=== PATIENT | female | born 1945 | race Caucasian/White ===

== ENCOUNTER 2018-01-18 15:43 | Inpatient (IN) | payer MEDICARE ==
[2018-01-18] MEDS ORDERED: NS 0.9% 1000 ML*IV.FLUID IV ONE (16:14)
[2018-01-18 16:33] LABS: Urine Color Red; Urine Specific Gravity 1.024 (1.010-1.030)
[2018-01-18 16:38] LABS: Urine Appearance Cloudy
[2018-01-18 16:54] LABS: ABS Basophils 0 10^3/ul (0-0.2); ABS Eosinophils 0 10^3/ul (0-0.6); ABS Lymphocytes 0.5 10^3/ul (1.0-4.8); ABS Monocytes 0.3 10^3/ul (0-0.8); ABS Neutrophils 1.7 10^3/ul (1.5-7.7); ABS Nucleated RBC 0 10^3/ul; Eosinophil % 0.6 % (0-6); Hematocrit 42 % (35-47); Hemoglobin 13.8 g/dl (12.0-16.0); Lymphocyte % 20.7 % (25-47); Mean Corpuscular HGB Conc 33 g/dl (31-36); Mean Corpuscular Hemoglobin 26 pg (27-31); Mean Corpuscular Volume 78 fL (80-97); Nucleated Red Blood Cells % 0.2; Platelet Count 203 10^3/ul (150-450); Red Cell Distribution Width 16 % (10.5-15); White Blood Count 2.5 10^3/ul (3.5-10.8)
[2018-01-18 16:56] LABS: INR 0.93 (0.77-1.02)
[2018-01-18 17:36] LABS: EGFR Non-African American 66.6 (>60)
[2018-01-18] MEDS ORDERED: cefTRIAXone(*) 1 GM in NS 0.9% 50 ML* 50 ML IVPB ONE (17:36)
--- NOTE | 2018-01-18 17:42 | RAD ---
INDICATION: Cough and weakness COMPARISON: None. TECHNIQUE: Single AP portable view of the chest was obtained. FINDINGS: Image quality is compromised due to the relative inferiority of a portable chest x-ray. The heart and mediastinum exhibit normal size and contour. The lungs are grossly clear. There is no evidence of a large pleural effusion. Visualized bones are normal for the patient's age. IMPRESSION: No radiographic evidence for acute cardiopulmonary abnormality on this portable chest x-ray.
[2018-01-18] MEDS ORDERED: Oseltamivir CAP* 75 MG CAP PO ONE (17:43)
[2018-01-18] MEDS ORDERED: NS 0.9% 50 ML* 50 ML ONE (17:58)
[2018-01-18] MEDS ORDERED: cefTRIAXone 1000 MG SYRINGE IVPB ONCE (in NaCl) IVPB ONE ×2 (18:30)
[2018-01-18] MEDS ORDERED: Potassium Chlor TAB* 20 MEQ TAB.ER PO ONE (18:32)
[2018-01-18] MEDS ORDERED: Ondansetron INJ* 2 MG/ML VIAL IV PRN (18:32)
--- NOTE | 2018-01-18 18:42 | ED ---
Kristi Michaud Rebecca, scribed for Antony Catherine MD on 01/18/18 at 1612 . Complex/Multi-Sys Presentation - HPI Summary HPI Summary: Pt is a 72 y/o F BIBA who presents to ED c/o acute on chronic weakness. Pt reports that she had been trying to transfer from her wheelchair to a chair when she fell at 1500 due to feeling weak. Feels as though she has been becoming gradually weaker over time. Additionally c/o nonproductive cough, subjective fever and notes that her urine has been dark for about 2 months. States that she feels dehydrated. Denies abd pain. PMHx MS with chronic weakness for which she sees Dr. Steen. Lives alone and typically uses a wheelchair. - History Of Current Complaint Chief Complaint: EDWeakness Time Seen by Provider: 01/18/18 16:00 Hx Obtained From: Patient Onset/Duration: Still Present Severity Currently: None Location: Negative Associated Signs And Symptoms: Positive: Weakness - Allergies/Home Medications Allergies/Adverse Reactions: Allergies Allergy/AdvReac Type Severity Reaction Status Date / Time ibuprofen Allergy Mild GI Upset Verified 01/18/18 16:06 Home Medications: Home Medications Alendronate (NF) [Fosamax (NF)] 70 mg PO WEEKLY 01/18/18 [History Confirmed ] Baclofen TAB* [Lioresal TAB*] 20 mg PO BID 01/18/18 [History Confirmed 01/18/18] Fluconazole [Fluconazole 200 mg tab] 200 mg PO DAILY 01/18/18 [History Confirmed 01/18/18] Gabapentin CAP(*) [Neurontin 300 CAP(*)] 300 mg PO DAILY 01/18/18 [History Confirmed 01/18/18] Hydrochlorothiazide TAB* [Hydrodiuril TAB*] 25 mg PO DAILY 01/18/18 [History Confirmed 01/18/18] Levothyroxine TAB* [Synthroid TAB*] 137 mcg PO DAILY 01/18/18 [History Confirmed 01/18/18] Metoprolol Succinate XL TAB* [Toprol XL TAB*] 25 mg PO DAILY 01/18/18 [History Confirmed 01/18/18] Oxybutynin XL TAB* [Ditropan XL TAB*] 10 mg PO DAILY 01/18/18 [History Confirmed 01/18/18] Rivaroxaban TAB(*) [Xarelto 10 mg (*)] 10 mg PO DAILY 01/18/18 [History Confirmed 01/18/18] PMH/Surg Hx/FS Hx/Imm Hx Cardiovascular History: Reports: Hx Atrial Fibrillation, Hx Hypertension Neurological History: Reports: Other Neuro Impairments/Disorders - Hx MS Infectious Disease History: No Infectious Disease History: Denies: Traveled Outside the [place] in Last 30 Days - Family History Known Family History: Negative: Hypertension, Diabetes - Social History Lives: Alone Alcohol Use: Occasionally Substance Use Type: Reports: None Smoking Status (MU): Former Smoker Review of Systems Positive: Fever, Other - Fall earlier today Positive: Cough Negative: Abdominal Pain Positive: other - Dark urine Positive: Weakness All Other Systems Reviewed And Are Negative: Yes Physical Exam - Summary Physical Exam Summary: General: well-appearing, no pain distress Skin: warm, color reflects adequate perfusion, dry Head: normal Eyes: EOMI, RU ENT: oral mucosa dry Neck: supple, nontender Respiratory: CTA, breath sounds present Cardiovascular: Tachycardic Abdomen: soft, nontender Bowel: present Musculoskeletal: does not move her right leg, which she reports is chronic, otherwise normal strength/ROM Neurological: normal, sensory/motor intact, A&O x3 Psychological: affect/mood appropriate Triage Information Reviewed: Yes Vital Signs On Initial Exam: Initial Vitals Temp Pulse Resp BP Pulse Ox 99.9 F 97 24 104/66 94 01/18/18 16:01 01/18/18 16:01 01/18/18 16:01 01/18/18 16:01 01/18/18 16:01 Vital Signs Reviewed: Yes Diagnostics - Vital Signs Vital Signs Temp Pulse Resp BP Pulse Ox 01/18/18 16:01 99.9 F 97 24 104/66 94 - Laboratory Lab Results: Lab Results 01/18/18 01/18/18 01/18/18 Range/Units 16:15 16:22 16:32 WBC (3.5-10.8) 10^3/ul RBC (4.0-5.4) 10^6/ul Hgb (12.0-16.0) g/dl Hct (35-47) % MCV (80-97) fL MCH (27-31) pg MCHC (31-36) g/dl RDW (10.5-15) % Plt Count (150-450) 10^3/ul MPV (7.4-10.4) um3 Neut % (Auto) (38-83) % Lymph % (Auto) (25-47) % [place] % (Auto) (0-7) % Eos % (Auto) (0-6) % Baso % (Auto) (0-2) % Absolute Neuts (auto) (1.5-7.7) 10^3/ul Absolute Lymphs (auto) (1.0-4.8) 10^3/ul Absolute Monos (auto) (0-0.8) 10^3/ul Absolute Eos (auto) (0-0.6) 10^3/ul Absolute Basos (auto) (0-0.2) 10^3/ul Absolute Nucleated RBC 10^3/ul Nucleated RBC % INR (Anticoag Therapy) 0.93 (0.77-1.02) APTT 33.1 (26.0-36.3) seconds Sodium (139-145) mmol/L Potassium (3.5-5.0) mmol/L Chloride (101-111) mmol/L Carbon Dioxide (22-32) mmol/L Anion Gap (2-11) mmol/L BUN (6-24) mg/dL Creatinine (0.51-0.95) mg/dL Est GFR ( Amer) (>60) Est GFR (Non-Af Amer) (>60) BUN/Creatinine Ratio (8-20) Glucose (70-100) mg/dL Lactic Acid (0.5-2.0) mmol/L Calcium (8.6-10.3) mg/dL Total Bilirubin (0.2-1.0) mg/dL AST (13-39) U/L ALT (7-52) U/L Alkaline Phosphatase (34-104) U/L Total Creatine Kinase (10-223) U/L Troponin I (<0.04) ng/mL C-Reactive Protein (< 5.00) mg/L B-Natriuretic Peptide ( - 100) pg/mL Total Protein (6.4-8.9) g/dL Albumin (3.2-5.2) g/dL Globulin (2-4) g/dL Albumin/Globulin Ratio (1-3) Lipase (11.0-82.0) U/L Urine Color Red A Urine Appearance Cloudy Urine pH (5-9) Ur Specific [place] 1.024 (1.010-1.030) Urine Protein (Negative) Urine Ketones (Negative) Urine Blood (Negative) Urine Nitrate (Negative) Urine Bilirubin (Negative) Urine Urobilinogen (Negative) Ur Leukocyte Esterase (Negative) Urine WBC (Auto) 1+(6-10/hpf) A (Absent) Urine RBC (Auto) 3+(>10/hpf) A (Absent) Uric Acid Crystals Present A (Absent) Urine Bacteria 1+ A (Absent) Urine Glucose (Negative) Urine Ascorbic Acid (Negative) Influenza A (Rapid) Positive A (Negative) Influenza B (Rapid) Negative (Negative) 01/18/18 01/18/18 01/18/18 Range/Units 16:32 16:32 16:32 WBC 2.5 L (3.5-10.8) 10^3/ul RBC 5.40 (4.0-5.4) 10^6/ul Hgb 13.8 (12.0-16.0) g/dl Hct 42 (35-47) % MCV 78 L (80-97) fL MCH 26 L (27-31) pg MCHC 33 (31-36) g/dl RDW 16 H (10.5-15) % Plt Count 203 (150-450) 10^3/ul MPV 8.0 (7.4-10.4) um3 Neut % (Auto) 66.2 (38-83) % Lymph % (Auto) 20.7 L (25-47) % [place] % (Auto) 11.7 H (0-7) % Eos % (Auto) 0.6 (0-6) % Baso % (Auto) 0.8 (0-2) % Absolute Neuts (auto) 1.7 (1.5-7.7) 10^3/ul Absolute Lymphs (auto) 0.5 L (1.0-4.8) 10^3/ul Absolute Monos (auto) 0.3 (0-0.8) 10^3/ul Absolute Eos (auto) 0 (0-0.6) 10^3/ul Absolute Basos (auto) 0 (0-0.2) 10^3/ul Absolute Nucleated RBC 0 10^3/ul Nucleated RBC % 0.2 INR (Anticoag Therapy) (0.77-1.02) APTT (26.0-36.3) seconds Sodium 133 L (139-145) mmol/L Potassium 3.4 L (3.5-5.0) mmol/L Chloride 93 L (101-111) mmol/L Carbon Dioxide 23 (22-32) mmol/L Anion Gap 17 H (2-11) mmol/L BUN 24 (6-24) mg/dL Creatinine 0.84 (0.51-0.95) mg/dL Est GFR ( Amer) 85.7 (>60) Est GFR (Non-Af Amer) 66.6 (>60) BUN/Creatinine Ratio 28.6 H (8-20) Glucose 99 (70-100) mg/dL Lactic Acid 1.2 (0.5-2.0) mmol/L Calcium 9.9 (8.6-10.3) mg/dL Total Bilirubin 0.30 (0.2-1.0) mg/dL AST 95 H (13-39) U/L ALT 59 H (7-52) U/L Alkaline Phosphatase 110 H (34-104) U/L Total Creatine Kinase 58 (10-223) U/L Troponin I 0.02 (<0.04) ng/mL C-Reactive Protein 9.34 H (< 5.00) mg/L B-Natriuretic Peptide ( - 100) pg/mL Total Protein 8.0 (6.4-8.9) g/dL Albumin 4.4 (3.2-5.2) g/dL Globulin 3.6 (2-4) g/dL Albumin/Globulin Ratio 1.2 (1-3) Lipase 12 (11.0-82.0) U/L Urine Color Urine Appearance Urine pH (5-9) Ur Specific [place] (1.010-1.030) Urine Protein (Negative) Urine Ketones (Negative) Urine Blood (Negative) Urine Nitrate (Negative) Urine Bilirubin (Negative) Urine Urobilinogen (Negative) Ur Leukocyte Esterase (Negative) Urine WBC (Auto) (Absent) Urine RBC (Auto) (Absent) Uric Acid Crystals (Absent) Urine Bacteria (Absent) Urine Glucose (Negative) Urine Ascorbic Acid (Negative) Influenza A (Rapid) (Negative) Influenza B (Rapid) (Negative) 01/18/18 Range/Units 16:32 WBC (3.5-10.8) 10^3/ul RBC (4.0-5.4) 10^6/ul Hgb (12.0-16.0) g/dl Hct (35-47) % MCV (80-97) fL MCH (27-31) pg MCHC (31-36) g/dl RDW (10.5-15) % Plt Count (150-450) 10^3/ul MPV (7.4-10.4) um3 Neut % (Auto) (38-83) % Lymph % (Auto) (25-47) % [place] % (Auto) (0-7) % Eos % (Auto) (0-6) % Baso % (Auto) (0-2) % Absolute Neuts (auto) (1.5-7.7) 10^3/ul Absolute Lymphs (auto) (1.0-4.8) 10^3/ul Absolute Monos (auto) (0-0.8) 10^3/ul Absolute Eos (auto) (0-0.6) 10^3/ul Absolute Basos (auto) (0-0.2) 10^3/ul Absolute Nucleated RBC 10^3/ul Nucleated RBC % INR (Anticoag Therapy) (0.77-1.02) APTT (26.0-36.3) seconds Sodium (139-145) mmol/L Potassium (3.5-5.0) mmol/L Chloride (101-111) mmol/L Carbon Dioxide (22-32) mmol/L Anion Gap (2-11) mmol/L BUN (6-24) mg/dL Creatinine (0.51-0.95) mg/dL Est GFR ( Amer) (>60) Est GFR (Non-Af Amer) (>60) BUN/Creatinine Ratio (8-20) Glucose (70-100) mg/dL Lactic Acid (0.5-2.0) mmol/L Calcium (8.6-10.3) mg/dL Total Bilirubin (0.2-1.0) mg/dL AST (13-39) U/L ALT (7-52) U/L Alkaline Phosphatase (34-104) U/L Total Creatine Kinase (10-223) U/L Troponin I (<0.04) ng/mL C-Reactive Protein (< 5.00) mg/L B-Natriuretic Peptide 167 H ( - 100) pg/mL Total Protein (6.4-8.9) g/dL Albumin (3.2-5.2) g/dL Globulin (2-4) g/dL Albumin/Globulin Ratio (1-3) Lipase (11.0-82.0) U/L Urine Color Urine Appearance Urine pH (5-9) Ur Specific [place] (1.010-1.030) Urine Protein (Negative) Urine Ketones (Negative) Urine Blood (Negative) Urine Nitrate (Negative) Urine Bilirubin (Negative) Urine Urobilinogen (Negative) Ur Leukocyte Esterase (Negative) Urine WBC (Auto) (Absent) Urine RBC (Auto) (Absent) Uric Acid Crystals (Absent) Urine Bacteria (Absent) Urine Glucose (Negative) Urine Ascorbic Acid (Negative) Influenza A (Rapid) (Negative) Influenza B (Rapid) (Negative) Result Diagrams: 01/18/18 16:32 01/18/18 16:32 Lab Statement: Any lab studies that have been ordered have been reviewed, and results considered in the medical decision making process. - Radiology CXR Xray Interpretation: No Acute Changes - No radiographic evidence for acute cardiopulmonary abnormality on this portable chest x-ray. ED physician reviewed this radiology report. Radiology Interpretation Completed By: Radiologist - EKG 1622 Cardiac Rate: NL - 75 bpm EKG Rhythm: Atrial Fibrillation EKG Interpretation: Low voltage in extremity leads Complex Multi-Symp Course/Dx Course Of Treatment: ADMIT HOSPITALIST Assessment/Plan: Medications reviewed. Allergies noted. - Diagnoses Provider Diagnoses: Influenza, Weakness, Dehydration, UTI (urinary tract infection) - Physician Notifications Discussed Care Of Patient With: Lorraine Monte Time Discussed With Above Provider: 17:47 Instructed by Provider To: Other - Accepts pt for admission. Discharge - Sign-Out/Discharge Documenting (check all that apply): Discharge - Discharge Plan Condition: Fair Disposition: ADMITTED TO [facility] Referrals: Juliana Reeves MD [Primary Care Provider] - - Billing Disposition and Condition Condition: FAIR Disposition: [facility] [place] The documentation as recorded by the Kristi gaston Rebecca accurately reflects the service I personally performed and the decisions made by , Antony Catherine MD.
[2018-01-18] MEDS ORDERED: cefTRIAXone(*) 1 GM in NS 0.9% 50 ML* 50 ML IVPB SCH (19:00)
--- NOTE | 2018-01-18 19:14 | RAD ---
HISTORY: Elevated LFTs COMPARISONS: None TECHNIQUE: Multiple transverse and longitudinal ultrasound images were obtained of the right upper quadrant. FINDINGS: The examination is limited by the patient coughing and limitations in positioning. LIVER: The liver is normal in dimensions and echogenicity. Normal hepatic and portal venous blood flow is duplicated with color flow imaging. There is no gross intrahepatic biliary duct dilatation. GALLBLADDER AND EXTRAHEPATIC BILIARY DUCT: There are mobile shadowing echogenic stones in the gallbladder lumen.. There is no pericholecystic fluid or gallbladder wall thickening. The common bile duct measures a maximum diameter of 3 mm. PANCREAS: Overlying bowel gas prevents meaningful evaluation of the pancreas. RIGHT KIDNEY: The right kidney is normal in size, morphology and echogenicity aside from a 1 cm mid-level renal cyst. IMPRESSION: CHOLELITHIASIS WITHOUT SONOGRAPHIC SIGNS OF ACUTE INFLAMMATORY CHANGE OR BILIARY OBSTRUCTION.
[2018-01-18] MEDS: NS 0.9% 1000 ML* 1,000 ML IV SCH (21:21)
[2018-01-18] MEDS: Oseltamivir CAP* 75 MG CAP PO SCH (22:55)
[2018-01-18] MEDS: Baclofen TAB* 10 MG PO SCH (22:56)
[2018-01-18] MEDS: PTO:Dimethyl Fumarate(NF) 240 MG CAP PO SCH (23:01)
--- NOTE | 2018-01-18 23:07 | HP ---
CC: Juliana Reeves MD; Dr. Finley * HISTORY AND PHYSICAL: DATE OF ADMISSION: 01/18/18 PRIMARY CARE PROVIDER: Dr. Reeves. ATTENDING PHYSICIAN WHILE IN THE HOSPITAL: Charles Bermudez MD * (report dictated by Andres Pino NP) CHIEF COMPLAINT: Weakness. HISTORY OF PRESENT ILLNESS: Mrs. Ayala is a 72-year-old female patient. She has a history of MS, AFib, hypothyroidism, and neurogenic bladder with a chronic Chaudhari. She comes in to our ER today. She says that she was recently over at [facility] actually over 3 months ago and then went to rehab for 3 months over at [place]. I am going to try to get those records because she does not know the details of why. She states that she went there just for weakness. She says that she was just discharged about 6 days ago. She says for the initial couple days, she was doing well, but then she says over the last 4 days, she has had progressive cough, shortness of breath, fevers, chills , worsening weakness, just not really feeling well. She just was feeling tired. She also notes that she has been having hematuria as well, which she states she has been following with Dr. Finley. She saw him recently for this. The patient says that she just is not feeling well. She came in to the ED today. She was evaluated. She was found to have influenza and what appeared to be a UTI. The patient denies having any chest pain. She does state that she is not feeling short of breath. She says that she is not having any nausea, vomiting, or diarrhea; but because of the fact of the MS, worsening weakness, the flu, the hematuria now, the UTI, we were asked to evaluate for admission. PAST MEDICAL HISTORY: Significant for: 1. MS. 2. AFib. 3. Hypothyroidism. 4. Neurogenic bladder. PAST SURGICAL HISTORY: 1. She has had a thyroidectomy. 2. 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 3. She has had ORIF of bilateral lower ankles. HOME MEDICATIONS: Include: 1. Neurontin 300 mg p.o. daily. 2. Oxybutynin 10 mg p.o. daily. 3. Fosamax 70 mg weekly. 4. Fluconazole 200 mg p.o. daily. 5. Toprol 25 mg daily. 6. Synthroid 137 mcg daily. 7. Hydrochlorothiazide 25 mg daily. 8. Baclofen 20 mg p.o. b.i.d. 9. Xarelto 10 mg p.o. daily. ALLERGIES TO MEDICATIONS: Include IBUPROFEN. FAMILY HISTORY: Mother has a history of CVA. Father's history is reviewed and noncontributory. She said he when he was young in a car accident. SOCIAL HISTORY: She does not smoke. She does not drink. She lives alone. Surrogate decision maker is her sister. REVIEW OF SYSTEMS: There is no documented fever her. She does subjectively admit to having a fever at home. She denies having any significant weight change. No double vision. No ear discharge. She denies having any rhinorrhea. No sore throat. No thyroid enlargement. She denies having any chest pain. She did admit to having a cough. She does admit to having shortness of breath. She denies having any abdominal pain. There has been no nausea, no vomiting, no dysuria, no frequency. She denied having any seizure. No loss of consciousness. No pruritus and no skin ulcerations. Review of 14 systems completed, all others negative. PHYSICAL EXAMINATION GENERAL: At this time, Mrs. Ayala is a 72-year-old female patient. She is sitting in the ED stretcher. She does not appear to be in any acute distress. VITAL SIGNS: Blood pressure 104/66, pulse 97, respirations 20, O2 sat 94%, temperature 99.9. HEENT: Head: Atraumatic, normocephalic. Eyes: EOMs intact. Sclerae anicteric, not pale. Throat: Oral mucosa appears to be dry. No oropharyngeal erythema. NECK: Supple. LUNGS: No wheezes or rales heard. She had rhonchi in the upper lobes. No crackles. HEART: Sounds S1, S2. Regular rate and rhythm. No murmurs, rubs, or gallops. ABDOMEN: Soft. It was flat, nontender. No CVA tenderness. EXTREMITIES: Pulses were 2+ throughout. She has weakness to the lower extremities. She had 5/5 strength in the upper extremities. NEUROLOGIC: The patient is awake. She is alert. She is oriented x3. Again, weakness to bilateral lower extremities. She had no gross focal neuro deficits. SKIN: Intact. LABORATORY DATA/DIAGNOSTIC STUDIES: WBC of 2.5, RBC of 5.40, hemoglobin of 13.8, hematocrit of 42, platelet count of 203. The INR was 0.93. PTT of 33.1. Sodium 133, potassium of 3.4, chloride of 93, bicarb of 23, BUN of 24, creatinine of 0.84, glucose of 99. Lactate 1.2. Calcium 9.9. Total bili 0.3, AST 95, ALT 59, alk phos 110. Troponin 0.02. CRP of 9. BNP of 167. Lipase was 12. Urine showed 1+ wbc, 3+ rbc's, 1+ bacteria. Serology positive for flu. The patient did have a chest x-ray obtained today, which revealed no radiographic evidence for acute cardiopulmonary abnormality on this portable x- ray. She did have an EKG obtained today. I do not have a previous for comparison, but it does show atrial fibrillation with LVH, no ST elevations or T wave inversions were noted. Old medical records were reviewed. ASSESSMENT AND PLAN: Mrs. Ayala is a 72-year-old female patient coming in to the ED today with complaints of cough, weakness, chills and overall not feeling well. On evaluation, found to have influenza and urinary tract infection. She will be admitted under inpatient status for: 1. Sepsis secondary to influenza. She was leukopenic when she came in. She was also slightly tachypneic. She did get 2 L of fluid. She was tachycardic when she came in as well. She got 2 L of fluid. Blood cultures were sent. Urine culture was sent. The plan will be to go ahead and treat the urinary tract infection, change out her catheter. I am going to go ahead and put her on Rocephin. Await culture and we will also place her on Tamiflu and I will order p.r.n. albuterol should she need anything for shortness of breath, though she has not been having any issues down here. 2. Hematuria. This is probably secondary to urinary tract infection. I did touch base with Urology. The plan will be to go ahead and treat the urinary tract infection. If it does not clear, we will certainly get more official consult. I am continuing her Xarelto for the time being. Her H and H is stable. She states she has been having the hematuria for several days now. So , at this point, we will just continue to monitor her H and H, continue the Xarelto and again treat the urinary tract infection. 3. Multiple sclerosis. Continue supportive care. I have ordered PT. She may need rehab. Continue with baclofen. 4. Atrial fibrillation. Continue Xarelto, metoprolol. 5. Hypothyroidism. Continue Synthroid. 6. Neurogenic bladder. Again, she does have an underlying UTI. I will place her on the Rocephin. I will also replace her catheter and we will get fresh cultures from this. Also continue her Ditropan. 7. Osteoporosis. Follow up with primary. 8. Hyponatremia. It is mild and is probably secondary to hydrochlorothiazide. We will hold this, hydrate her and follow. 9. Hypokalemia. I am replacing this. 10. Elevated LFTs. Probably secondary to the fluconazole. It is unclear why she has been on this and why she has been taking it daily. I am going to try to get records from [place]. She may have had a yeast infection. No complaints currently of this, but we are going to hold it because of the LFTs being up, get an ultrasound. Continue to follow. 11. DVT prophylaxis. She is on Xarelto. 12. Code status. Full code. 13. Fluids, electrolytes, and nutrition. She can have a regular diet. TIME SPENT: Time spent on the admission 60 minutes, greater than half the time was spent [id number] with the patient obtaining my history and physical, other half the time was spent going over the plan of care with the patient and implementing plan of care. I did discuss the plan of care with my attending, Dr. Bermudez; he is in agreement. ANDRES PINO, ANURADHA [id number]/MELECIO #: [id number] SHERRIE
[2018-01-19] MEDS: Levothyroxine TAB* 137 MCG TAB PO SCH (05:41)
[2018-01-19 06:59] LABS: INR 0.97 (0.77-1.02)
[2018-01-19 07:02] LABS: Hematocrit 36 % (35-47); Mean Corpuscular HGB Conc 33 g/dl (31-36); Mean Corpuscular Hemoglobin 26 pg (27-31); Mean Corpuscular Volume 78 fL (80-97); Platelet Count 158 10^3/ul (150-450); Red Blood Count 4.61 10^6/ul (4.0-5.4); Red Cell Distribution Width 17 % (10.5-15); White Blood Count 1.7 10^3/ul (3.5-10.8)
[2018-01-19 07:17] LABS: ABS Neutrophils 0.6 10^3/ul (1.5-7.7)
[2018-01-19 07:20] LABS: EGFR Non-African American 113.4 (>60)
[2018-01-19 07:39] LABS: ABS Basophils 0 10^3/ul (0-0.2); ABS Eosinophils 0.1 10^3/ul (0-0.6); ABS Lymphocytes 0.7 10^3/ul (1.0-4.8); ABS Monocytes 0.2 10^3/ul (0-0.8); ABS Nucleated RBC 0 10^3/ul; Lymphocyte % 43.4 % (25-47); Nucleated Red Blood Cells % 0.5
[2018-01-19] MEDS: PTO:Dimethyl Fumarate(NF) 240 MG CAP PO SCH ×2 (08:11→21:47)
[2018-01-19] MEDS: Baclofen TAB* 10 MG PO SCH ×2 (08:11→21:47)
[2018-01-19] MEDS: Gabapentin CAP(*) 300 MG PO SCH (08:12)
[2018-01-19] MEDS: Oseltamivir CAP* 75 MG CAP PO SCH ×2 (08:13→21:47)
[2018-01-19] MEDS: Metoprolol Succinate XL TAB* 25 MG PO SCH (08:13)
[2018-01-19] MEDS: NS 0.9% 1000 ML* 1,000 ML IV SCH (08:16)
[2018-01-19] MEDS: Rivaroxaban TAB(*) 10 MG PO SCH (08:25)
[2018-01-19] MEDS: Oxybutynin XL TAB* 5 MG PO SCH (08:25)
[2018-01-19] MEDS ORDERED: Potassium Chlor TAB* 20 MEQ TAB.ER PO ONE (14:40)
--- NOTE | 2018-01-19 16:31 | PN ---
Subjective Date of Service: 01/19/18 Interval History: Pt with some light headedness this AM. PSDA in urine. Initial name was incorrect. She was actually from [facility] to [facility], not from [facility] ANC dropped to 600. Placed on neutropenic precautions. nonproductive cough since tuesday. Objective Active Medications: Acetaminophen (Tylenol Tab*) 650 mg PO Q4H PRN PRN Reason: FEVER/PAIN Albuterol (Ventolin 2.5 Mg/3 Ml Neb.Natacha*) 2.5 mg INH Q2H PRN PRN Reason: SOB/WHEEZING Baclofen (Lioresal Tab*) 20 mg PO BID [facility] Last Admin: 01/19/18 08:11 Dose: 20 mg Dimethyl Fumarate (Tecfidera(Nf)) 240 mg PO BID [facility] Last Admin: 01/19/18 08:11 Dose: 240 mg Gabapentin (Neurontin Cap(*)) 300 mg PO DAILY [facility] Last Admin: 01/19/18 08:12 Dose: 300 mg Sodium Chloride (Ns 0.9% 1000 Ml*) 1,000 mls @ 100 mls/hr IV PER RATE [facility] Stop: 01/20/18 04:44 Last Admin: 01/19/18 08:16 Dose: 100 mls/hr Ceftriaxone Sodium 1,000 mg/ (Sodium Chloride) 10 mls @ 40 mls/hr IVPB Q24H [facility] Levothyroxine Sodium (Synthroid Tab*) 137 mcg PO DAILY@0600 [facility] Last Admin: 01/19/18 05:41 Dose: 137 mcg Metoprolol Succinate (Toprol Xl Tab*) 25 mg PO DAILY [facility] Last Admin: 01/19/18 08:13 Dose: 25 mg Ondansetron HCl (Zofran Inj*) 4 mg IV Q6H PRN PRN Reason: NAUSEA Oseltamivir Phosphate (Tamiflu Cap*) 75 mg PO BID [facility] Stop: 01/23/18 09:01 Last Admin: 01/19/18 08:13 Dose: 75 mg Oxybutynin Chloride (Ditropan Xl Tab*) 10 mg PO DAILY [facility] Last Admin: 01/19/18 08:25 Dose: 10 mg Rivaroxaban (Xarelto(*)) 10 mg PO DAILY [facility] Last Admin: 01/19/18 08:25 Dose: 10 mg Vital Signs - 8 hr 03/01/19/18 01/19/18 08:37 09:28 11:11 Temperature 98.1 F Pulse Rate 65 Respiratory 14 16 16 Rate Blood Pressure 87/65 (mmHg) O2 Sat by Pulse 94 Oximetry 01/19/18 01/19/18 11:15 15:12 Temperature 97.8 F Pulse Rate 78 Respiratory 17 Rate Blood Pressure 110/72 115/74 (mmHg) O2 Sat by Pulse 97 95 Oximetry Oxygen Devices in Use Now: None Appearance: NAD, sitting up in hospital bed. Eyes: No Scleral Icterus, PERRLA Ears/Nose/Mouth/Throat: NL Teeth, Lips, Gums, Mucous Membranes Moist Respiratory: Symmetrical Chest Expansion and Respiratory Effort, Clear to Auscultation Cardiovascular: NL Sounds; No Murmurs; No JVD, RRR, No Edema Abdominal: NL Sounds; No Tenderness; No Distention, No Hepatosplenomegaly Extremities: No Edema, - - right knee with effusion, bandage laterally. no erythema or warmth. Skin: No Rash or Ulcers Neurological: Alert and Oriented x 3 Nutrition: Taking PO's Result Diagrams: 01/19/18 06:41 01/19/18 06:41 Additional Lab and Data: Laboratory Results - last 24 hr 01/18/18 01/18/18 01/19/18 16:22 21:47 06:40 WBC RBC Hgb Hct MCV MCH MCHC RDW Plt Count MPV Neut % (Auto) Lymph % (Auto) Rhea % (Auto) Eos % (Auto) Baso % (Auto) Absolute Neuts (auto) Absolute Lymphs (auto) Absolute Monos (auto) Absolute Eos (auto) Absolute Basos (auto) Absolute Nucleated RBC Nucleated RBC % INR (Anticoag Therapy) 0.97 Sodium Potassium Chloride Carbon Dioxide Anion Gap BUN Creatinine Est GFR ( Amer) Est GFR (Non-Af Amer) BUN/Creatinine Ratio Glucose Lactic Acid 2.0 Calcium Influenza A (Rapid) Positive A Influenza B (Rapid) Negative 01/19/18 01/19/18 06:41 06:41 WBC 1.7 L RBC 4.61 Hgb 12.0 Hct 36 MCV 78 L MCH 26 L MCHC 33 RDW 17 H Plt Count 158 MPV 8.0 Neut % (Auto) 35.9 L Lymph % (Auto) 43.4 Rhea % (Auto) 15.3 H Eos % (Auto) 4.0 Baso % (Auto) 1.4 Absolute Neuts (auto) 0.6 L* Absolute Lymphs (auto) 0.7 L Absolute Monos (auto) 0.2 Absolute Eos (auto) 0.1 Absolute Basos (auto) 0 Absolute Nucleated RBC 0 Nucleated RBC % 0.5 INR (Anticoag Therapy) Sodium 136 L Potassium 3.4 L Chloride 102 Carbon Dioxide 22 Anion Gap 12 H BUN 14 Creatinine 0.53 Est GFR ( Amer) 145.8 Est GFR (Non-Af Amer) 113.4 BUN/Creatinine Ratio 26.4 H Glucose 95 Lactic Acid Calcium 8.6 Influenza A (Rapid) Influenza B (Rapid) Microbiology and Other Data: Microbiology 01/18/18 17:00 Blood Venous Aerobic Blood Culture - Preliminary No Growth Day 1 01/18/18 17:00 Blood Venous Anaerobic Blood Culture - Preliminary No Growth Day 1 01/18/18 16:32 Blood Venous Aerobic Blood Culture - Preliminary No Growth Day 1 01/18/18 16:32 Blood Venous Anaerobic Blood Culture - Preliminary No Growth Day 1 01/18/18 16:15 Urine Urine Culture - Preliminary Pseudomonas Aeruginosa 01/18/18 16:15 Nasal Influenza Types A,B Antigen (CLAUDIA) - Final Specimen received for Influenza A/B Molecular testing Assess/Plan/Problems-Billing Assessment: 72 yo female PMH severe MS, Afib, right knee hardware subluxation and yeast infection, neurogenic bladder w/ chronic pal p/w nonproductive cough, sepsis, Influenza A and psuedomonas in UCx. moderate neutropenia. #Sepsis w/ tachypnea, Neutropenia - tamiflu - UCx with psuedomonas. Changed cftx to zosyn - recent ESBL UTI s/p 7 days cipro - s/p IVF - f/u with Dr. Raman as outpatient. - neutropenic precautions #MS - clarify if still on tecfidera (dimethyl fumerate) #Afib - continue xarelto. looks like was started for dvt ppx dosing in setting of knee surgery. - CHADSVASC2 (gender, age, ?htn) plan to increase from 10mg daily to 15mg daily after discussing with her #right knee infection with yeast - continue fluconazole (week 3.5 of 6) diet: unrestricted CODE: FULL PT/OT: ordered. not clear safe for home. dispo: medicine inpatient
[2018-01-19] MEDS ORDERED: Piperacillin/Tazobac ADVAN(*) 3.375 GM in NS 0.9% 50 ML* 50 ML IVPB ONE (18:00)
[2018-01-19] MEDS ORDERED: Zosyn per Pharmacy* NOTE FOLLOW UP SCH (18:00)
[2018-01-19] MEDS ORDERED: cefTRIAXone 1000 MG SYRINGE IVPB Q24H (in NaCl) IVPB SCH ×2 (22:00)
[2018-01-19] MEDS: Piperacillin/Tazobactam 13.5 GM IV 24 hour continuous infusion IVPB SCH ×2 (22:20)
[2018-01-20] MEDS: Albuterol 2.5 MG/3 ML NEB.SOL* (0.083%) INH PRN ×3 (01:33→23:09)
[2018-01-20] MEDS ORDERED: Benzonatate CAP* 100 MG ONE (01:45)
[2018-01-20] MEDS: Benzonatate CAP* 100 MG PO PRN ×2 (01:46→22:52)
[2018-01-20] MEDS: Levothyroxine TAB* 137 MCG TAB PO SCH (06:15)
[2018-01-20 06:36] LABS: Hematocrit 36 % (35-47); Hemoglobin 12.1 g/dl (12.0-16.0); Mean Corpuscular HGB Conc 34 g/dl (31-36); Mean Corpuscular Hemoglobin 26 pg (27-31); Mean Corpuscular Volume 77 fL (80-97); Mean Platelet Volume 8.1 um3 (7.4-10.4); Platelet Count 163 10^3/ul (150-450); Red Blood Count 4.69 10^6/ul (4.0-5.4); Red Cell Distribution Width 16 % (10.5-15); White Blood Count 2.4 10^3/ul (3.5-10.8)
[2018-01-20 06:47] LABS: ABS Basophils 0 10^3/ul (0-0.2); ABS Eosinophils 0.1 10^3/ul (0-0.6); ABS Monocytes 0.3 10^3/ul (0-0.8); ABS Neutrophils 0.9 10^3/ul (1.5-7.7); ABS Nucleated RBC 0 10^3/ul; Eosinophil % 3.2 % (0-6); Lymphocyte % 44.1 % (25-47); Nucleated Red Blood Cells % 0.3
[2018-01-20] MEDS: Baclofen TAB* 10 MG PO SCH ×2 (08:50→20:57)
[2018-01-20] MEDS: PTO:Dimethyl Fumarate(NF) 240 MG CAP PO SCH ×2 (08:50→20:56)
[2018-01-20] MEDS: Gabapentin CAP(*) 300 MG PO SCH (08:51)
[2018-01-20] MEDS: Metoprolol Succinate XL TAB* 25 MG PO SCH (08:52)
[2018-01-20] MEDS: Oxybutynin XL TAB* 5 MG PO SCH (08:52)
[2018-01-20] MEDS: Oseltamivir CAP* 75 MG CAP PO SCH ×2 (08:52→20:56)
[2018-01-20] MEDS: Rivaroxaban TAB(*) 10 MG PO SCH (08:53)
--- NOTE | 2018-01-20 18:55 | PN ---
Subjective Date of Service: 01/20/18 Interval History: Tmax 100.1 slept poorly due to some breathing discomfort, felt better after a nebulizer treatment ANC improved to 900. able to walk with rolling walker with PT. Objective Active Medications: Acetaminophen (Tylenol Tab*) 650 mg PO Q4H PRN PRN Reason: FEVER/PAIN Albuterol (Ventolin 2.5 Mg/3 Ml Neb.Natacha*) 2.5 mg INH Q2H PRN PRN Reason: SOB/WHEEZING Last Admin: 01/20/18 08:00 Dose: 2.5 mg Baclofen (Lioresal Tab*) 20 mg PO BID [facility] Last Admin: 01/20/18 08:50 Dose: 20 mg Benzonatate (Tessalon Cap*) 100 mg PO BID PRN PRN Reason: COUGH Last Admin: 01/20/18 01:46 Dose: 100 mg Dimethyl Fumarate (Tecfidera(Nf)) 240 mg PO BID [facility] Last Admin: 01/20/18 08:50 Dose: 240 mg Gabapentin (Neurontin Cap(*)) 300 mg PO DAILY [facility] Last Admin: 01/20/18 08:51 Dose: 300 mg Piperacillin Sod/Tazobactam (Sod 13.5 gm/ Sodium Chloride) 500 mls @ 20.833 mls /hr IVPB Q24H [facility] Last Admin: 01/19/18 22:20 Dose: 20.833 mls/hr Levothyroxine Sodium (Synthroid Tab*) 137 mcg PO DAILY@0600 [facility] Last Admin: 01/20/18 06:15 Dose: 137 mcg Metoprolol Succinate (Toprol Xl Tab*) 25 mg PO DAILY [facility] Last Admin: 01/20/18 08:52 Dose: 25 mg Ondansetron HCl (Zofran Inj*) 4 mg IV Q6H PRN PRN Reason: NAUSEA Oseltamivir Phosphate (Tamiflu Cap*) 75 mg PO BID [facility] Stop: 01/23/18 09:01 Last Admin: 01/20/18 08:52 Dose: 75 mg Oxybutynin Chloride (Ditropan Xl Tab*) 10 mg PO DAILY [facility] Last Admin: 01/20/18 08:52 Dose: 10 mg Pharmacy Consult (Zosyn Per Pharmacy*) 1 note FOLLOW UP .ZOSYN PER PHARMACY [facility] Rivaroxaban (Xarelto(*)) 10 mg PO DAILY [facility] Last Admin: 01/20/18 08:53 Dose: 10 mg Vital Signs - 8 hr 01/20/18 01/20/18 01/20/18 11:37 11:50 15:31 Temperature 97.8 F 98.0 F Pulse Rate 64 74 Respiratory 16 16 Rate Blood Pressure 96/60 106/68 107/65 (mmHg) O2 Sat by Pulse 98 97 Oximetry Oxygen Devices in Use Now: None Appearance: NAD Eyes: No Scleral Icterus, PERRLA Ears/Nose/Mouth/Throat: NL Teeth, Lips, Gums, Mucous Membranes Moist Neck: NL Appearance and Movements; NL JVP, Trachea Midline Respiratory: Symmetrical Chest Expansion and Respiratory Effort, Clear to Auscultation Cardiovascular: NL Sounds; No Murmurs; No JVD, RRR Abdominal: NL Sounds; No Tenderness; No Distention, No Hepatosplenomegaly Extremities: No Edema, - - lateral right knee with bandage. Skin: No Rash or Ulcers Neurological: Alert and Oriented x 3, NL Sensation Nutrition: Taking PO's Result Diagrams: 01/20/18 06:05 01/19/18 06:41 Additional Lab and Data: Laboratory Results - last 24 hr 01/19/18 01/20/18 06:41 06:05 WBC 2.4 L RBC 4.69 Hgb 12.1 Hct 36 MCV 77 L MCH 26 L MCHC 34 RDW 16 H Plt Count 163 MPV 8.1 Neut % (Auto) 37.3 L Lymph % (Auto) 44.1 Josephine % (Auto) 14.6 H Eos % (Auto) 3.2 Baso % (Auto) 0.8 Absolute Neuts (auto) 0.9 L* Absolute Lymphs (auto) 1.0 Absolute Monos (auto) 0.3 Absolute Eos (auto) 0.1 Absolute Basos (auto) 0 Absolute Nucleated RBC 0 Nucleated RBC % 0.3 Hem Pathologist Commnt Microbiology and Other Data: Microbiology 01/18/18 17:00 Blood Venous Aerobic Blood Culture - Preliminary No Growth Day 2 01/18/18 17:00 Blood Venous Anaerobic Blood Culture - Preliminary No Growth Day 2 01/18/18 16:32 Blood Venous Aerobic Blood Culture - Preliminary No Growth Day 2 01/18/18 16:32 Blood Venous Anaerobic Blood Culture - Preliminary No Growth Day 2 01/18/18 16:15 Urine Urine Culture - Final Pseudomonas Aeruginosa 01/18/18 16:15 Nasal Influenza Types A,B Antigen (CLAUDIA) - Final Specimen received for Influenza A/B Molecular testing Assess/Plan/Problems-Billing Assessment: 72 yo female PMH severe multiple sclerosis, Afib, right knee hardware subluxation repair c/b celestine yeast infection, neurogenic bladder w/ chronic pal p/w nonproductive cough, sepsis, Influenza A and psuedomonas in UCx. moderate neutropenia. #resolving Sepsis w/ tachypnea, tachycardia, Neutropenia - continue tamiflu - UCx with psuedomonas. continue zosyn. plan cipro on d/c - recent ESBL UTI s/p 7 days cipro - s/p IVF - f/u with Dr. Raman as outpatient. - neutropenic precautions #MS - pt is still on tecfidera (dimethyl fumerate) and brought from home. #Afib - continue xarelto. looks like was started for dvt ppx dosing in setting of knee surgery. - CHADSVASC2 (gender, age, ?htn) consider increase from 10mg daily to 15mg daily after discussing with her #right knee infection with yeast - continue fluconazole (week 3.5 of 6) diet: unrestricted CODE: FULL PT/OT: likely will need TATUM dispo: medicine inpatient
[2018-01-20] MEDS: Acetaminophen TAB* 325 MG PO PRN (21:00)
[2018-01-20] MEDS: Piperacillin/Tazobactam 13.5 GM IV 24 hour continuous infusion IVPB SCH ×2 (22:44)
[2018-01-21] MEDS: Levothyroxine TAB* 137 MCG TAB PO SCH (06:26)
[2018-01-21 06:43] LABS: Hematocrit 37 % (35-47); Hemoglobin 12.2 g/dl (12.0-16.0); Mean Corpuscular HGB Conc 33 g/dl (31-36); Mean Corpuscular Hemoglobin 26 pg (27-31); Mean Corpuscular Volume 77 fL (80-97); Mean Platelet Volume 8.1 um3 (7.4-10.4); Platelet Count 150 10^3/ul (150-450); Red Blood Count 4.76 10^6/ul (4.0-5.4); Red Cell Distribution Width 16 % (10.5-15); White Blood Count 2.2 10^3/ul (3.5-10.8)
[2018-01-21 07:01] LABS: ABS Basophils 0 10^3/ul (0-0.2); ABS Eosinophils 0.1 10^3/ul (0-0.6); ABS Monocytes 0.3 10^3/ul (0-0.8); ABS Neutrophils 0.6 10^3/ul (1.5-7.7); ABS Nucleated RBC 0 10^3/ul; Eosinophil % 6.1 % (0-6); Lymphocyte % 48.5 % (25-47); Nucleated Red Blood Cells % 0.2
[2018-01-21 07:40] LABS: EGFR Non-African American 80.9 (>60)
[2018-01-21] MEDS: Gabapentin CAP(*) 300 MG PO SCH (08:59)
[2018-01-21] MEDS: Oxybutynin XL TAB* 5 MG PO SCH (08:59)
[2018-01-21] MEDS: PTO:Dimethyl Fumarate(NF) 240 MG CAP PO SCH ×2 (08:59→21:10)
[2018-01-21] MEDS: Rivaroxaban TAB(*) 10 MG PO SCH (08:59)
[2018-01-21] MEDS: Metoprolol Succinate XL TAB* 25 MG PO SCH (08:59)
[2018-01-21] MEDS: Baclofen TAB* 10 MG PO SCH ×2 (09:00→21:09)
[2018-01-21] MEDS: Oseltamivir CAP* 75 MG CAP PO SCH ×2 (09:00→21:09)
[2018-01-21] MEDS ORDERED: Magnesium Sulfate IV* 3 GM in NS 0.9% 100 ML* 100 ML IVPB ONE (09:49)
[2018-01-21] MEDS ORDERED: Magnesium Sulfate 2 GM IV IVPB ONE (10:00)
[2018-01-21] MEDS ORDERED: Magnesium Sulfate 1 GM IV* 1 GM/100 ML BAG IV ONE (11:00)
--- NOTE | 2018-01-21 14:06 | PN ---
Subjective Date of Service: 01/21/18 Interval History: Pt slept better, cough reduced. ANC fell to 600 from 900. Afebrile. Able to take few steps with walker with PT yesterday. Pt wanting to go home instead of any SNF. right knee pain 5/10 well controlled with tylenol Objective Active Medications: Acetaminophen (Tylenol Tab*) 650 mg PO Q4H PRN PRN Reason: FEVER/PAIN Last Admin: 01/20/18 21:00 Dose: 650 mg Albuterol (Ventolin 2.5 Mg/3 Ml Neb.Natacha*) 2.5 mg INH Q2H PRN PRN Reason: SOB/WHEEZING Last Admin: 01/20/18 23:09 Dose: 2.5 mg Baclofen (Lioresal Tab*) 20 mg PO BID [facility] Last Admin: 01/21/18 09:00 Dose: 20 mg Benzonatate (Tessalon Cap*) 100 mg PO BID PRN PRN Reason: COUGH Last Admin: 01/20/18 22:52 Dose: 100 mg Dimethyl Fumarate (Tecfidera(Nf)) 240 mg PO BID [facility] Last Admin: 01/21/18 08:59 Dose: 240 mg Gabapentin (Neurontin Cap(*)) 300 mg PO DAILY [facility] Last Admin: 01/21/18 08:59 Dose: 300 mg Piperacillin Sod/Tazobactam (Sod 13.5 gm/ Sodium Chloride) 500 mls @ 20.833 mls /hr IVPB Q24H [facility] Last Admin: 01/20/18 22:44 Dose: 20.833 mls/hr Levothyroxine Sodium (Synthroid Tab*) 137 mcg PO DAILY@0600 [facility] Last Admin: 01/21/18 06:26 Dose: 137 mcg Metoprolol Succinate (Toprol Xl Tab*) 25 mg PO DAILY [facility] Last Admin: 01/21/18 08:59 Dose: 25 mg Ondansetron HCl (Zofran Inj*) 4 mg IV Q6H PRN PRN Reason: NAUSEA Oseltamivir Phosphate (Tamiflu Cap*) 75 mg PO BID [facility] Stop: 01/23/18 09:01 Last Admin: 01/21/18 09:00 Dose: 75 mg Oxybutynin Chloride (Ditropan Xl Tab*) 10 mg PO DAILY [facility] Last Admin: 01/21/18 08:59 Dose: 10 mg Pharmacy Consult (Zosyn Per Pharmacy*) 1 note FOLLOW UP .ZOSYN PER PHARMACY [facility] Rivaroxaban (Xarelto(*)) 10 mg PO DAILY [facility] Last Admin: 01/21/18 08:59 Dose: 10 mg Vital Signs - 8 hr 01/21/18 01/21/18 01/21/18 07:36 07:48 08:59 Temperature 98.3 F Pulse Rate 92 Respiratory 16 16 16 Rate Blood Pressure 146/89 (mmHg) O2 Sat by Pulse 96 Oximetry 01/21/18 11:12 Temperature Pulse Rate Respiratory 16 Rate Blood Pressure (mmHg) O2 Sat by Pulse Oximetry Oxygen Devices in Use Now: None Appearance: NAD Eyes: No Scleral Icterus, PERRLA Ears/Nose/Mouth/Throat: NL Teeth, Lips, Gums, Mucous Membranes Moist Neck: NL Appearance and Movements; NL JVP, Trachea Midline Respiratory: Symmetrical Chest Expansion and Respiratory Effort, Clear to Auscultation Cardiovascular: NL Sounds; No Murmurs; No JVD, RRR Abdominal: NL Sounds; No Tenderness; No Distention, No Hepatosplenomegaly Extremities: No Edema, - - right knee with effusion and lateral bandage with serosanguinous strike through Skin: No Rash or Ulcers Neurological: Alert and Oriented x 3, NL Sensation Nutrition: Taking PO's Result Diagrams: 01/21/18 06:17 01/21/18 06:17 Additional Lab and Data: Laboratory Results - last 24 hr 01/21/18 01/21/18 06:17 06:17 WBC 2.2 L RBC 4.76 Hgb 12.2 Hct 37 MCV 77 L MCH 26 L MCHC 33 RDW 16 H Plt Count 150 MPV 8.1 Neut % (Auto) 28.9 L Lymph % (Auto) 48.5 H [place] % (Auto) 15.5 H Eos % (Auto) 6.1 H Baso % (Auto) 1.0 Absolute Neuts (auto) 0.6 L* Absolute Lymphs (auto) 1.0 Absolute Monos (auto) 0.3 Absolute Eos (auto) 0.1 Absolute Basos (auto) 0 Absolute Nucleated RBC 0 Nucleated RBC % 0.2 Sodium 142 Potassium 4.3 Chloride 106 Carbon Dioxide 30 Anion Gap 6 BUN 11 Creatinine 0.71 Est GFR ( Amer) 104.1 Est GFR (Non-Af Amer) 80.9 BUN/Creatinine Ratio 15.5 Glucose 98 Calcium 8.8 Magnesium 1.5 L Microbiology and Other Data: Microbiology 01/18/18 17:00 Blood Venous Aerobic Blood Culture - Preliminary No Growth Day 2 01/18/18 17:00 Blood Venous Anaerobic Blood Culture - Preliminary No Growth Day 2 01/18/18 16:32 Blood Venous Aerobic Blood Culture - Preliminary No Growth Day 2 01/18/18 16:32 Blood Venous Anaerobic Blood Culture - Preliminary No Growth Day 2 01/18/18 16:15 Urine Urine Culture - Final Pseudomonas Aeruginosa 01/18/18 16:15 Nasal Influenza Types A,B Antigen (CLAUDIA) - Final Specimen received for Influenza A/B Molecular testing Assess/Plan/Problems-Billing Assessment: 72 yo female PMH severe multiple sclerosis, Afib, right knee hardware subluxation repair c/b celestine yeast infection, neurogenic bladder w/ chronic pal p/w nonproductive cough, sepsis, Influenza A and psuedomonas in UCx. moderate neutropenia. diet: unrestricted CODE: FULL PT/OT: likely will need TATUM dispo: medicine inpatient - Patient Problems (1) Sepsis Current Visit: Yes Status: Acute Comment: #resolving Sepsis w/ tachypnea, tachycardia, Neutropenia - continue tamiflu, 4 more doses. - UCx with psuedomonas. Pt has chronic indwelling pal changed monthly(changed here HD#2). Continue zosyn. consider cipro on d/c as it is sensitive. - recent ESBL UTI s/p 7 days cipro - s/p IVF - f/u with Dr. Raman as outpatient. - neutropenic precautions (2) Neutropenic fever Current Visit: Yes Status: Acute Code(s): D70.9 - NEUTROPENIA, UNSPECIFIED; R50.81 - FEVER PRESENTING WITH CONDITIONS CLASSIFIED ELSEWHERE SNOMED Code(s) : 818856920 Comment: on zosyn ANC 600 cbc daily etiology infection vs fluconazole side effect? consider tx change if continues. (3) Atrial fibrillation Current Visit: No Status: Acute Code(s): I48.91 - UNSPECIFIED ATRIAL FIBRILLATION SNOMED Code(s): 96219486 Comment: metoprolol succinate 25 mg po daily. was started on xarelto 10mg daily for DVT ppx dosing by ortho. Discuss increasing for cva ppx. (4) Infection of right knee Current Visit: No Status: Acute Code(s): M00.9 - PYOGENIC ARTHRITIS, UNSPECIFIED SNOMED Code(s): 660273922 Comment: #right knee infection with celestine parapsilosis - continue fluconazole (week 3.5 of 6) (5) UTI (urinary tract infection) due to urinary indwelling Pal catheter Current Visit: No Status: Acute Code(s): T83.511A - I/I REACT D/T INDWELLING URETHRAL CATHETER, INIT; N39.0 - URINARY TRACT INFECTION, SITE NOT SPECIFIED SNOMED Code(s): 228094200 Comment: Pal was exchanged at admission Urine cx from admission grew pseudomonas continue zosyn, plan on cipro on d.c (6) Hypothyroid Current Visit: No Status: Chronic Code(s): E03.9 - HYPOTHYROIDISM, UNSPECIFIED SNOMED Code(s): 30920744 Comment: Continue 137mcg synthroid. (7) Multiple sclerosis Current Visit: No Status: Chronic Code(s): G35 - MULTIPLE SCLEROSIS SNOMED Code(s): 43268476 Comment: Continue Tecfidera and baclofen. (8) Neurogenic bladder Current Visit: No Status: Chronic Code(s): N31.9 - NEUROMUSCULAR DYSFUNCTION OF BLADDER, UNSPECIFIED SNOMED Code(s): 181847995 Comment: Pt has chronic pal. Pal exchanged earlier this hospitalization. Status and Disposition: medicine inpatient, continued for moderate neutropenia.
[2018-01-21] MEDS: Piperacillin/Tazobactam 13.5 GM IV 24 hour continuous infusion IVPB SCH ×2 (21:10)
[2018-01-22] MEDS: Albuterol 2.5 MG/3 ML NEB.SOL* (0.083%) INH PRN ×2 (00:01→23:34)
[2018-01-22] MEDS: Levothyroxine TAB* 137 MCG TAB PO SCH (05:55)
[2018-01-22 06:40] LABS: Hematocrit 37 % (35-47); Hemoglobin 12.3 g/dl (12.0-16.0); Mean Corpuscular HGB Conc 34 g/dl (31-36); Mean Corpuscular Hemoglobin 26 pg (27-31); Mean Corpuscular Volume 78 fL (80-97); Mean Platelet Volume 8.1 um3 (7.4-10.4); Platelet Count 149 10^3/ul (150-450); Red Blood Count 4.73 10^6/ul (4.0-5.4); Red Cell Distribution Width 16 % (10.5-15); White Blood Count 2.5 10^3/ul (3.5-10.8)
[2018-01-22 06:45] LABS: ABS Basophils 0 10^3/ul (0-0.2); ABS Eosinophils 0.2 10^3/ul (0-0.6); ABS Lymphocytes 1.1 10^3/ul (1.0-4.8); ABS Monocytes 0.4 10^3/ul (0-0.8); ABS Neutrophils 0.8 10^3/ul (1.5-7.7); ABS Nucleated RBC 0 10^3/ul; Eosinophil % 7.3 % (0-6); Lymphocyte % 43.9 % (25-47); Nucleated Red Blood Cells % 0.2
[2018-01-22] MEDS: Oseltamivir CAP* 75 MG CAP PO SCH ×2 (08:41→22:06)
[2018-01-22] MEDS: Metoprolol Succinate XL TAB* 25 MG PO SCH (08:41)
[2018-01-22] MEDS: Gabapentin CAP(*) 300 MG PO SCH (08:41)
[2018-01-22] MEDS: Rivaroxaban TAB(*) 10 MG PO SCH (08:41)
[2018-01-22] MEDS: PTO:Dimethyl Fumarate(NF) 240 MG CAP PO SCH ×2 (08:41→22:05)
[2018-01-22] MEDS: Oxybutynin XL TAB* 5 MG PO SCH (08:41)
[2018-01-22] MEDS: Baclofen TAB* 10 MG PO SCH ×2 (08:42→22:05)
--- NOTE | 2018-01-22 16:48 | PN ---
Subjective Date of Service: 01/22/18 Interval History: HOSPITALIST PROGRESS NOTE Patient seen and examined at bedside. Case reviewed and d/w her nurse Deanne Bravo. She feels well today. Denies chest pain or dyspnea, still has some cough. Feels close to her baseline and wants to go home and not return to rehab. Family History: Unchanged from Admission Social History: Unchanged from Admission Past Medical History: Unchanged from Admission Objective Active Medications: Acetaminophen (Tylenol Tab*) 650 mg PO Q4H PRN PRN Reason: FEVER/PAIN Last Admin: 01/20/18 21:00 Dose: 650 mg Albuterol (Ventolin 2.5 Mg/3 Ml Neb.Natacha*) 2.5 mg INH Q2H PRN PRN Reason: SOB/WHEEZING Last Admin: 01/22/18 00:01 Dose: 2.5 mg Baclofen (Lioresal Tab*) 20 mg PO BID [facility] Last Admin: 01/22/18 08:42 Dose: 20 mg Benzonatate (Tessalon Cap*) 100 mg PO BID PRN PRN Reason: COUGH Last Admin: 01/20/18 22:52 Dose: 100 mg Dimethyl Fumarate (Tecfidera(Nf)) 240 mg PO BID [facility] Last Admin: 01/22/18 08:41 Dose: 240 mg Gabapentin (Neurontin Cap(*)) 300 mg PO DAILY [facility] Last Admin: 01/22/18 08:41 Dose: 300 mg Piperacillin Sod/Tazobactam (Sod 13.5 gm/ Sodium Chloride) 500 mls @ 20.833 mls /hr IVPB Q24H [facility] Last Admin: 01/21/18 21:10 Dose: 20.833 mls/hr Levothyroxine Sodium (Synthroid Tab*) 137 mcg PO DAILY@0600 [facility] Last Admin: 01/22/18 05:55 Dose: 137 mcg Metoprolol Succinate (Toprol Xl Tab*) 25 mg PO DAILY [facility] Last Admin: 01/22/18 08:41 Dose: 25 mg Ondansetron HCl (Zofran Inj*) 4 mg IV Q6H PRN PRN Reason: NAUSEA Oseltamivir Phosphate (Tamiflu Cap*) 75 mg PO BID [facility] Stop: 01/23/18 09:01 Last Admin: 01/22/18 08:41 Dose: 75 mg Oxybutynin Chloride (Ditropan Xl Tab*) 10 mg PO DAILY [facility] Last Admin: 01/22/18 08:41 Dose: 10 mg Pharmacy Consult (Zosyn Per Pharmacy*) 1 note FOLLOW UP .ZOSYN PER PHARMACY [facility] Rivaroxaban (Xarelto(*)) 10 mg PO DAILY [facility] Last Admin: 01/22/18 08:41 Dose: 10 mg Vital Signs - 8 hr 01/22/18 01/22/18 10:17 11:32 Temperature 97.5 F Pulse Rate 63 Respiratory 14 16 Rate Blood Pressure 98/56 (mmHg) O2 Sat by Pulse 96 Oximetry Oxygen Devices in Use Now: None Appearance: Pleasant elderly lady sitting up in a chair in NAD. Eyes: No Scleral Icterus Ears/Nose/Mouth/Throat: Mucous Membranes Moist Neck: Trachea Midline Respiratory: Symmetrical Chest Expansion and Respiratory Effort, Clear to Auscultation Cardiovascular: RRR - Normal S1 and S2 Abdominal: NL Sounds; No Tenderness; No Distention Extremities: No Edema Neurological: Alert and Oriented x 3 Result Diagrams: 01/22/18 06:17 01/21/18 06:17 Assess/Plan/Problems-Billing Assessment: Ms. Scott is a 72 yo F with PMH of severe multiple sclerosis, Afib, right knee hardware subluxation repair complicated by celestine infection, neurogenic bladder w/ chronic pal who presented with cough, found to have sepsis secondary to Influenza A and Pseudomonas in UCx. - Patient Problems (1) Sepsis Comment: - Presentation compatible with sepsis on admission with tachypnea, tachycardia, neutropenia. - Source is Influenza A. - Sepsis is now resolved. (2) Influenza A Comment: - Continue Tamiflu #4/5. - Symptoms continue to improve. (3) Pseudomonas aeruginosa infection Comment: - Patient has a chronic Pal due to neurogenic bladder associated with MS. Unclear if Pseudomonas played a role on her sepsis presentation or if just a colonizer. - Recently treated with Cipro for ESBL E. coli. - Continue Zosyn. - Will request ID input. (4) Neutropenia Comment: - Probably secondary to Influenza, but Zosyn may be playing a role too. Will await ID input before changing antibiotics. (5) Atrial fibrillation Comment: - Continue Metoprolol. - [id number] is 2. - As per Dr Arcos's note, patient was started on Xarelto 10mg for DVT prophylaxis after knee surgery. Would benefit of higher dose for her Afib, but would be at higher risk of bleeding. Will continue to d/w patient. (6) Infection of right knee Comment: - Recent right knee infection with celestine parapsilosis. - Continue fluconazole (week 3/6) (7) Hypothyroid Comment: - Check TSH and continue Levothyroxine 137mcg. (8) Multiple sclerosis Comment: - Continue Tecfidera and Baclofen. (9) Neurogenic bladder Comment: - Secondary to MS. - Patient has chronic pal. Pal exchanged 01/19/18. (10) DVT prophylaxis Comment: - Rivaroxaban. (11) Full code status Status and Disposition: Inpatient for management of Influenza.
[2018-01-22] MEDS: Piperacillin/Tazobactam 13.5 GM IV 24 hour continuous infusion IVPB SCH ×2 (22:00)
[2018-01-23] MEDS: Levothyroxine TAB* 137 MCG TAB PO SCH (05:32)
[2018-01-23] MEDS: Metoprolol Succinate XL TAB* 25 MG PO SCH (09:39)
[2018-01-23] MEDS: Oxybutynin XL TAB* 5 MG PO SCH (09:39)
[2018-01-23] MEDS: Gabapentin CAP(*) 300 MG PO SCH (09:40)
[2018-01-23] MEDS: Oseltamivir CAP* 75 MG CAP PO SCH (09:40)
[2018-01-23] MEDS: Baclofen TAB* 10 MG PO SCH ×2 (09:41→20:14)
[2018-01-23] MEDS: Rivaroxaban TAB(*) 10 MG PO SCH (09:41)
[2018-01-23] MEDS: PTO:Dimethyl Fumarate(NF) 240 MG CAP PO SCH ×2 (09:41→20:14)
--- NOTE | 2018-01-23 13:07 | CONS ---
CONSULTATION REPORT: DATE OF CONSULT: 01/23/18 REQUESTING PHYSICIAN: Dr. Whaley. CONSULTING SERVICE: Infectious Disease. REASON FOR CONSULT: Pseudomonas bacteriuria. IMPRESSION: 1. Recent hematuria with chronic Chaudhari catheter in the setting of multiple sclerosis and neurogenic bladder. Urine culture here greater than 100,000 colonies of pseudomonas. The urinalysis showed white cells, red cells, for some reason, the lab was unable to perform any of the other parameters of the urinalysis due to an interfering color. Her hematuria is resolved since being on Zosyn, so in this case, I think she did have a catheter infection. 2. History of right knee replacement, complicated by dislocation and then hinge arthroplasty, complicated by a fluid collection that grew Norma parapsilosis and had been on fluconazole for the last 3 weeks and has right knee pain with weightbearing, diffuse edema, and warmth. 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 3. Influenza A. 4. Multiple sclerosis. RECOMMENDATIONS: 1. She completed a course of Tamiflu. She has had 5 days of Zosyn, so I will stop that after this dose. 2. Aspiration of the right knee for cell counts and cultures and to reevaluate for prosthetic knee infection. She completed her Tamiflu. HISTORY OF PRESENT ILLNESS: This is a 72-year-old woman with multiple sclerosis , chronic Chaudhari catheter, admitted with fatigue and malaise from rehab in [place]. She had apparently been at [facility] recently, had an ESBL executive producer promos in the urine, for which she was treated. She had been followed as an outpatient for hematuria. She cannot provide the details as to how long that has been going on. She does note that since she has been here on antibiotics, the hematuria has resolved. She has no flank pain or suprapubic tenderness. I met her early in December when she was admitted for debridement of soft tissue collection that as an outpatient was aspirated and grew Norma parapsilosis. At the time I met her, I started her on fluconazole. The fluid aspirated from the debridement early in December also grew Norma parapsilosis in 3 cultures. She had been on fluconazole and tolerated it well; however, she has had recent development of more right knee pain worse with weightbearing and increasing swelling in the knee. She has declined to follow up in my office since that visit. PAST MEDICAL HISTORY: 1. Multiple sclerosis with neurogenic bladder. 2. Atrial fibrillation. 3. Hypothyroidism. 4. Chronic Chaudhari catheter. 5. Status post thyroidectomy. 6. Right knee arthroplasty x2 and then revision with hinge arthroplasty. 7. Status post open reduction and internal fixation, bilateral ankles. MEDICATIONS: 1. Tylenol. 2. Albuterol. 3. Baclofen. 4. Benzonatate. 5. Dimethyl fumarate. 6. Gabapentin. 7. Levothyroxine. 8. Metoprolol. 9. Zosyn by continuous infusion. 10. Rivaroxaban. ALLERGIES: IBUPROFEN. FAMILY HISTORY: Mother had a stroke. Father at a young age from a motor vehicle accident. SOCIAL HISTORY: She has been in a rehab in [place]. Nonsmoker. She lives in [place]. REVIEW OF SYSTEMS: A 14-point review of systems is negative except as noted above. PHYSICAL EXAM: Vital Signs: Temperature 37, heart rate 60, respiratory rate 18 , blood pressure 130/80, oxygen saturation 95% on room air. In general, she is awake, not in distress. Neurologic: She is oriented x3. Follows commands. HEENT: There is no conjunctival hemorrhage. Oropharynx without lesions. Neck is supple without mass. Lymph Nodes: There is no inguinal, axillary, or epitrochlear lymphadenopathy. Heart: Regular rate and rhythm without murmurs, rubs, or gallops. Lungs: Clear to auscultation bilaterally. Abdomen: Soft, nontender, and nondistended without hepatosplenomegaly. Skin: There is no rash or splinter hemorrhages. Musculoskeletal: No spine tenderness to palpation. The right knee has diffuse edema. The incision is intact. There is warmth. There is right lateral wound dressing with serous drainage. There is tenderness diffusely about the knee joint. LABORATORY DATA: White blood cell count 2, hemoglobin 12, platelets 149. Creatinine is 0.7. CRP 9. Please see impressions and recommendations as outlined above. Thanks for asking me to see Ms. Scott in consultation. [id number]/[facility] #: [id number] SHERRIE
--- NOTE | 2018-01-23 14:31 | PN ---
Subjective Date of Service: 01/23/18 Interval History: HOSPITALIST PROGRESS NOTE Patient seen and examined at bedside. She offers no new complaints today. Doesn't think her knee is any different. Family History: Unchanged from Admission Social History: Unchanged from Admission Past Medical History: Unchanged from Admission Objective Active Medications: Acetaminophen (Tylenol Tab*) 650 mg PO Q4H PRN PRN Reason: FEVER/PAIN Last Admin: 01/20/18 21:00 Dose: 650 mg Albuterol (Ventolin 2.5 Mg/3 Ml Neb.Natacha*) 2.5 mg INH Q2H PRN PRN Reason: SOB/WHEEZING Last Admin: 01/22/18 23:34 Dose: 2.5 mg Baclofen (Lioresal Tab*) 20 mg PO BID [facility] Last Admin: 01/23/18 09:41 Dose: 20 mg Benzonatate (Tessalon Cap*) 100 mg PO BID PRN PRN Reason: COUGH Last Admin: 01/20/18 22:52 Dose: 100 mg Dimethyl Fumarate (Tecfidera(Nf)) 240 mg PO BID [facility] Last Admin: 01/23/18 09:41 Dose: 240 mg Gabapentin (Neurontin Cap(*)) 300 mg PO DAILY [facility] Last Admin: 01/23/18 09:40 Dose: 300 mg Levothyroxine Sodium (Synthroid Tab*) 137 mcg PO DAILY@0600 [facility] Last Admin: 01/23/18 05:32 Dose: 137 mcg Metoprolol Succinate (Toprol Xl Tab*) 25 mg PO DAILY [facility] Last Admin: 01/23/18 09:39 Dose: 25 mg Ondansetron HCl (Zofran Inj*) 4 mg IV Q6H PRN PRN Reason: NAUSEA Oxybutynin Chloride (Ditropan Xl Tab*) 10 mg PO DAILY [facility] Last Admin: 01/23/18 09:39 Dose: 10 mg Pharmacy Consult (Zosyn Per Pharmacy*) 1 note FOLLOW UP .ZOSYN PER PHARMACY [facility] Rivaroxaban (Xarelto(*)) 10 mg PO DAILY [facility] Last Admin: 01/23/18 09:41 Dose: 10 mg Vital Signs - 8 hr 01/23/18 01/23/18 01/23/18 07:49 09:05 09:24 Temperature 97.9 F Pulse Rate 56 68 Respiratory 16 Rate Blood Pressure 133/80 (mmHg) O2 Sat by Pulse 95 Oximetry 04/02/18 04/02/18 04/02/18 09:40 11:53 12:03 Temperature 97.4 F Pulse Rate 71 Respiratory 16 12 18 Rate Blood Pressure 122/79 (mmHg) O2 Sat by Pulse 96 Oximetry Oxygen Devices in Use Now: None Appearance: Elderly lady sitting up in a chair in NAD. Eyes: No Scleral Icterus Ears/Nose/Mouth/Throat: Mucous Membranes Moist Neck: Trachea Midline Respiratory: Symmetrical Chest Expansion and Respiratory Effort, Clear to Auscultation Cardiovascular: RRR - Normal S1 and S2 Extremities: - - Right knee edema and warmth Neurological: Alert and Oriented x 3 Result Diagrams: 01/22/18 06:17 01/21/18 06:17 Assess/Plan/Problems-Billing Assessment: Ms. Scott is a 72 yo F with PMH of severe multiple sclerosis, Afib, right knee hardware subluxation repair complicated by celestine infection, neurogenic bladder w/ chronic pal who presented with cough, found to have sepsis secondary to Influenza A and Pseudomonas in UCx. - Patient Problems (1) Sepsis Comment: - Presentation compatible with sepsis on admission with tachypnea, tachycardia, neutropenia. - Source is Influenza A. - Sepsis is now resolved. (2) Influenza A Comment: - Continue Tamiflu #5/5. - Symptoms continue to improve. (3) Pseudomonas aeruginosa infection Comment: - Patient has a chronic Pal due to neurogenic bladder associated with MS. Unclear if Pseudomonas played a role on her sepsis presentation or if just a colonizer. - Recently treated with Cipro for ESBL E. coli. - ID input appreciated - completed 5 days of Zosyn. (4) Neutropenia Comment: - Probably secondary to Influenza, but Zosyn or Fluconazole may be playing a role too. (5) Atrial fibrillation Comment: - Continue Metoprolol. - [id number] is 2. - As per Dr Arcos's note, patient was started on Xarelto 10mg for DVT prophylaxis after knee surgery. Would benefit of higher dose for her Afib, but would be at higher risk of bleeding. Will continue to d/w patient. (6) Infection of right knee Comment: - Recent right knee infection with celestine parapsilosis - ID input appreciated - Dr. Garza thinks her infection is worse and recommends Ortho eval for knee aspiration. - Fluconazole was discontinued and plan for possible Anidulafungin if infection confirmed. (7) Hypothyroid Comment: - Check TSH and continue Levothyroxine 137mcg. (8) Multiple sclerosis Comment: - Continue Tecfidera and Baclofen. (9) Neurogenic bladder Comment: - Secondary to MS. - Patient has chronic pal (exchanged 01/19/18). (10) DVT prophylaxis Comment: - Rivaroxaban. (11) Full code status Status and Disposition: Inpatient for management of Influenza.
--- NOTE | 2018-01-23 16:27 | RAD ---
INDICATION: Right knee pain COMPARISON: November 16, 2017 TECHNIQUE: Standing weightbearing AP, lateral, tunnel, and sunrise views were obtained. FINDINGS: There is right knee arthroplasty. There is no evidence of hardware failure although the entire femoral stem is not included in the [id number] and if there is concern additional imaging may be required. There is a large joint effusion which may be slightly smaller. There is a presumed old quadriceps tendon tear. There is a valgus deformity. IMPRESSION: LIMITED EXAMINATION. NO ACUTE FINDINGS ARE APPRECIATED. LARGE JOINT EFFUSION
--- NOTE | 2018-01-23 21:38 | CONS ---
CONSULTATION REPORT: DATE OF CONSULT: ATTENDING PROVIDER: Roosevelt Boyce MD PRIMARY CARE PROVIDER: Dr. Reeves. CHIEF COMPLAINT: DICTATION ENDS ABRUPTLY. TEN PERLA, KAYLA [id number]/[facility] #: [id number] MTDD
--- NOTE | 2018-01-23 21:46 | PN ---
PROGRESS NOTE: DATE OF SERVICE: 01/23/18 HISTORY: Elayne is a 72-year-old woman who has had a right total knee revision with a hinge several months ago. She was seen by me a year ago for an ankle fracture and we fixed those satisfactorily. At this point, she has had a chronic sinus drainage from the right knee and pain with any range of motion. She is currently admitted 4 days ago for failure to thrive with weakness, chills , shortness of breath, fatigue. She has had a urinary tract infection and recent flu, but during this admission as well, she has been noted to have drainage from the right total knee incision and redness and swelling. Elayne has some pancytopenia with a low white count and a low hematocrit. Her examination shows her to be comfortable in bed, nonseptic appearing. She does have pain in the right knee though and some generalized swelling and erythema. There is a small sinus drainage laterally, mostly scant bloody fluid. She really holds her knee fixed at about 10 degrees of flexion. She is resistant to holding it straight for a straight leg raise and then flexing any. With her verbal consent and under sterile condition, I placed an 18-gauge needle in the lateral knee area and drained 30 cc of bloody appearing fluid. This was not gross pus. We will go ahead and send this for C and S and cell count and then treat her accordingly. [id number]/[facility] #: [id number] [facility]
--- NOTE | 2018-01-23 22:54 | CONS ---
CONTINUATION ADDENDUM INCLUDED ON THIS REPORT CONSULTATION REPORT: DATE OF CONSULT: 01/23/18 ATTENDING PROVIDER: Roosevelt Boyce MD PRIMARY CARE PROVIDER: Dr. Reeves. HISTORY OF PRESENT ILLNESS: Ms. Scott is a 72-year-old female patient who is well known to our practice due to continued difficulty with her right knee which started in 2008 when she had a total knee replacement by Dr. Dubois. It thereafter became infected and she had a revision in [place] at this hospital by Dr. Ac. She has had a poly exchange as well as a revision to her hinged knee and then on 12/26/17, her right knee was washed out due to infection. On this occasion, the patient states that her right knee has been draining from the site of previous sinus tract ever since her surgery. It has never stopped. It is not purulent drainage, but more of a bloody discharge. Her knee is not painful. It has not changed much in appearance. She reports that last week she did fall due to feeling very weak with the subsequent diagnosis of influenza which she is now being treated for in the hospital. Since her discharge from [facility] roughly 1 month ago, the patient has been at [facility] and she was discharged last week. It was within days of her discharge that she became very weak and fatigued at home and she fell. She states that she did not have any sudden onset of pain in any area when she fell. At this time, the patient denies any chest pain, shortness of breath, difficulty breathing, pain in her knee, numbness of her right lower extremity. She does state that while she was at [place], she has not been working to rehab her knee. Very significantly, she has not been participating with physical therapy to regain range of motion. The patient's medical problems include atrial fibrillation, hypothyroidism, multiple sclerosis, hypertension, hyperlipidemia, neurogenic bladder, history of DVT. The patient was seen today by Dr. Akin Allan, Infectious Disease, who recommends aspiration of the right knee for cell counts and cultures to reevaluate for his prosthetic knee infection. Of note, the patient's knee culture grew Norma parapsilosis, for which she has been on fluconazole for 3 weeks. PAST MEDICAL HISTORY: Multiple sclerosis, atrial fibrillation, hypothyroidism, neurogenic bladder. PAST SURGICAL HISTORY: Thyroidectomy, right knee replacement, right knee revision, infection of right knee, ORIF bilateral ankles. HOME MEDICATIONS: As in chart. ALLERGIES: IBUPROFEN. FAMILY HISTORY: Mother with a history of CVA. SOCIAL HISTORY: Nonsmoker, nondrinker. The patient lives alone. She was not having home health care when she was home for the 6 days, but did have care arranged for the future. REVIEW OF SYSTEMS: General: The patient has felt feverish and she has had chills, though does not feel so today. Head: No headache. No change in vision. No change in hearing. Cardio: No chest pain. No irregular beats. Respiratory: No shortness of breath. GI: No nausea or vomiting. : Has indwelling Chaudhari, but she denies any urinary symptoms at this time. Musculoskeletal: Chronic difficulty with right knee including revisions and infection. Hematology: History of DVT. Skin: The patient has had a draining region of the lateral right knee since washout roughly 1 month ago. PHYSICAL EXAM: Vital Signs: Temperature 97.4, pulse 71, respiratory rate 12, oxygen saturation 96%, blood pressure 122/79. General: The patient is sitting in a chair. She is well appearing. She is in no acute distress. HEENT: Head : Atraumatic, normocephalic. Eyes: Extraocular movements intact. Lungs: Clear to auscultation bilaterally. Heart: S1, S2. No murmur. Abdomen: Soft , nontender. Extremities: Right knee with mild effusion. Some anterior erythema, but is not hot to touch. The patient has very little active range of motion from about 0 to 20 degrees. She is able to flex to 90 degrees without pain passively. Neurologic: Sensation is intact distally throughout bilateral lower extremities. Skin is intact aside from nonhealing sinus tract of the superior lateral right knee. This is currently draining bloody discharge, but no purulence. Vascular: Dorsalis pedis pulse 2+ bilaterally. DIAGNOSTIC STUDIES/LAB DATA: Hemoglobin 12.3, hematocrit 37, white blood cell count 2.5 with absolute neutrophils of 0.8. ASSESSMENT: A 72-year-old female with multiple medical comorbidities, status post right knee replacement with revision as well as history of infection with concern for current infection. PLAN: The patient will undergo an aspiration of the right knee by Dr. Dewey today with fluid culture for aerobic, anaerobic and fungal cultures, Gram stain, cell count, protein, and glucose. TEN PERLA, KAYLA [id number]/[facility] #: [id number]/[facility] #: [id number] [facility]ITAL[facility]ami[facility]
[2018-01-23] MEDS: Albuterol 2.5 MG/3 ML NEB.SOL* (0.083%) INH PRN (23:54)
[2018-01-24] MEDS: Levothyroxine TAB* 137 MCG TAB PO SCH (04:47)
[2018-01-24 06:34] LABS: ABS Basophils 0 10^3/ul (0-0.2); ABS Eosinophils 0.2 10^3/ul (0-0.6); ABS Lymphocytes 0.9 10^3/ul (1.0-4.8); ABS Monocytes 0.3 10^3/ul (0-0.8); ABS Neutrophils 1.4 10^3/ul (1.5-7.7); ABS Nucleated RBC 0 10^3/ul; Eosinophil % 5.4 % (0-6); Hematocrit 37 % (35-47); Hemoglobin 12.2 g/dl (12.0-16.0); Lymphocyte % 30.9 % (25-47); Mean Corpuscular HGB Conc 33 g/dl (31-36); Mean Corpuscular Hemoglobin 25 pg (27-31); Mean Corpuscular Volume 77 fL (80-97); Mean Platelet Volume 8.3 um3 (7.4-10.4); Nucleated Red Blood Cells % 0.2; Platelet Count 168 10^3/ul (150-450); Red Blood Count 4.81 10^6/ul (4.0-5.4); Red Cell Distribution Width 16 % (10.5-15); White Blood Count 2.8 10^3/ul (3.5-10.8)
[2018-01-24] MEDS: Rivaroxaban TAB(*) 10 MG PO SCH (08:40)
[2018-01-24] MEDS: Gabapentin CAP(*) 300 MG PO SCH (08:40)
[2018-01-24] MEDS: PTO:Dimethyl Fumarate(NF) 240 MG CAP PO SCH ×2 (08:40→20:19)
[2018-01-24] MEDS: Oxybutynin XL TAB* 5 MG PO SCH (08:41)
[2018-01-24] MEDS: Metoprolol Succinate XL TAB* 25 MG PO SCH (08:41)
[2018-01-24] MEDS: Baclofen TAB* 10 MG PO SCH ×2 (08:41→20:20)
--- NOTE | 2018-01-24 15:07 | PN ---
Progress Note - Progress Note Date of Service: 01/24/18 SOAP: Subjective: CC: knee pain HPI: 72 year old woman with MS and revision of a right knee arthroplasty, recent Norma parapsilosis abscess in the soft tissues of the knee. Has been on fluconazole for 3 weeks and has ongoing knee pain and swelling. No fever, rash, or diarrhea. Objective: Vital Signs Temp 36.8 C 01/24/18 12:08 Pulse 59 01/24/18 12:08 Resp 16 01/24/18 12:08 BP 110/70 01/24/18 12:08 Pulse Ox 96 01/24/18 12:08 Intake & Output 01/23/18 01/24/18 01/24/18 18:59 06:59 18:59 Intake Total 892 960 860 Output Total 275 450 Balance 617 510 860 Intake: IV Fluids 252 ABX - PIPERACILLIN 252 Oral 640 960 860 Output: Pal 200 450 Liquid Stool 75 Gen:awake, no distress HEENT:no thrush Heart:RRR no murmur Abd:+BS NTND soft Skin: no rash MSK: R knee diffuse edema and tenderness with warmth Xray right knee: effusion Laboratory Results - last 24 hr 01/23/18 01/24/18 01/24/18 15:50 06:09 06:09 WBC 2.8 L RBC 4.81 Hgb 12.2 Hct 37 MCV 77 L MCH 25 L MCHC 33 RDW 16 H Plt Count 168 MPV 8.3 Neut % (Auto) 51.0 Lymph % (Auto) 30.9 [place] % (Auto) 11.8 H Eos % (Auto) 5.4 Baso % (Auto) 0.9 Absolute Neuts (auto) 1.4 L Absolute Lymphs (auto) 0.9 L Absolute Monos (auto) 0.3 Absolute Eos (auto) 0.2 Absolute Basos (auto) 0 Absolute Nucleated RBC 0 Nucleated RBC % 0.2 Total Bilirubin 0.30 Direct Bilirubin 0.10 Indirect Bilirubin 0.2 L AST 38 ALT 39 Alkaline Phosphatase 92 Total Protein 6.2 L Albumin 3.5 Globulin 2.7 Albumin/Globulin Ratio 1.3 TSH 15.98 H Fluid Source Synovial fluid Fluid Volume 15 Fluid Color [place] Fluid Appearance Cloudy Fluid WBC 307 Fluid RBC 44190 Fluid Tot Cell Count 100 Fluid Neutrophils 88 Fluid Lymphocytes 4 Fluid Monocytes 8 Fluid Cell Count Rvw By Assessment: 1. right knee pain with effusion, recent adjacent Norma infection, I am concerned that she has an infection of the prosthesis with a so far indolent organism 2. MS with neurogenic bladder and chronic pal catheter 3. leukopenia and transaminitis, improving, due to fluconazole Plan: 1. orthopedics consult for I&D which I think combined with IV echinocandin therapy is her best chance for cure. Discussed with Dr Whaley
--- NOTE | 2018-01-24 17:50 | PN ---
Subjective Date of Service: 01/24/18 Interval History: HOSPITALIST PROGRESS NOTE Patient seen and examined at bedside. She offers no new complaints today. Family History: Unchanged from Admission Social History: Unchanged from Admission Past Medical History: Unchanged from Admission Objective Active Medications: Acetaminophen (Tylenol Tab*) 650 mg PO Q4H PRN PRN Reason: FEVER/PAIN Last Admin: 01/20/18 21:00 Dose: 650 mg Albuterol (Ventolin 2.5 Mg/3 Ml Neb.Natacha*) 2.5 mg INH Q2H PRN PRN Reason: SOB/WHEEZING Last Admin: 01/23/18 23:54 Dose: 2.5 mg Baclofen (Lioresal Tab*) 20 mg PO BID [facility] Last Admin: 01/24/18 08:41 Dose: 20 mg Benzonatate (Tessalon Cap*) 100 mg PO BID PRN PRN Reason: COUGH Last Admin: 01/20/18 22:52 Dose: 100 mg Dimethyl Fumarate (Tecfidera(Nf)) 240 mg PO BID [facility] Last Admin: 01/24/18 08:40 Dose: 240 mg Gabapentin (Neurontin Cap(*)) 300 mg PO DAILY [facility] Last Admin: 01/24/18 08:40 Dose: 300 mg Levothyroxine Sodium (Synthroid Tab*) 137 mcg PO DAILY@0600 [facility] Last Admin: 01/24/18 04:47 Dose: 137 mcg Metoprolol Succinate (Toprol Xl Tab*) 25 mg PO DAILY [facility] Last Admin: 01/24/18 08:41 Dose: 25 mg Ondansetron HCl (Zofran Inj*) 4 mg IV Q6H PRN PRN Reason: NAUSEA Oxybutynin Chloride (Ditropan Xl Tab*) 10 mg PO DAILY [facility] Last Admin: 01/24/18 08:41 Dose: 10 mg Rivaroxaban (Xarelto(*)) 10 mg PO DAILY [facility] Last Admin: 01/24/18 08:40 Dose: 10 mg Vital Signs - 8 hr 01/24/18 01/24/18 01/24/18 11:15 12:08 16:00 Temperature 98.3 F 98.1 F Pulse Rate 59 29 Respiratory 18 16 16 Rate Blood Pressure 110/70 115/61 (mmHg) O2 Sat by Pulse 96 95 Oximetry Oxygen Devices in Use Now: None Appearance: Pleasant lady sitting up in a chair in NAD. Eyes: No Scleral Icterus Ears/Nose/Mouth/Throat: Mucous Membranes Moist Neck: Trachea Midline Respiratory: Symmetrical Chest Expansion and Respiratory Effort, Clear to Auscultation Neurological: Alert and Oriented x 3 Result Diagrams: 01/24/18 06:09 01/21/18 06:17 Assess/Plan/Problems-Billing Assessment: Ms. Scott is a 72 yo F with PMH of severe multiple sclerosis, Afib, right knee hardware subluxation repair complicated by celestine infection, neurogenic bladder w/ chronic pal who presented with cough, found to have sepsis secondary to Influenza A and Pseudomonas in UCx. - Patient Problems (1) Sepsis Comment: - Presentation compatible with sepsis on admission with tachypnea, tachycardia, neutropenia. - Source is Influenza A. - Sepsis is now resolved. (2) Influenza A Comment: - Completed Tamiflu. - Symptoms continue to improve. (3) Pseudomonas aeruginosa infection Comment: - Patient has a chronic Pal due to neurogenic bladder associated with MS. Unclear if Pseudomonas played a role on her sepsis presentation or if just a colonizer. - Recently treated with Cipro for ESBL E. coli. - ID input appreciated - completed 5 days of Zosyn. (4) Neutropenia Comment: - Probably secondary to Influenza, andd/or Fluconazole - trending up. (5) Atrial fibrillation Comment: - Continue Metoprolol. - [id number] is 2. - As per Dr Arcos's note, patient was started on Xarelto 10mg for DVT prophylaxis after knee surgery. Would benefit of higher dose for her Afib, but would be at higher risk of bleeding. Will wait until further orthopedic plans are made, as we may have to discontinue anticoagulation for possible surgery. (6) Infection of right knee Comment: - Recent right knee infection with celestine parapsilosis. - Synovial fluid with 300 WBC, awaiting culture. - Awaiting ID/Ortho decision regarding management. (7) Hypothyroid Comment: - TSH is elevated. - Increase Levothyroxine to 150 mcg and repeat TFTs in 4 weeks. (8) Multiple sclerosis Comment: - Continue Tecfidera and Baclofen. (9) Neurogenic bladder Comment: - Secondary to MS. - Patient has chronic pal (exchanged 01/19/18). (10) DVT prophylaxis Comment: - Rivaroxaban. (11) Full code status Status and Disposition: Inpatient for management of Influenza.
--- NOTE | 2018-01-24 19:10 | PN ---
Progress Note - Progress Note Date of Service: 01/24/18 SOAP: Subjective: 72 yo female I met at the end of last year with a dislocated TKA. Previously had a TKA done by Dr. Dubois which became infected and she continued to have troubles with it. Underwent a poly exchange at the end of last year which did not give her stability and then underwent a revision to a hinged knee. Has worked well, as the knee is now stable and she has walked more than she had in a year. Unfortunately she then developed swelling and an aspiration grew [place]. She did under go a washout and was started on diflucan. She presented to the hospital with the flu and sepsis, and there was concern with knee swelling. Underwent an aspiration which had a WBC count of 300 which was great, but a low glucose which is concerning for an infection. She report no knee pain. Has not been able to walk, but she relates that to her MS. Objective: Her knee does look better than it did at her last admission and in the office. Only a small effusion, non tender to palpation. The open area she developed from the [place] [facility] is still open with a little bit of weeping when dressing was changed. No erythemia around the skin defect. Assessment: H/O infection right knee, possible indolent infection Plan: I discussed with her a repeat wash out, similar to her last admission. She states she would be OK with that, but does hot want a larger open surgery. She is on xarelto, so will hold that and should be able to go to the OR afternoon.
[2018-01-24] MEDS: Acetaminophen TAB* 325 MG PO PRN (20:23)
[2018-01-24] MEDS: Albuterol 2.5 MG/3 ML NEB.SOL* (0.083%) INH PRN (23:02)
[2018-01-25] MEDS: Acetaminophen TAB* 325 MG PO PRN (04:06)
[2018-01-25] MEDS: Levothyroxine TAB* 137 MCG TAB PO SCH (04:07)
--- NOTE | 2018-01-25 10:12 | PN ---
Progress Note - Progress Note Date of Service: 01/25/18 SOAP: Subjective: CC: knee pain HPI: 72 year old woman with MS and revision of a right knee arthroplasty, recent Norma parapsilosis abscess in the soft tissues of the knee. Was on fluconazole for 3 weeks and has ongoing knee pain and swelling. Admitted with influenza, completed tamiflu. No fever, rash, or diarrhea. Objective: Vital Signs Temp 36.7 C 01/25/18 07:51 Pulse 73 01/25/18 09:33 Resp 14 01/25/18 09:33 BP 139/84 01/25/18 07:51 Pulse Ox 98 01/25/18 09:33 Intake & Output 01/24/18 01/25/18 01/25/18 18:59 06:59 18:59 Intake Total 1420 440 500 Output Total 225 725 Balance 1195 -285 500 Intake: Oral 1420 440 500 Output: Urine 225 Pal 725 Other: # Bowel Movements 0 Gen:awake, no distress HEENT:no thrush Heart:RRR no murmur Abd:+BS NTND soft Skin: no rash MSK: R knee diffuse edema and tenderness with warmth Laboratory Results - last 24 hr 01/23/18 01/23/18 01/23/18 15:50 15:50 15:50 Fluid Source synovial knee r synovial knee r Fluid Cell Count Rvw By Fluid Glucose 32 Fluid Total Protein 4.0 Microbiology 01/23/18 15:50 Gram Stain - Final Joint Fluid(Synovial) - Knee Right Body Fluid Culture - Preliminary No Growth Day 1 Skin and Soft Tissue MRSA/MSSA (PCR - Final Mrsa Negative S.aureus Negative Assessment: 1. right knee pain with effusion, recent adjacent Norma parapsiolosis infection, with prosthesis infection 2. MS with neurogenic bladder and chronic pal catheter 3. leukopenia and transaminitis, improving, due to fluconazole Plan: 1. 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
[2018-01-25] MEDS: Gabapentin CAP(*) 300 MG PO SCH (10:33)
[2018-01-25] MEDS: Metoprolol Succinate XL TAB* 25 MG PO SCH (10:33)
[2018-01-25] MEDS: Baclofen TAB* 10 MG PO SCH ×2 (10:34→20:08)
[2018-01-25] MEDS: Oxybutynin XL TAB* 5 MG PO SCH (10:34)
[2018-01-25] MEDS: PTO:Dimethyl Fumarate(NF) 240 MG CAP PO SCH ×2 (10:35→20:08)
--- NOTE | 2018-01-25 15:17 | PN ---
Subjective Date of Service: 01/25/18 Interval History: HOSPITALIST PROGRESS NOTE Patient seen and examined at bedside. She offers no complaints at this time. Did not sleep well last night, anxious about surgery. Family History: Unchanged from Admission Social History: Unchanged from Admission Past Medical History: Unchanged from Admission Objective Active Medications: Acetaminophen (Tylenol Tab*) 650 mg PO Q4H PRN PRN Reason: FEVER/PAIN Last Admin: 01/25/18 04:06 Dose: 650 mg Albuterol (Ventolin 2.5 Mg/3 Ml Neb.Natacha*) 2.5 mg INH Q2H PRN PRN Reason: SOB/WHEEZING Last Admin: 01/24/18 23:02 Dose: 2.5 mg Baclofen (Lioresal Tab*) 20 mg PO BID [facility] Last Admin: 01/25/18 10:34 Dose: 20 mg Benzonatate (Tessalon Cap*) 100 mg PO BID PRN PRN Reason: COUGH Last Admin: 01/20/18 22:52 Dose: 100 mg Dimethyl Fumarate (Tecfidera(Nf)) 240 mg PO BID [facility] Last Admin: 01/25/18 10:35 Dose: Not Given Gabapentin (Neurontin Cap(*)) 300 mg PO DAILY [facility] Last Admin: 01/25/18 10:33 Dose: 300 mg Levothyroxine Sodium (Synthroid Tab*) 150 mcg PO DAILY@0600 [facility] Metoprolol Succinate (Toprol Xl Tab*) 25 mg PO DAILY [facility] Last Admin: 01/25/18 10:33 Dose: 25 mg Ondansetron HCl (Zofran Inj*) 4 mg IV Q6H PRN PRN Reason: NAUSEA Oxybutynin Chloride (Ditropan Xl Tab*) 10 mg PO DAILY [facility] Last Admin: 01/25/18 10:34 Dose: 10 mg Vital Signs - 8 hr 01/25/18 01/25/18 01/25/18 07:51 09:33 10:19 Temperature 98.0 F Pulse Rate 83 73 Respiratory 18 14 18 Rate Blood Pressure 139/84 (mmHg) O2 Sat by Pulse 98 98 Oximetry Oxygen Devices in Use Now: None Appearance: Pleasant elderly lady lying in bed in NAD. Eyes: No Scleral Icterus Ears/Nose/Mouth/Throat: Mucous Membranes Moist Neck: Trachea Midline Respiratory: Symmetrical Chest Expansion and Respiratory Effort, Clear to Auscultation Cardiovascular: RRR - Normal S1 and S2 Extremities: - - Right edema and warmth Neurological: Alert and Oriented x 3 Result Diagrams: 01/24/18 06:09 01/21/18 06:17 Assess/Plan/Problems-Billing Assessment: Ms. Scott is a 72 yo F with PMH of severe multiple sclerosis, Afib, right knee hardware subluxation repair complicated by celestine infection, neurogenic bladder w/ chronic pal who presented with cough, found to have sepsis secondary to Influenza A and Pseudomonas in UCx. - Patient Problems (1) Sepsis Comment: - Presentation compatible with sepsis on admission with tachypnea, tachycardia, neutropenia. - Source is Influenza A. - Sepsis is now resolved. (2) Influenza A Comment: - Completed Tamiflu. (3) Pseudomonas aeruginosa infection Comment: - Patient has a chronic Pal due to neurogenic bladder associated with MS. Unclear if Pseudomonas played a role on her sepsis presentation or if just a colonizer. - Recently treated with Cipro for ESBL E. coli. - ID input appreciated - completed 5 days of Zosyn. (4) Neutropenia Comment: - Probably secondary to Influenza, and/or Fluconazole - trending up. (5) Atrial fibrillation Comment: - Continue Metoprolol. - [id number] is 2. - As per Dr Arcos's note, patient was started on Xarelto 10mg for DVT prophylaxis after knee surgery. Would benefit of higher dose for her Afib, but would be at higher risk of bleeding. - Xarelto on hold now for surgery. (6) Infection of right knee Comment: - Recent right knee infection with celestine parapsilosis. - Synovial fluid with 300 WBC, awaiting culture. - Ortho input appreciated - plan for knee wash out 01/26/18. - D/w ID - tentative plan for Anidulafungin IV for 8 weeks after surgery. - EKG shows rate controlled Afib, she has no c/o CP or dyspnea. RCRI is 0 predicting a 0.5% risk of cardiac complications. Patient is optimized for proposed procedure. Last Xarelto dose 01/24 8:40AM. (7) Hypothyroid Comment: - TSH is elevated. - Levothyroxine increased to 150 mcg and repeat TFTs in 4 weeks. (8) Multiple sclerosis Comment: - Continue Tecfidera and Baclofen. (9) Neurogenic bladder Comment: - Secondary to MS. - Patient has chronic pal (exchanged 01/19/18). (10) DVT prophylaxis Comment: - Rivaroxaban on hold for surgery. - SCDs. (11) Full code status Status and Disposition: Inpatient for management of right knee fungal infection.
[2018-01-26] MEDS: Levothyroxine TAB* 150 MCG TAB PO SCH (04:49)
[2018-01-26 06:54] LABS: ABS Basophils 0 10^3/ul (0-0.2); ABS Eosinophils 0.1 10^3/ul (0-0.6); ABS Monocytes 0.5 10^3/ul (0-0.8); ABS Neutrophils 2.6 10^3/ul (1.5-7.7); ABS Nucleated RBC 0 10^3/ul; Eosinophil % 2.9 % (0-6); Hematocrit 40 % (35-47); Mean Corpuscular HGB Conc 33 g/dl (31-36); Mean Corpuscular Hemoglobin 26 pg (27-31); Mean Corpuscular Volume 78 fL (80-97); Mean Platelet Volume 8.4 um3 (7.4-10.4); Nucleated Red Blood Cells % 0; Platelet Count 191 10^3/ul (150-450); Red Blood Count 5.09 10^6/ul (4.0-5.4); Red Cell Distribution Width 16 % (10.5-15); White Blood Count 4.2 10^3/ul (3.5-10.8)
[2018-01-26 07:12] LABS: EGFR Non-African American 98.3 (>60)
[2018-01-26] MEDS ORDERED: NS 0.9% 1000 ML* 1,000 ML IV SCH (07:45)
[2018-01-26] MEDS: Oxybutynin XL TAB* 5 MG PO SCH (08:58)
[2018-01-26] MEDS: Baclofen TAB* 10 MG PO SCH ×2 (08:59→21:56)
[2018-01-26] MEDS: Gabapentin CAP(*) 300 MG PO SCH (08:59)
[2018-01-26] MEDS: Metoprolol Succinate XL TAB* 25 MG PO SCH (08:59)
[2018-01-26] MEDS: PTO:Dimethyl Fumarate(NF) 240 MG CAP PO SCH (09:20)
[2018-01-26] MEDS: LORazepam TAB(*) 0.5 MG PO PRN (09:42)
[2018-01-26] MEDS ORDERED: EPINEPHRINE 1 MG/ML 1 ML VIAL ONE (11:46)
[2018-01-26] MEDS ORDERED: Bupivacaine 0.25% SDV* 30 ML ONE (11:47)
[2018-01-26] MEDS ORDERED: Lidocaine 1% INJ* 10 MG/ML 30 ML SDV ONE (11:47)
[2018-01-26] MEDS ORDERED: Lidocaine 1% MPF wEPI 200,000* 30 ML SDV ONE (12:03)
[2018-01-26] MEDS ORDERED: fentaNYL* 50 MCG/ML 2 ML VIAL (100 MCG VIAL) ONE (13:06)
[2018-01-26] MEDS ORDERED: ceFAZolin 1 GM in Dextrose (*) 2 GM/100 ML BAG IVPB ONE (13:11)
[2018-01-26] MEDS ORDERED: Propofol* 10 MG/ML 20 ML BTL IV PUSH ONE (13:24)
[2018-01-26] MEDS ORDERED: Lidocaine 2% PF * 5 ML VIAL ONE (13:24)
[2018-01-26] MEDS ORDERED: EPHEDrine (Pressors)* 50 MG/ML VIAL ONE (13:36)
[2018-01-26] MEDS ORDERED: oxyCODONE/Acetamin 5/325 MG* TAB PO PRN ×3 (13:40→15:37)
[2018-01-26] MEDS ORDERED: Naloxone* 0.4 MG/ML 1 ML VIAL IV PRN (13:40)
[2018-01-26] MEDS ORDERED: fentaNYL* 50 MCG/ML 2 ML VIAL (100 MCG VIAL) IV PRN (13:40)
--- NOTE | 2018-01-26 14:45 | PN ---
Subjective Date of Service: 01/26/18 Interval History: HOSPITALIST PROGRESS NOTE Anxious for surgical procedure later today. No other new complaints. Family History: Unchanged from Admission Social History: Unchanged from Admission Past Medical History: Unchanged from Admission Objective Active Medications: Acetaminophen (Tylenol Tab*) 650 mg PO Q4H PRN PRN Reason: FEVER/PAIN Last Admin: 01/25/18 04:06 Dose: 650 mg Albuterol (Ventolin 2.5 Mg/3 Ml Neb.Natacha*) 2.5 mg INH Q2H PRN PRN Reason: SOB/WHEEZING Last Admin: 01/24/18 23:02 Dose: 2.5 mg Baclofen (Lioresal Tab*) 20 mg PO BID [facility] Last Admin: 01/26/18 08:59 Dose: 20 mg Benzonatate (Tessalon Cap*) 100 mg PO BID PRN PRN Reason: COUGH Last Admin: 01/20/18 22:52 Dose: 100 mg Dimethyl Fumarate (Tecfidera(Nf)) 240 mg PO BID [facility] Last Admin: 01/26/18 09:20 Dose: Not Given Fentanyl Citrate (Fentanyl*) 50 mcg IV Q5M PRN PRN Reason: PAIN - MODERATE Stop: 01/26/18 18:00 Gabapentin (Neurontin Cap(*)) 300 mg PO DAILY [facility] Last Admin: 01/26/18 08:59 Dose: 300 mg Sodium Chloride (Ns 0.9% 1000 Ml*) 1,000 mls @ 100 mls/hr IV .per rate [facility] Last Admin: 01/26/18 08:59 Dose: 100 mls/hr Levothyroxine Sodium (Synthroid Tab*) 150 mcg PO DAILY@0600 [facility] Last Admin: 01/26/18 04:49 Dose: 150 mcg Lorazepam (Ativan Tab(*)) 0.5 mg PO Q6H PRN PRN Reason: ANXIETY Last Admin: 01/26/18 09:42 Dose: 0.5 mg Metoprolol Succinate (Toprol Xl Tab*) 25 mg PO DAILY [facility] Last Admin: 01/26/18 08:59 Dose: 25 mg Naloxone HCl (Narcan*) 0.08 mg IV Q2M PRN PRN Reason: severe induced resp depression Stop: 01/27/18 13:39 Ondansetron HCl (Zofran Inj*) 4 mg IV Q6H PRN PRN Reason: NAUSEA Oxybutynin Chloride (Ditropan Xl Tab*) 10 mg PO DAILY [facility] Last Admin: 01/26/18 08:58 Dose: 10 mg Oxycodone/Acetaminophen (Percocet 5/325 Tab*) 1 tab PO ONCE PRN PRN Reason: PAIN - MODERATE Stop: 01/26/18 18:00 Vital Signs - 8 hr 01/26/18 01/26/18 01/26/18 09:42 11:29 14:10 Temperature 98.2 F Pulse Rate 110 Respiratory 20 20 20 Rate Blood Pressure 119/83 (mmHg) O2 Sat by Pulse 95 Oximetry 01/26/18 01/26/18 01/26/18 14:15 14:20 14:25 Temperature Pulse Rate 100 106 108 Respiratory 14 14 14 Rate Blood Pressure 122/91 122/96 136/86 (mmHg) O2 Sat by Pulse 95 97 100 Oximetry Oxygen Devices in Use Now: Nasal Cannula - 1.5 liter Appearance: Elderly lady sitting up in bed in NAD. Neck: Trachea Midline Respiratory: Symmetrical Chest Expansion and Respiratory Effort, Clear to Auscultation Cardiovascular: RRR - Normal S1 and S2 Extremities: - - right knee with mild welling and warmth Neurological: Alert and Oriented x 3 Result Diagrams: 01/26/18 06:19 01/26/18 06:19 Assess/Plan/Problems-Billing Assessment: Ms. Scott is a 72 yo F with PMH of severe multiple sclerosis, Afib, right knee hardware subluxation repair complicated by celestine infection, neurogenic bladder w/ chronic pal who presented with cough, found to have sepsis secondary to Influenza A and Pseudomonas in UCx. - Patient Problems (1) Infection of right knee Comment: - Recent right knee joint infection with celestine parapsilosis. - Synovial fluid with 300 WBC, fluid culture growing yeast. - Ortho input appreciated - plan for knee wash out 01/26/18. - D/w ID - tentative plan for Anidulafungin IV for 8 weeks after surgery. - EKG shows rate controlled Afib, she has no c/o CP or dyspnea. RCRI is 0 predicting a 0.5% risk of cardiac complications. Patient is optimized for proposed procedure. Last Xarelto dose 01/24 8:40AM. (2) Sepsis Comment: - Presentation compatible with sepsis on admission with tachypnea, tachycardia, neutropenia. - Source is Influenza A. - Sepsis is now resolved. (3) Influenza A Comment: - Completed Tamiflu. (4) Pseudomonas aeruginosa infection Comment: - Patient has a chronic Pal due to neurogenic bladder associated with MS. Unclear if Pseudomonas played a role on her sepsis presentation or if just a colonizer. - Recently treated with Cipro for ESBL E. coli. - ID input appreciated - completed 5 days of Zosyn. (5) Neutropenia Comment: - Probably secondary to Influenza, and/or Fluconazole - resolved. (6) Atrial fibrillation Comment: - Continue Metoprolol. - [id number] is 2. - As per Dr Arcos's note, patient was started on Xarelto 10mg for DVT prophylaxis after knee surgery. Would benefit of higher dose for her Afib, but would be at higher risk of bleeding. - Xarelto on hold now for surgery. (7) Hypothyroid Comment: - TSH is elevated. - Levothyroxine increased to 150 mcg and repeat TFTs in 4 weeks. (8) Multiple sclerosis Comment: - Continue Tecfidera and Baclofen. (9) Neurogenic bladder Comment: - Secondary to MS. - Patient has chronic pal (exchanged 01/19/18). (10) DVT prophylaxis Comment: - Rivaroxaban on hold for surgery. - SCDs. (11) Full code status Status and Disposition: Inpatient for management of right knee fungal infection.
[2018-01-26] MEDS ORDERED: Anidulafungin* 200 MG in NS 0.9% 250 ML* 200 ML IVPB ONE (16:30)
[2018-01-26] MEDS: ceFAZolin 1 GM in Dextrose (*) 1 GM/50 ML BAG IVPB SCH (21:54)
[2018-01-27] MEDS: LORazepam TAB(*) 0.5 MG PO PRN (00:13)
[2018-01-27] MEDS: PTO:Dimethyl Fumarate(NF) 240 MG CAP PO SCH ×3 (00:55→21:01)
--- NOTE | 2018-01-27 03:46 | OP ---
DATE OF OPERATION: 01/26/18 - ROOM #340 DATE OF : 45 SURGEON: Robert Ac MD ANESTHESIA: General. PRE-OP DIAGNOSIS: Yeast infection, right knee. POST-OP DIAGNOSIS: Yeast infection, right knee. OPERATIVE PROCEDURE: 1. Right knee arthroscopy. 2. Synovial biopsy. 3. Washout. ESTIMATED BLOOD LOSS: Negligible. COMPLICATIONS: None. SUMMARY: Ms. Scott is a 72-year-old female who had originally undergone a right total knee arthroplasty with Dr. Dubois years ago. This had become infected and she eventually underwent a revision in [place], which did not work well for her. She had been admitted for other reasons back in September and I was consulted and she was found to have a dislocated right total knee. She initially underwent a polyethylene exchange, which I thought had just spun out, but eventually she underwent revision to a hinged knee, which had given her good stability. While in rehab, she developed pain and swelling about the knee and an aspirate had shown a yeast-like organism. She was transferred back to [facility] and underwent a washout and was started on Diflucan. Since then, the knee has been less swollen and has not been painful the way it was before. She has been unable to walk, but she reports this is because of her MS. She was discharged from the [facility], but still was not in good shape as she then presented shortly to the hospital here in sepsis and with influenza. She was admitted by the hospitalist service and while the knee was less swollen than it previously was, there was still some swelling and Orthopedics was consulted this past Tuesday. Repeat aspirate came back with a white blood cell count of 300, but it had a low glucose with a high protein. Therefore, there was still evidence of an indolent infection. Dr. Allan had been consulted and had recommended started with a different antifungal and antibiotic. There was also consideration for a repeat washout and I discussed this with Ms. Scott. Her Xarelto was stopped and she was added on to the OR schedule for today. I discussed with her that repeat washout would hopefully work well and I would use some Betadine in the saline for this washout to try and get into all the nooks and crannies and hopefully be able to really get ahead of the infection. She has had several revisions to the knee already and is not interested in having hardware removed or a larger open procedure. DESCRIPTION OF PROCEDURE: The patient was brought to the OR and an LMA was placed. Right knee was prepped and then draped. Portal sites were preinjected using 0.25% Marcaine with 1% lidocaine with epinephrine. Using her old scar, lateral portal was made first. Blunt trocar at the sheath was easily introduced into the knee and when the trocar was withdrawn, fluid was caught into the sample cup and sent for culture and Gram stain. Scope was introduced into the trocar and knee was allowed to insufflate. Pulling back, knee appeared to be in relatively good condition. Medial portal was made and shaver was introduced. Shaver was run a little bit to clean up a little of the blood, which was in the knee and then a biter was used to bite into the synovium along 3 sides and then a grasper was used to grasp that last piece of synovium such that a synovial biopsy could also be sent. Two 3 L bags of saline were then washed through the knee and I worked this through the gutters under the rotating polyethylene as well as up and into the pouch. Second 2 L bags had 30 cc of Betadine added to each and this was then run with the knee. A picture was taken where there was a thin film on the metal prosthesis, but with the Betadine solution, this almost instantly vanished and there was no more collection. Continuing with the shaver, synovium was gently brushed throughout the gutters, pouch, and again under the platform. Once 12 L have been run through the knee, all instrumentation was removed and the portal sites were closed using a 3-0 Prolene combined with a 4-0 nylon. Where she had damage from an old aspiration done at [place], I had used a pair of retention stitches as there was no fluid which came out from that area and particular attention was paid when the Betadine solution was run through the knee. This way, tension was taken off of those tissues and hopefully allow that to heal. Sterile dressing was applied and the knee had been injected with an additional 20 cc of mixed local. The patient then had the LMA removed in the OR and was stable on transfer to the recovery room. [id number]/CPS #: [id number] SHERRIE
[2018-01-27 05:39] LABS: Hematocrit 38 % (35-47); Hemoglobin 12.7 g/dl (12.0-16.0); Mean Corpuscular HGB Conc 33 g/dl (31-36); Mean Corpuscular Hemoglobin 26 pg (27-31); Mean Corpuscular Volume 78 fL (80-97); Mean Platelet Volume 8.2 um3 (7.4-10.4); Platelet Count 195 10^3/ul (150-450); Red Blood Count 4.93 10^6/ul (4.0-5.4); Red Cell Distribution Width 16 % (10.5-15); White Blood Count 5.5 10^3/ul (3.5-10.8)
[2018-01-27 05:55] LABS: EGFR Non-African American 96.4 (>60)
[2018-01-27] MEDS: Levothyroxine TAB* 150 MCG TAB PO SCH (06:07)
[2018-01-27] MEDS: ceFAZolin 1 GM in Dextrose (*) 1 GM/50 ML BAG IVPB SCH ×2 (06:08→14:14)
[2018-01-27] MEDS: Gabapentin CAP(*) 300 MG PO SCH (09:48)
[2018-01-27] MEDS: Metoprolol Succinate XL TAB* 25 MG PO SCH (09:48)
[2018-01-27] MEDS: Baclofen TAB* 10 MG PO SCH ×2 (09:48→21:00)
[2018-01-27] MEDS: Oxybutynin XL TAB* 5 MG PO SCH (09:49)
--- NOTE | 2018-01-27 10:52 | PN ---
Progress Note - Progress Note Date of Service: 01/27/18 SOAP: Subjective: 72 y/o female s/p R knee revision 10/26/17 with norma infection s/p washout [address] Ac. Patient feeling well, no questions, reports no pain. VSS, afebrile overnight. Objective: General- Well appearing, NAD, AO, resting in bed comfortably. MSK- RLE- + DF/PF, PT 21+, negative homans sign, dressing intact, no drainage, odor noted. SITLT Vital Signs Temp 97.5 F 01/27/18 07:32 Pulse 87 01/27/18 07:32 Resp 16 01/27/18 09:48 BP 147/86 01/27/18 07:32 Pulse Ox 95 01/27/18 07:32 Intake & Output 01/26/18 01/27/18 01/27/18 18:59 06:59 18:59 Intake Total 5892 846 1516 Output Total 750 2375 Balance 1054 -1575 1150 Weight 77.247 kg Intake: IV Fluids 689 LR 600 NS 50ML, Cefazolin 2G 50 anidulafungin 39 IVPB 50 ABX - CEFAZOLIN 50 Oral 1864 885 8402 Output: Chaudhari 750 2375 Assessment: Stable 72 y/o female s/p R knee revision 10/26/17 with norma infection s/p washout 01/26/[address] Ac. Plan: - DVT prophylaxis- Xarelto - Continue PT/ OT - order written. - Follow up with Dr. Ham within 10-14 days - H&H - stable, WBC improved. - post-op IV ABX - Running. patient with Eraxis- discussed with Kayla--> Will require long course. - Cultures- 01/26 pending, 01/23- Norma Para. - D/C to SNF/ rehab Acetaminophen (Tylenol Tab*) 650 mg PO Q4H PRN PRN Reason: FEVER/PAIN Last Admin: 01/25/18 04:06 Dose: 650 mg Albuterol (Ventolin 2.5 Mg/3 Ml Neb.Natacha*) 2.5 mg INH Q2H PRN PRN Reason: SOB/WHEEZING Last Admin: 01/24/18 23:02 Dose: 2.5 mg Baclofen (Lioresal Tab*) 20 mg PO BID [facility] Last Admin: 01/27/18 09:48 Dose: 20 mg Benzonatate (Tessalon Cap*) 100 mg PO BID PRN PRN Reason: COUGH Last Admin: 01/20/18 22:52 Dose: 100 mg Dimethyl Fumarate (Tecfidera(Nf)) 240 mg PO BID [facility] Last Admin: 01/27/18 09:49 Dose: Not Given Gabapentin (Neurontin Cap(*)) 300 mg PO DAILY [facility] Last Admin: 01/27/18 09:48 Dose: 300 mg Cefazolin Sodium/Dextrose (Kefzol 1 Gm In Dextrose Duplex (*)) 1 gm in 50 mls @ 200 mls/hr IVPB Q8H [facility] Stop: 01/27/18 14:14 Last Admin: 01/27/18 06:08 Dose: 200 mls/hr Anidulafungin 100 mg/ Sodium (Chloride) 130 mls @ 65 mls/hr IVPB Q24H [facility] Levothyroxine Sodium (Synthroid Tab*) 150 mcg PO DAILY@0600 [facility] Last Admin: 01/27/18 06:07 Dose: 150 mcg Lorazepam (Ativan Tab(*)) 0.5 mg PO Q6H PRN PRN Reason: ANXIETY Last Admin: 01/27/18 00:13 Dose: 0.5 mg Metoprolol Succinate (Toprol Xl Tab*) 25 mg PO DAILY [facility] Last Admin: 01/27/18 09:48 Dose: 25 mg Naloxone HCl (Narcan*) 0.08 mg IV Q2M PRN PRN Reason: severe induced resp depression Stop: 01/27/18 13:39 Ondansetron HCl (Zofran Inj*) 4 mg IV Q6H PRN PRN Reason: NAUSEA Oxybutynin Chloride (Ditropan Xl Tab*) 10 mg PO DAILY [facility] Last Admin: 01/27/18 09:49 Dose: 10 mg Oxycodone/Acetaminophen (Percocet 5/325 Tab*) 1 tab PO Q2H PRN PRN Reason: PAIN - MILD TO MODERATE Oxycodone/Acetaminophen (Percocet 5/325 Tab*) 2 tab PO Q4H PRN PRN Reason: PAIN - MODERATE TO SEVERE Rivaroxaban (Xarelto(*)) 10 mg PO DAILY@1700 [facility]
[2018-01-27] MEDS ORDERED: PTO:Dimethyl Fumarate(NF) 240 MG CAP PO ONE (13:00)
[2018-01-27] MEDS ORDERED: LORazepam TAB(*) 0.5 MG PO PRN (13:45)
--- NOTE | 2018-01-27 13:50 | PN ---
Subjective Date of Service: 01/27/18 Interval History: HOSPITALIST PROGRESS NOTE Patient seen and examined at bedside. Care reviewed and d/w with her RN Alessandra Gonzalez. Ms. Scott offers no new complaints today, pain is controlled, did not sleep well last night despite medications. More withdrawn today, closing eyes during our conversation, not really paying attention to what I was explaining. Family History: Unchanged from Admission Social History: Unchanged from Admission Past Medical History: Unchanged from Admission Objective Active Medications: Acetaminophen (Tylenol Tab*) 650 mg PO Q4H PRN PRN Reason: FEVER/PAIN Last Admin: 01/25/18 04:06 Dose: 650 mg Albuterol (Ventolin 2.5 Mg/3 Ml Neb.Natacha*) 2.5 mg INH Q2H PRN PRN Reason: SOB/WHEEZING Last Admin: 01/24/18 23:02 Dose: 2.5 mg Baclofen (Lioresal Tab*) 20 mg PO BID [facility] Last Admin: 01/27/18 09:48 Dose: 20 mg Benzonatate (Tessalon Cap*) 100 mg PO BID PRN PRN Reason: COUGH Last Admin: 01/20/18 22:52 Dose: 100 mg Dimethyl Fumarate (Tecfidera(Nf)) 240 mg PO BID [facility] Last Admin: 01/27/18 09:49 Dose: Not Given Gabapentin (Neurontin Cap(*)) 300 mg PO DAILY [facility] Last Admin: 01/27/18 09:48 Dose: 300 mg Cefazolin Sodium/Dextrose (Kefzol 1 Gm In Dextrose Duplex (*)) 1 gm in 50 mls @ 200 mls/hr IVPB Q8H [facility] Stop: 01/27/18 14:14 Last Admin: 01/27/18 06:08 Dose: 200 mls/hr Anidulafungin 100 mg/ Sodium (Chloride) 130 mls @ 65 mls/hr IVPB Q24H [facility] Levothyroxine Sodium (Synthroid Tab*) 150 mcg PO DAILY@0600 [facility] Last Admin: 01/27/18 06:07 Dose: 150 mcg Lorazepam (Ativan Tab(*)) 0.5 mg PO Q6H PRN PRN Reason: ANXIETY Last Admin: 01/27/18 00:13 Dose: 0.5 mg Metoprolol Succinate (Toprol Xl Tab*) 25 mg PO DAILY [facility] Last Admin: 01/27/18 09:48 Dose: 25 mg Ondansetron HCl (Zofran Inj*) 4 mg IV Q6H PRN PRN Reason: NAUSEA Oxybutynin Chloride (Ditropan Xl Tab*) 10 mg PO DAILY [facility] Last Admin: 01/27/18 09:49 Dose: 10 mg Oxycodone/Acetaminophen (Percocet 5/325 Tab*) 1 tab PO Q2H PRN PRN Reason: PAIN - MILD TO MODERATE Oxycodone/Acetaminophen (Percocet 5/325 Tab*) 2 tab PO Q4H PRN PRN Reason: PAIN - MODERATE TO SEVERE Rivaroxaban (Xarelto(*)) 10 mg PO DAILY@1700 [facility] Vital Signs - 8 hr 01/27/18 01/27/18 01/27/18 07:32 08:00 09:48 Temperature 97.5 F Pulse Rate 87 Respiratory 20 16 16 Rate Blood Pressure 147/86 (mmHg) O2 Sat by Pulse 95 Oximetry 01/27/18 01/27/18 11:23 12:25 Temperature 97.6 F Pulse Rate 48 Respiratory 16 16 Rate Blood Pressure 129/66 (mmHg) O2 Sat by Pulse 95 Oximetry Oxygen Devices in Use Now: None Appearance: Elderly lady lying in bed in [facility]. Eyes: No Scleral Icterus Ears/Nose/Mouth/Throat: Mucous Membranes Moist Neck: Trachea Midline Respiratory: Symmetrical Chest Expansion and Respiratory Effort, Clear to Auscultation Cardiovascular: NL Sounds; No Murmurs; No JVD, RRR Extremities: - - CDI to right knee Neurological: Alert and Oriented x 3 Result Diagrams: 01/27/18 05:12 01/27/18 05:12 Assess/Plan/Problems-Billing Assessment: Ms. Scott is a 72 yo F with PMH of severe multiple sclerosis, Afib, right knee hardware subluxation repair complicated by celestine infection, neurogenic bladder w/ chronic chaudhari who presented with cough, found to have sepsis secondary to Influenza A and Pseudomonas in UCx. - Patient Problems (1) Infection of right knee Comment: - Recent right knee joint infection with celestine parapsilosis. - Synovial fluid with 300 WBC, fluid culture growing C. parapsilosis. - S/p knee wash out 01/26/18. - D/w ID - tentative plan for Anidulafungin IV for 8 weeks after surgery. (2) Sepsis Comment: - Presentation compatible with sepsis on admission with tachypnea, tachycardia, neutropenia. - Source is Influenza A. - Sepsis is now resolved. (3) Influenza A Comment: - Completed Tamiflu. (4) Pseudomonas aeruginosa infection Comment: - Patient has a chronic Chaudhari due to neurogenic bladder associated with MS. Unclear if Pseudomonas played a role on her sepsis presentation or if just a colonizer. - Recently treated with Cipro for ESBL E. coli. - ID input appreciated - completed 5 days of Zosyn. (5) Neutropenia Comment: - Probably secondary to Influenza, and/or Fluconazole - resolved. (6) Atrial fibrillation Comment: - Continue Metoprolol. - [id number] is 2. - Ortho resumed Xarelto 10mg. - Will try to talk about higher dose Xarelto for Afib when patient is more open to conversation. (7) Hypothyroid Comment: - TSH is elevated. - Levothyroxine increased to 150 mcg and repeat TFTs in 4 weeks. (8) Multiple sclerosis Comment: - Continue Tecfidera and Baclofen. (9) Neurogenic bladder Comment: - Secondary to MS. - Patient has chronic chaudhari (exchanged 01/19/18). (10) DVT prophylaxis Comment: - Rivaroxaban on hold for surgery. - SCDs. (11) Full code status Status and Disposition: Inpatient for management of right knee fungal infection.
--- NOTE | 2018-01-27 14:51 | PN ---
Progress Note - Progress Note Date of Service: 01/27/18 SOAP: Subjective: CC: knee pain HPI: 72 year old woman with MS and revision of a right knee arthroplasty, recent Norma parapsilosis abscess in the soft tissues of the knee. Was on fluconazole for 3 weeks and has ongoing knee pain and swelling. Admitted with influenza, completed tamiflu. Knee aspirated , then had washout. No fever,rash , or cough. Objective: Vital Signs Temp 36.4 C 01/27/18 11:23 Pulse 48 01/27/18 11:23 Resp 16 01/27/18 12:25 BP 129/66 01/27/18 11:23 Pulse Ox 95 01/27/18 11:23 Intake & Output 01/26/18 01/27/18 01/27/18 18:59 06:59 18:59 Intake Total 2237 932 5490 Output Total 750 2375 700 Balance 1054 -1575 960 Weight 170 lb 4.8 oz Intake: IV Fluids 689 LR 600 NS 50ML, Cefazolin 2G 50 anidulafungin 39 IVPB 50 ABX - CEFAZOLIN 50 Oral 7297 380 0846 Output: Pal 750 2375 700 Other: # Bowel Movements 0 Gen:awake, no distress HEENT:no thrush Heart:RRR no murmur Abd:+BS NTND soft Skin: no rash MSK: R knee diffuse edema and tenderness with warmth Assessment: 1. right prosthetic knee Norma parapsilosis infection 2. MS with neurogenic bladder and chronic pal catheter Plan: 1. anidulufungin day . I asked micro to send isolate for susceptibility testing
[2018-01-27] MEDS ORDERED: Rivaroxaban TAB(*) 10 MG PO SCH (17:00)
[2018-01-27] MEDS: Anidulafungin* 100 MG in NS 0.9% 100 ML* 100 ML IVPB SCH (17:49)
[2018-01-27] MEDS ORDERED: Temazepam CAP* 15 MG PO SCH (21:00)
[2018-01-27] MEDS: Benzonatate CAP* 100 MG PO PRN (21:08)
[2018-01-27] MEDS: Albuterol 2.5 MG/3 ML NEB.SOL* (0.083%) INH PRN (23:36)
[2018-01-28] MEDS: Albuterol 2.5 MG/3 ML NEB.SOL* (0.083%) INH PRN (06:11)
[2018-01-28] MEDS: Levothyroxine TAB* 150 MCG TAB PO SCH (06:19)
[2018-01-28] MEDS: Benzonatate CAP* 100 MG PO PRN (07:29)
[2018-01-28] MEDS ORDERED: LORazepam TAB(*) 0.5 MG PO PRN (08:39)
[2018-01-28] MEDS: Gabapentin CAP(*) 300 MG PO SCH (09:07)
[2018-01-28] MEDS: Oxybutynin XL TAB* 5 MG PO SCH (09:08)
[2018-01-28] MEDS: PTO:Dimethyl Fumarate(NF) 240 MG CAP PO SCH ×2 (09:08→21:31)
[2018-01-28] MEDS: Metoprolol Succinate XL TAB* 25 MG PO SCH (09:08)
[2018-01-28] MEDS: Baclofen TAB* 10 MG PO SCH ×2 (09:08→21:32)
--- NOTE | 2018-01-28 09:33 | PN ---
Progress Note - Progress Note Date of Service: 01/28/18 SOAP: Subjective: POD #2 Right knee I&D. Pt c/o some pain but tolerable. Objective: Vitals: Temp Pulse Resp BP Pulse Ox 97.1 F 56 16 140/97 98 01/28/18 07:25 01/28/18 07:26 01/28/18 09:07 01/28/18 07:25 01/28/18 07:25 Gen: Alert, oriented to self and place, not oriented to time. NAD at rest LLE: Dressing C/D/I, calf soft and NT. +f/e at ankle and MTPs, N/V intact Assessment: POD #2 Right knee I&D Plan: Antifungals per ID Dispo per medicine Cont PT/OT
--- NOTE | 2018-01-28 13:21 | PN ---
Subjective Date of Service: 01/28/18 Interval History: HOSPITALIST PROGRESS NOTE Patient seen and examined at bedside. Care reviewed and d/w her RN Alessandra Gonzalez. Last night events noted - had dyspnea, cough, rapid Afib HR 120s. Also noted to be confused. She denies complaints at this time. Remembers being short of breath last night, but states "it's better". Family History: Unchanged from Admission Social History: Unchanged from Admission Past Medical History: Unchanged from Admission Objective Active Medications: Acetaminophen (Tylenol Tab*) 650 mg PO Q4H PRN PRN Reason: FEVER/PAIN Last Admin: 01/25/18 04:06 Dose: 650 mg Albuterol (Ventolin 2.5 Mg/3 Ml Neb.Natacha*) 2.5 mg INH Q2H PRN PRN Reason: SOB/WHEEZING Last Admin: 01/28/18 06:11 Dose: 2.5 mg Baclofen (Lioresal Tab*) 20 mg PO BID [facility] Last Admin: 01/28/18 09:08 Dose: 20 mg Benzonatate (Tessalon Cap*) 100 mg PO BID PRN PRN Reason: COUGH Last Admin: 01/28/18 07:29 Dose: 100 mg Dimethyl Fumarate (Tecfidera(Nf)) 240 mg PO BID [facility] Last Admin: 01/28/18 09:08 Dose: 240 mg Gabapentin (Neurontin Cap(*)) 300 mg PO DAILY [facility] Last Admin: 01/28/18 09:07 Dose: 300 mg Anidulafungin 100 mg/ Sodium (Chloride) 130 mls @ 65 mls/hr IVPB Q24H [facility] Last Admin: 01/27/18 17:49 Dose: 65 mls/hr Levothyroxine Sodium (Synthroid Tab*) 150 mcg PO DAILY@0600 [facility] Last Admin: 01/28/18 06:19 Dose: 150 mcg Lorazepam (Ativan Tab(*)) 0.5 mg PO Q6H PRN PRN Reason: ANXIETY Metoprolol Succinate (Toprol Xl Tab*) 25 mg PO DAILY [facility] Last Admin: 01/28/18 09:08 Dose: 25 mg Ondansetron HCl (Zofran Inj*) 4 mg IV Q6H PRN PRN Reason: NAUSEA Oxybutynin Chloride (Ditropan Xl Tab*) 10 mg PO DAILY [facility] Last Admin: 01/28/18 09:08 Dose: 10 mg Oxycodone/Acetaminophen (Percocet 5/325 Tab*) 1 tab PO Q2H PRN PRN Reason: PAIN - MILD TO MODERATE Oxycodone/Acetaminophen (Percocet 5/325 Tab*) 2 tab PO Q4H PRN PRN Reason: PAIN - MODERATE TO SEVERE Rivaroxaban (Xarelto(*)) 20 mg PO DAILY@1700 [facility] Vital Signs - 8 hr 01/28/18 01/28/18 01/28/18 07:25 07:26 07:35 Temperature 97.1 F Pulse Rate 34 56 Respiratory 20 16 Rate Blood Pressure 140/97 (mmHg) O2 Sat by Pulse 98 Oximetry 01/28/18 09:07 Temperature Pulse Rate Respiratory 16 Rate Blood Pressure (mmHg) O2 Sat by Pulse Oximetry Oxygen Devices in Use Now: Nasal Cannula - 2 liters Appearance: Elderly lady sitting up in bed in [facility]. Eyes: No Scleral Icterus Ears/Nose/Mouth/Throat: Mucous Membranes Moist Neck: Trachea Midline Respiratory: Symmetrical Chest Expansion and Respiratory Effort, - - BS+ bilaterally with scattered rhonchi. Cardiovascular: - - Normal S1 and S2, irregularly irregular Abdominal: NL Sounds; No Tenderness; No Distention Extremities: - - CDI to right knee Neurological: - - AAOx2 (self and place) Result Diagrams: 01/27/18 05:12 01/27/18 05:12 Assess/Plan/Problems-Billing Assessment: Ms. Scott is a 72 yo F with PMH of severe multiple sclerosis, Afib, right knee hardware subluxation repair complicated by celestine infection, neurogenic bladder w/ chronic chaudhari who presented with cough, found to have sepsis secondary to Influenza A and Pseudomonas in UCx. - Patient Problems (1) Dyspnea Comment: - Respiratory status had improved and is now worsening again - possible post Influenza pneumonia. - Check CxR. - Start Vanco and Cefepime empirically. (2) Delirium Comment: - Multifactorial in the setting of infection and post-anesthesia. - Continue supportive care. (3) Decubitus ulcer, unstageable Comment: - Patient has a small open area on his sacrum where she had a decubitus in the past. - Frequent turn and position. (4) Atrial fibrillation Comment: - In rapid Afib last night, but rate is controlled now. - Continue Metoprolol and monitor on Telemetry. - [id number] is 2. - We had d/w risks and benefits of anticoagulation before, but as she was going to have Surgery, I did not increase her dose of Xarelto. As her procedure was already done, will increase dose to 20mg. 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 - Synovial fluid with 300 WBC, fluid culture growing C. parapsilosis. - S/p knee wash out 01/26/18. - Continue Anidulafungin IV #. (6) Sepsis Comment: - Presentation compatible with sepsis on admission with tachypnea, tachycardia, neutropenia. - Source was Influenza A. (7) Influenza A Comment: - Completed Tamiflu. (8) Pseudomonas aeruginosa infection Comment: - Patient has a chronic Chaudhari due to neurogenic bladder associated with MS. UTI is Chaudhari catheter related, present on admission. - Recently treated with Cipro for ESBL E. coli. - ID input appreciated - completed 5 days of Zosyn. (9) Neutropenia Comment: - Probably secondary to Influenza, and/or Fluconazole - resolved. (10) Hypothyroid Comment: - TSH is elevated. - Levothyroxine increased to 150 mcg and repeat TFTs in 4 weeks. (11) Multiple sclerosis Comment: - Continue Tecfidera and Baclofen. (12) Neurogenic bladder Comment: - Secondary to MS. - Patient has chronic chaudhari (exchanged 01/19/18). (13) DVT prophylaxis Comment: - Rivaroxaban. (14) Full code status Status and Disposition: Inpatient for management of right knee fungal infection.
[2018-01-28] MEDS ORDERED: Vancomycin per Pharmacy* NOTE FOLLOW UP PRN (13:57)
[2018-01-28 14:10] LABS: Hematocrit 39 % (35-47); Hemoglobin 12.8 g/dl (12.0-16.0); Mean Corpuscular HGB Conc 33 g/dl (31-36); Mean Corpuscular Hemoglobin 26 pg (27-31); Mean Corpuscular Volume 78 fL (80-97); Platelet Count 232 10^3/ul (150-450); Red Cell Distribution Width 16 % (10.5-15); White Blood Count 6.3 10^3/ul (3.5-10.8)
--- NOTE | 2018-01-28 14:22 | RAD ---
INDICATION: Dyspnea and cough. COMPARISON: Comparison is made with a prior chest x-ray study from January 18, 2018. TECHNIQUE: A portable view of the chest was obtained. FINDINGS: The heart appears mildly prominent and unchanged from the prior study. The lungs are underinflated and clear. No pleural effusion is seen. IMPRESSION: NO EVIDENCE FOR ACUTE DISEASE.
[2018-01-28 14:26] LABS: EGFR Non-African American 78.4 (>60)
[2018-01-28] MEDS ORDERED: Vancomycin(*) 1,000 MG in NS 0.9% 250 ML* 250 ML IVPB ONE (14:30)
[2018-01-28 14:38] LABS: ABS Basophils 0.1 10^3/ul (0-0.2); ABS Eosinophils 0.1 10^3/ul (0-0.6); ABS Lymphocytes 1.1 10^3/ul (1.0-4.8); ABS Monocytes 0.6 10^3/ul (0-0.8); ABS Neutrophils 4.4 10^3/ul (1.5-7.7)
[2018-01-28] MEDS: Cefepime(*) 1 GM in NS 0.9% 50 ML* 50 ML IVPB SCH (14:47)
[2018-01-28 14:51] LABS: Monocytes % 6 % (0-7)
[2018-01-28] MEDS: Rivaroxaban TAB(*) 20 MG TAB PO SCH (17:09)
[2018-01-28] MEDS: Anidulafungin* 100 MG in NS 0.9% 100 ML* 100 ML IVPB SCH (17:33)
[2018-01-28] MEDS: Vancomycin(*) 750 MG in NS 0.9% 250 ML* 250 ML IVPB SCH (21:47)
[2018-01-29] MEDS: Benzonatate CAP* 100 MG PO PRN (01:40)
[2018-01-29] MEDS: Cefepime(*) 1 GM in NS 0.9% 50 ML* 50 ML IVPB SCH ×2 (01:45→13:10)
[2018-01-29 05:54] LABS: Hematocrit 36 % (35-47); Hemoglobin 12.3 g/dl (12.0-16.0); Mean Corpuscular HGB Conc 34 g/dl (31-36); Mean Corpuscular Hemoglobin 26 pg (27-31); Mean Corpuscular Volume 77 fL (80-97); Mean Platelet Volume 7.9 um3 (7.4-10.4); Platelet Count 230 10^3/ul (150-450); Red Blood Count 4.73 10^6/ul (4.0-5.4); Red Cell Distribution Width 16 % (10.5-15); White Blood Count 5.5 10^3/ul (3.5-10.8)
[2018-01-29] MEDS: Levothyroxine TAB* 150 MCG TAB PO SCH (06:01)
[2018-01-29 06:02] LABS: ABS Basophils 0 10^3/ul (0-0.2); ABS Eosinophils 0.1 10^3/ul (0-0.6); ABS Lymphocytes 1.1 10^3/ul (1.0-4.8); ABS Monocytes 0.6 10^3/ul (0-0.8); ABS Neutrophils 3.7 10^3/ul (1.5-7.7); ABS Nucleated RBC 0 10^3/ul; Eosinophil % 2.1 % (0-6); Lymphocyte % 19.6 % (25-47); Nucleated Red Blood Cells % 0.3
[2018-01-29] MEDS: Vancomycin(*) 750 MG in NS 0.9% 250 ML* 250 ML IVPB SCH ×2 (06:02→13:51)
[2018-01-29 06:14] LABS: EGFR Non-African American 124.1 (>60)
[2018-01-29] MEDS: Gabapentin CAP(*) 300 MG PO SCH (08:08)
[2018-01-29] MEDS: Oxybutynin XL TAB* 5 MG PO SCH (08:08)
[2018-01-29] MEDS: Baclofen TAB* 10 MG PO SCH ×2 (08:08→21:41)
[2018-01-29] MEDS: PTO:Dimethyl Fumarate(NF) 240 MG CAP PO SCH (08:08)
[2018-01-29] MEDS: Metoprolol Succinate XL TAB* 25 MG PO SCH (08:08)
--- NOTE | 2018-01-29 08:17 | PN ---
Progress Note - Progress Note Date of Service: 01/29/18 SOAP: Subjective: POD #3 Right knee I&D, doing ok. Pt remains confused, states that she is "not feeling well" but can not elaborate. Denies CP or recent SOB. Objective: Vitals: Temp Pulse Resp BP Pulse Ox 98.6 F 113 18 148/92 95 // 07:23 /06/10 07:23 01/29/18 08:08 01/29/18 07:23 01/29/18 07:25 Gen: A&Ox2, confused to time RLE: Incisions C/D/I. No erythema, no drainage. Minimal swelling to knee. +f/e at ankle and MTPs. N/V intact Assessment: POD #3 Right knee I&D Plan: New dressing applied today Cont PT/OT Abx/antifungals per ID Dispo per medicine Ortho to continue following
[2018-01-29] MEDS: Metoprolol Tartrate IV* 1 MG/ML 5 ML VIAL IV PRN ×2 (09:13→19:26)
--- NOTE | 2018-01-29 10:44 | PN ---
Subjective Date of Service: 01/29/18 Interval History: Afib RVR to 140s this AM. Got 5IV metoprolol, improved to 80s. SBP preserved. Afebrile. not oriented to year or situation. CTH ordered. Afebrile. Family History: Unchanged from Admission Social History: Unchanged from Admission Past Medical History: Unchanged from Admission Objective Active Medications: Acetaminophen (Tylenol Tab*) 650 mg PO Q4H PRN PRN Reason: FEVER/PAIN Last Admin: 01/25/18 04:06 Dose: 650 mg Albuterol (Ventolin 2.5 Mg/3 Ml Neb.Natacha*) 2.5 mg INH Q2H PRN PRN Reason: SOB/WHEEZING Last Admin: 01/28/18 06:11 Dose: 2.5 mg Baclofen (Lioresal Tab*) 20 mg PO BID [facility] Last Admin: 01/29/18 08:08 Dose: 20 mg Benzonatate (Tessalon Cap*) 100 mg PO BID PRN PRN Reason: COUGH Last Admin: 01/29/18 01:40 Dose: 100 mg Dimethyl Fumarate (Tecfidera(Nf)) 240 mg PO BID [facility] Last Admin: 01/29/18 08:08 Dose: 240 mg Gabapentin (Neurontin Cap(*)) 300 mg PO DAILY [facility] Last Admin: 01/29/18 08:08 Dose: 300 mg Anidulafungin 100 mg/ Sodium (Chloride) 130 mls @ 65 mls/hr IVPB Q24H [facility] Last Admin: 01/28/18 17:33 Dose: 65 mls/hr Cefepime HCl 1 gm/ Sodium (Chloride) 50 mls @ 100 mls/hr IVPB Q12H [facility] Last Admin: 01/29/18 01:45 Dose: 100 mls/hr Vancomycin HCl 750 mg/ Sodium (Chloride) 250 mls @ 166.667 mls/hr IVPB Q8H [facility] Last Admin: 01/29/18 06:02 Dose: 166.667 mls/hr Levothyroxine Sodium (Synthroid Tab*) 150 mcg PO DAILY@0600 [facility] Last Admin: 01/29/18 06:01 Dose: 150 mcg Lorazepam (Ativan Tab(*)) 0.5 mg PO Q6H PRN PRN Reason: ANXIETY Last Admin: 01/29/18 04:15 Dose: 0.5 mg Metoprolol Succinate (Toprol Xl Tab*) 25 mg PO DAILY [facility] Last Admin: 01/29/18 08:08 Dose: 25 mg Metoprolol Tartrate (Lopressor Iv*) 5 mg IV Q2H PRN PRN Reason: TACHYCARDIA Last Admin: 01/29/18 09:13 Dose: 5 mg Ondansetron HCl (Zofran Inj*) 4 mg IV Q6H PRN PRN Reason: NAUSEA Oxybutynin Chloride (Ditropan Xl Tab*) 10 mg PO DAILY [facility] Last Admin: 01/29/18 08:08 Dose: 10 mg Oxycodone/Acetaminophen (Percocet 5/325 Tab*) 1 tab PO Q2H PRN PRN Reason: PAIN - MILD TO MODERATE Last Admin: 01/28/18 14:52 Dose: 1 tab Oxycodone/Acetaminophen (Percocet 5/325 Tab*) 2 tab PO Q4H PRN PRN Reason: PAIN - MODERATE TO SEVERE Pharmacy Consult (Vancomycin Per Pharmacy*) 1 note FOLLOW UP . PRN PRN Reason: PER PROTOCOL Pharmacy Profile Note (Vancomycin Trough Check) 1 note FOLLOW UP 0530 ONE Stop: 01/30/18 05:31 Rivaroxaban (Xarelto(*)) 20 mg PO DAILY@1700 [facility] Last Admin: 01/28/18 17:09 Dose: 20 mg Vital Signs - 8 hr 01/29/18 01/29/18 01/29/18 03:17 04:15 04:31 Temperature 97.5 F Pulse Rate 102 Respiratory 14 16 Rate Blood Pressure 140/85 (mmHg) O2 Sat by Pulse 97 97 Oximetry 01/29/18 01/29/18 01/29/18 07:03 07:10 07:23 Temperature 98.6 F Pulse Rate 113 Respiratory 16 16 16 Rate Blood Pressure 148/92 (mmHg) O2 Sat by Pulse Oximetry 01/29/18 01/29/18 07:25 08:08 Temperature Pulse Rate Respiratory 18 Rate Blood Pressure (mmHg) O2 Sat by Pulse 95 Oximetry Oxygen Devices in Use Now: None Appearance: NAD. Eyes: No Scleral Icterus, PERRLA Ears/Nose/Mouth/Throat: NL Teeth, Lips, Gums, Mucous Membranes Moist Neck: NL Appearance and Movements; NL JVP Respiratory: Symmetrical Chest Expansion and Respiratory Effort, Clear to Auscultation Cardiovascular: NL Sounds; No Murmurs; No JVD, RRR Extremities: No Edema, No Clubbing, Cyanosis, - - right knee in HERBERT wrap Skin: No Rash or Ulcers, No Nodules or Sclerosis Neurological: - - Talking much more slowly. Not oriented to place or situation or year. strength intact though pain limited on RLE. Nutrition: Taking PO's Result Diagrams: 01/29/18 05:35 01/29/18 05:35 Additional Lab and Data: Laboratory Results - last 24 hr 01/29/18 01/29/18 05:35 05:35 WBC 5.5 RBC 4.73 Hgb 12.3 Hct 36 MCV 77 L MCH 26 L MCHC 34 RDW 16 H Plt Count 230 MPV 7.9 Neut % (Auto) 66.7 Lymph % (Auto) 19.6 L [place] % (Auto) 10.9 H Eos % (Auto) 2.1 Baso % (Auto) 0.7 Absolute Neuts (auto) 3.7 Absolute Lymphs (auto) 1.1 Absolute Monos (auto) 0.6 Absolute Eos (auto) 0.1 Absolute Basos (auto) 0 Absolute Nucleated RBC 0 Nucleated RBC % 0.3 Sodium 139 Potassium 3.5 Chloride 105 Carbon Dioxide 23 Anion Gap 11 BUN 10 Creatinine 0.49 L Est GFR ( Amer) 159.7 Est GFR (Non-Af Amer) 124.1 BUN/Creatinine Ratio 20.4 H Glucose 108 H Calcium 9.3 Microbiology and Other Data: Microbiology 01/29/18 12:30 Nasal Nasal Screen MRSA (PCR)(CLAUDIA) - Final Mrsa Not Detected 01/26/18 13:37 Tissue Wound Gram Stain - Final 01/26/18 13:37 Tissue Tissue Culture - Preliminary No Growth Day 3 01/26/18 13:37 Knee Right Gram Stain - Final 01/26/18 13:37 Knee Right Wound Culture - Preliminary No Growth Day 3 01/26/18 13:37 Body Fluid Anaerobic Culture - Preliminary No Growth Day 3 01/23/18 15:50 Joint Fluid(Synovial) - Knee Right Gram Stain - Final 01/23/18 15:50 Joint Fluid(Synovial) - Knee Right Body Fluid Culture - Final Celestine Parapsilosis 01/23/18 15:50 Joint Fluid(Synovial) - Knee Right Skin and Soft Tissue MRSA/ MSSA (PCR - Final Mrsa Negative S.aureus Negative 01/18/18 17:00 Blood Venous Aerobic Blood Culture - Final No Growth Day 5 01/18/18 17:00 Blood Venous Anaerobic Blood Culture - Final No Growth Day 5 01/18/18 16:32 Blood Venous Aerobic Blood Culture - Final No Growth Day 5 01/18/18 16:32 Blood Venous Anaerobic Blood Culture - Final No Growth Day 5 01/18/18 16:15 Urine Urine Culture - Final Pseudomonas Aeruginosa 01/18/18 16:15 Nasal Influenza Types A,B Antigen (CLAUDIA) - Final Specimen received for Influenza A/B Molecular testing Assess/Plan/Problems-Billing Assessment: 72 yo F with PMH of severe multiple sclerosis, Afib, right knee hardware subluxation repair complicated by celestine parapsilosis infection (still present , 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 - Patient Problems (1) Sepsis Current Visit: Yes Status: Acute Comment: - Presentation compatible with sepsis on admission with tachypnea, tachycardia, neutropenia. - Source was Influenza A. (2) Atrial fibrillation Current Visit: No Status: Acute Code(s): I48.91 - UNSPECIFIED ATRIAL FIBRILLATION SNOMED Code(s): 44511927 Comment: metoprolol succinate 25 mg po daily. was started on xarelto 10mg daily for DVT ppx dosing by ortho. Discuss increasing for cva ppx. (3) Infection of right knee Current Visit: Yes Status: Acute Code(s): M00.9 - PYOGENIC ARTHRITIS, UNSPECIFIED SNOMED Code(s): 402454629 Comment: - Recent right knee joint infection with celestine parapsilosis, still with growth despite 4 weeks fluconazole, present on admission. - Synovial fluid with 300 WBC, fluid culture growing C. parapsilosis. - S/p knee wash out 01/26/18. - Continue Anidulafungin IV #/. - stopping dimethyl fumerate given infections. (4) Hypothyroid Current Visit: Yes Status: Chronic Code(s): E03.9 - HYPOTHYROIDISM, UNSPECIFIED SNOMED Code(s): 36764780 Comment: - TSH is elevated to 16 - Levothyroxine now 150 mcg (from 137)and repeat TFTs in 4 weeks. (5) Multiple sclerosis Current Visit: Yes Status: Chronic Code(s): G35 - MULTIPLE SCLEROSIS SNOMED Code(s): 34309708 Comment: - stop Tecfidera given infections. Daughter reports she had been off of it for 6 years until last September. 60% infection side effect risk - continue Baclofen. (6) Neurogenic bladder Current Visit: Yes Status: Chronic Code(s): N31.9 - NEUROMUSCULAR DYSFUNCTION OF BLADDER, UNSPECIFIED SNOMED Code(s): 813381576 Comment: - Secondary to MS. - Patient has chronic pal (exchanged 01/19/18). (7) Atrial fibrillation Current Visit: Yes Status: Acute Code(s): I48.91 - UNSPECIFIED ATRIAL FIBRILLATION SNOMED Code(s): 08611242 Comment: - pAfib , but rate is controlled now. - Continue Metoprolol and monitor on Telemetry. - [id number] is 2. - continue xarelto 20mg. (8) DVT prophylaxis Current Visit: Yes Status: Acute Code(s): RZP1787 - SNOMED Code(s): 427593921 Comment: - Rivaroxaban. (9) Decubitus ulcer of sacral region, stage 1 Current Visit: Yes Status: Acute Code(s): L89.151 - PRESSURE ULCER OF SACRAL REGION, STAGE 1 SNOMED Code(s): 477962158 (10) Decubitus ulcer, unstageable Current Visit: Yes Status: Acute Code(s): L89.95 - PRESSURE ULCER OF UNSPECIFIED SITE, UNSTAGEABLE SNOMED Code(s): 675346251 Comment: - Patient has a small open area on his sacrum where she had a decubitus in the past. - Frequent turn and position. (11) Delirium Current Visit: Yes Status: Acute Code(s): R41.0 - DISORIENTATION, UNSPECIFIED SNOMED Code(s): 9522804 Comment: - Multifactorial in the setting of infection and post-anesthesia. - Continue supportive care. - CTH no acute process. (12) Dyspnea Current Visit: Yes Status: Acute Code(s): R06.00 - DYSPNEA, UNSPECIFIED SNOMED Code(s): 510386522 Comment: - there had been concern for post Influenza pneumonia. - CxR w/o e/o infiltrate. - MRSA nares checked and negative stop Vancomycin today. - consider stop Cefepime tomorrow. (13) Full code status Current Visit: Yes Status: Acute Code(s): Z78.9 - OTHER SPECIFIED HEALTH STATUS SNOMED Code(s): 818787800 (14) Influenza A Current Visit: Yes Status: Acute Code(s): J10.1 - FLU DUE TO OTH IDENT INFLUENZA VIRUS W OTH RESP MANIFEST SNOMED Code(s): 064417544 Comment: - Completed Tamiflu. Status and Disposition: Inpatient for management of right knee fungal infection.
--- NOTE | 2018-01-29 12:40 | RAD ---
INDICATION: Right knee pain with a history of joint prosthesis. COMPARISON: Most recent knee radiograph is dated October 26, 2017 TECHNIQUE: 4 view radiograph of the right knee. FINDINGS: Again seen is an anatomically aligned knee prosthesis consistent with fusion. Depicted best on the lateral view images there are air-fluid levels within the suprapatellar joint space. There is induration and thickening of the overlying subcutaneous tissues. IMPRESSION: There are air-fluid levels in the suprapatellar joint space. This can be seen in the setting of gas-forming microorganisms or due to recent intervention.
--- NOTE | 2018-01-29 14:16 | RAD ---
INDICATION: Altered mental status COMPARISON: CT of the brain February 26, 2016 TECHNIQUE: Contiguous axial sections of the brain were obtained from the skull base to the vertex without contrast. FINDINGS: The ventricles, cisterns and sulci are within normal limits. The gutierrez-white matter differentiation is adequately maintained and there is no sulcal effacement. No significant focal abnormality or mass effect is present. There is no evidence for intracranial hemorrhage. No significant focal osseous abnormality is present. Incidental note is made of hyperostosis frontalis interna similar in appearance to the prior CT the brain. The visualized portion of the paranasal sinuses appear clear. The mastoid air cells are well aerated bilaterally. IMPRESSION: Normal CT of the brain.
[2018-01-29] MEDS: Rivaroxaban TAB(*) 20 MG TAB PO SCH (16:49)
[2018-01-29] MEDS: Anidulafungin* 100 MG in NS 0.9% 100 ML* 100 ML IVPB SCH (16:50)
[2018-01-29] MEDS ORDERED: Potassium Chloride LIQUID* 20 MEQ PACKET PO ONE (19:32)
[2018-01-30] MEDS: Cefepime(*) 1 GM in NS 0.9% 50 ML* 50 ML IVPB SCH ×2 (02:16→13:47)
[2018-01-30] MEDS: Benzonatate CAP* 100 MG PO PRN ×2 (02:22→20:34)
[2018-01-30] MEDS ORDERED: Vancomycin Trough Check NOTE FOLLOW UP ONE (05:30)
[2018-01-30] MEDS: Levothyroxine TAB* 150 MCG TAB PO SCH (06:04)
[2018-01-30 06:10] LABS: EGFR Non-African American 124.1 (>60)
[2018-01-30 06:36] LABS: Vancomycin Trough 9.7 mcg/mL
[2018-01-30] MEDS ORDERED: Magnesium Sulfate 2 GM IV* 2 GM/50 ML BAG IVPB ONE (08:32)
--- NOTE | 2018-01-30 09:02 | PN ---
Progress Note - Progress Note Date of Service: 01/30/18 SOAP: Subjective: 72 y/o female with infl A, L knee effusion w + celestine, s/p washout 4/[address] Ac. afebrile, vss patietn confused, brain CT done over weekend, negative. Objective: general Well appearing, NAD AO resting in bed comfortably MSK- R LE- rom 3-110 with pain at endpoints, PT 2+, neg homans b/l, sitlt, no drainage, redness, erythema, sutures intact, re-dressed. Vital Signs Temp 97.7 F 01/30/18 10:39 Pulse 69 01/30/18 10:39 Resp 16 01/30/18 13:04 BP 141/82 01/30/18 10:39 Pulse Ox 97 01/30/18 10:39 Intake & Output 01/29/18 01/30/18 01/30/18 18:59 06:59 18:59 Intake Total 480 0 210.1 Output Total 625 750 Balance -145 -750 210.1 Weight 77.746 kg Intake: IV Fluids 70.1 NS (0.9%) 70.1 IVPB 50 Magnesium Sulfate 50 Oral 480 0 90 Output: Chaudhari 625 750 Other: # Bowel Movements 0 1 Estimated Stool Amount Large Assessment: POD#5 L knee washout for celestine infection Influenza A Recent dyspnea Plan: - ANtifungal meds continued long term care pharmacist per ID - CEfepeime, vanco added empirically for dsypnea - Continue to monitor, suture removal ~ 2 weeks post-op Acetaminophen (Tylenol Tab*) 650 mg PO Q4H PRN PRN Reason: FEVER/PAIN Last Admin: 01/25/18 04:06 Dose: 650 mg Albuterol (Ventolin 2.5 Mg/3 Ml Neb.Natacha*) 2.5 mg INH Q2H PRN PRN Reason: SOB/WHEEZING Last Admin: 01/28/18 06:11 Dose: 2.5 mg Baclofen (Lioresal Tab*) 20 mg PO BID ARJUN Last Admin: 01/30/18 09:33 Dose: 20 mg Benzonatate (Tessalon Cap*) 100 mg PO BID PRN PRN Reason: COUGH Last Admin: 01/30/18 02:22 Dose: 100 mg Gabapentin (Neurontin Cap(*)) 300 mg PO DAILY ARJUN Last Admin: 01/30/18 09:33 Dose: 300 mg Anidulafungin 100 mg/ Sodium (Chloride) 130 mls @ 65 mls/hr IVPB Q24H [facility] Last Admin: 01/29/18 16:50 Dose: 65 mls/hr Cefepime HCl 1 gm/ Sodium (Chloride) 50 mls @ 100 mls/hr IVPB Q12H [facility] Last Admin: 01/30/18 13:47 Dose: 100 mls/hr Levothyroxine Sodium (Synthroid Tab*) 150 mcg PO DAILY@0600 [facility] Last Admin: 01/30/18 06:04 Dose: 150 mcg Lorazepam (Ativan Tab(*)) 0.5 mg PO Q6H PRN PRN Reason: ANXIETY Last Admin: 01/29/18 04:15 Dose: 0.5 mg Metoprolol Succinate (Toprol Xl Tab*) 25 mg PO DAILY [facility] Last Admin: 01/30/18 09:33 Dose: 25 mg Metoprolol Tartrate (Lopressor Iv*) 5 mg IV Q2H PRN PRN Reason: TACHYCARDIA Last Admin: 01/30/18 11:00 Dose: 5 mg Ondansetron HCl (Zofran Inj*) 4 mg IV Q6H PRN PRN Reason: NAUSEA Oxybutynin Chloride (Ditropan Xl Tab*) 10 mg PO DAILY [facility] Last Admin: 01/30/18 10:52 Dose: 10 mg Oxycodone/Acetaminophen (Percocet 5/325 Tab*) 1 tab PO Q2H PRN PRN Reason: PAIN - MILD TO MODERATE Last Admin: 01/28/18 14:52 Dose: 1 tab Oxycodone/Acetaminophen (Percocet 5/325 Tab*) 2 tab PO Q4H PRN PRN Reason: PAIN - MODERATE TO SEVERE Rivaroxaban (Xarelto(*)) 20 mg PO DAILY@1700 [facility] Last Admin: 01/29/18 16:49 Dose: 20 mg
[2018-01-30] MEDS: Baclofen TAB* 10 MG PO SCH ×2 (09:33→20:33)
[2018-01-30] MEDS: Gabapentin CAP(*) 300 MG PO SCH (09:33)
[2018-01-30] MEDS: Metoprolol Succinate XL TAB* 25 MG PO SCH (09:33)
[2018-01-30] MEDS: Oxybutynin XL TAB* 5 MG PO SCH (10:52)
[2018-01-30] MEDS: Metoprolol Tartrate IV* 1 MG/ML 5 ML VIAL IV PRN (11:00)
[2018-01-30] MEDS: Rivaroxaban TAB(*) 20 MG TAB PO SCH (16:11)
[2018-01-30] MEDS: Anidulafungin* 100 MG in NS 0.9% 100 ML* 100 ML IVPB SCH (16:11)
--- NOTE | 2018-01-30 19:42 | PN ---
Subjective Date of Service: 01/30/18 Interval History: still very confused. intermittent Afib RVR which required transfer from [facility] to [address] [place] [address]. has safety monitor as has been trying to get out of bed. lytes repleted. afebrile. Family History: Unchanged from Admission Social History: Unchanged from Admission Past Medical History: Unchanged from Admission Objective Active Medications: Acetaminophen (Tylenol Tab*) 650 mg PO Q4H PRN PRN Reason: FEVER/PAIN Last Admin: 01/25/18 04:06 Dose: 650 mg Albuterol (Ventolin 2.5 Mg/3 Ml Neb.Natacha*) 2.5 mg INH Q2H PRN PRN Reason: SOB/WHEEZING Last Admin: 01/28/18 06:11 Dose: 2.5 mg Baclofen (Lioresal Tab*) 20 mg PO BID [facility] Last Admin: 01/30/18 09:33 Dose: 20 mg Benzonatate (Tessalon Cap*) 100 mg PO BID PRN PRN Reason: COUGH Last Admin: 01/30/18 02:22 Dose: 100 mg Gabapentin (Neurontin Cap(*)) 300 mg PO DAILY [facility] Last Admin: 01/30/18 09:33 Dose: 300 mg Anidulafungin 100 mg/ Sodium (Chloride) 130 mls @ 65 mls/hr IVPB Q24H [facility] Last Admin: 01/30/18 16:11 Dose: 65 mls/hr Levothyroxine Sodium (Synthroid Tab*) 150 mcg PO DAILY@0600 [facility] Last Admin: 01/30/18 06:04 Dose: 150 mcg Lorazepam (Ativan Tab(*)) 0.5 mg PO Q6H PRN PRN Reason: ANXIETY Last Admin: 01/29/18 04:15 Dose: 0.5 mg Metoprolol Succinate (Toprol Xl Tab*) 25 mg PO DAILY [facility] Last Admin: 01/30/18 09:33 Dose: 25 mg Metoprolol Tartrate (Lopressor Iv*) 5 mg IV Q2H PRN PRN Reason: TACHYCARDIA Last Admin: 01/30/18 11:00 Dose: 5 mg Ondansetron HCl (Zofran Inj*) 4 mg IV Q6H PRN PRN Reason: NAUSEA Oxybutynin Chloride (Ditropan Xl Tab*) 10 mg PO DAILY [facility] Last Admin: 01/30/18 10:52 Dose: 10 mg Oxycodone/Acetaminophen (Percocet 5/325 Tab*) 1 tab PO Q2H PRN PRN Reason: PAIN - MILD TO MODERATE Last Admin: 01/28/18 14:52 Dose: 1 tab Oxycodone/Acetaminophen (Percocet 5/325 Tab*) 2 tab PO Q4H PRN PRN Reason: PAIN - MODERATE TO SEVERE Rivaroxaban (Xarelto(*)) 20 mg PO DAILY@1700 [facility] Last Admin: 01/30/18 16:11 Dose: 20 mg Vital Signs - 8 hr 01/30/18 01/30/18 13:04 15:12 Temperature 97.3 F Pulse Rate 85 Respiratory 16 20 Rate Blood Pressure 121/66 (mmHg) O2 Sat by Pulse 94 Oximetry Oxygen Devices in Use Now: None Appearance: NAD. Eyes: No Scleral Icterus, PERRLA Ears/Nose/Mouth/Throat: NL Teeth, Lips, Gums Neck: NL Appearance and Movements; NL JVP Respiratory: Symmetrical Chest Expansion and Respiratory Effort, Clear to Auscultation Cardiovascular: - - irregularly irregular, no m/r/g Abdominal: NL Sounds; No Tenderness; No Distention, No Hepatosplenomegaly Extremities: No Edema Skin: No Rash or Ulcers Neurological: - - oriented to name and "[place]". but not hospital or situation. lieutenant ballistics intact. right LE limited by knee. some word finding difficulty or delayed processing. Nutrition: Taking PO's Result Diagrams: 01/29/18 05:35 01/30/18 05:40 Additional Lab and Data: Laboratory Results - last 24 hr 01/28/18 01/30/18 14:02 05:40 Hem Pathologist Commnt Sodium 139 Potassium 3.7 Chloride 108 Carbon Dioxide 23 Anion Gap 8 BUN 11 Creatinine 0.49 L Est GFR ( Amer) 159.7 Est GFR (Non-Af Amer) 124.1 BUN/Creatinine Ratio 22.4 H Glucose 101 H Calcium 9.1 Magnesium 1.8 L Vancomycin Trough 9.7 Microbiology and Other Data: Microbiology 01/23/18 15:50 Misc Source (See Comment) - Knee Right Fungal Culture - Preliminary Celestine Parapsilosis 01/26/18 13:37 Tissue Wound Gram Stain - Final 01/26/18 13:37 Tissue Tissue Culture - Final No Growth Day 4 01/26/18 13:37 Knee Right Gram Stain - Final 01/26/18 13:37 Knee Right Wound Culture - Final No Growth Day 4 01/26/18 13:37 Body Fluid Anaerobic Culture - Final No Growth Day 4 01/29/18 12:30 Nasal Nasal Screen MRSA (PCR)(CLAUDIA) - Final Mrsa Not Detected 01/23/18 15:50 Joint Fluid(Synovial) - Knee Right Gram Stain - Final 01/23/18 15:50 Joint Fluid(Synovial) - Knee Right Body Fluid Culture - Final Celestine Parapsilosis 01/23/18 15:50 Joint Fluid(Synovial) - Knee Right Skin and Soft Tissue MRSA/ MSSA (PCR - Final Mrsa Negative S.aureus Negative 01/18/18 17:00 Blood Venous Aerobic Blood Culture - Final No Growth Day 5 01/18/18 17:00 Blood Venous Anaerobic Blood Culture - Final No Growth Day 5 01/18/18 16:32 Blood Venous Aerobic Blood Culture - Final No Growth Day 5 01/18/18 16:32 Blood Venous Anaerobic Blood Culture - Final No Growth Day 5 01/18/18 16:15 Urine Urine Culture - Final Pseudomonas Aeruginosa 01/18/18 16:15 Nasal Influenza Types A,B Antigen (CLAUDIA) - Final Specimen received for Influenza A/B Molecular testing Assess/Plan/Problems-Billing Assessment: 72 yo F with PMH of severe multiple sclerosis(4 months ago restarted dimethyl fumarate), Afib, right knee hardware subluxation repair complicated by celestine parapsilosis infection (still present, 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 Course complicated by AMS. - Patient Problems (1) Delirium Current Visit: Yes Status: Acute Code(s): R41.0 - DISORIENTATION, UNSPECIFIED SNOMED Code(s): 3641990 Comment: - Multifactorial in the setting of infection vs medication side effect - Continue supportive care. - CTH no acute process. - Will proceed with MRI Brain noncontrast to rule out CVA given delays in processing and occasional nonsensical responses. ?neglect. (2) Sepsis Current Visit: Yes Status: Acute Comment: - Presentation compatible with sepsis on admission with tachypnea, tachycardia, neutropenia. - Source was Influenza A. (3) Atrial fibrillation Current Visit: No Status: Acute Code(s): I48.91 - UNSPECIFIED ATRIAL FIBRILLATION SNOMED Code(s): 84370438 Comment: metoprolol succinate 25 mg po daily. on xarelto 20mg daily (4) Infection of right knee Current Visit: Yes Status: Acute Code(s): M00.9 - PYOGENIC ARTHRITIS, UNSPECIFIED SNOMED Code(s): 129190832 Comment: - Recent right knee joint infection with celestine parapsilosis, still with growth despite 4 weeks fluconazole, present on admission. - Synovial fluid with 300 WBC, fluid culture growing C. parapsilosis. - S/p knee wash out 01/26/18. - Continue Anidulafungin IV #. ? causing confusion? - stopping dimethyl fumerate given infections. (5) Hypothyroid Current Visit: Yes Status: Chronic Code(s): E03.9 - HYPOTHYROIDISM, UNSPECIFIED SNOMED Code(s): 60692373 Comment: - TSH is elevated to 16 - Levothyroxine now 150 mcg (from 137)and repeat TFTs in 4 weeks. (6) Multiple sclerosis Current Visit: Yes Status: Chronic Code(s): G35 - MULTIPLE SCLEROSIS SNOMED Code(s): 34292678 Comment: - stop Tecfidera given infections. Daughter reports she had been off of it for 6 years until last September. 60% infection side effect risk - continue Baclofen. (7) Neurogenic bladder Current Visit: Yes Status: Chronic Code(s): N31.9 - NEUROMUSCULAR DYSFUNCTION OF BLADDER, UNSPECIFIED SNOMED Code(s): 053678690 Comment: - Secondary to MS. - Patient has chronic pal (exchanged 01/19/18). (8) Atrial fibrillation Current Visit: Yes Status: Acute Code(s): I48.91 - UNSPECIFIED ATRIAL FIBRILLATION SNOMED Code(s): 51025197 Comment: - pAfib , but rate is controlled now. - Continue Metoprolol and monitor on Telemetry. - [id number] is 2. - continue xarelto 20mg. (9) DVT prophylaxis Current Visit: Yes Status: Acute Code(s): IBS6987 - SNOMED Code(s): 152507047 Comment: - Rivaroxaban. (10) Decubitus ulcer of sacral region, stage 1 Current Visit: Yes Status: Acute Code(s): L89.151 - PRESSURE ULCER OF SACRAL REGION, STAGE 1 SNOMED Code(s): 175514403 (11) Decubitus ulcer, unstageable Current Visit: Yes Status: Acute Code(s): L89.95 - PRESSURE ULCER OF UNSPECIFIED SITE, UNSTAGEABLE SNOMED Code(s): 943430222 Comment: - Patient has a small open area on his sacrum where she had a decubitus in the past. - Frequent turn and position. (12) Dyspnea Current Visit: Yes Status: Acute Code(s): R06.00 - DYSPNEA, UNSPECIFIED SNOMED Code(s): 035318376 Comment: - there had been concern for post Influenza pneumonia. - CxR w/o e/o infiltrate. - MRSA nares checked and negative stop Vancomycin today. -stopped Cefepime today (13) Full code status Current Visit: Yes Status: Acute Code(s): Z78.9 - OTHER SPECIFIED HEALTH STATUS SNOMED Code(s): 633314832 (14) Influenza A Current Visit: Yes Status: Acute Code(s): J10.1 - FLU DUE TO OTH IDENT INFLUENZA VIRUS W OTH RESP MANIFEST SNOMED Code(s): 027930594 Comment: - Completed Tamiflu. Status and Disposition: Inpatient for management of right knee fungal infection.
[2018-01-30] MEDS: Acetaminophen TAB* 325 MG PO PRN (20:34)
[2018-01-31] MEDS: Levothyroxine TAB* 150 MCG TAB PO SCH (06:12)
[2018-01-31] MEDS ORDERED: Magnesium Sulfate 1 GM IV* 1 GM/100 ML BAG IV ONE (08:00)
[2018-01-31] MEDS: Baclofen TAB* 10 MG PO SCH ×2 (08:49→21:17)
[2018-01-31] MEDS: Gabapentin CAP(*) 300 MG PO SCH (08:49)
[2018-01-31] MEDS: Metoprolol Succinate XL TAB* 25 MG PO SCH (08:50)
[2018-01-31] MEDS: Oxybutynin XL TAB* 5 MG PO SCH (08:50)
--- NOTE | 2018-01-31 10:55 | PN ---
Progress Note - Progress Note Date of Service: 01/31/18 SOAP: Subjective: patient OOB in chair without complaints of knee pain; confused Objective: Vital Signs Temp Pulse Resp BP Pulse Ox 98.6 F 86 17 141/77 95 01/31/18 08:47 01/31/18 08:47 01/31/18 08:49 01/31/18 08:47 01/31/18 08:47 Laboratory Last Values WBC 5.5 10^3/ul (3.5-10.8) 01/29/18 05:35 RBC 4.73 10^6/ul (4.0-5.4) 01/29/18 05:35 Hgb 12.3 g/dl (12.0-16.0) 01/29/18 05:35 Hct 36 % (35-47) 01/29/18 05:35 MCV 77 fL (80-97) L 01/29/18 05:35 MCH 26 pg (27-31) L 01/29/18 05:35 MCHC 34 g/dl (31-36) 01/29/18 05:35 RDW 16 % (10.5-15) H 01/29/18 05:35 Plt Count 230 10^3/ul (150-450) 01/29/18 05:35 MPV 7.9 um3 (7.4-10.4) 01/29/18 05:35 Neut % (Auto) 66.7 % (38-83) 01/29/18 05:35 Lymph % (Auto) 19.6 % (25-47) L 01/29/18 05:35 [place] % (Auto) 10.9 % (0-7) H 01/29/18 05:35 Eos % (Auto) 2.1 % (0-6) 01/29/18 05:35 Baso % (Auto) 0.7 % (0-2) 01/29/18 05:35 Absolute Neuts (auto) 3.7 10^3/ul (1.5-7.7) 01/29/18 05:35 Absolute Lymphs (auto) 1.1 10^3/ul (1.0-4.8) 01/29/18 05:35 Absolute Monos (auto) 0.6 10^3/ul (0-0.8) 01/29/18 05:35 Absolute Eos (auto) 0.1 10^3/ul (0-0.6) 01/29/18 05:35 Absolute Basos (auto) 0 10^3/ul (0-0.2) 01/29/18 05:35 Absolute Nucleated RBC 0 10^3/ul 01/29/18 05:35 Neutrophils % 74 % (38-83) 01/28/18 14:02 Lymphocytes % 5 % (25-47) L 01/28/18 14:02 Reactive Lymphs % 11 % (0-6) H 01/28/18 14:02 Monocytes % 6 % (0-7) 01/28/18 14:02 Eosinophils % 4 % (0-6) 01/28/18 14:02 Basophils % 0 % (0-2) 01/28/18 14:02 Nucleated RBC % 0.3 01/29/18 05:35 Abs Neuts (Manual) 4.7 10^3/ul (1.5-7.7) 01/28/18 14:02 Abs Lymphs (Manual) 0.3 10^3/ul (1.0-4.8) L 01/28/18 14:02 Abs Monocytes (Manual) 0.4 10^3/ul (0-0.8) 01/28/18 14:02 Absolute Eos (Manual) 0.3 10^3/ul (0-0.6) 01/28/18 14:02 Abs Basophils (Manual) 0 10^3/ul (0-0.2) 01/28/18 14:02 Normal RBC Morphology Normal (Normal) 01/28/18 14:02 ESR 19 mm/Hr (0-40) 01/27/18 05:12 Hem Pathologist Commnt 01/28/18 14:02 INR (Anticoag Therapy) 1.00 (0.77-1.02) 01/26/18 06:19 APTT 33.1 seconds (26.0-36.3) 01/18/18 16:32 Sodium 141 mmol/L (139-145) 01/31/18 05:39 Potassium 3.9 mmol/L (3.5-5.0) 01/31/18 05:39 Chloride 109 mmol/L (101-111) 01/31/18 05:39 Carbon Dioxide 25 mmol/L (22-32) 01/31/18 05:39 Anion Gap 7 mmol/L (2-11) 01/31/18 05:39 BUN 14 mg/dL (6-24) 01/31/18 05:39 Creatinine 0.54 mg/dL (0.51-0.95) 01/31/18 05:39 Est GFR ( Amer) 142.7 (>60) 01/31/18 05:39 Est GFR (Non-Af Amer) 111.0 (>60) 01/31/18 05:39 BUN/Creatinine Ratio 25.9 (8-20) H 01/31/18 05:39 Glucose 102 mg/dL (70-100) H 01/31/18 05:39 Lactic Acid 2.0 mmol/L (0.5-2.0) 01/18/18 21:47 Calcium 9.1 mg/dL (8.6-10.3) 01/31/18 05:39 Magnesium 1.9 mg/dL (1.9-2.7) 01/31/18 05:39 Total Bilirubin 0.30 mg/dL (0.2-1.0) 01/24/18 06:09 Direct Bilirubin 0.10 mg/dL (0.03-0.18) 01/24/18 06:09 Indirect Bilirubin 0.2 mg/dL (0.3-1.0) L 01/24/18 06:09 AST 38 U/L (13-39) 01/24/18 06:09 ALT 39 U/L (7-52) 01/24/18 06:09 Alkaline Phosphatase 92 U/L (34-104) 01/24/18 06:09 Total Creatine Kinase 58 U/L (10-223) 01/18/18 16:32 Troponin I 0.02 ng/mL (<0.04) 01/18/18 16:32 C-Reactive Protein 1.02 mg/L (< 5.00) 01/27/18 05:12 B-Natriuretic Peptide 167 pg/mL (-100) H 01/18/18 16:32 Total Protein 6.2 g/dL (6.4-8.9) L 01/24/18 06:09 Albumin 3.5 g/dL (3.2-5.2) 01/24/18 06:09 Globulin 2.7 g/dL (2-4) 01/24/18 06:09 Albumin/Globulin Ratio 1.3 (1-3) 01/24/18 06:09 Lipase 12 U/L (11.0-82.0) 01/18/18 16:32 TSH 15.98 mcIU/mL (0.34-5.60) H 01/24/18 06:09 Urine Color Red A 01/18/18 16:15 Urine Appearance Cloudy 01/18/18 16:15 Urine pH (5-9) 01/18/18 16:15 Ur Specific [place] 1.024 (1.010-1.030) 01/18/18 16:15 Urine Protein (Negative) 01/18/18 16:15 Urine Ketones (Negative) 01/18/18 16:15 Urine Blood (Negative) 01/18/18 16:15 Urine Nitrate (Negative) 01/18/18 16:15 Urine Bilirubin (Negative) 01/18/18 16:15 Urine Urobilinogen (Negative) 01/18/18 16:15 Ur Leukocyte Esterase (Negative) 01/18/18 16:15 Urine WBC (Auto) 1+(6-10/hpf) (Absent) A 01/18/18 16:15 Urine RBC (Auto) 3+(>10/hpf) (Absent) A 01/18/18 16:15 Uric Acid Crystals Present (Absent) A 01/18/18 16:15 Urine Bacteria 1+ (Absent) A 01/18/18 16:15 Urine Glucose (Negative) 01/18/18 16:15 Urine Ascorbic Acid (Negative) 01/18/18 16:15 Fluid Source synovial knee r 01/23/18 15:50 Fluid Volume 15 mL 01/23/18 15:50 Fluid Color [place] 01/23/18 15:50 Fluid Appearance Cloudy 01/23/18 15:50 Fluid WBC 307 /mcL (0-998990) 01/23/18 15:50 Fluid RBC 50796 /mcL 01/23/18 15:50 Fluid Tot Cell Count 100 01/23/18 15:50 Fluid Neutrophils 88 % 01/23/18 15:50 Fluid Lymphocytes 4 % 01/23/18 15:50 Fluid Monocytes 8 % 01/23/18 15:50 Fluid Cell Count Rvw By 01/23/18 15:50 Fluid Glucose 32 mg/dL 01/23/18 15:50 Fluid Total Protein 4.0 g/dL 01/23/18 15:50 Vancomycin Trough 9.7 mcg/mL 01/30/18 05:40 Influenza A (Rapid) Positive (Negative) A 01/18/18 16:22 Influenza B (Rapid) Negative (Negative) 01/18/18 16:22 incision: c/d/i PE: NVI; Assessment: s/p I&D right knee ( 01/26) with Dr. Ac Plan: 1) continue IV abx per ID 2) continue PT/OT 3) Continue DVT prophylaxis 4) Hospitalist co-managing
--- NOTE | 2018-01-31 11:31 | RAD ---
HISTORY: Altered mental status, atrial fibrillation COMPARISONS: January 29, 2010 TECHNIQUE: The following sequences were obtained of the head: Sagittal T1-weighted images, axial T2-weighted images, axial FLAIR images, axial susceptibility weighted images, axial T1-weighted images. Additionally, axial diffusion-weighted images were obtained with calculated apparent diffusion coefficients. FINDINGS: HEMORRHAGE/INFARCT: There is no hemorrhage or acute infarct. MASSES/SHIFT: There is no mass or shift. EXTRA-AXIAL SPACES/MENINGES: There are no extra-axial fluid collections. SULCI AND VENTRICLES: The sulci and ventricles are normal in size and position for the patient's stated age. CEREBRUM: There are multiple scattered small foci of elevated T2/FLAIR signal within the periventricular and subcortical white matter. BRAINSTEM: There are no focal parenchymal abnormalities. CEREBELLUM: There are no focal parenchymal abnormalities. The cerebellar tonsils are normal in size and position. SELLA: The sella is normal. PINEAL: The pineal region is clear. CP ANGLE/TEMPORAL BONES: The labyrinthine structures are grossly normal. VESSELS: Normal flow-voids are noted within the visualized vertebral vasculature. DIFFUSION ABNORMALITIES: There are no diffusion abnormalities. PARANASAL SINUSES/MASTOIDS: The paranasal sinuses are clear. ORBITS: The orbits are unremarkable. BONES AND SOFT TISSUE: No bone or soft tissue abnormalities are noted. OTHER: None IMPRESSION: 1. THERE ARE MULTIPLE FOCI OF ELEVATED T2/FLAIR SIGNAL WITHIN THE PERIVENTRICULAR AND SUBCORTICAL WHITE MATTER. WHILE THESE FINDINGS ARE NONSPECIFIC, THEY CAN BE SEEN IN ASSOCIATION WITH MIGRAINE HEADACHE, THE SEQUELA OF PREVIOUS INFECTION OR INFLAMMATION, AND CHRONIC SMALL VESSEL ISCHEMIA. DEMYELINATING DISEASE IS ALSO WITHIN THE DIFFERENTIAL, BUT IS CONSIDERED LESS LIKELY IN THE ABSENCE OF THE APPROPRIATE CLINICAL PRESENTATION. 2. THERE IS NO RESTRICTED DIFFUSION TO SUGGEST ACUTE INFARCT.
--- NOTE | 2018-01-31 15:01 | PN ---
Progress Note - Progress Note Date of Service: 01/31/18 SOAP: Subjective: CC: knee pain HPI: 72 year old woman with MS and revision of a right knee arthroplasty, recent Norma parapsilosis abscess in the soft tissues of the knee. Was on fluconazole for 3 weeks and has ongoing knee pain and swelling. Had washout 4/ . No fever,rash, or cough. Objective: Vital Signs Temp 37.1 C 01/31/18 11:54 Pulse 83 01/31/18 11:54 Resp 17 01/31/18 11:54 BP 121/82 01/31/18 11:54 Pulse Ox 97 01/31/18 11:54 Intake & Output 01/30/18 01/31/18 01/31/18 18:59 06:59 18:59 Intake Total 275.1 760 820 Output Total 250 1250 500 Balance 25.1 -490 320 Weight 171 lb 6.4 oz 172 lb 6.4 oz 172 lb 6.4 oz Intake: IV Fluids 85.1 100 Magnesium Sulfate 100 NS (0.9%) 85.1 IVPB 100 ABX - CEFEPIME 50 Magnesium Sulfate 50 Oral 90 760 720 Output: Urine 150 0 Pal 250 1100 500 Other: Date of Last Bowel 01/31/2018 01/31/18 Movement # Bowel Movements 1 2 Estimated Stool Amount Large Small Gen:awake, no distress Ox1 HEENT:no thrush Heart:RRR no murmur Abd:+BS NTND soft Skin: no rash MSK: R knee diffuse edema and tenderness with warmth Assessment: 1. right prosthetic knee Norma parapsilosis infection 2. MS with neurogenic bladder and chronic pal catheter 3. encephalopathy Plan: 1. anidulufungin day 5; reports of confusion from it, will change to voriconazole 4 mg/kg Q12hrs; had leukopenia and transaminitis with flucon, will recheck on Tuesday. care home plans pending mental status and lab monitoring. Susceptibility testing sent to [place] and pending Discussed with Dr Arcos 35 minutes floor time >50% in coordinating care
--- NOTE | 2018-01-31 16:40 | PN ---
Subjective Date of Service: 01/31/18 Interval History: Denies complaints. not oriented to place. MRI Brain w/o acute CVA, chronic nonspecific signal abnormalities consistent with demylinating antifungal changed to vori after discussion with ID. Afib, rates better controlled, no IVs given. Discussed with Sister Mildred. reportedly slept poorly. Family History: Unchanged from Admission Social History: Unchanged from Admission Past Medical History: Unchanged from Admission Objective Active Medications: Acetaminophen (Tylenol Tab*) 650 mg PO Q4H PRN PRN Reason: FEVER/PAIN Last Admin: 01/30/18 20:34 Dose: 650 mg Albuterol (Ventolin 2.5 Mg/3 Ml Neb.Natacha*) 2.5 mg INH Q2H PRN PRN Reason: SOB/WHEEZING Last Admin: 01/28/18 06:11 Dose: 2.5 mg Baclofen (Lioresal Tab*) 20 mg PO BID [facility] Last Admin: 01/31/18 08:49 Dose: 20 mg Benzonatate (Tessalon Cap*) 100 mg PO BID PRN PRN Reason: COUGH Last Admin: 01/30/18 20:34 Dose: 100 mg Gabapentin (Neurontin Cap(*)) 300 mg PO DAILY [facility] Last Admin: 01/31/18 08:49 Dose: 300 mg Voriconazole 300 mg/ Sodium (Chloride) 280 mls @ 186.667 mls/hr IVPB Q12HR [facility] Levothyroxine Sodium (Synthroid Tab*) 150 mcg PO DAILY@0600 [facility] Last Admin: 01/31/18 06:12 Dose: 150 mcg Lorazepam (Ativan Tab(*)) 0.5 mg PO Q6H PRN PRN Reason: ANXIETY Last Admin: 01/29/18 04:15 Dose: 0.5 mg Metoprolol Succinate (Toprol Xl Tab*) 25 mg PO DAILY [facility] Last Admin: 01/31/18 08:50 Dose: 25 mg Metoprolol Tartrate (Lopressor Iv*) 5 mg IV Q2H PRN PRN Reason: TACHYCARDIA Last Admin: 01/30/18 11:00 Dose: 5 mg Ondansetron HCl (Zofran Inj*) 4 mg IV Q6H PRN PRN Reason: NAUSEA Oxybutynin Chloride (Ditropan Xl Tab*) 10 mg PO DAILY [facility] Last Admin: 01/31/18 08:50 Dose: 10 mg Oxycodone/Acetaminophen (Percocet 5/325 Tab*) 2 tab PO Q4H PRN PRN Reason: PAIN - MODERATE TO SEVERE Rivaroxaban (Xarelto(*)) 20 mg PO DAILY@1700 [facility] Last Admin: 01/30/18 16:11 Dose: 20 mg Vital Signs - 8 hr 01/31/18 01/31/18 01/31/18 08:47 08:49 11:54 Temperature 98.6 F 98.8 F Pulse Rate 86 83 Respiratory 17 17 17 Rate Blood Pressure 141/77 121/82 (mmHg) O2 Sat by Pulse 95 97 Oximetry 01/31/18 15:22 Temperature 97.3 F Pulse Rate 88 Respiratory 20 Rate Blood Pressure 142/74 (mmHg) O2 Sat by Pulse 97 Oximetry Oxygen Devices in Use Now: None Appearance: NAD Eyes: No Scleral Icterus, PERRLA Ears/Nose/Mouth/Throat: NL Teeth, Lips, Gums, Mucous Membranes Moist Respiratory: Symmetrical Chest Expansion and Respiratory Effort, Clear to Auscultation Cardiovascular: NL Sounds; No Murmurs; No JVD, - - irregularly irregular. Abdominal: NL Sounds; No Tenderness; No Distention, No Hepatosplenomegaly Extremities: No Edema, - - bandage over right knee. c/d/i incision. pulses intact Skin: - Neurological: - - oriented to name and year but not place (can't even guess). following commands, director specialty strength 5/5 b/l Nutrition: Taking PO's Result Diagrams: 01/29/18 05:35 01/31/18 05:39 Additional Lab and Data: Laboratory Results - last 24 hr 01/23/18 01/31/18 15:50 05:39 Sodium 141 Potassium 3.9 Chloride 109 Carbon Dioxide 25 Anion Gap 7 BUN 14 Creatinine 0.54 Est GFR ( Amer) 142.7 Est GFR (Non-Af Amer) 111.0 BUN/Creatinine Ratio 25.9 H Glucose 102 H Calcium 9.1 Magnesium 1.9 Yeast Susceptibility See comment A Microbiology and Other Data: Microbiology 01/23/18 15:50 Misc Source (See Comment) - Knee Right Fungal Culture - Preliminary Celestine Parapsilosis 01/26/18 13:37 Tissue Wound Gram Stain - Final 01/26/18 13:37 Tissue Tissue Culture - Final No Growth Day 4 01/26/18 13:37 Knee Right Gram Stain - Final 01/26/18 13:37 Knee Right Wound Culture - Final No Growth Day 4 01/26/18 13:37 Body Fluid Anaerobic Culture - Final No Growth Day 4 01/29/18 12:30 Nasal Nasal Screen MRSA (PCR)(CLAUDIA) - Final Mrsa Not Detected 01/23/18 15:50 Joint Fluid(Synovial) - Knee Right Gram Stain - Final 01/23/18 15:50 Joint Fluid(Synovial) - Knee Right Body Fluid Culture - Final Celestine Parapsilosis 01/23/18 15:50 Joint Fluid(Synovial) - Knee Right Skin and Soft Tissue MRSA/ MSSA (PCR - Final Mrsa Negative S.aureus Negative 01/18/18 17:00 Blood Venous Aerobic Blood Culture - Final No Growth Day 5 01/18/18 17:00 Blood Venous Anaerobic Blood Culture - Final No Growth Day 5 01/18/18 16:32 Blood Venous Aerobic Blood Culture - Final No Growth Day 5 01/18/18 16:32 Blood Venous Anaerobic Blood Culture - Final No Growth Day 5 01/18/18 16:15 Urine Urine Culture - Final Pseudomonas Aeruginosa 01/18/18 16:15 Nasal Influenza Types A,B Antigen (CLAUDIA) - Final Specimen received for Influenza A/B Molecular testing Assess/Plan/Problems-Billing Assessment: 72 yo F with PMH of severe multiple sclerosis(4 months ago restarted dimethyl fumarate), Afib, 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 Course complicated by AMS. originally fluconazole (cytopenias) then anidulufungin(AMS) now switched to voriconazole. Sensitive to all three. - Patient Problems (1) Delirium Current Visit: Yes Status: Acute Code(s): R41.0 - DISORIENTATION, UNSPECIFIED SNOMED Code(s): 6798609 Comment: - Multifactorial in the setting of infection vs medication side effect - Continue supportive care. - CTH no acute process. - MRI Brain noncontrast w/o w/o CVA - talked to ID, switching anidulufungin to voriconazole to see if contributing. (2) Sepsis Current Visit: Yes Status: Acute Comment: - Presentation compatible with sepsis on admission with tachypnea, tachycardia, neutropenia. - Source was Influenza A. (3) Infection of right knee Current Visit: Yes Status: Acute Code(s): M00.9 - PYOGENIC ARTHRITIS, UNSPECIFIED SNOMED Code(s): 872501572 Comment: - Recent right knee joint infection with celestine parapsilosis, still with growth despite 4 weeks fluconazole (thought contributed to cytopenias ), present on admission. - Synovial fluid with 300 WBC, fluid culture growing C. parapsilosis. - S/p knee wash out 01/26/18. - stop Anidulafungin IV (#7/) switch to voriconazole. concern was causing confusion? recheck LFTs tuesday. - stoped dimethyl fumerate given infections. (4) Hypothyroid Current Visit: Yes Status: Chronic Code(s): E03.9 - HYPOTHYROIDISM, UNSPECIFIED SNOMED Code(s): 59562001 Comment: - TSH is elevated to 16 - Levothyroxine now 150 mcg (from 137)and repeat TFTs in 4 weeks. (5) Multiple sclerosis Current Visit: Yes Status: Chronic Code(s): G35 - MULTIPLE SCLEROSIS SNOMED Code(s): 66080589 Comment: - off Tecfidera given infections. Daughter reports she had been off of it for 6 years until last September. 60% infection side effect risk - continue Baclofen. (6) Neurogenic bladder Current Visit: Yes Status: Chronic Code(s): N31.9 - NEUROMUSCULAR DYSFUNCTION OF BLADDER, UNSPECIFIED SNOMED Code(s): 547086909 Comment: - Secondary to MS. - Patient has chronic pal (exchanged 01/19/18). (7) Atrial fibrillation Current Visit: Yes Status: Acute Code(s): I48.91 - UNSPECIFIED ATRIAL FIBRILLATION SNOMED Code(s): 42801902 Comment: - pAfib , but rate is controlled now. - increase Metoprolol xl to 50mg daily and monitor on Telemetry. - [id number] is 2. - continue xarelto 20mg. (8) DVT prophylaxis Current Visit: Yes Status: Acute Code(s): SWQ5568 - SNOMED Code(s): 682737779 Comment: - Rivaroxaban. (9) Decubitus ulcer of sacral region, stage 1 Current Visit: Yes Status: Acute Code(s): L89.151 - PRESSURE ULCER OF SACRAL REGION, STAGE 1 SNOMED Code(s): 253114978 (10) Decubitus ulcer, unstageable Current Visit: Yes Status: Acute Code(s): L89.95 - PRESSURE ULCER OF UNSPECIFIED SITE, UNSTAGEABLE SNOMED Code(s): 600700153 Comment: - Patient has a small open area on his sacrum where she had a decubitus in the past. - Frequent turn and position. (11) Dyspnea Current Visit: Yes Status: Acute Code(s): R06.00 - DYSPNEA, UNSPECIFIED SNOMED Code(s): 448471956 Comment: - there had been concern for post Influenza pneumonia. - CxR w/o e/o infiltrate. - MRSA nares checked and negative stop Vancomycin today. -stopped Cefepime today (12) Full code status Current Visit: Yes Status: Acute Code(s): Z78.9 - OTHER SPECIFIED HEALTH STATUS SNOMED Code(s): 082870015 (13) Influenza A Current Visit: Yes Status: Acute Code(s): J10.1 - FLU DUE TO OTH IDENT INFLUENZA VIRUS W OTH RESP MANIFEST SNOMED Code(s): 464223355 Comment: - Completed Tamiflu. Status and Disposition: Inpatient for management of right knee fungal infection.
[2018-01-31] MEDS ORDERED: Metoprolol Succinate XL TAB* 25 MG PO ONE (16:49)
[2018-01-31] MEDS: Acetaminophen TAB* 325 MG PO PRN (17:34)
[2018-01-31] MEDS: Rivaroxaban TAB(*) 20 MG TAB PO SCH (17:34)
[2018-01-31] MEDS ORDERED: Voriconazole(*) 200 MG VIAL IV SCH (21:00)
[2018-01-31] MEDS: CMCS Melatonin (NF) 3 MG TAB PO SCH (21:17)
[2018-01-31] MEDS: VORICONAZOLE IVPB SCH (22:19)
[2018-01-31] MEDS: NS 0.9% IVPB SCH (22:19)
[2018-02-01] MEDS: Levothyroxine TAB* 150 MCG TAB PO SCH (05:41)
[2018-02-01 06:05] LABS: ABS Basophils 0.1 10^3/ul (0-0.2); ABS Eosinophils 0.1 10^3/ul (0-0.6); ABS Lymphocytes 1.2 10^3/ul (1.0-4.8); ABS Monocytes 0.5 10^3/ul (0-0.8); ABS Nucleated RBC 0 10^3/ul; Eosinophil % 2.6 % (0-6); Hematocrit 36 % (35-47); Hemoglobin 11.8 g/dl (12.0-16.0); Lymphocyte % 23.7 % (25-47); Mean Corpuscular HGB Conc 33 g/dl (31-36); Mean Corpuscular Hemoglobin 26 pg (27-31); Mean Corpuscular Volume 78 fL (80-97); Mean Platelet Volume 7.9 um3 (7.4-10.4); Nucleated Red Blood Cells % 0.1; Platelet Count 246 10^3/ul (150-450); Red Blood Count 4.61 10^6/ul (4.0-5.4); Red Cell Distribution Width 16 % (10.5-15); White Blood Count 4.9 10^3/ul (3.5-10.8)
[2018-02-01 06:21] LABS: EGFR Non-African American 118.5 (>60)
[2018-02-01] MEDS: VORICONAZOLE IVPB SCH ×2 (09:15→20:42)
[2018-02-01] MEDS: Baclofen TAB* 10 MG PO SCH ×2 (09:15→20:42)
[2018-02-01] MEDS: Gabapentin CAP(*) 300 MG PO SCH (09:15)
[2018-02-01] MEDS: NS 0.9% IVPB SCH ×2 (09:15→20:42)
[2018-02-01] MEDS: Metoprolol Succinate XL TAB* 50 MG PO SCH (09:15)
[2018-02-01] MEDS: Oxybutynin XL TAB* 5 MG PO SCH (09:16)
--- NOTE | 2018-02-01 12:37 | PN ---
Progress Note - Progress Note Date of Service: 02/01/18 SOAP: Subjective: []Patient seen OOB in chair. She denies right knee pain, fever, chills, CP or SOB. Objective: [] Vital Signs Temp 97.0 F 02/01/18 09:09 Pulse 72 02/01/18 09:09 Resp 16 02/01/18 09:15 BP 150/87 02/01/18 09:09 Pulse Ox 98 02/01/18 09:09 Intake & Output 01/31/18 02/01/18 02/01/18 18:59 06:59 18:59 Intake Total 1000 580 280 Output Total 500 675 Balance 500 -95 280 Weight 172 lb 6.4 oz 175 lb Intake: IV Fluids 100 25 Magnesium Sulfate 100 voriconazole 25 IVPB 255 280 voriconazole 255 280 Oral 900 300 Output: Urine 0 200 Pal 500 475 Other: Date of Last Bowel 01/31/18 Movement # Bowel Movements 0 Laboratory Last Values WBC 4.9 10^3/ul (3.5-10.8) 02/01/18 05:41 RBC 4.61 10^6/ul (4.0-5.4) 02/01/18 05:41 Hgb 11.8 g/dl (12.0-16.0) L 02/01/18 05:41 Hct 36 % (35-47) 02/01/18 05:41 MCV 78 fL (80-97) L 02/01/18 05:41 MCH 26 pg (27-31) L 02/01/18 05:41 MCHC 33 g/dl (31-36) 02/01/18 05:41 RDW 16 % (10.5-15) H 02/01/18 05:41 Plt Count 246 10^3/ul (150-450) 02/01/18 05:41 MPV 7.9 um3 (7.4-10.4) 02/01/18 05:41 Neut % (Auto) 61.4 % (38-83) 02/01/18 05:41 Lymph % (Auto) 23.7 % (25-47) L 02/01/18 05:41 [place] % (Auto) 11.2 % (0-7) H 02/01/18 05:41 Eos % (Auto) 2.6 % (0-6) 02/01/18 05:41 Baso % (Auto) 1.1 % (0-2) 02/01/18 05:41 Absolute Neuts (auto) 3.0 10^3/ul (1.5-7.7) 02/01/18 05:41 Absolute Lymphs (auto) 1.2 10^3/ul (1.0-4.8) 02/01/18 05:41 Absolute Monos (auto) 0.5 10^3/ul (0-0.8) 02/01/18 05:41 Absolute Eos (auto) 0.1 10^3/ul (0-0.6) 02/01/18 05:41 Absolute Basos (auto) 0.1 10^3/ul (0-0.2) 02/01/18 05:41 Absolute Nucleated RBC 0 10^3/ul 02/01/18 05:41 Neutrophils % 74 % (38-83) 01/28/18 14:02 Lymphocytes % 5 % (25-47) L 01/28/18 14:02 Reactive Lymphs % 11 % (0-6) H 01/28/18 14:02 Monocytes % 6 % (0-7) 01/28/18 14:02 Eosinophils % 4 % (0-6) 01/28/18 14:02 Basophils % 0 % (0-2) 01/28/18 14:02 Nucleated RBC % 0.1 02/01/18 05:41 Abs Neuts (Manual) 4.7 10^3/ul (1.5-7.7) 01/28/18 14:02 Abs Lymphs (Manual) 0.3 10^3/ul (1.0-4.8) L 01/28/18 14:02 Abs Monocytes (Manual) 0.4 10^3/ul (0-0.8) 01/28/18 14:02 Absolute Eos (Manual) 0.3 10^3/ul (0-0.6) 01/28/18 14:02 Abs Basophils (Manual) 0 10^3/ul (0-0.2) 01/28/18 14:02 Normal RBC Morphology Normal (Normal) 01/28/18 14:02 ESR 19 mm/Hr (0-40) 01/27/18 05:12 Hem Pathologist Commnt 01/28/18 14:02 INR (Anticoag Therapy) 1.00 (0.77-1.02) 01/26/18 06:19 APTT 33.1 seconds (26.0-36.3) 01/18/18 16:32 Sodium 141 mmol/L (139-145) 02/01/18 05:41 Potassium 3.8 mmol/L (3.5-5.0) 02/01/18 05:41 Chloride 109 mmol/L (101-111) 02/01/18 05:41 Carbon Dioxide 26 mmol/L (22-32) 02/01/18 05:41 Anion Gap 6 mmol/L (2-11) 02/01/18 05:41 BUN 19 mg/dL (6-24) 02/01/18 05:41 Creatinine 0.51 mg/dL (0.51-0.95) 02/01/18 05:41 Est GFR ( Amer) 152.4 (>60) 02/01/18 05:41 Est GFR (Non-Af Amer) 118.5 (>60) 02/01/18 05:41 BUN/Creatinine Ratio 37.3 (8-20) H 02/01/18 05:41 Glucose 102 mg/dL (70-100) H 02/01/18 05:41 Lactic Acid 2.0 mmol/L (0.5-2.0) 01/18/18 21:47 Calcium 9.1 mg/dL (8.6-10.3) 02/01/18 05:41 Magnesium 1.9 mg/dL (1.9-2.7) 02/01/18 05:41 Total Bilirubin 0.30 mg/dL (0.2-1.0) 01/24/18 06:09 Direct Bilirubin 0.10 mg/dL (0.03-0.18) 01/24/18 06:09 Indirect Bilirubin 0.2 mg/dL (0.3-1.0) L 01/24/18 06:09 AST 38 U/L (13-39) 01/24/18 06:09 ALT 39 U/L (7-52) 01/24/18 06:09 Alkaline Phosphatase 92 U/L (34-104) 01/24/18 06:09 Total Creatine Kinase 58 U/L (10-223) 01/18/18 16:32 Troponin I 0.02 ng/mL (<0.04) 01/18/18 16:32 C-Reactive Protein 1.02 mg/L (< 5.00) 01/27/18 05:12 B-Natriuretic Peptide 167 pg/mL (-100) H 01/18/18 16:32 Total Protein 6.2 g/dL (6.4-8.9) L 01/24/18 06:09 Albumin 3.5 g/dL (3.2-5.2) 01/24/18 06:09 Globulin 2.7 g/dL (2-4) 01/24/18 06:09 Albumin/Globulin Ratio 1.3 (1-3) 01/24/18 06:09 Lipase 12 U/L (11.0-82.0) 01/18/18 16:32 TSH 15.98 mcIU/mL (0.34-5.60) H 01/24/18 06:09 Urine Color Red A 01/18/18 16:15 Urine Appearance Cloudy 01/18/18 16:15 Urine pH (5-9) 01/18/18 16:15 Ur Specific [place] 1.024 (1.010-1.030) 01/18/18 16:15 Urine Protein (Negative) 01/18/18 16:15 Urine Ketones (Negative) 01/18/18 16:15 Urine Blood (Negative) 01/18/18 16:15 Urine Nitrate (Negative) 01/18/18 16:15 Urine Bilirubin (Negative) 01/18/18 16:15 Urine Urobilinogen (Negative) 01/18/18 16:15 Ur Leukocyte Esterase (Negative) 01/18/18 16:15 Urine WBC (Auto) 1+(6-10/hpf) (Absent) A 01/18/18 16:15 Urine RBC (Auto) 3+(>10/hpf) (Absent) A 01/18/18 16:15 Uric Acid Crystals Present (Absent) A 01/18/18 16:15 Urine Bacteria 1+ (Absent) A 01/18/18 16:15 Urine Glucose (Negative) 01/18/18 16:15 Urine Ascorbic Acid (Negative) 01/18/18 16:15 Fluid Source synovial knee r 01/23/18 15:50 Fluid Volume 15 mL 01/23/18 15:50 Fluid Color [place] 01/23/18 15:50 Fluid Appearance Cloudy 01/23/18 15:50 Fluid WBC 307 /mcL (0-522832) 01/23/18 15:50 Fluid RBC 91101 /mcL 01/23/18 15:50 Fluid Tot Cell Count 100 01/23/18 15:50 Fluid Neutrophils 88 % 01/23/18 15:50 Fluid Lymphocytes 4 % 01/23/18 15:50 Fluid Monocytes 8 % 01/23/18 15:50 Fluid Cell Count Rvw By 01/23/18 15:50 Fluid Glucose 32 mg/dL 01/23/18 15:50 Fluid Total Protein 4.0 g/dL 01/23/18 15:50 Vancomycin Trough 9.7 mcg/mL 01/30/18 05:40 Influenza A (Rapid) Positive (Negative) A 01/18/18 16:22 Influenza B (Rapid) Negative (Negative) 01/18/18 16:22 Yeast Susceptibility See comment A 01/23/18 15:50 General: NAD, appears very fatigued today. Able to carry on appropriate conversation. RLE: Dressing changed. Incisions CDI without surrounding erythema. Knee is not hot to touch. ROM 5-110 passively. DF/PF intact. Sensation intact distally. DP pulse 2+ BL LE: Calves soft and nontender without erythema, edema or palpable cords Assessment: [] -right prosthetic knee Norma parapsilosis infection -MS with neurogenic bladder and chronic pal catheter -encephalopathy Plan: WBAT PT/OT Daily dry sterile dressing change Antifungal tx per ID: voriconazole 4 mg/kg Q12hrs
[2018-02-01] MEDS: Rivaroxaban TAB(*) 20 MG TAB PO SCH (17:24)
--- NOTE | 2018-02-01 17:28 | PN ---
Subjective Date of Service: 02/01/18 Interval History: Pt much sharper today. Ox3. Denies complaints. Family History: Unchanged from Admission Social History: Unchanged from Admission Past Medical History: Unchanged from Admission Objective Active Medications: Acetaminophen (Tylenol Tab*) 650 mg PO Q4H PRN PRN Reason: FEVER/PAIN Last Admin: 01/31/18 17:34 Dose: 650 mg Albuterol (Ventolin 2.5 Mg/3 Ml Neb.Natacha*) 2.5 mg INH Q2H PRN PRN Reason: SOB/WHEEZING Last Admin: 01/28/18 06:11 Dose: 2.5 mg Baclofen (Lioresal Tab*) 20 mg PO BID [facility] Last Admin: 02/01/18 09:15 Dose: 20 mg Benzonatate (Tessalon Cap*) 100 mg PO BID PRN PRN Reason: COUGH Last Admin: 01/30/18 20:34 Dose: 100 mg Gabapentin (Neurontin Cap(*)) 300 mg PO DAILY [facility] Last Admin: 02/01/18 09:15 Dose: 300 mg Voriconazole 300 mg/ Sodium (Chloride) 280 mls @ 186.667 mls/hr IVPB Q12HR [facility] Last Admin: 02/01/18 09:15 Dose: 186.667 mls/hr Levothyroxine Sodium (Synthroid Tab*) 150 mcg PO DAILY@0600 [facility] Last Admin: 02/01/18 05:41 Dose: 150 mcg Lorazepam (Ativan Tab(*)) 0.5 mg PO Q6H PRN PRN Reason: ANXIETY Last Admin: 01/29/18 04:15 Dose: 0.5 mg Melatonin (Melatonin (Nf)) 3 mg PO BEDTIME [facility] Last Admin: 01/31/18 21:17 Dose: 3 mg Metoprolol Succinate (Toprol Xl Tab*) 50 mg PO DAILY [facility] Last Admin: 02/01/18 09:15 Dose: 50 mg Metoprolol Tartrate (Lopressor Iv*) 5 mg IV Q2H PRN PRN Reason: TACHYCARDIA Last Admin: 01/30/18 11:00 Dose: 5 mg Ondansetron HCl (Zofran Inj*) 4 mg IV Q6H PRN PRN Reason: NAUSEA Oxybutynin Chloride (Ditropan Xl Tab*) 10 mg PO DAILY [facility] Last Admin: 02/01/18 09:16 Dose: 10 mg Oxycodone/Acetaminophen (Percocet 5/325 Tab*) 2 tab PO Q4H PRN PRN Reason: PAIN - MODERATE TO SEVERE Rivaroxaban (Xarelto(*)) 20 mg PO DAILY@1700 [facility] Last Admin: 01/31/18 17:34 Dose: 20 mg Vital Signs - 8 hr 02/01/18 02/01/18 11:34 15:56 Temperature 97.3 F 97.7 F Pulse Rate 77 74 Respiratory 16 20 Rate Blood Pressure 125/73 117/75 (mmHg) O2 Sat by Pulse 96 98 Oximetry Oxygen Devices in Use Now: None Appearance: NAD, lying in bed. Eyes: No Scleral Icterus, PERRLA Ears/Nose/Mouth/Throat: NL Teeth, Lips, Gums, Mucous Membranes Moist Neck: NL Appearance and Movements; NL JVP Respiratory: Symmetrical Chest Expansion and Respiratory Effort, Clear to Auscultation Cardiovascular: NL Sounds; No Murmurs; No JVD, RRR Abdominal: NL Sounds; No Tenderness; No Distention, No Hepatosplenomegaly Extremities: No Edema Skin: No Rash or Ulcers, No Nodules or Sclerosis Neurological: Alert and Oriented x 3, NL Sensation Lines/Tubes/Other Access: Clean, Dry and Intact Pal Nutrition: Taking PO's Result Diagrams: 02/01/18 05:41 02/01/18 05:41 Additional Lab and Data: Laboratory Results - last 24 hr 02/01/18 02/01/18 05:41 05:41 WBC 4.9 RBC 4.61 Hgb 11.8 L Hct 36 MCV 78 L MCH 26 L MCHC 33 RDW 16 H Plt Count 246 MPV 7.9 Neut % (Auto) 61.4 Lymph % (Auto) 23.7 L [place] % (Auto) 11.2 H Eos % (Auto) 2.6 Baso % (Auto) 1.1 Absolute Neuts (auto) 3.0 Absolute Lymphs (auto) 1.2 Absolute Monos (auto) 0.5 Absolute Eos (auto) 0.1 Absolute Basos (auto) 0.1 Absolute Nucleated RBC 0 Nucleated RBC % 0.1 Sodium 141 Potassium 3.8 Chloride 109 Carbon Dioxide 26 Anion Gap 6 BUN 19 Creatinine 0.51 Est GFR ( Amer) 152.4 Est GFR (Non-Af Amer) 118.5 BUN/Creatinine Ratio 37.3 H Glucose 102 H Calcium 9.1 Magnesium 1.9 Microbiology and Other Data: Microbiology 01/23/18 15:50 Misc Source (See Comment) - Knee Right Fungal Culture - Preliminary Celestine Parapsilosis 01/26/18 13:37 Tissue Wound Gram Stain - Final 01/26/18 13:37 Tissue Tissue Culture - Final No Growth Day 4 01/26/18 13:37 Knee Right Gram Stain - Final 01/26/18 13:37 Knee Right Wound Culture - Final No Growth Day 4 01/26/18 13:37 Body Fluid Anaerobic Culture - Final No Growth Day 4 01/29/18 12:30 Nasal Nasal Screen MRSA (PCR)(CLAUDIA) - Final Mrsa Not Detected 01/23/18 15:50 Joint Fluid(Synovial) - Knee Right Gram Stain - Final 01/23/18 15:50 Joint Fluid(Synovial) - Knee Right Body Fluid Culture - Final Celestine Parapsilosis 01/23/18 15:50 Joint Fluid(Synovial) - Knee Right Skin and Soft Tissue MRSA/ MSSA (PCR - Final Mrsa Negative S.aureus Negative 01/18/18 17:00 Blood Venous Aerobic Blood Culture - Final No Growth Day 5 01/18/18 17:00 Blood Venous Anaerobic Blood Culture - Final No Growth Day 5 01/18/18 16:32 Blood Venous Aerobic Blood Culture - Final No Growth Day 5 01/18/18 16:32 Blood Venous Anaerobic Blood Culture - Final No Growth Day 5 01/18/18 16:15 Urine Urine Culture - Final Pseudomonas Aeruginosa 01/18/18 16:15 Nasal Influenza Types A,B Antigen (CLAUDIA) - Final Specimen received for Influenza A/B Molecular testing Assess/Plan/Problems-Billing Assessment: 72 yo F with PMH of severe multiple sclerosis(4 months ago restarted dimethyl fumarate), Afib, 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 Course complicated by AMS. originally fluconazole (cytopenias) then anidulufungin(AMS) now switched to voriconazole. Sensitive to all three. Mental Status now improved. - Patient Problems (1) Delirium Current Visit: Yes Status: Acute Code(s): R41.0 - DISORIENTATION, UNSPECIFIED SNOMED Code(s): 4306094 Comment: - MUCH IMPROVED off the anidulufungin. AOx3. - Multifactorial in the setting of infection vs medication side effect - Continue supportive care. - CTH no acute process. - MRI Brain noncontrast w/o w/o CVA - talked to ID, switching anidulufungin to voriconazole to see if contributing. seems likely. (2) Sepsis Current Visit: Yes Status: Acute Comment: resolved. - Presentation compatible with sepsis on admission with tachypnea, tachycardia, neutropenia. - Source was Influenza A. (3) Infection of right knee Current Visit: Yes Status: Acute Code(s): M00.9 - PYOGENIC ARTHRITIS, UNSPECIFIED SNOMED Code(s): 116592700 Comment: - Recent right knee joint infection with celestine parapsilosis, still with growth despite 4 weeks fluconazole (thought contributed to cytopenias ), present on admission. - Synovial fluid with 300 WBC, fluid culture growing C. parapsilosis. - S/p knee wash out 01/26/18. - stopped Anidulafungin IV (did #) switch to voriconazole . concern was causing confusion? recheck LFTs tuesday. - stoped dimethyl fumerate given infections. (4) Hypothyroid Current Visit: Yes Status: Chronic Code(s): E03.9 - HYPOTHYROIDISM, UNSPECIFIED SNOMED Code(s): 53392691 Comment: - TSH is elevated to 16 - Levothyroxine now 150 mcg (from 137)and repeat TFTs in 4 weeks. (5) Multiple sclerosis Current Visit: Yes Status: Chronic Code(s): G35 - MULTIPLE SCLEROSIS SNOMED Code(s): 77685067 Comment: - off Tecfidera given infections. Daughter reports she had been off of it for 6 years until last September. 60% infection side effect risk - continue Baclofen. (6) Neurogenic bladder Current Visit: Yes Status: Chronic Code(s): N31.9 - NEUROMUSCULAR DYSFUNCTION OF BLADDER, UNSPECIFIED SNOMED Code(s): 942264288 Comment: - Secondary to MS. - Patient has chronic pal (exchanged 01/19/18). (7) Atrial fibrillation Current Visit: Yes Status: Acute Code(s): I48.91 - UNSPECIFIED ATRIAL FIBRILLATION SNOMED Code(s): 79601674 Comment: - pAfib , but rate is controlled now. - increase Metoprolol xl to 50mg daily and monitor on Telemetry. - [id number] is 2. - continue xarelto 20mg. (8) DVT prophylaxis Current Visit: Yes Status: Acute Code(s): EGS6105 - SNOMED Code(s): 593212512 Comment: - Rivaroxaban. (9) Decubitus ulcer of sacral region, stage 1 Current Visit: Yes Status: Acute Code(s): L89.151 - PRESSURE ULCER OF SACRAL REGION, STAGE 1 SNOMED Code(s): 107636924 Comment: wound care consulted (10) Decubitus ulcer, unstageable Current Visit: Yes Status: Acute Code(s): L89.95 - PRESSURE ULCER OF UNSPECIFIED SITE, UNSTAGEABLE SNOMED Code(s): 671110284 Comment: - Patient has a small open area on his sacrum where she had a decubitus in the past. - Frequent turn and position. (11) Dyspnea Current Visit: Yes Status: Acute Code(s): R06.00 - DYSPNEA, UNSPECIFIED SNOMED Code(s): 127761225 Comment: - there had been concern for post Influenza pneumonia. - CxR w/o e/o infiltrate. - MRSA nares checked and negative stopped Vancomycin 01/29 -stopped Cefepime 01/30 (12) Full code status Current Visit: Yes Status: Acute Code(s): Z78.9 - OTHER SPECIFIED HEALTH STATUS SNOMED Code(s): 913613536 (13) Influenza A Current Visit: Yes Status: Acute Code(s): J10.1 - FLU DUE TO OTH IDENT INFLUENZA VIRUS W OTH RESP MANIFEST SNOMED Code(s): 999305870 Comment: - Completed Tamiflu. Status and Disposition: Inpatient for management of right knee fungal infection.Consider PMRU vs Swing Bed if voriconazole is barrier to discharge.
[2018-02-01] MEDS: CMCS Melatonin (NF) 3 MG TAB PO SCH (20:42)
[2018-02-02 05:07] LABS: EGFR Non-African American 127.1 (>60)
[2018-02-02] MEDS: Levothyroxine TAB* 150 MCG TAB PO SCH (05:16)
[2018-02-02] MEDS ORDERED: Magnesium Sulfate 1 GM IV* 1 GM/100 ML BAG IV ONE (08:29)
[2018-02-02] MEDS: Metoprolol Succinate XL TAB* 50 MG PO SCH (09:02)
[2018-02-02] MEDS: Baclofen TAB* 10 MG PO SCH ×2 (09:02→21:13)
[2018-02-02] MEDS: Oxybutynin XL TAB* 5 MG PO SCH (09:02)
[2018-02-02] MEDS: Gabapentin CAP(*) 300 MG PO SCH (09:03)
[2018-02-02] MEDS: VORICONAZOLE IVPB SCH ×2 (10:44→21:14)
[2018-02-02] MEDS: NS 0.9% IVPB SCH ×2 (10:44→21:14)
[2018-02-02] MEDS: Docusate CAP* 100 MG PO SCH ×2 (12:42→21:13)
[2018-02-02] MEDS: Polyethylene Glycol 3350* 17 GM PACKET PO PRN (12:42)
--- NOTE | 2018-02-02 16:53 | PN ---
Subjective Date of Service: 02/02/18 Interval History: Not oriented to place in AM but was in PM walked 30ft with PT, needed prompting denies complaints. sleeping poorly. Family History: Unchanged from Admission Social History: Unchanged from Admission Past Medical History: Unchanged from Admission Objective Active Medications: Acetaminophen (Tylenol Tab*) 650 mg PO Q4H PRN PRN Reason: FEVER/PAIN Last Admin: 01/31/18 17:34 Dose: 650 mg Albuterol (Ventolin 2.5 Mg/3 Ml Neb.Natacha*) 2.5 mg INH Q2H PRN PRN Reason: SOB/WHEEZING Last Admin: 01/28/18 06:11 Dose: 2.5 mg Baclofen (Lioresal Tab*) 20 mg PO BID [facility] Last Admin: 02/02/18 09:02 Dose: 20 mg Benzonatate (Tessalon Cap*) 100 mg PO BID PRN PRN Reason: COUGH Last Admin: 01/30/18 20:34 Dose: 100 mg Docusate Sodium (Colace Cap*) 100 mg PO BID [facility] Last Admin: 02/02/18 12:42 Dose: 100 mg Gabapentin (Neurontin Cap(*)) 300 mg PO DAILY [facility] Last Admin: 02/02/18 09:03 Dose: 300 mg Voriconazole 300 mg/ Sodium (Chloride) 280 mls @ 186.667 mls/hr IVPB Q12HR [facility] Last Admin: 02/02/18 10:44 Dose: 186.667 mls/hr Levothyroxine Sodium (Synthroid Tab*) 150 mcg PO DAILY@0600 [facility] Last Admin: 02/02/18 05:16 Dose: 150 mcg Melatonin (Melatonin (Nf)) 3 mg PO BEDTIME [facility] Last Admin: 02/01/18 20:42 Dose: 3 mg Metoprolol Succinate (Toprol Xl Tab*) 50 mg PO DAILY [facility] Last Admin: 02/02/18 09:02 Dose: 50 mg Metoprolol Tartrate (Lopressor Iv*) 5 mg IV Q2H PRN PRN Reason: TACHYCARDIA Last Admin: 01/30/18 11:00 Dose: 5 mg Ondansetron HCl (Zofran Inj*) 4 mg IV Q6H PRN PRN Reason: NAUSEA Oxybutynin Chloride (Ditropan Xl Tab*) 10 mg PO DAILY [facility] Last Admin: 02/02/18 09:02 Dose: 10 mg Polyethylene Glycol/Electrolytes (Miralax*) 17 gm PO DAILY PRN PRN Reason: CONSTIPATION Last Admin: 02/02/18 12:42 Dose: 17 gm Rivaroxaban (Xarelto(*)) 20 mg PO DAILY@1700 [facility] Last Admin: 02/01/18 17:24 Dose: 20 mg Vital Signs - 8 hr 02/02/18 02/02/18 02/02/18 09:03 11:05 12:03 Temperature 98.9 F Pulse Rate 87 Respiratory 18 18 16 Rate Blood Pressure 129/81 (mmHg) O2 Sat by Pulse 97 Oximetry 02/02/18 02/02/18 15:14 15:18 Temperature 98.0 F 98 F Pulse Rate 95 78 Respiratory 16 Rate Blood Pressure 114/72 (mmHg) O2 Sat by Pulse 98 Oximetry Oxygen Devices in Use Now: Tracheostomy Collar Appearance: NAD Eyes: No Scleral Icterus, PERRLA Ears/Nose/Mouth/Throat: NL Teeth, Lips, Gums, Mucous Membranes Moist Neck: NL Appearance and Movements; NL JVP, Trachea Midline Respiratory: Symmetrical Chest Expansion and Respiratory Effort, Clear to Auscultation Cardiovascular: NL Sounds; No Murmurs; No JVD Abdominal: NL Sounds; No Tenderness; No Distention, No Hepatosplenomegaly Extremities: No Edema, - - right knee in HERBERT, no strike thru Skin: No Rash or Ulcers, No Nodules or Sclerosis Neurological: NL Sensation, - - initially not oriented to place but in afternoon was. Result Diagrams: 02/01/18 05:41 02/02/18 04:37 Additional Lab and Data: Laboratory Results - last 24 hr 02/02/18 04:37 Sodium 139 Potassium 3.8 Chloride 105 Carbon Dioxide 28 Anion Gap 6 BUN 13 Creatinine 0.48 L Est GFR ( Amer) 163.5 Est GFR (Non-Af Amer) 127.1 BUN/Creatinine Ratio 27.1 H Glucose 96 Calcium 9.0 Magnesium 1.9 Microbiology and Other Data: Microbiology 01/23/18 15:50 Misc Source (See Comment) - Knee Right Fungal Culture - Preliminary Celestine Parapsilosis 01/26/18 13:37 Tissue Wound Gram Stain - Final 01/26/18 13:37 Tissue Tissue Culture - Final No Growth Day 4 01/26/18 13:37 Knee Right Gram Stain - Final 01/26/18 13:37 Knee Right Wound Culture - Final No Growth Day 4 01/26/18 13:37 Body Fluid Anaerobic Culture - Final No Growth Day 4 01/29/18 12:30 Nasal Nasal Screen MRSA (PCR)(CLAUDIA) - Final Mrsa Not Detected 01/23/18 15:50 Joint Fluid(Synovial) - Knee Right Gram Stain - Final 01/23/18 15:50 Joint Fluid(Synovial) - Knee Right Body Fluid Culture - Final Celestine Parapsilosis 01/23/18 15:50 Joint Fluid(Synovial) - Knee Right Skin and Soft Tissue MRSA/ MSSA (PCR - Final Mrsa Negative S.aureus Negative 01/18/18 17:00 Blood Venous Aerobic Blood Culture - Final No Growth Day 5 01/18/18 17:00 Blood Venous Anaerobic Blood Culture - Final No Growth Day 5 01/18/18 16:32 Blood Venous Aerobic Blood Culture - Final No Growth Day 5 01/18/18 16:32 Blood Venous Anaerobic Blood Culture - Final No Growth Day 5 01/18/18 16:15 Urine Urine Culture - Final Pseudomonas Aeruginosa 01/18/18 16:15 Nasal Influenza Types A,B Antigen (CLAUDIA) - Final Specimen received for Influenza A/B Molecular testing Assess/Plan/Problems-Billing Assessment: 72 yo F with PMH of severe multiple sclerosis(4 months ago restarted dimethyl fumarate), Afib, 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 Course complicated by AMS. originally fluconazole (cytopenias) then anidulufungin(AMS) now switched to voriconazole. Sensitive to all three. Mental Status now improved. - Patient Problems (1) Delirium Current Visit: Yes Status: Acute Code(s): R41.0 - DISORIENTATION, UNSPECIFIED SNOMED Code(s): 0242143 Comment: - MUCH IMPROVED off the anidulufungin. AOx3 but better in afternoon. Will decrease gabapentin dose to 200mg from 300mg AM. decreaese baclofen to 15mg TID from 20mg TID. - Multifactorial in the setting of infection vs medication side effect - Continue supportive care. - CTH no acute process. - MRI Brain noncontrast w/o w/o CVA - talked to ID, switching anidulufungin to voriconazole to see if contributing. seems likely. (2) Sepsis Current Visit: Yes Status: Acute Comment: resolved. - Presentation compatible with sepsis on admission with tachypnea, tachycardia, neutropenia. - Source was Influenza A. (3) Infection of right knee Current Visit: Yes Status: Acute Code(s): M00.9 - PYOGENIC ARTHRITIS, UNSPECIFIED SNOMED Code(s): 821239436 Comment: - Recent right knee joint infection with celestine parapsilosis, still with growth despite 4 weeks fluconazole (thought contributed to cytopenias ), present on admission. - Synovial fluid with 300 WBC, fluid culture growing C. parapsilosis. - S/p knee wash out 01/26/18. - stopped Anidulafungin IV (did #) switch to voriconazole . concern was causing confusion? recheck LFTs tuesday. - stoped dimethyl fumerate given infections. (4) Hypothyroid Current Visit: Yes Status: Chronic Code(s): E03.9 - HYPOTHYROIDISM, UNSPECIFIED SNOMED Code(s): 48798777 Comment: - TSH is elevated to 16 - Levothyroxine now 150 mcg (from 137)and repeat TFTs in 4 weeks. (5) Multiple sclerosis Current Visit: Yes Status: Chronic Code(s): G35 - MULTIPLE SCLEROSIS SNOMED Code(s): 19357950 Comment: - off Tecfidera given infections. Daughter reports she had been off of it for 6 years until last September. 60% infection side effect risk - continue Baclofen at reduced 15mg TID. (6) Neurogenic bladder Current Visit: Yes Status: Chronic Code(s): N31.9 - NEUROMUSCULAR DYSFUNCTION OF BLADDER, UNSPECIFIED SNOMED Code(s): 837674462 Comment: - Secondary to MS. - Patient has chronic pal (exchanged 01/19/18). (7) Atrial fibrillation Current Visit: Yes Status: Acute Code(s): I48.91 - UNSPECIFIED ATRIAL FIBRILLATION SNOMED Code(s): 53814653 Comment: - pAfib , but rate is controlled now. - increase Metoprolol xl to 50mg daily and monitor on Telemetry. - [id number] is 2. - continue xarelto 20mg. (8) DVT prophylaxis Current Visit: Yes Status: Acute Code(s): FEE1965 - SNOMED Code(s): 672896941 Comment: - Rivaroxaban. (9) Decubitus ulcer of sacral region, stage 1 Current Visit: Yes Status: Acute Code(s): L89.151 - PRESSURE ULCER OF SACRAL REGION, STAGE 1 SNOMED Code(s): 897282919 Comment: wound care consulted. mepiplex. (10) Decubitus ulcer, unstageable Current Visit: Yes Status: Acute Code(s): L89.95 - PRESSURE ULCER OF UNSPECIFIED SITE, UNSTAGEABLE SNOMED Code(s): 414062139 Comment: - Patient has a small open area on his sacrum where she had a decubitus in the past. - Frequent turn and position. (11) Dyspnea Current Visit: Yes Status: Acute Code(s): R06.00 - DYSPNEA, UNSPECIFIED SNOMED Code(s): 469904063 Comment: - there had been concern for post Influenza pneumonia. - CxR w/o e/o infiltrate. - MRSA nares checked and negative stopped Vancomycin 01/29 -stopped Cefepime 01/30 (12) Full code status Current Visit: Yes Status: Acute Code(s): Z78.9 - OTHER SPECIFIED HEALTH STATUS SNOMED Code(s): 608142787 (13) Influenza A Current Visit: Yes Status: Acute Code(s): J10.1 - FLU DUE TO OTH IDENT INFLUENZA VIRUS W OTH RESP MANIFEST SNOMED Code(s): 834349592 Comment: - Completed Tamiflu. Status and Disposition: Inpatient for management of right knee fungal infection.Consider PMRU vs Swing Bed if voriconazole is barrier to discharge.
[2018-02-02] MEDS: Rivaroxaban TAB(*) 20 MG TAB PO SCH (17:16)
[2018-02-02] MEDS: CMCS Melatonin (NF) 3 MG TAB PO SCH (21:13)
[2018-02-03] MEDS: Levothyroxine TAB* 150 MCG TAB PO SCH (05:02)
[2018-02-03 05:23] LABS: Hematocrit 35 % (35-47); Hemoglobin 11.8 g/dl (12.0-16.0); Mean Corpuscular HGB Conc 34 g/dl (31-36); Mean Corpuscular Hemoglobin 26 pg (27-31); Mean Corpuscular Volume 77 fL (80-97); Platelet Count 231 10^3/ul (150-450); Red Blood Count 4.53 10^6/ul (4.0-5.4); Red Cell Distribution Width 16 % (10.5-15); White Blood Count 4.3 10^3/ul (3.5-10.8)
[2018-02-03 05:32] LABS: EGFR Non-African American 113.4 (>60)
[2018-02-03] MEDS ORDERED: NS 0.9% 250 ML* 250 ML ONE (08:59)
[2018-02-03] MEDS: Gabapentin CAP(*) 100 MG PO SCH (09:02)
[2018-02-03] MEDS: Docusate CAP* 100 MG PO SCH ×2 (09:02→22:45)
[2018-02-03] MEDS: Metoprolol Succinate XL TAB* 50 MG PO SCH (09:03)
[2018-02-03] MEDS: Oxybutynin XL TAB* 5 MG PO SCH (09:03)
[2018-02-03] MEDS: Baclofen TAB* 10 MG PO SCH ×2 (09:03→22:46)
[2018-02-03] MEDS: VORICONAZOLE IVPB SCH (09:04)
[2018-02-03] MEDS: NS 0.9% IVPB SCH (09:04)
[2018-02-03] MEDS: Polyethylene Glycol 3350* 17 GM PACKET PO PRN (09:12)
--- NOTE | 2018-02-03 16:26 | PN ---
Progress Note - Progress Note Date of Service: 02/03/18 SOAP: Subjective: 72 y/o female with infl A, L knee effusion w + celestine, s/p washout 01/[address] Ac. afebrile, Vss Patient continues to be confused Objective: General- well appearing, lying in bed reading, AO MSK- Incision c/d/i, nontender to palpation, mild edema, no erythema/ induration. Vital Signs Temp 97.9 F 02/03/18 11:45 Pulse 58 02/03/18 11:45 Resp 16 02/03/18 11:45 BP 117/64 02/03/18 11:45 Pulse Ox 98 02/03/18 11:45 Intake & Output 02/02/18 02/03/18 02/03/18 18:59 06:59 18:59 Intake Total 1187 518 0 Output Total 0 1750 0 Balance 1187 -1232 0 Weight 77.655 kg Intake: IV Fluids 70 33 Magnesium Sulfate 20 voriconazole 50 33 IVPB 350 285 Magnesium Sulfate 50 voriconazole 300 285 Oral 767 200 0 Output: Urine 0 0 Chaudhari 1750 Assessment: Stable 72 y/o female with infl A, L knee effusion w + celestine, s/p washout [address] Ac. Plan: - D/C to [facility] Tuesday - Continue PT/ OT - ABX/ antifugnal per ID - Sutures to be removed Tuesday prior to D/C - Follow up with Dr. Ac in 10-14 days Acetaminophen (Tylenol Tab*) 650 mg PO Q4H PRN PRN Reason: FEVER/PAIN Last Admin: 01/31/18 17:34 Dose: 650 mg Albuterol (Ventolin 2.5 Mg/3 Ml Neb.Natacha*) 2.5 mg INH Q2H PRN PRN Reason: SOB/WHEEZING Last Admin: 01/28/18 06:11 Dose: 2.5 mg Baclofen (Lioresal Tab*) 15 mg PO BID [facility] Last Admin: 02/03/18 09:03 Dose: 15 mg Benzonatate (Tessalon Cap*) 100 mg PO BID PRN PRN Reason: COUGH Last Admin: 01/30/18 20:34 Dose: 100 mg Docusate Sodium (Colace Cap*) 100 mg PO BID [facility] Last Admin: 02/03/18 09:02 Dose: 100 mg Gabapentin (Neurontin Cap(*)) 200 mg PO DAILY [facility] Last Admin: 02/03/18 09:02 Dose: 200 mg Levothyroxine Sodium (Synthroid Tab*) 150 mcg PO DAILY@0600 [facility] Last Admin: 02/03/18 05:02 Dose: 150 mcg Melatonin (Melatonin (Nf)) 3 mg PO BEDTIME [facility] Last Admin: 02/02/18 21:13 Dose: 3 mg Metoprolol Succinate (Toprol Xl Tab*) 50 mg PO DAILY [facility] Last Admin: 02/03/18 09:03 Dose: 50 mg Metoprolol Tartrate (Lopressor Iv*) 5 mg IV Q2H PRN PRN Reason: TACHYCARDIA Last Admin: 01/30/18 11:00 Dose: 5 mg Ondansetron HCl (Zofran Inj*) 4 mg IV Q6H PRN PRN Reason: NAUSEA Oxybutynin Chloride (Ditropan Xl Tab*) 10 mg PO DAILY [facility] Last Admin: 02/03/18 09:03 Dose: 10 mg Polyethylene Glycol/Electrolytes (Miralax*) 17 gm PO DAILY PRN PRN Reason: CONSTIPATION Last Admin: 02/03/18 09:12 Dose: 17 gm Rivaroxaban (Xarelto(*)) 20 mg PO DAILY@1700 [facility] Last Admin: 02/02/18 17:16 Dose: 20 mg Voriconazole (Vfend (Nf)) 200 mg PO Q12H [facility]
--- NOTE | 2018-02-03 17:26 | PN ---
Subjective Interval History: Mentation good. no LFT or cytopenias on the voriconazole. Switched to po per ID Plan for [facility]. still sleeping poorly. Family History: Unchanged from Admission Social History: Unchanged from Admission Past Medical History: Unchanged from Admission Objective Active Medications: Acetaminophen (Tylenol Tab*) 650 mg PO Q4H PRN PRN Reason: FEVER/PAIN Last Admin: 01/31/18 17:34 Dose: 650 mg Albuterol (Ventolin 2.5 Mg/3 Ml Neb.Natacha*) 2.5 mg INH Q2H PRN PRN Reason: SOB/WHEEZING Last Admin: 01/28/18 06:11 Dose: 2.5 mg Baclofen (Lioresal Tab*) 15 mg PO BID [facility] Last Admin: 02/03/18 09:03 Dose: 15 mg Benzonatate (Tessalon Cap*) 100 mg PO BID PRN PRN Reason: COUGH Last Admin: 01/30/18 20:34 Dose: 100 mg Docusate Sodium (Colace Cap*) 100 mg PO BID [facility] Last Admin: 02/03/18 09:02 Dose: 100 mg Gabapentin (Neurontin Cap(*)) 200 mg PO DAILY [facility] Last Admin: 02/03/18 09:02 Dose: 200 mg Levothyroxine Sodium (Synthroid Tab*) 150 mcg PO DAILY@0600 [facility] Last Admin: 02/03/18 05:02 Dose: 150 mcg Melatonin (Melatonin (Nf)) 3 mg PO BEDTIME [facility] Last Admin: 02/02/18 21:13 Dose: 3 mg Metoprolol Succinate (Toprol Xl Tab*) 50 mg PO DAILY [facility] Last Admin: 02/03/18 09:03 Dose: 50 mg Metoprolol Tartrate (Lopressor Iv*) 5 mg IV Q2H PRN PRN Reason: TACHYCARDIA Last Admin: 01/30/18 11:00 Dose: 5 mg Ondansetron HCl (Zofran Inj*) 4 mg IV Q6H PRN PRN Reason: NAUSEA Oxybutynin Chloride (Ditropan Xl Tab*) 10 mg PO DAILY [facility] Last Admin: 02/03/18 09:03 Dose: 10 mg Polyethylene Glycol/Electrolytes (Miralax*) 17 gm PO DAILY PRN PRN Reason: CONSTIPATION Last Admin: 02/03/18 09:12 Dose: 17 gm Rivaroxaban (Xarelto(*)) 20 mg PO DAILY@1700 [facility] Last Admin: 02/02/18 17:16 Dose: 20 mg Voriconazole (Vfend (Nf)) 200 mg PO Q12H [facility] Vital Signs - 8 hr 02/03/18 02/03/18 02/03/18 11:43 11:45 16:00 Temperature 97.9 F 97.6 F Pulse Rate 58 70 Respiratory 16 16 16 Rate Blood Pressure 117/64 136/79 (mmHg) O2 Sat by Pulse 98 97 Oximetry Oxygen Devices in Use Now: None Appearance: NAD. Eyes: No Scleral Icterus, PERRLA Ears/Nose/Mouth/Throat: NL Teeth, Lips, Gums, Mucous Membranes Moist Neck: NL Appearance and Movements; NL JVP Respiratory: Symmetrical Chest Expansion and Respiratory Effort, Clear to Auscultation Cardiovascular: NL Sounds; No Murmurs; No JVD, RRR Abdominal: NL Sounds; No Tenderness; No Distention, No Hepatosplenomegaly Extremities: No Edema Neurological: Alert and Oriented x 3, NL Sensation Result Diagrams: 02/03/18 04:51 02/03/18 04:51 Additional Lab and Data: Laboratory Results - last 24 hr 02/03/18 02/03/18 04:51 04:51 WBC 4.3 RBC 4.53 Hgb 11.8 L Hct 35 MCV 77 L MCH 26 L MCHC 34 RDW 16 H Plt Count 231 MPV 8.0 Sodium 140 Potassium 4.1 Chloride 104 Carbon Dioxide 29 Anion Gap 7 BUN 15 Creatinine 0.53 Est GFR ( Amer) 145.8 Est GFR (Non-Af Amer) 113.4 BUN/Creatinine Ratio 28.3 H Glucose 95 Calcium 9.1 Magnesium 2.0 Total Bilirubin 0.30 AST 29 ALT 24 Alkaline Phosphatase 75 Total Protein 6.2 L Albumin 3.4 Globulin 2.8 Albumin/Globulin Ratio 1.2 Microbiology and Other Data: Microbiology 01/23/18 15:50 Misc Source (See Comment) - Knee Right Fungal Culture - Preliminary Norma Parapsilosis 01/26/18 13:37 Tissue Wound Gram Stain - Final 01/26/18 13:37 Tissue Tissue Culture - Final No Growth Day 4 01/26/18 13:37 Knee Right Gram Stain - Final 01/26/18 13:37 Knee Right Wound Culture - Final No Growth Day 4 01/26/18 13:37 Body Fluid Anaerobic Culture - Final No Growth Day 4 01/29/18 12:30 Nasal Nasal Screen MRSA (PCR)(CLAUDIA) - Final Mrsa Not Detected 01/23/18 15:50 Joint Fluid(Synovial) - Knee Right Gram Stain - Final 01/23/18 15:50 Joint Fluid(Synovial) - Knee Right Body Fluid Culture - Final Norma Parapsilosis 01/23/18 15:50 Joint Fluid(Synovial) - Knee Right Skin and Soft Tissue MRSA/ MSSA (PCR - Final Mrsa Negative S.aureus Negative 01/18/18 17:00 Blood Venous Aerobic Blood Culture - Final No Growth Day 5 01/18/18 17:00 Blood Venous Anaerobic Blood Culture - Final No Growth Day 5 01/18/18 16:32 Blood Venous Aerobic Blood Culture - Final No Growth Day 5 01/18/18 16:32 Blood Venous Anaerobic Blood Culture - Final No Growth Day 5 01/18/18 16:15 Urine Urine Culture - Final Pseudomonas Aeruginosa 01/18/18 16:15 Nasal Influenza Types A,B Antigen (CLAUDIA) - Final Specimen received for Influenza A/B Molecular testing Assess/Plan/Problems-Billing Assessment: 72 yo F with PMH of severe multiple sclerosis(4 months ago restarted dimethyl fumarate), Afib, right knee hardware subluxation repair complicated by norma parapsilosis infection (still present, now on ), neurogenic bladder w/ chronic pal who presented with cough, found to have sepsis secondary to Influenza A and Pseudomonas catheter associated UTI. Course complicated by AMS. originally fluconazole (cytopenias) then anidulufungin(AMS) now switched to voriconazole. Sensitive to all three. Mental Status now improved. - Patient Problems (1) Delirium Current Visit: Yes Status: Acute Code(s): R41.0 - DISORIENTATION, UNSPECIFIED SNOMED Code(s): 5026752 Comment: - MUCH IMPROVED off the anidulufungin. AOx3 but better in afternoon. decreased gabapentin dose to 200mg from 300mg AM. decreaesed baclofen to 15mg TID from 20mg TID. - Multifactorial in the setting of infection vs medication side effect - Continue supportive care. - CTH no acute process. - MRI Brain noncontrast w/o w/o CVA (2) Sepsis Current Visit: Yes Status: Acute Comment: resolved. - Presentation compatible with sepsis on admission with tachypnea, tachycardia, neutropenia. - Source was Influenza A. (3) Infection of right knee Current Visit: Yes Status: Acute Code(s): M00.9 - PYOGENIC ARTHRITIS, UNSPECIFIED SNOMED Code(s): 796852626 Comment: - Recent right knee joint infection with norma parapsilosis, still with growth despite 4 weeks fluconazole (thought contributed to cytopenias ), present on admission. - Synovial fluid with 300 WBC, fluid culture growing C. parapsilosis. - S/p knee wash out 01/26/18. - stopped Anidulafungin IV (did #) switch to voriconazole . concern was causing confusion. LFTS okay. switch to 200mg po BID from IV 300mg BID per ID - stoped dimethyl fumerate given infections. (4) Hypothyroid Current Visit: Yes Status: Chronic Code(s): E03.9 - HYPOTHYROIDISM, UNSPECIFIED SNOMED Code(s): 79434244 Comment: - TSH is elevated to 16 - Levothyroxine now 150 mcg (from 137)and repeat TFTs in 4 weeks. (5) Multiple sclerosis Current Visit: Yes Status: Chronic Code(s): G35 - MULTIPLE SCLEROSIS SNOMED Code(s): 04156643 Comment: - off Tecfidera given infections. Daughter reports she had been off of it for 6 years until last September. 60% infection side effect risk - continue Baclofen at reduced 15mg TID. (6) Neurogenic bladder Current Visit: Yes Status: Chronic Code(s): N31.9 - NEUROMUSCULAR DYSFUNCTION OF BLADDER, UNSPECIFIED SNOMED Code(s): 811403610 Comment: - Secondary to MS. - Patient has chronic pal (exchanged 01/19/18). (7) Atrial fibrillation Current Visit: Yes Status: Acute Code(s): I48.91 - UNSPECIFIED ATRIAL FIBRILLATION SNOMED Code(s): 03190268 Comment: - pAfib , but rate is controlled now. - increase Metoprolol xl to 50mg daily and monitor on Telemetry. - [id number] is 2. - continue xarelto 20mg. (8) DVT prophylaxis Current Visit: Yes Status: Acute Code(s): GES6967 - SNOMED Code(s): 062482739 Comment: - Rivaroxaban. (9) Decubitus ulcer of sacral region, stage 1 Current Visit: Yes Status: Acute Code(s): L89.151 - PRESSURE ULCER OF SACRAL REGION, STAGE 1 SNOMED Code(s): 652058815 Comment: wound care consulted. mepiplex. (10) Decubitus ulcer, unstageable Current Visit: Yes Status: Acute Code(s): L89.95 - PRESSURE ULCER OF UNSPECIFIED SITE, UNSTAGEABLE SNOMED Code(s): 139664501 Comment: - Patient has a small open area on his sacrum where she had a decubitus in the past. - Frequent turn and position. (11) Dyspnea Current Visit: Yes Status: Acute Code(s): R06.00 - DYSPNEA, UNSPECIFIED SNOMED Code(s): 073106765 Comment: - there had been concern for post Influenza pneumonia. - CxR w/o e/o infiltrate. - MRSA nares checked and negative stopped Vancomycin 01/29 -stopped Cefepime 01/30 (12) Full code status Current Visit: Yes Status: Acute Code(s): Z78.9 - OTHER SPECIFIED HEALTH STATUS SNOMED Code(s): 704283127 (13) Influenza A Current Visit: Yes Status: Acute Code(s): J10.1 - FLU DUE TO OTH IDENT INFLUENZA VIRUS W OTH RESP MANIFEST SNOMED Code(s): 262043084 Comment: - Completed Tamiflu. Status and Disposition: Inpatient for management of right knee fungal infection. Plan to [facility] likely tuesday.
[2018-02-03] MEDS: Rivaroxaban TAB(*) 20 MG TAB PO SCH (17:39)
[2018-02-03] MEDS ORDERED: VORICONAZOLE 50 MG PO ONE (21:00)
[2018-02-03] MEDS: CMCS Voriconazole (NF) 50 MG TAB PO SCH (22:42)
[2018-02-03] MEDS: CMCS Melatonin (NF) 3 MG TAB PO SCH (22:46)
[2018-02-04] MEDS: Levothyroxine TAB* 150 MCG TAB PO SCH (05:38)
[2018-02-04 05:50] LABS: EGFR Non-African American 98.3 (>60)
[2018-02-04] MEDS: CMCS Voriconazole (NF) 50 MG TAB PO SCH ×2 (08:56→22:35)
[2018-02-04] MEDS: Oxybutynin XL TAB* 5 MG PO SCH (08:56)
[2018-02-04] MEDS: Docusate CAP* 100 MG PO SCH ×2 (08:56→22:34)
[2018-02-04] MEDS: Gabapentin CAP(*) 100 MG PO SCH (08:56)
[2018-02-04] MEDS: Baclofen TAB* 10 MG PO SCH ×2 (08:57→22:32)
[2018-02-04] MEDS: Metoprolol Succinate XL TAB* 50 MG PO SCH (08:57)
[2018-02-04] MEDS ORDERED: NS 0.9% IVPB SCH (09:00)
[2018-02-04] MEDS ORDERED: VORICONAZOLE IVPB SCH (09:00)
--- NOTE | 2018-02-04 16:27 | PN ---
Subjective Date of Service: 02/04/18 Interval History: Patient mentally sharp and oriented. No complaints. Attests that she would very much desire a SNF that is NOT [facility] as she has been there before and there are "mean people" there. Family History: Unchanged from Admission Social History: Unchanged from Admission Past Medical History: Unchanged from Admission Objective Active Medications: Acetaminophen (Tylenol Tab*) 650 mg PO Q4H PRN PRN Reason: FEVER/PAIN Last Admin: 01/31/18 17:34 Dose: 650 mg Albuterol (Ventolin 2.5 Mg/3 Ml Neb.Natacha*) 2.5 mg INH Q2H PRN PRN Reason: SOB/WHEEZING Last Admin: 01/28/18 06:11 Dose: 2.5 mg Baclofen (Lioresal Tab*) 15 mg PO BID [facility] Last Admin: 02/04/18 08:57 Dose: 15 mg Benzonatate (Tessalon Cap*) 100 mg PO BID PRN PRN Reason: COUGH Last Admin: 01/30/18 20:34 Dose: 100 mg Docusate Sodium (Colace Cap*) 100 mg PO BID [facility] Last Admin: 02/04/18 08:56 Dose: 100 mg Gabapentin (Neurontin Cap(*)) 200 mg PO DAILY [facility] Last Admin: 02/04/18 08:56 Dose: 200 mg Levothyroxine Sodium (Synthroid Tab*) 150 mcg PO DAILY@0600 [facility] Last Admin: 02/04/18 05:38 Dose: 150 mcg Melatonin (Melatonin (Nf)) 3 mg PO BEDTIME [facility] Last Admin: 02/03/18 22:46 Dose: 3 mg Metoprolol Succinate (Toprol Xl Tab*) 50 mg PO DAILY [facility] Last Admin: 02/04/18 08:57 Dose: 50 mg Metoprolol Tartrate (Lopressor Iv*) 5 mg IV Q2H PRN PRN Reason: TACHYCARDIA Last Admin: 01/30/18 11:00 Dose: 5 mg Ondansetron HCl (Zofran Inj*) 4 mg IV Q6H PRN PRN Reason: NAUSEA Oxybutynin Chloride (Ditropan Xl Tab*) 10 mg PO DAILY [facility] Last Admin: 02/04/18 08:56 Dose: 10 mg Polyethylene Glycol/Electrolytes (Miralax*) 17 gm PO DAILY PRN PRN Reason: CONSTIPATION Last Admin: 02/03/18 09:12 Dose: 17 gm Rivaroxaban (Xarelto(*)) 20 mg PO DAILY@1700 [facility] Last Admin: 02/03/18 17:39 Dose: 20 mg Voriconazole (Vfend (Nf)) 200 mg PO Q12H [facility] Last Admin: 02/04/18 08:56 Dose: 200 mg Vital Signs - 8 hr 02/04/18 02/04/18 02/04/18 08:56 11:16 11:30 Temperature 97.5 F Pulse Rate 73 Respiratory 16 16 16 Rate Blood Pressure 122/77 (mmHg) O2 Sat by Pulse 94 Oximetry Oxygen Devices in Use Now: None Appearance: NAD Eyes: No Scleral Icterus Ears/Nose/Mouth/Throat: NL Teeth, Lips, Gums Neck: NL Appearance and Movements; NL JVP, Trachea Midline Respiratory: Symmetrical Chest Expansion and Respiratory Effort, Clear to Auscultation Cardiovascular: NL Sounds; No Murmurs; No JVD, RRR Abdominal: NL Sounds; No Tenderness; No Distention Extremities: No Edema, - - right knee without erythema or warmth. Skin: No Rash or Ulcers Neurological: Alert and Oriented x 3, NL Sensation Nutrition: Taking PO's Result Diagrams: 02/03/18 04:51 02/04/18 05:22 Additional Lab and Data: Laboratory Results - last 24 hr 02/04/18 05:22 Sodium 140 Potassium 3.7 Chloride 105 Carbon Dioxide 28 Anion Gap 7 BUN 14 Creatinine 0.60 Est GFR ( Amer) 126.4 Est GFR (Non-Af Amer) 98.3 BUN/Creatinine Ratio 23.3 H Glucose 98 Calcium 9.1 Microbiology and Other Data: Microbiology 01/23/18 15:50 Misc Source (See Comment) - Knee Right Fungal Culture - Preliminary Celestine Parapsilosis 01/26/18 13:37 Tissue Wound Gram Stain - Final 01/26/18 13:37 Tissue Tissue Culture - Final No Growth Day 4 01/26/18 13:37 Knee Right Gram Stain - Final 01/26/18 13:37 Knee Right Wound Culture - Final No Growth Day 4 01/26/18 13:37 Body Fluid Anaerobic Culture - Final No Growth Day 4 01/29/18 12:30 Nasal Nasal Screen MRSA (PCR)(CLAUDIA) - Final Mrsa Not Detected 01/23/18 15:50 Joint Fluid(Synovial) - Knee Right Gram Stain - Final 01/23/18 15:50 Joint Fluid(Synovial) - Knee Right Body Fluid Culture - Final Celestine Parapsilosis 01/23/18 15:50 Joint Fluid(Synovial) - Knee Right Skin and Soft Tissue MRSA/ MSSA (PCR - Final Mrsa Negative S.aureus Negative 01/18/18 17:00 Blood Venous Aerobic Blood Culture - Final No Growth Day 5 01/18/18 17:00 Blood Venous Anaerobic Blood Culture - Final No Growth Day 5 01/18/18 16:32 Blood Venous Aerobic Blood Culture - Final No Growth Day 5 01/18/18 16:32 Blood Venous Anaerobic Blood Culture - Final No Growth Day 5 01/18/18 16:15 Urine Urine Culture - Final Pseudomonas Aeruginosa 01/18/18 16:15 Nasal Influenza Types A,B Antigen (CLAUDIA) - Final Specimen received for Influenza A/B Molecular testing Assess/Plan/Problems-Billing Assessment: 72 yo F with PMH of severe multiple sclerosis(4 months ago restarted dimethyl fumarate), Afib, right knee hardware subluxation repair complicated by celestine parapsilosis infection (still present), neurogenic bladder w/ chronic pal who presented with cough, found to have sepsis secondary to Influenza A and Pseudomonas catheter associated UTI. Course complicated by AMS. originally fluconazole (cytopenias) then anidulufungin(AMS) now switched to voriconazole ( now PO). Sensitive to all three. Mental Status now improved. Awaiting SNF. - Patient Problems (1) Delirium Current Visit: Yes Status: Acute Code(s): R41.0 - DISORIENTATION, UNSPECIFIED SNOMED Code(s): 7333702 Comment: - MUCH IMPROVED off the anidulufungin. AOx3. continue the decreased gabapentin dose to 200mg from 300mg AM and decreaesed baclofen to 15mg TID from 20mg TID. - Multifactorial in the setting of medication side effect and infection - Continue supportive care. - CTH no acute process. - MRI Brain noncontrast w/o w/o CVA (2) Sepsis Current Visit: Yes Status: Acute Comment: resolved. - Presentation compatible with sepsis on admission with tachypnea, tachycardia, neutropenia. - Source was Influenza A. (3) Infection of right knee Current Visit: Yes Status: Acute Code(s): M00.9 - PYOGENIC ARTHRITIS, UNSPECIFIED SNOMED Code(s): 135511786 Comment: - Recent right knee joint infection with celestine parapsilosis, still with growth despite 4 weeks fluconazole (thought contributed to cytopenias ), present on admission. - Synovial fluid with 300 WBC, fluid culture growing C. parapsilosis. - S/p knee wash out 01/26/18. - stopped Anidulafungin IV (did #) switch to voriconazole #. concern was causing confusion. LFTS okay. continue 200mg po BID - off MS med dimethyl fumerate since 01/29 given mutliple infections (side effect risk). (4) Hypothyroid Current Visit: Yes Status: Chronic Code(s): E03.9 - HYPOTHYROIDISM, UNSPECIFIED SNOMED Code(s): 30982429 Comment: - TSH is elevated to 16 - Levothyroxine now 150 mcg (from 137)and repeat TFTs in 4 weeks. (5) Multiple sclerosis Current Visit: Yes Status: Chronic Code(s): G35 - MULTIPLE SCLEROSIS SNOMED Code(s): 38901661 Comment: - off Tecfidera given infections. Daughter reports she had been off of it for 6 years until last September. 60% infection side effect risk - continue Baclofen at reduced 15mg TID. (6) Neurogenic bladder Current Visit: Yes Status: Chronic Code(s): N31.9 - NEUROMUSCULAR DYSFUNCTION OF BLADDER, UNSPECIFIED SNOMED Code(s): 595344695 Comment: - Secondary to MS. - Patient has chronic pal (exchanged 01/19/18). (7) Atrial fibrillation Current Visit: Yes Status: Acute Code(s): I48.91 - UNSPECIFIED ATRIAL FIBRILLATION SNOMED Code(s): 24540185 Comment: - pAfib , but rate is controlled now. - increase Metoprolol xl to 50mg daily and monitor on Telemetry. - [id number] is 2. - continue xarelto 20mg. (8) DVT prophylaxis Current Visit: Yes Status: Acute Code(s): DRD3646 - SNOMED Code(s): 521999859 Comment: - Rivaroxaban. (9) Decubitus ulcer of sacral region, stage 1 Current Visit: Yes Status: Acute Code(s): L89.151 - PRESSURE ULCER OF SACRAL REGION, STAGE 1 SNOMED Code(s): 352525492 Comment: wound care consulted. mepiplex. (10) Decubitus ulcer, unstageable Current Visit: Yes Status: Acute Code(s): L89.95 - PRESSURE ULCER OF UNSPECIFIED SITE, UNSTAGEABLE SNOMED Code(s): 337255228 Comment: - Patient has a small open area on his sacrum where she had a decubitus in the past. - Frequent turn and position. (11) Full code status Current Visit: Yes Status: Acute Code(s): Z78.9 - OTHER SPECIFIED HEALTH STATUS SNOMED Code(s): 518910890 (12) Influenza A Current Visit: Yes Status: Acute Code(s): J10.1 - FLU DUE TO OTH IDENT INFLUENZA VIRUS W OTH RESP MANIFEST SNOMED Code(s): 537130397 Comment: - Completed Tamiflu. Status and Disposition: Inpatient for management of right knee fungal infection. Plan to SNF (Pt wants other than [facility] has offered a bed recently) likely Tuesday.
[2018-02-04] MEDS: Rivaroxaban TAB(*) 20 MG TAB PO SCH (17:54)
[2018-02-04] MEDS: CMCS Melatonin (NF) 3 MG TAB PO SCH (22:35)
[2018-02-05] MEDS: Levothyroxine TAB* 150 MCG TAB PO SCH (05:13)
[2018-02-05 06:18] LABS: EGFR Non-African American 96.4 (>60)
[2018-02-05] MEDS: CMCS Voriconazole (NF) 50 MG TAB PO SCH ×2 (08:57→21:21)
[2018-02-05] MEDS: Oxybutynin XL TAB* 5 MG PO SCH (08:58)
[2018-02-05] MEDS: Metoprolol Succinate XL TAB* 50 MG PO SCH (08:59)
[2018-02-05] MEDS: Baclofen TAB* 10 MG PO SCH ×2 (08:59→21:19)
[2018-02-05] MEDS: Gabapentin CAP(*) 100 MG PO SCH (09:00)
[2018-02-05] MEDS: Docusate CAP* 100 MG PO SCH ×2 (09:00→21:19)
--- NOTE | 2018-02-05 11:05 | PN ---
Progress Note - Progress Note Date of Service: 02/05/18 SOAP: Subjective: [Pt has no significant c/o pain. Denies CP, SOB, dizziness. Would much rath Vital Signs: Temp Pulse Resp BP Pulse Ox 98.6 F 61 16 136/68 95 02/05/18 04:27 02/05/18 07:58 02/05/18 09:00 02/05/18 04:27 02/05/18 07:58 [place] go [place] [facility] Does not want to go to [facility] because of bad experience before there.] Objective: A and O x 3, NAD L knee dressing C/D/I[ Calf soft, NT Laboratory Results - last 24 hr 02/05/18 05:21 Sodium 141 Potassium 3.7 Chloride 105 Carbon Dioxide 29 Anion Gap 7 BUN 12 Creatinine 0.61 Est GFR ( Amer) 124.0 Est GFR (Non-Af Amer) 96.4 BUN/Creatinine Ratio 19.7 Glucose 95 Calcium 9.5 ] Assessment: [S/P L knee washout on 01/26/[address] Ac] Plan: [D/C on Tuesday - to [facility] or other facility PT/OT ABX/antifungal per ID Sutures to be removed Tuesday prior to D/C F/U with Dr. Ac in 10-14 days]
[2018-02-05] MEDS: Rivaroxaban TAB(*) 20 MG TAB PO SCH (17:20)
[2018-02-05] MEDS: CMCS Melatonin (NF) 3 MG TAB PO SCH (21:19)
--- NOTE | 2018-02-05 22:46 | PN ---
Subjective Date of Service: 02/05/18 Interval History: feels good today, no concerns afebrile no sensation in lower extremities at baseline Family History: Unchanged from Admission Social History: Unchanged from Admission Past Medical History: Unchanged from Admission Objective Active Medications: Acetaminophen (Tylenol Tab*) 650 mg PO Q4H PRN PRN Reason: FEVER/PAIN Last Admin: 01/31/18 17:34 Dose: 650 mg Albuterol (Ventolin 2.5 Mg/3 Ml Neb.Natacha*) 2.5 mg INH Q2H PRN PRN Reason: SOB/WHEEZING Last Admin: 01/28/18 06:11 Dose: 2.5 mg Baclofen (Lioresal Tab*) 15 mg PO BID [facility] Last Admin: 02/05/18 21:19 Dose: 15 mg Benzonatate (Tessalon Cap*) 100 mg PO BID PRN PRN Reason: COUGH Last Admin: 01/30/18 20:34 Dose: 100 mg Docusate Sodium (Colace Cap*) 100 mg PO BID [facility] Last Admin: 02/05/18 21:19 Dose: 100 mg Gabapentin (Neurontin Cap(*)) 200 mg PO DAILY [facility] Last Admin: 02/05/18 09:00 Dose: 200 mg Levothyroxine Sodium (Synthroid Tab*) 150 mcg PO DAILY@0600 [facility] Last Admin: 02/05/18 05:13 Dose: 150 mcg Melatonin (Melatonin (Nf)) 3 mg PO BEDTIME [facility] Last Admin: 02/05/18 21:19 Dose: 3 mg Metoprolol Succinate (Toprol Xl Tab*) 50 mg PO DAILY [facility] Last Admin: 02/05/18 08:59 Dose: 50 mg Metoprolol Tartrate (Lopressor Iv*) 5 mg IV Q2H PRN PRN Reason: TACHYCARDIA Last Admin: 01/30/18 11:00 Dose: 5 mg Ondansetron HCl (Zofran Inj*) 4 mg IV Q6H PRN PRN Reason: NAUSEA Oxybutynin Chloride (Ditropan Xl Tab*) 10 mg PO DAILY [facility] Last Admin: 02/05/18 08:58 Dose: 10 mg Polyethylene Glycol/Electrolytes (Miralax*) 17 gm PO DAILY PRN PRN Reason: CONSTIPATION Last Admin: 02/03/18 09:12 Dose: 17 gm Rivaroxaban (Xarelto(*)) 20 mg PO DAILY@1700 [facility] Last Admin: 02/05/18 17:20 Dose: 20 mg Voriconazole (Vfend (Nf)) 200 mg PO Q12H [facility] Last Admin: 02/05/18 21:21 Dose: 200 mg Vital Signs - 8 hr 02/05/18 16:20 Temperature 97.9 F Pulse Rate 69 Respiratory 16 Rate Blood Pressure 118/87 (mmHg) O2 Sat by Pulse 96 Oximetry Oxygen Devices in Use Now: None Appearance: alert, sitting up in bed, nontoxic Eyes: No Scleral Icterus Ears/Nose/Mouth/Throat: NL Teeth, Lips, Gums Neck: NL Appearance and Movements; NL JVP Respiratory: Symmetrical Chest Expansion and Respiratory Effort Cardiovascular: NL Sounds; No Murmurs; No JVD, RRR Abdominal: NL Sounds; No Tenderness; No Distention Lymphatic: No Cervical Adenopathy Extremities: - - + passive rom b/l knees. right knee wrapped in iveth wrap. no sensation b/l legs Skin: No Rash or Ulcers Neurological: Alert and Oriented x 3 Result Diagrams: 02/03/18 04:51 02/05/18 05:21 Additional Lab and Data: Laboratory Results - last 24 hr 02/04/18 05:22 Sodium 140 Potassium 3.7 Chloride 105 Carbon Dioxide 28 Anion Gap 7 BUN 14 Creatinine 0.60 Est GFR ( Amer) 126.4 Est GFR (Non-Af Amer) 98.3 BUN/Creatinine Ratio 23.3 H Glucose 98 Calcium 9.1 Microbiology and Other Data: Microbiology 01/23/18 15:50 Misc Source (See Comment) - Knee Right Fungal Culture - Preliminary Celestine Parapsilosis 01/26/18 13:37 Tissue Wound Gram Stain - Final 01/26/18 13:37 Tissue Tissue Culture - Final No Growth Day 4 01/26/18 13:37 Knee Right Gram Stain - Final 01/26/18 13:37 Knee Right Wound Culture - Final No Growth Day 4 01/26/18 13:37 Body Fluid Anaerobic Culture - Final No Growth Day 4 01/29/18 12:30 Nasal Nasal Screen MRSA (PCR)(CLAUDIA) - Final Mrsa Not Detected 01/23/18 15:50 Joint Fluid(Synovial) - Knee Right Gram Stain - Final 01/23/18 15:50 Joint Fluid(Synovial) - Knee Right Body Fluid Culture - Final Celestine Parapsilosis 01/23/18 15:50 Joint Fluid(Synovial) - Knee Right Skin and Soft Tissue MRSA/ MSSA (PCR - Final Mrsa Negative S.aureus Negative 01/18/18 17:00 Blood Venous Aerobic Blood Culture - Final No Growth Day 5 01/18/18 17:00 Blood Venous Anaerobic Blood Culture - Final No Growth Day 5 01/18/18 16:32 Blood Venous Aerobic Blood Culture - Final No Growth Day 5 01/18/18 16:32 Blood Venous Anaerobic Blood Culture - Final No Growth Day 5 01/18/18 16:15 Urine Urine Culture - Final Pseudomonas Aeruginosa 01/18/18 16:15 Nasal Influenza Types A,B Antigen (CLAUDIA) - Final Specimen received for Influenza A/B Molecular testing Assess/Plan/Problems-Billing Assessment: 72 yo F with PMH of severe multiple sclerosis(4 months ago restarted dimethyl fumarate), Afib, right knee hardware subluxation repair complicated by celestine parapsilosis infection (still present), neurogenic bladder w/ chronic pal who presented with cough, found to have sepsis secondary to Influenza A and Pseudomonas catheter associated UTI. Course complicated by AMS. originally was on fluconazole (cytopenias) then anidulufungin(AMS) now switched to voriconazole (now PO). Sensitive to all three. Mental Status now improved. Awaiting SNF. - Patient Problems (1) Infection of right knee Current Visit: Yes Status: Acute Code(s): M00.9 - PYOGENIC ARTHRITIS, UNSPECIFIED SNOMED Code(s): 528834604 Comment: Culture from washout this admission still with growth of celestine parapsilosis despite 4 weeks fluconazole (thought contributed to cytopenias) S/p knee wash out 01/26/18. Anidulafungin IV discontinued due to confusion (did #) switch to voriconazole #. LFTS okay. continue 200mg po BID Dimethyl fumerate discontinued 01/29 given mutliple infections (side effect risk) . (2) Influenza A Current Visit: Yes Status: Acute Code(s): J10.1 - FLU DUE TO OTH IDENT INFLUENZA VIRUS W OTH RESP MANIFEST SNOMED Code(s): 725710755 Comment: Completed Tamiflu course. (3) Atrial fibrillation Current Visit: Yes Status: Acute Code(s): I48.91 - UNSPECIFIED ATRIAL FIBRILLATION SNOMED Code(s): 90735378 Comment: she did have some RVR on this admission in setting of sepsis, but is now controlled on metoprolol xl 50mg daily SUACQ7mres is 2. xarelto 20mg. (4) Pseudomonas aeruginosa infection Current Visit: Yes Status: Acute Code(s): A49.8 - OTHER BACTERIAL INFECTIONS OF UNSPECIFIED SITE SNOMED Code(s): 50718384 Comment: resolved s/p pip/tazo chronic pal due to neurogenic bladder (5) Neurogenic bladder Current Visit: Yes Status: Chronic Code(s): N31.9 - NEUROMUSCULAR DYSFUNCTION OF BLADDER, UNSPECIFIED SNOMED Code(s): 890094878 Comment: noted. pal exchanged 01/19 Status and Disposition: awaiting snf placement
[2018-02-06] MEDS: Levothyroxine TAB* 150 MCG TAB PO SCH (05:56)
[2018-02-06] MEDS: Oxybutynin XL TAB* 5 MG PO SCH (07:54)
[2018-02-06] MEDS: Metoprolol Succinate XL TAB* 50 MG PO SCH (07:54)
[2018-02-06] MEDS: Baclofen TAB* 10 MG PO SCH ×2 (07:54→20:27)
[2018-02-06] MEDS: Gabapentin CAP(*) 100 MG PO SCH (07:55)
[2018-02-06] MEDS: Docusate CAP* 100 MG PO SCH ×2 (07:56→20:27)
[2018-02-06] MEDS: CMCS Voriconazole (NF) 50 MG TAB PO SCH ×2 (07:56→20:29)
--- NOTE | 2018-02-06 10:30 | PN ---
Progress Note - Progress Note Date of Service: 02/06/18 SOAP: Subjective: 72 y/o female with infl A, L knee effusion w + celestine, s/p washout 01/[address] Ac. Patient overall no complaints, questions. Sister in room with patient. Objective: General- Well appearing, AO, sitting upright in chair MSK- Dressing removed, incisions c/d/i, no drainage, erythema noted, mild edema. Sutures removed without difficulty, patient tolerated well, redressed with dry gauze, HERBERT wrap. Vital Signs Temp 97.3 F 02/06/18 07:35 Pulse 56 02/06/18 07:48 Resp 16 02/06/18 10:18 BP 142/92 02/06/18 07:35 Pulse Ox 97 02/06/18 07:48 Intake & Output 02/05/18 02/06/18 02/06/18 18:59 06:59 18:59 Intake Total 480 120 477 Output Total 625 Balance 480 -505 477 Weight 75.523 kg Intake: Oral 480 120 477 Output: Chaudhari 625 Other: # Bowel Movements 0 Assessment: Stable 72 y/o female with infl A, L knee effusion w + celestine, s/p washout 4/[address] Ac. Plan: - Possible D/C to [facility] today - Continue PT/ rehab - Cont abx per ID - Follow up with Dr. ac within 2 weeks/ early february - Dressing change as needed, if no drainage may leave without dressing Acetaminophen (Tylenol Tab*) 650 mg PO Q4H PRN PRN Reason: FEVER/PAIN Last Admin: 01/31/18 17:34 Dose: 650 mg Albuterol (Ventolin 2.5 Mg/3 Ml Neb.Natacha*) 2.5 mg INH Q2H PRN PRN Reason: SOB/WHEEZING Last Admin: 01/28/18 06:11 Dose: 2.5 mg Baclofen (Lioresal Tab*) 15 mg PO BID [facility] Last Admin: 02/06/18 07:54 Dose: 15 mg Benzonatate (Tessalon Cap*) 100 mg PO BID PRN PRN Reason: COUGH Last Admin: 01/30/18 20:34 Dose: 100 mg Docusate Sodium (Colace Cap*) 100 mg PO BID [facility] Last Admin: 02/06/18 07:56 Dose: 100 mg Gabapentin (Neurontin Cap(*)) 200 mg PO DAILY [facility] Last Admin: 02/06/18 07:55 Dose: 200 mg Levothyroxine Sodium (Synthroid Tab*) 150 mcg PO DAILY@0600 [facility] Last Admin: 02/06/18 05:56 Dose: 150 mcg Melatonin (Melatonin (Nf)) 3 mg PO BEDTIME [facility] Last Admin: 02/05/18 21:19 Dose: 3 mg Metoprolol Succinate (Toprol Xl Tab*) 50 mg PO DAILY [facility] Last Admin: 02/06/18 07:54 Dose: 50 mg Metoprolol Tartrate (Lopressor Iv*) 5 mg IV Q2H PRN PRN Reason: TACHYCARDIA Last Admin: 01/30/18 11:00 Dose: 5 mg Ondansetron HCl (Zofran Inj*) 4 mg IV Q6H PRN PRN Reason: NAUSEA Oxybutynin Chloride (Ditropan Xl Tab*) 10 mg PO DAILY [facility] Last Admin: 02/06/18 07:54 Dose: 10 mg Polyethylene Glycol/Electrolytes (Miralax*) 17 gm PO DAILY PRN PRN Reason: CONSTIPATION Last Admin: 02/03/18 09:12 Dose: 17 gm Rivaroxaban (Xarelto(*)) 20 mg PO DAILY@1700 [facility] Last Admin: 02/05/18 17:20 Dose: 20 mg Voriconazole (Vfend (Nf)) 200 mg PO Q12H [facility] Last Admin: 02/06/18 07:56 Dose: 200 mg
--- NOTE | 2018-02-06 10:55 | PN ---
Progress Note - Progress Note Date of Service: 02/06/18 SOAP: Subjective: CC: knee pain HPI: 72 year old woman with MS and revision of a right knee arthroplasty complicated by Norma infection s/p I&D. No fever, rash, or diarrhea. Eating ok. R knee less swollen and less painful. Objective: Vital Signs Temp 36.3 C 02/06/18 07:35 Pulse 56 02/06/18 07:48 Resp 16 02/06/18 10:18 BP 142/92 02/06/18 07:35 Pulse Ox 97 02/06/18 07:48 Intake & Output 02/05/18 02/06/18 02/06/18 18:59 06:59 18:59 Intake Total 480 120 477 Output Total 625 Balance 480 -505 477 Weight 166 lb 8 oz Intake: Oral 480 120 477 Output: Pal 625 Other: # Bowel Movements 0 Gen:awake, no distress Ox3 HEENT:no thrush Heart:RRR no murmur Abd:+BS NTND soft Skin: no rash MSK: R knee mild edema, no erythema Microbiology 01/23/18 15:50 Misc Source (See Comment) - Knee Right Fungal Culture - Preliminary Norma Parapsilosis 01/26/18 13:37 Tissue Wound Gram Stain - Final 01/26/18 13:37 Tissue Tissue Culture - Final No Growth Day 4 01/26/18 13:37 Knee Right Gram Stain - Final 01/26/18 13:37 Knee Right Wound Culture - Final No Growth Day 4 01/26/18 13:37 Body Fluid Anaerobic Culture - Final No Growth Day 4 01/29/18 12:30 Nasal Nasal Screen MRSA (PCR)(CLAUDIA) - Final Mrsa Not Detected 01/23/18 15:50 Joint Fluid(Synovial) - Knee Right Gram Stain - Final 01/23/18 15:50 Joint Fluid(Synovial) - Knee Right Body Fluid Culture - Final Norma Parapsilosis 01/23/18 15:50 Joint Fluid(Synovial) - Knee Right Skin and Soft Tissue MRSA/ MSSA (PCR - Final Mrsa Negative S.aureus Negative Assessment: 1. right prosthetic knee Norma parapsilosis infection 2. MS with neurogenic bladder and chronic pal catheter 3. encephalopathy Plan: 1. Day 14 of antifungal now voriconazole 200 mg po bid; LFT and WBC have been normal; may have been deranged due to fluconazole or influenza. Will follow both on azole. 35 minutes floor time >50% in coordinating antifungal after discharge
--- NOTE | 2018-02-06 15:43 | DS ---
CC: Dr. Juliana Reeves; Dr. Finley; Dr. Ac; Dr. Allan. * Copy to be sent with the patient upon her transfer to [facility]. DISCHARGE SUMMARY: DATE OF ADMISSION: 01/18/18 DATE OF DISCHARGE: 02/06/18 PRIMARY CARE PROVIDER: Dr. Juliana Reeves. UROLOGIST: Dr. Finley. ORTHOPEDICS: Dr. Ac. INFECTIOUS DISEASE SPECIALIST: Dr. Allan. DISCHARGE DIAGNOSES: 1. Sepsis. 2. Influenza A. 3. Pseudomonas aeruginosa urinary tract infection, chronic Chaudhari cath related, present on admission. 4. Right knee Norma parapsilosis infection. 5. Atrial fibrillation. 6. Transaminitis and neutropenia secondary to fluconazole. 7. Hypothyroidism. 8. Multiple sclerosis. 9. Neurogenic bladder. Her Chaudhari catheter was changed on 01/19/18. 10. Delirium secondary to anidulafungin. 11. Unstageable sacral decubitus. SECONDARY DIAGNOSES: 1. Multiple sclerosis. 2. Atrial fibrillation. 3. Hypothyroidism. 4. Neurogenic bladder. 5. Status post thyroidectomy. 6. Status post right total knee replacement x2 with 2 revisions due to infected hardware. 7. Bilateral ankles open reduction internal fixation. MEDICATION LIST: 1. Oxybutynin XL 10 mg p.o. daily. 2. Gabapentin. 3. Fosamax 70 mg weekly. 4. Melatonin 3 mg p.o. at bedtime. 5. MiraLAX 17 g p.o. daily as needed for constipation. 6. Hydrochlorothiazide 25 mg p.o. daily. 7. Acetaminophen 650 mg p.o. q.4 hours p.r.n. pain or fever. Medication change: 1. Rivaroxaban was increased from 10 mg to 20 mg p.o. daily at 1700. 2. Metoprolol succinate was increased from 25 to 50 p.o. daily. 3. Levothyroxine was increased from 137 to 150 mcg p.o. daily. 4. Gabapentin 300 mg p.o. daily. 5. Baclofen was decreased from 20 to 15 mg p.o. b.i.d. 6. Tecfidera was discontinued. New medication: 1. Voriconazole 200 mg p.o. q.12 hours residential (the patient will need to follow up with Dr. Allan, but the plan is to continue this medication for as long as tolerated). HOSPITAL COURSE: Ms. Scott is a 72-year-old lady with the past medical history as stated above that presented to the emergency room with complaints of weakness. She had had an admission to [facility] and had just completed 3 months of rehab at a correction in [place]. She had been discharged 6 days prior to admission and she had complaints of progressive cough, shortness of breath, fevers, chills, worsening weakness. For more details about her presentation, I refer you to her history and physical. The patient met SIRS criteria on admission with tachypnea, tachycardia, neutropenia and she was positive for influenza A. This was treated with Tamiflu. The patient was also found to have an abnormal urinalysis with hematuria and her culture grew Pseudomonas aeruginosa that was treated with Zosyn. Impression was the patient had Pseudomonas aeruginosa UTI related to her Chaudhari catheter and this was present on admission. The patient was also found to have transaminitis with elevation of her AST and ALT on admission and she was also leukopenic with neutropenia with ANC of 0.6. The patient had an abdomen ultrasound that showed cholelithiasis without sonographic signs of acute inflammatory change or biliary obstruction. Chest x- ray showed no radiographic evidence for acute cardiopulmonary abnormality. Infectious Disease consultation was requested and the patient was seen in consultation by Dr. Allan. His impression was that the patient had recent hematuria with chronic Chaudhari catheter in the setting of multiple sclerosis and neurogenic bladder. Urine culture here grew greater than 100,000 colonies of pseudomonas and the urinalysis showed white cells, red cells, and since her hematuria had resolved since being treated with Zosyn, he felt that this was a catheter-related infection. The patient has a history of right knee replacement complicated by dislocation and then hinge arthroplasty complicated by a fluid collection that grew Norma parapsilosis and she had been on fluconazole for the last 3 weeks. She complained to Dr. Allan of right knee pain with weightbearing, diffuse edema , and warmth and he saw that the patient had a prosthesis infection due to Norma parapsilosis. Dr. Allan felt the patient had already completed her Tamiflu course. He thought 5 days of Zosyn would be enough for her UTI, but he was concerned with her right knee. The patient had a right knee x-ray that showed a large joint effusion, but was a limited examination with no acute findings. She was seen in consultation by Orthopedics (Dr. Dewey) and a knee tap was performed. Fluid was pink, cloudy with 307 wbc's, 88 neutrophils, glucose of 32, and total protein of 4. Dr. Ac saw the patient in followup and he felt that the patient had a possible indolent infection. He discussed options with the patient including a repeat washout similar to her prior admission and the patient was agreeable with that and she made clear that she did not want a larger open surgery. On 01/26/18, the patient underwent a right knee arthroscopy with synovial biopsy and knee washout with Dr. Ac. She was seen in followup by Infectious Disease (Dr. Allan) and his initial plan was for treatment with anidulafungin for 8 weeks and after that continue chronic suppression with voriconazole. The patient's knee fluid culture grew Norma parapsilosis, but unfortunately the patient developed confusion with anidulafungin. She had a CT of the brain without contrast that was normal and an MRI of the brain without contrast that showed multiple foci of elevated T2 FLAIR signal within the periventricular and subcortical white matter. While these findings are nonspecific, they can be seen in association with migraine headache as the sequela of previous infection or inflammation and chronic small vessel ischemia. Demyelinating disease is also within the differential. There was no restricted diffusion to suggest acute infarct. It was felt that her confusion was likely secondary to anidulafungin, and after reviewing further options, decision was made to change her to voriconazole and the patient's confusion has resolved. So, at this point, her options are limited since she had transaminitis and leukopenia with fluconazole and now delirium with anidulafungin. After discussing with ID, plan is to continue long-term treatment with voriconazole for as long as the patient can tolerate. She will need a weekly CBC, CMP, and CRP. The last one done in the hospital on 02/03/18 showed normal cell count and normal LFTs. Her last CRP was 1, down from 9.3 on admission. Due to her delirium, other medication doses were adjusted including reduction of her gabapentin and her baclofen as described above. Tecfidera was also discontinued as it was felt to be increasing her risk of infection. The patient has a history of atrial fibrillation, but she was on a low dose Xarelto for prophylaxis after her surgery. She did have episodes of AFib with rapid ventricular rate while in the hospital and her CHADS2-VASc score is 2 ( female and age) and after discussing risks and benefits with the patient, her Xarelto was increased to 20 mg daily. She also required a higher dose of metoprolol to maintain rate control. The patient's TSH was found to be elevated at 15.9 and her levothyroxine dose was increased to 150 mcg. Her TFTs should be rechecked around February 25 to adjust her dose as needed. She also has a history of a prior sacral decubitus and now developed a small open area in the same region, so it is unstageable. She'll require frequent turn and positioning to avoid progression. After all these admission events, the patient was found to be deconditioned and she requires SNF placement for rehab and a bed was offered at [facility]. PHYSICAL EXAMINATION: Vital Signs: Temperature 97.3, heart rate is 66, respiratory rate is 16, oxygen saturation is 97% on room air, blood pressure is 142/92. General: The patient is an elderly lady, sitting up on the chair, in no acute distress. CVS: Normal S1 and S2. Irregularly irregular. Chest: Breath sounds present, no added sounds. Abdomen: Soft. Bowel sounds present. Extremities: There is mild edema and warmth to her right knee. Neuro: She is alert and oriented x3, able to move all 4 extremities. DIET: Regular diet. ACTIVITIES: As tolerated. DISPOSITION: To home. STATUS IN THE HOSPITAL: Inpatient. Please keep in mind this is a summarized version of this patient's complex and prolonged hospital stay. If you need more information, please feel free to call me at or please obtain the full medical record. TIME SPENT: Approximately 50 minutes were spent to complete the discharge. [id number]/CPS #: [id number] [facility] MEDICAL CENTERRamiro
--- NOTE | 2018-02-06 16:00 | PN ---
Subjective Date of Service: 02/06/18 Interval History: HOSPITALIST PROGRESS NOTE Patient seen and examined at bedside. Care reviewed and d/w her RN Kade Haddad. She offers no complaints today, pain is controlled, tolerating diet well. Family History: Unchanged from Admission Social History: Unchanged from Admission Past Medical History: Unchanged from Admission Objective Active Medications: Acetaminophen (Tylenol Tab*) 650 mg PO Q4H PRN PRN Reason: FEVER/PAIN Last Admin: 01/31/18 17:34 Dose: 650 mg Albuterol (Ventolin 2.5 Mg/3 Ml Neb.Natacha*) 2.5 mg INH Q2H PRN PRN Reason: SOB/WHEEZING Last Admin: 01/28/18 06:11 Dose: 2.5 mg Baclofen (Lioresal Tab*) 15 mg PO BID [facility] Last Admin: 02/06/18 07:54 Dose: 15 mg Benzonatate (Tessalon Cap*) 100 mg PO BID PRN PRN Reason: COUGH Last Admin: 01/30/18 20:34 Dose: 100 mg Docusate Sodium (Colace Cap*) 100 mg PO BID [facility] Last Admin: 02/06/18 07:56 Dose: 100 mg Gabapentin (Neurontin Cap(*)) 200 mg PO DAILY [facility] Last Admin: 02/06/18 07:55 Dose: 200 mg Levothyroxine Sodium (Synthroid Tab*) 150 mcg PO DAILY@0600 [facility] Last Admin: 02/06/18 05:56 Dose: 150 mcg Melatonin (Melatonin (Nf)) 3 mg PO BEDTIME [facility] Last Admin: 02/05/18 21:19 Dose: 3 mg Metoprolol Succinate (Toprol Xl Tab*) 50 mg PO DAILY [facility] Last Admin: 02/06/18 07:54 Dose: 50 mg Metoprolol Tartrate (Lopressor Iv*) 5 mg IV Q2H PRN PRN Reason: TACHYCARDIA Last Admin: 01/30/18 11:00 Dose: 5 mg Ondansetron HCl (Zofran Inj*) 4 mg IV Q6H PRN PRN Reason: NAUSEA Oxybutynin Chloride (Ditropan Xl Tab*) 10 mg PO DAILY [facility] Last Admin: 02/06/18 07:54 Dose: 10 mg Polyethylene Glycol/Electrolytes (Miralax*) 17 gm PO DAILY PRN PRN Reason: CONSTIPATION Last Admin: 02/03/18 09:12 Dose: 17 gm Rivaroxaban (Xarelto(*)) 20 mg PO DAILY@1700 [facility] Last Admin: 02/05/18 17:20 Dose: 20 mg Voriconazole (Vfend (Nf)) 200 mg PO Q12H [facility] Last Admin: 02/06/18 07:56 Dose: 200 mg Vital Signs - 8 hr 02/06/18 02/06/18 10:18 11:25 Temperature 98.0 F Pulse Rate 83 Respiratory 16 16 Rate Blood Pressure 114/68 (mmHg) O2 Sat by Pulse 97 Oximetry Oxygen Devices in Use Now: None Appearance: Pleasant elderly lady sitting up in a chair in [facility]. Eyes: No Scleral Icterus Ears/Nose/Mouth/Throat: Mucous Membranes Moist Neck: Trachea Midline Respiratory: Symmetrical Chest Expansion and Respiratory Effort, Clear to Auscultation Cardiovascular: - - Normal S1 and S2, irregularly irregular Extremities: - - Right knee CDI Neurological: Alert and Oriented x 3 Result Diagrams: 02/03/18 04:51 02/05/18 05:21 Assess/Plan/Problems-Billing Assessment: 72 yo F with PMH of severe multiple sclerosis(4 months ago restarted dimethyl fumarate), Afib, right knee hardware subluxation repair complicated by celestine parapsilosis infection (still present), neurogenic bladder w/ chronic pal who presented with cough, found to have sepsis secondary to Influenza A and Pseudomonas catheter associated UTI. Course complicated by AMS. originally was on fluconazole (cytopenias) then anidulufungin(AMS) now switched to voriconazole (now PO). - Patient Problems (1) Delirium Comment: - Much improved off anidulafungin. - Continue decreased gabapentin dose to 200mg from 300mg AM and decreased baclofen to 15mg TID from 20mg TID. - Multifactorial in the setting of medication side effect and infection - Continue supportive care. (2) Decubitus ulcer, unstageable Comment: - Patient has a small open area on his sacrum where she had a decubitus in the past. - Frequent turn and position. (3) Atrial fibrillation Comment: she did have some RVR on this admission in setting of sepsis, but is now controlled on metoprolol xl 50mg daily [id number] is 2. xarelto 20mg. (4) Infection of right knee Comment: Culture from washout this admission still with growth of celestine parapsilosis despite 4 weeks fluconazole (thought contributed to cytopenias) S/p knee wash out 01/26/18. Anidulafungin IV discontinued due to confusion (did #) switched to voriconazole. (5) Sepsis Comment: resolved. - Presentation compatible with sepsis on admission with tachypnea, tachycardia, neutropenia. - Source was Influenza A. (6) Influenza A Comment: Completed Tamiflu course. (7) Pseudomonas aeruginosa infection Comment: resolved s/p pip/tazo chronic pal due to neurogenic bladder (8) Neutropenia Comment: - Probably secondary to Influenza, and/or Fluconazole - resolved. (9) Hypothyroid Comment: - TSH is elevated to 16 - Levothyroxine now 150 mcg (from 137)and repeat TFTs in 4 weeks. (10) Multiple sclerosis Comment: - off Tecfidera given infections. Daughter reports she had been off of it for 6 years until last September. 60% infection side effect risk - continue Baclofen at reduced 15mg TID. (11) Neurogenic bladder Comment: noted. pal exchanged 01/19 (12) DVT prophylaxis Comment: - Rivaroxaban. (13) Full code status Status and Disposition: awaiting snf placement
[2018-02-06] MEDS: Rivaroxaban TAB(*) 20 MG TAB PO SCH (17:23)
[2018-02-06] MEDS: CMCS Melatonin (NF) 3 MG TAB PO SCH (20:27)
[2018-02-07] MEDS: Acetaminophen TAB* 325 MG PO PRN (02:00)
[2018-02-07] MEDS: Levothyroxine TAB* 150 MCG TAB PO SCH (05:10)
[2018-02-07 05:17] LABS: Hematocrit 36 % (35-47); Hemoglobin 11.9 g/dl (12.0-16.0); Mean Corpuscular HGB Conc 33 g/dl (31-36); Mean Corpuscular Hemoglobin 26 pg (27-31); Mean Corpuscular Volume 78 fL (80-97); Platelet Count 245 10^3/ul (150-450); Red Blood Count 4.65 10^6/ul (4.0-5.4); Red Cell Distribution Width 17 % (10.5-15); White Blood Count 4.2 10^3/ul (3.5-10.8)
[2018-02-07 05:37] LABS: EGFR Non-African American 86.5 (>60)
[2018-02-07] MEDS: Docusate CAP* 100 MG PO SCH (07:20)
[2018-02-07] MEDS: Polyethylene Glycol 3350* 17 GM PACKET PO PRN (07:21)
[2018-02-07 07:42] VITALS: BP 152/99
[2018-02-07] MEDS: Gabapentin CAP(*) 100 MG PO SCH (08:38)
[2018-02-07] MEDS: Metoprolol Succinate XL TAB* 50 MG PO SCH (08:39)
[2018-02-07] MEDS: CMCS Voriconazole (NF) 50 MG TAB PO SCH (08:39)
[2018-02-07] MEDS: Baclofen TAB* 10 MG PO SCH (08:39)
[2018-02-07] MEDS: Oxybutynin XL TAB* 5 MG PO SCH (08:39)
== END 2018-02-07 11:30 | DRG 559 ==
LOC: ED 15:43 → MED 18:26 → SSU 01-26 15:32 → MEDTELE 01-29 19:53
PROVIDERS: ADMIT Internal Medicine; ATTEND Internal Medicine
PROC: 0T9B70Z Drainage of Bladder with Drainage Device, Via Natural or Artificial Opening (ICD-10-PCS; principal; 2018-01-27)
PROC: 3E1U38Z Irrigation of Joints using Irrigating Substance, Percutaneous Approach (ICD-10-PCS; 2018-01-27)
PROC: 0S9C4ZX Drainage of Right Knee Joint, Percutaneous Endoscopic Approach, Diagnostic (ICD-10-PCS; 2018-01-27)
DX: T84.53XA Infection and inflammatory reaction due to internal right knee prosthesis, initial encounter (principal); A41.9 Sepsis, unspecified organism; E87.1 Hypo-osmolality and hyponatremia; D61.818 Other pancytopenia; N39.0 Urinary tract infection, site not specified; T83.518A Infection and inflammatory reaction due to other urinary catheter, initial encounter; E87.6 Hypokalemia; M25.461 Effusion, right knee; G35 Multiple sclerosis; R31.9 Hematuria, unspecified; I48.91 Unspecified atrial fibrillation; E03.9 Hypothyroidism, unspecified; I10 Essential (primary) hypertension; Z96.651 Presence of right artificial knee joint; L89.151 Pressure ulcer of sacral region, stage 1; L89.150 Pressure ulcer of sacral region, unstageable; N31.9 Neuromuscular dysfunction of bladder, unspecified; R79.89 Other specified abnormal findings of blood chemistry; M81.0 Age-related osteoporosis without current pathological fracture; K80.20 Calculus of gallbladder without cholecystitis without obstruction; E86.0 Dehydration; T37.8X5A Adverse effect of other specified systemic anti-infectives and antiparasitics, initial encounter; J10.1 Influenza due to other identified influenza virus with other respiratory manifestations; Y73.1 Therapeutic (nonsurgical) and rehabilitative gastroenterology and urology devices associated with adverse incidents; B96.5 Pseudomonas (aeruginosa) (mallei) (pseudomallei) as the cause of diseases classified elsewhere; R53.1 Weakness; R41.0 Disorientation, unspecified; G93.40 Encephalopathy, unspecified; R42 Dizziness and giddiness; R06.00 Dyspnea, unspecified; Z99.3 Dependence on wheelchair; Z88.8 Allergy status to other drugs, medicaments and biological substances; Z88.6 Allergy status to analgesic agent; Z87.891 Personal history of nicotine dependence; Z72.89 Other problems related to lifestyle; Y92.9 Unspecified place or not applicable; Z82.3 Family history of stroke
CPT/HCPCS: 36415; 70450; 70551; 71045; 76705; 80048; 80053; 80076; 80202; 81003; 82550; 82945; 83605; 83690; 83735; 83880; 84157; 84443; 84484; 85025; 85027; 85060; 85610; 85652; 85730; 86140; 87040; 87070; 87073; 87077; 87086; 87102; 87106; 87186; 87205; 87502; 87640; 87641; 89051; 93005; 94640; 94760; 99284; A9270-GY; G8978-GP-CJ; G8978-GP-CK; G8978-GP-CL; G8979-GP-CI; G8979-GP-CJ; J0348; J0690; J0692; J0696; J2001; J2543; J2704; J3010; J3370; J3465; J3475; J3490

== ENCOUNTER 2018-03-31 12:26 | Emergency (ER) | payer MEDICARE ==
--- NOTE | 2018-03-31 13:36 | RAD ---
Indication: Right foot pain. 4 views of the right foot demonstrates osteopenia. There is no evidence of fracture. No other bone or joint abnormalities identified. IMPRESSION: Diffuse osteopenia without fracture.
--- NOTE | 2018-03-31 13:36 | RAD ---
INDICATION: Right ankle injury. TECHNIQUE: 3 views of the right ankle were obtained. FINDINGS: There is diffuse soft tissue swelling. The bones are osteopenic. The patient is status post operative reduction and internal fixation. There is a surgical plate present along the medial aspect of the ankle transfixed with multiple screws. The surgical hardware is intact. No acute fracture is seen. IMPRESSION: SOFT TISSUE SWELLING, NO ACUTE FRACTURE IS SEEN. IF THE PATIENT'S SYMPTOMS PERSIST RECOMMEND FOLLOW-UP IMAGING.
[2018-03-31 14:16] VITALS: BP 125/77
--- NOTE | 2018-03-31 15:59 | ED ---
Armand Michaud Tiffany, scribed for Gigi Donahue MD on 03/31/18 at 1253 . Lower Extremity - HPI Summary HPI Summary: 72 year old F [facility] to [facility] complains of right ankle edema since this morning. Symptoms aggravated by nothing. Symptoms alleviated by nothing. Patient reports right foot edema. Denies right ankle pain, right calf pain. She lost balance while transferring from wheelchair to chair yesterday, however patient reports that she did not twist or hurt her ankle in this process. Patient always uses wheelchair for MS. Has had surgery on right ankle. - History of Current Complaint Chief Complaint: EDExtremityLower Stated Complaint: RT ANKLE PAIN Time Seen by Provider: 03/31/18 12:35 Hx Obtained From: Patient Onset/Duration: Hours - this morning Timing: Constant Associated Signs And Symptoms: Positive: Negative - right ankle pain, right calf pain, Other - right foot edema Aggravating Factor(s): Nothing Alleviating Factor(s): Nothing - Allergies/Home Medications Allergies/Adverse Reactions: Allergies Allergy/AdvReac Type Severity Reaction Status Date / Time ibuprofen Allergy Mild GI Upset Verified 01/18/18 16:06 ENVIRONMENT Allergy CATS Uncoded 12/26/17 08:55 -Unknown Reaction Details SEASONAL HAYFEVER Allergy POLLEN - Uncoded 12/26/17 08:55 Unknown Reaction Details Home Medications: Home Medications Potassium Chlor TAB* [Klor Con ER TAB*] 10 meq PO DAILY 03/31/18 [History Confirmed 03/31/18] Sertraline* [Zoloft*] 50 mg PO DAILY 03/31/18 [History Confirmed 03/31/18] PMH/Surg Hx/FS Hx/Imm Hx Previously Healthy: No Endocrine/Hematology History: Reports: Hx Anticoagulant Therapy, Hx Thyroid Disease - Thyroid cancer 1981- Partial thyroidectomy- on medication Denies: Hx Diabetes Cardiovascular History: Reports: Hx Atrial Fibrillation, Hx Coronary Artery Disease, Hx Hypercholesterolemia, Hx Hypertension, Other Cardiovascular Problems /Disorders - Atrial Fibrillation Denies: Hx Pacemaker/ICD Respiratory History: Reports: Hx Asthma - HX OF, NO PROBLEMS NOW Denies: Hx Sleep Apnea, Other Respiratory Problems/Disorders GI History: Denies: Hx Gastroesophageal Reflux Disease, Other GI Disorders History: Denies: Hx Dialysis, Hx Renal Disease Comment Only: Other Problems/Disorders - CHRONIC MEZA--MS Musculoskeletal History: Reports: Hx Arthritis - HANDS, LOWER BACK, Hx Orthopedic Injury - R ANKLE FX, ACHILLES LENGTHENING,, Hx Osteoporosis, Other Musculoskeletal History - BILAT ANKLE REPAIRS Sensory History: Reports: Hx Cataracts - BILATERAL , REMOVED 2013 Denies: Hx Contacts or Glasses, Hx Eye Injury, Hx Eye Prosthesis, Hx Glaucoma , Hx Legally Blind, Hx Macular Degeneration, Hx Vision Problem, Hx Deafness, Hx Hearing Aid, Hx Hearing Problem, Other Sensory Impairments Opthamlomology History: Reports: Hx Cataracts - BILATERAL , REMOVED 2013 Denies: Hx Contacts or Glasses, Hx Eye Injury, Hx Eye Prosthesis, Hx Glaucoma , Hx Legally Blind, Hx Macular Degeneration, Hx Vision Problem, Other Sensory Impairments Neurological History: Reports: Hx Nerve Disease - Multiple Sclerosis Denies: Other Neuro Impairments/Disorders Psychiatric History: Reports: Hx Anxiety - on medication, Hx Depression - on medication Denies: Hx Panic Disorder, Hx Suicide Attempt - Cancer History Cancer Type, Location and Year: THYROID Hx Chemotherapy: No Hx Radiation Therapy: No - Surgical History Surgery Procedure, Year, and Place: 1980 PARTIAL TH[place]ROIDECTOMY, [place];. 2008 [place] [facility] [place]PLAC[place] [facility] [place];. 2012 RIGHT TOTAL KNEE REVISION, [place];. 2013 [place], [facility] [place]. 2013 LAPROSCOPIC [place]EN[place], [facility] [place]. [place]/2016 RIGHT [place] [facility] [place]. [place] (PINS/PLATES[place] [facility] [place]. 11/2017 RIGHT KN[place] I&[place], [facility] [place]. 12/2017 RIGHT [place] [facility] [place] Hx Anesthesia Reactions: No Infectious Disease History: No Infectious Disease History: Reports: Hx Clostridium Difficile Denies: Hx of Known/Suspected MRSA - awaiting result from nasal swab, Traveled Outside the in Last 30 Days - Family History Known Family History: Positive: Hypertension Negative: Diabetes - Social History Alcohol Use: None Alcohol Amount: 1/day Hx Substance Use: No Substance Use Type: Reports: None Hx Tobacco Use: Yes Smoking Status (MU): Former Smoker Type: Cigarettes Amount Used/How Often: 1 PPD FOR 12 YEARS Length of Time of Smoking/Using Tobacco: 12 YEARS Have You Smoked in the Last Year: No Review of Systems Negative: Fever Positive: Edema - right ankle, right foot, Other - NEGATIVE: right ankle pain, right calf pain All Other Systems Reviewed And Are Negative: Yes Physical Exam - Summary Physical Exam Summary: VITAL SIGNS: Reviewed. GENERAL: Patient is a well-developed and nourished (MALE OR FEMALE) who is lying comfortable in the stretcher. Patient is not in any acute respiratory distress. HEAD AND FACE: No signs of trauma. No ecchymosis, hematomas or skull depressions. No sinus tenderness. EYES: PERRLA, EOMI x 2, No injected conjunctiva, no nystagmus. EARS: Hearing grossly intact. Ear canals and tympanic membranes are within normal limits. MOUTH: Oropharynx within normal limits. NECK: Supple, trachea is midline, no adenopathy, no JVD, no carotid bruit, no c- spine tenderness, neck with full ROM. CHEST: Symmetric, no tenderness at palpation LUNGS: Clear to auscultation bilaterally. No wheezing or crackles. CVS: Regular rate and rhythm, S1 and S2 present, no murmurs or gallops appreciated. ABDOMEN: Soft, non-tender. No signs of distention. No rebound no guarding, and no masses palpated. Bowel sounds are normal. EXTREMITIES: The patient has right ankle and right foot swelling. She denies pain at the moment, however she uses wheelchair at all times because of severe MS. There is no deformity. There is an old surgical scar on the right ankle, which is dry, clean and intact. NEURO: Alert and oriented x 3. No acute neurological deficits. Speech is normal and follows commands. SKIN: Dry and warm Triage Information Reviewed: Yes Vital Signs On Initial Exam: Initial Vitals Temp Pulse Resp BP Pulse Ox 97.9 F 83 18 116/76 96 03/31/18 12:27 03/31/18 12:27 03/31/18 12:27 03/31/18 12:27 03/31/18 12:27 Vital Signs Reviewed: Yes Diagnostics - Vital Signs Vital Signs Temp Pulse Resp BP Pulse Ox 03/31/18 12:27 97.9 F 83 18 116/76 96 - Laboratory Lab Statement: Any lab studies that have been ordered have been reviewed, and results considered in the medical decision making process. - Radiology Foot Radiology Interpretation Completed By: Radiologist - Diffuse osteopenia without fracture. ED physician has reviewed this report. Ankle Radiology Interpretation Completed By: Radiologist - SOFT TISSUE SWELLING, NO ACUTE FRACTURE IS SEEN. IF THE PATIENT'S SYMPTOMS PERSIST RECOMMEND FOLLOW-UP IMAGING. ED physician has reviewed this report. Lower Extremity Course/Dx - Course Assessment/Plan: This patient is a 72-year-old female who presents to the emergency room with a chief complaint of having right ankle swelling. She reports that yesterday she twisted the ankle and this morning noticed some swelling. She denies any pain. She usually uses her wheelchair she is nonambulatory secondary to her severe MS. X-ray of the right ankle shows soft tissue swelling. No acute fracture seen. X-ray of the right foot impression: Diffuse osteopenia without fracture. I have no suspicion for a DVT since the patient does have any calf tenderness, does not have any redness, erythema, and Homans signs negative. Since is no fracture dislocation and was discharged patient home with follow-up with PCP. If and the pain continues she can return to admission for further workup and management. I discussed all the findings and test results with the patient. Patient was instructed to return to the emergency room immediately if any of the symptoms return or worsens. Plan of care was discussed with the patient and understands and agrees. All questions were answered at patient satisfaction. There were no further complaints or concerns. - Diagnoses Differential Diagnosis/HQI/PQRI: Positive: Bursitis, Contusion, Fracture (Closed ), Gout, Infection, Sprain, Strain Provider Diagnoses: Right ankle swelling, Right ankle sprain Discharge - Sign-Out/Discharge Documenting (check all that apply): Discharge/Admit/Transfer - Discharge Plan Condition: Good Disposition: HOME Patient Education Materials: Ankle Sprain (ED) Referrals: Juliana Reeves MD [Primary Care Provider] - 3 Days Additional Instructions: FOLLOW UP WITH YOUR PRIMARY CARE PROVIDER IN 3 DAYS. RETURN TO THE EMERGENCY DEPARTMENT FOR ANY WORSENING OR NEW SYMPTOMS. - Billing Disposition and Condition Condition: GOOD Disposition: Home The documentation as recorded by the Armand gaston Tiffany accurately reflects the service I personally performed and the decisions made by me, Gigi Donahue MD.
== END 2018-03-31 14:14 | disposition home or self-care (01) ==
LOC: ED 12:26
DX: S93.401A Sprain of unspecified ligament of right ankle, initial encounter (principal); X50.0XXA Overexertion from strenuous movement or load, initial encounter; Y92.9 Unspecified place or not applicable; G35 Multiple sclerosis; Z99.3 Dependence on wheelchair; I48.91 Unspecified atrial fibrillation; I25.10 Atherosclerotic heart disease of native coronary artery without angina pectoris; F41.8 Other specified anxiety disorders; E07.9 Disorder of thyroid, unspecified; Z87.891 Personal history of nicotine dependence; Z79.899 Other long term (current) drug therapy; Z85.850 Personal history of malignant neoplasm of thyroid; Z79.01 Long term (current) use of anticoagulants; Z88.6 Allergy status to analgesic agent
CPT/HCPCS: 99282

== ENCOUNTER 2018-04-01 12:15 | Inpatient (IN) | payer MEDICARE ==
[2018-04-01] MEDS ORDERED: NS 0.9% 1000 ML* 1,000 ML IV ONE (12:36)
[2018-04-01 12:50] LABS: Hematocrit 36 % (35-47); Hemoglobin 11.9 g/dl (12.0-16.0); Mean Corpuscular HGB Conc 34 g/dl (31-36); Mean Corpuscular Hemoglobin 27 pg (27-31); Mean Corpuscular Volume 80 fL (80-97); Mean Platelet Volume 7.4 um3 (7.4-10.4); Platelet Count 212 10^3/ul (150-450); Red Blood Count 4.44 10^6/ul (4.0-5.4); Red Cell Distribution Width 18 % (10.5-15); White Blood Count 9.2 10^3/ul (3.5-10.8)
[2018-04-01 13:08] LABS: EGFR Non-African American 89.6 (>60)
[2018-04-01 13:12] LABS: INR 1.92 (0.77-1.02)
[2018-04-01 13:34] LABS: Urine Appearance Cloudy; Urine Blood 2+ (Negative); Urine Color Yellow; Urine Ketones Trace (Negative); Urine Protein 1+(30 mg/dL) (Negative); Urine Specific Gravity 1.011 (1.010-1.030); Urine Urobilinogen Negative (Negative)
[2018-04-01 13:35] LABS: ABS Basophils 0.1 10^3/ul (0-0.2); ABS Eosinophils 0 10^3/ul (0-0.6); ABS Lymphocytes 0.4 10^3/ul (1.0-4.8); ABS Neutrophils 7.7 10^3/ul (1.5-7.7)
[2018-04-01 13:43] LABS: Monocytes % 5 % (0-7)
--- NOTE | 2018-04-01 14:20 | RAD ---
INDICATION: Left-sided pain after multiple recent falls. COMPARISON: None TECHNIQUE: 3 views of the left hip were obtained. FINDINGS: Degenerative changes of the bilateral hips include sclerotic change of the acetabular roof, joint space narrowing and marginal osteophyte formation. These changes are more severe on the left than the right seen on the AP view of the pelvis. The visualized bones are otherwise intact and appropriately aligned there is no radiographically apparent acute fracture or dislocation. IMPRESSION: Degenerative changes of the bilateral hips without radiographically apparent fracture or dislocation. If the patient's symptoms persist follow-up imaging is recommended.
[2018-04-01] MEDS ORDERED: cefTRIAXone(*) 1 GM in NS 0.9% 50 ML* 50 ML IVPB ONE (14:52)
[2018-04-01] MEDS ORDERED: Piperacillin/Tazobac ADVAN(*) 3.375 GM in NS 0.9% 100 ML* 100 ML IVPB ONE (17:06)
[2018-04-01] MEDS ORDERED: Potassium Chlor TAB* 20 MEQ TAB.ER PO ONE (17:07)
[2018-04-01] MEDS ORDERED: Al Hydrox/Mg Hydrox/Simet LIQ* 30 ML UDC PO PRN (17:11)
[2018-04-01] MEDS ORDERED: Morphine VIAL* 4 MG/ML VIAL (1 ml vial) IV PRN (17:11)
[2018-04-01] MEDS ORDERED: Acetaminophen TAB* 325 MG PO PRN ×2 (17:11→17:13)
[2018-04-01] MEDS ORDERED: oxyCODONE/Acetamin 5/325 MG* TAB PO PRN (17:11)
[2018-04-01] MEDS ORDERED: Polyethylene Glycol 3350* 17 GM PACKET PO PRN (17:13)
[2018-04-01] MEDS ORDERED: NS 0.9% 1000 ML* 1,000 ML IV SCH (17:15)
--- NOTE | 2018-04-01 17:15 | ED ---
Kristie Michaud Julia, scribed for Gigi Donahue MD on 04/01/18 at 1240 . Complex/Multi-Sys Presentation - HPI Summary HPI Summary: This patient is a 72 year old F BIBA to [facility] with a chief complaint of hematuria this morning after falling out of bed onto left hip earlier this week. Patient has emza catheter placed, and has recently emptied bag. Patient denies pain and has no further complaints. - History Of Current Complaint Chief Complaint: EDUrogenitalProblems Time Seen by Provider: 04/01/18 12:36 Hx Obtained From: Patient Onset/Duration: Lasting Hours Location: Negative - Allergies/Home Medications Allergies/Adverse Reactions: Allergies Allergy/AdvReac Type Severity Reaction Status Date / Time ibuprofen Allergy Mild GI Upset Verified 01/18/18 16:06 ENVIRONMENT Allergy CATS Uncoded 12/26/17 08:55 -Unknown Reaction Details SEASONAL HAYFEVER Allergy POLLEN - Uncoded 12/26/17 08:55 Unknown Reaction Details PMH/Surg Hx/FS Hx/Imm Hx Endocrine/Hematology History: Reports: Hx Anticoagulant Therapy, Hx Thyroid Disease - Thyroid cancer 1981- Partial thyroidectomy- on medication Denies: Hx Diabetes Cardiovascular History: Reports: Hx Atrial Fibrillation, Hx Coronary Artery Disease, Hx Hypercholesterolemia, Hx Hypertension, Other Cardiovascular Problems /Disorders - Atrial Fibrillation Denies: Hx Pacemaker/ICD Respiratory History: Reports: Hx Asthma - HX OF, NO PROBLEMS NOW Denies: Hx Sleep Apnea, Other Respiratory Problems/Disorders GI History: Denies: Hx Gastroesophageal Reflux Disease, Other GI Disorders History: Denies: Hx Dialysis, Hx Renal Disease Comment Only: Other Problems/Disorders - CHRONIC MEZA--MS Musculoskeletal History: Reports: Hx Arthritis - HANDS, LOWER BACK, Hx Orthopedic Injury - R ANKLE FX, ACHILLES LENGTHENING,, Hx Osteoporosis, Other Musculoskeletal History - BILAT ANKLE REPAIRS Sensory History: Reports: Hx Cataracts - BILATERAL , REMOVED 2013 Denies: Hx Contacts or Glasses, Hx Eye Injury, Hx Eye Prosthesis, Hx Glaucoma , Hx Legally Blind, Hx Macular Degeneration, Hx Vision Problem, Hx Deafness, Hx Hearing Aid, Hx Hearing Problem, Other Sensory Impairments Opthamlomology History: Reports: Hx Cataracts - BILATERAL , REMOVED 2013 Denies: Hx Contacts or Glasses, Hx Eye Injury, Hx Eye Prosthesis, Hx Glaucoma , Hx Legally Blind, Hx Macular Degeneration, Hx Vision Problem, Other Sensory Impairments Neurological History: Reports: Hx Nerve Disease - Multiple Sclerosis Denies: Other Neuro Impairments/Disorders Psychiatric History: Reports: Hx Anxiety - on medication, Hx Depression - on medication Denies: Hx Panic Disorder, Hx Suicide Attempt - Cancer History Cancer Type, Location and Year: THYROID Hx Chemotherapy: No Hx Radiation Therapy: No - Surgical History Surgery Procedure, Year, and Place: 1980 PARTIAL TH[place]RO[place]OMY, [place];. 2008 [place] [facility] [place]. 2011 [place]AC[place]TOCK, [place];. 2012 RIGHT TOTAL KNEE REVISION, [place];. 2013 [place] [facility] [place]. 2013 [place] [facility] [place]. [place]/2016 RIGHT [place] [facility] [place]. [place] LEFT [place]PINS[place]PL[place] [facility] [place]. 11/2017 [place] [facility] [place]. 12/2017 [place] [facility] [place] Hx Anesthesia Reactions: No Infectious Disease History: No Infectious Disease History: Reports: Hx Clostridium Difficile Denies: Hx of Known/Suspected MRSA - awaiting result from nasal swab, Traveled Outside the in Last 30 Days - Family History Known Family History: Positive: Hypertension Negative: Diabetes - Social History Alcohol Use: None Alcohol Amount: 1/day Hx Substance Use: No Substance Use Type: Reports: None Hx Tobacco Use: Yes Smoking Status (MU): Former Smoker Type: Cigarettes Amount Used/How Often: 1 PPD FOR 12 YEARS Length of Time of Smoking/Using Tobacco: 12 YEARS Have You Smoked in the Last Year: No Review of Systems Constitutional: Negative Positive: hematuria Negative: Myalgia All Other Systems Reviewed And Are Negative: Yes Physical Exam - Summary Physical Exam Summary: VITAL SIGNS: Reviewed. GENERAL: Patient is a fragile female who is lying comfortable in the stretcher. Patient is not in any acute respiratory distress. Patient has a meza catheter and bag with no gross hematuria. Patient has no pain distress. HEAD AND FACE: No signs of trauma. No ecchymosis, hematomas or skull depressions. No sinus tenderness. EYES: PERRLA, EOMI x 2, No injected conjunctiva, no nystagmus. EARS: Hearing grossly intact. Ear canals and tympanic membranes are within normal limits. MOUTH: Oropharynx within normal limits. NECK: Supple, trachea is midline, no adenopathy, no JVD, no carotid bruit, no c- spine tenderness, neck with full ROM. CHEST: Symmetric, no tenderness at palpation LUNGS: Clear to auscultation bilaterally. No wheezing or crackles. CVS: Regular rate and rhythm, S1 and S2 present, no murmurs or gallops appreciated. ABDOMEN: Soft, non-tender. No signs of distention. No rebound no guarding, and no masses palpated. Bowel sounds are normal. EXTREMITIES: FROM in all major joints, no edema, no cyanosis or clubbing. NEURO: Alert and oriented x 3. No acute neurological deficits. Speech is normal and follows commands. SKIN: Dry and warm Triage Information Reviewed: Yes Vital Signs On Initial Exam: Initial Vitals Temp Pulse Resp BP Pulse Ox 99.1 F 81 16 106/74 96 04/01/18 12:25 04/01/18 12:25 04/01/18 12:25 04/01/18 12:25 04/01/18 12:25 Vital Signs Reviewed: Yes Diagnostics - Vital Signs Vital Signs Temp Pulse Resp BP Pulse Ox 04/01/18 12:27 82 93 04/01/18 12:25 99.1 F 81 16 106/74 96 - Laboratory Lab Results: Lab Results 04/01/18 04/01/18 04/01/18 Range/Units 12:41 12:41 12:41 WBC 9.2 (3.5-10.8) 10^3/ul RBC 4.44 (4.0-5.4) 10^6/ul Hgb 11.9 L (12.0-16.0) g/dl Hct 36 (35-47) % MCV 80 (80-97) fL MCH 27 (27-31) pg MCHC 34 (31-36) g/dl RDW 18 H (10.5-15) % Plt Count 212 (150-450) 10^3/ul MPV 7.4 (7.4-10.4) um3 Neut % (Auto) Not Reportable Lymph % (Auto) Not Reportable [place] % (Auto) Not Reportable Eos % (Auto) Not Reportable Baso % (Auto) Not Reportable Absolute Neuts (auto) 7.7 (1.5-7.7) 10^3/ul Absolute Lymphs (auto) 0.4 L (1.0-4.8) 10^3/ul Absolute Monos (auto) 1.0 H (0-0.8) 10^3/ul Absolute Eos (auto) 0 (0-0.6) 10^3/ul Absolute Basos (auto) 0.1 (0-0.2) 10^3/ul Absolute Nucleated RBC Not Reportable Immature Gran % 2 (0-9) % Neutrophils % 89 H (38-83) % Band Neutrophils % 1 (0-8) % Lymphocytes % 3 L (25-47) % Monocytes % 5 (0-7) % Eosinophils % 1 (0-6) % Basophils % 0 (0-2) % Metamyelocytes % 1 (0-2) % Nucleated RBC % Not Reportable Abs Neuts (Manual) 8.2 H (1.5-7.7) 10^3/ul Abs Lymphs (Manual) 0.3 L (1.0-4.8) 10^3/ul Abs Monocytes (Manual) 0.5 (0-0.8) 10^3/ul Absolute Eos (Manual) 0.1 (0-0.6) 10^3/ul Abs Basophils (Manual) 0 (0-0.2) 10^3/ul Normal RBC Morphology Normal (Normal) Hem Pathologist Commnt Pending INR (Anticoag Therapy) 1.92 H (0.77-1.02) APTT 43.2 H (26.0-36.3) seconds Sodium 130 L (139-145) mmol/L Potassium 3.4 L (3.5-5.0) mmol/L Chloride 93 L (101-111) mmol/L Carbon Dioxide 29 (22-32) mmol/L Anion Gap 8 (2-11) mmol/L BUN 15 (6-24) mg/dL Creatinine 0.65 (0.51-0.95) mg/dL Est GFR ( Amer) 115.2 (>60) Est GFR (Non-Af Amer) 89.6 (>60) BUN/Creatinine Ratio 23.1 H (8-20) Glucose 115 H (70-100) mg/dL Calcium 9.1 (8.6-10.3) mg/dL Total Bilirubin 1.00 (0.2-1.0) mg/dL AST 37 (13-39) U/L ALT 17 (7-52) U/L Alkaline Phosphatase 94 (34-104) U/L C-Reactive Protein 116.67 H (< 5.00) mg/L Total Protein 6.8 (6.4-8.9) g/dL Albumin 3.8 (3.2-5.2) g/dL Globulin 3.0 (2-4) g/dL Albumin/Globulin Ratio 1.3 (1-3) Lipase < 10 L (11.0-82.0) U/L Urine Color Urine Appearance Urine pH (5-9) Ur Specific [place] (1.010-1.030) Urine Protein (Negative) Urine Ketones (Negative) Urine Blood (Negative) Urine Nitrate (Negative) Urine Bilirubin (Negative) Urine Urobilinogen (Negative) Ur Leukocyte Esterase (Negative) Urine WBC (Auto) (Absent) Urine RBC (Auto) (Absent) Ur Squamous Epith Cells (Absent) Amorphous Crystals (Absent) Urine Bacteria (Absent) Urine Glucose (Negative) Blood Type Antibody Screen Antibody Identification Direct Antiglob Test 04/01/18 04/01/18 Range/Units 12:41 12:58 WBC (3.5-10.8) 10^3/ul RBC (4.0-5.4) 10^6/ul Hgb (12.0-16.0) g/dl Hct (35-47) % MCV (80-97) fL MCH (27-31) pg MCHC (31-36) g/dl RDW (10.5-15) % Plt Count (150-450) 10^3/ul MPV (7.4-10.4) um3 Neut % (Auto) Lymph % (Auto) [place] % (Auto) Eos % (Auto) Baso % (Auto) Absolute Neuts (auto) (1.5-7.7) 10^3/ul Absolute Lymphs (auto) (1.0-4.8) 10^3/ul Absolute Monos (auto) (0-0.8) 10^3/ul Absolute Eos (auto) (0-0.6) 10^3/ul Absolute Basos (auto) (0-0.2) 10^3/ul Absolute Nucleated RBC Immature Gran % (0-9) % Neutrophils % (38-83) % Band Neutrophils % (0-8) % Lymphocytes % (25-47) % Monocytes % (0-7) % Eosinophils % (0-6) % Basophils % (0-2) % Metamyelocytes % (0-2) % Nucleated RBC % Abs Neuts (Manual) (1.5-7.7) 10^3/ul Abs Lymphs (Manual) (1.0-4.8) 10^3/ul Abs Monocytes (Manual) (0-0.8) 10^3/ul Absolute Eos (Manual) (0-0.6) 10^3/ul Abs Basophils (Manual) (0-0.2) 10^3/ul Normal RBC Morphology (Normal) Hem Pathologist Commnt INR (Anticoag Therapy) (0.77-1.02) APTT (26.0-36.3) seconds Sodium (139-145) mmol/L Potassium (3.5-5.0) mmol/L Chloride (101-111) mmol/L Carbon Dioxide (22-32) mmol/L Anion Gap (2-11) mmol/L BUN (6-24) mg/dL Creatinine (0.51-0.95) mg/dL Est GFR ( Amer) (>60) Est GFR (Non-Af Amer) (>60) BUN/Creatinine Ratio (8-20) Glucose (70-100) mg/dL Calcium (8.6-10.3) mg/dL Total Bilirubin (0.2-1.0) mg/dL AST (13-39) U/L ALT (7-52) U/L Alkaline Phosphatase (34-104) U/L C-Reactive Protein (< 5.00) mg/L Total Protein (6.4-8.9) g/dL Albumin (3.2-5.2) g/dL Globulin (2-4) g/dL Albumin/Globulin Ratio (1-3) Lipase (11.0-82.0) U/L Urine Color Yellow Urine Appearance Cloudy Urine pH 5.0 (5-9) Ur Specific [place] 1.011 (1.010-1.030) Urine Protein 1+(30 mg/dl) A (Negative) Urine Ketones Trace A (Negative) Urine Blood 2+ A (Negative) Urine Nitrate Positive A (Negative) Urine Bilirubin Negative (Negative) Urine Urobilinogen Negative (Negative) Ur Leukocyte Esterase 3+ A (Negative) Urine WBC (Auto) 3+(>20/hpf) A (Absent) Urine RBC (Auto) 3+(>10/hpf) A (Absent) Ur Squamous Epith Cells Present A (Absent) Amorphous Crystals Present A (Absent) Urine Bacteria 3+ A (Absent) Urine Glucose Negative (Negative) Blood Type B Positive Antibody Screen Positive Antibody Identification Anti-K Direct Antiglob Test Negative Result Diagrams: 04/01/18 12:41 04/01/18 12:41 Lab Statement: Any lab studies that have been ordered have been reviewed, and results considered in the medical decision making process. - Radiology Hip/Pelvis XR Radiology Interpretation Completed By: Radiologist - Degenerative changes of the bilateral hips without radiographically apparent fracture or dislocation. If the patient's symptoms persist follow-up imaging is recommended. ED Physician has reviewed this report. - EKG 1252 Cardiac Rate: Other Rate - paced at 70 BPM EKG Rhythm: Sinus Rhythm - paced EKG Interpretation: no STEMI EKG Comparison: No Significant Change - 01/18/18 Complex Multi-Symp Course/Dx Assessment/Plan: This patient is a 72-year-old female with past medical history significant for MS presents today to the emergency department with a c/c of Accidental fall while she was transferring from the bed to the wheelchair. Physical sounds without any significant abnormality except for hemoglobin of 11.9, sodium 1:30, potassium 3.4, glucose 1:15, CRP of 116, urinalysis positive for UTI. X-ray of the left hip and pelvis impression: Degenerative changes of the bilateral hips without fracture dislocation. In the ED course the patient was given IV fluids for hydration and also she was given Rocephin for her UTI. The patient reports that she is unsafe to go home. She has had multiple falls and she feels that she is unable to manage herself at home. - Diagnoses Provider Diagnoses: UTI (urinary tract infection), Accident due to mechanical fall without injury - Physician Notifications Discussed Care Of Patient With: Odette Prieto - hospitalist Time Discussed With Above Provider: 16:30 Instructed by Provider To: Admit As Inpatient Discharge - Sign-Out/Discharge Documenting (check all that apply): Discharge/Admit/Transfer - Discharge Plan Condition: Stable Disposition: ADMITTED TO [facility] Prescriptions: Sulfamethox/Trimethoprim DS* [Bactrim DS 800/160 TAB*] 1 tab PO BID #14 tab Referrals: Juliana Reeves MD [Primary Care Provider] - - Billing Disposition and Condition Condition: STABLE Disposition: Admitted to [facility] The documentation as recorded by the Kristie gaston Julia accurately reflects the service I personally performed and the decisions made by , Gigi Donahue MD.
[2018-04-01] MEDS ORDERED: Zosyn per Pharmacy* NOTE FOLLOW UP SCH (18:00)
--- NOTE | 2018-04-01 19:01 | RAD ---
Indication: Sepsis. Urinary tract infection. Generalized weakness. Comparison: January 28, 2018 Technique: Upright AP 1845 hours Report: No focal pulmonary lesion, compelling alveolar consolidation, pleural effusion, pneumothorax. Upper normal heart size. Unremarkable central pulmonary vasculature and mediastinal contours. Negative for free air beneath the diaphragm. Healed LEFT fourth rib fracture. Bilateral advanced osteoarthritis of the glenohumeral joints. Associated 1.1 cm loose body at the LEFT axillary recess. IMPRESSION: No evidence for pneumonia. No evidence for acute intrathoracic disease.
--- NOTE | 2018-04-01 19:07 | HP ---
CC: Dr. Reeves; Dr. Finley; Dr. Ac; Dr. Allan * HISTORY AND PHYSICAL: DATE OF ADMISSION: 04/01/18 PRIMARY CARE PROVIDER: Dr. Reeves. CHIEF COMPLAINT: Blood in urine. HISTORY OF PRESENT ILLNESS: Elayne Scott is well known to our facility, a 72- year-old female with history of MS, who is basically wheelchair bound, but able to transfer by herself. The patient also has indwelling Chaudhari catheter in place with a recent diagnosis of Pseudomonas aeruginosa and Chaudhari associated infection. She also has history of right knee Norma parapsilosis infection, on chronic voriconazole. The patient was discharged from our facility on to [facility]. The patient right now has a fever of 101 degrees and is confused, but apparently she left [facility] a little bit over a week ago or so and she had been home alone in addition to aides that are provided 3 times a week. The patient has fallen a couple of days ago and came in for evaluation of an ankle that was not fractured at that point and was discharged. Today, she presents with another fall and she stated that she fell 4 times in the past 5 days usually during transferring. Today, she noted hematuria in her Chaudhrai catheter. Her urinalysis obtained from her at-home Chaudhari catheter showed grossly positive for UTI. During her evaluation, the patient was about to be discharged home, but developed a fever of 101 degrees. She also developed confusion and currently is treated as severe sepsis with IV fluid boluses and antibiotic treatment. The patient's Chaudhari was exchanged during her admission. PAST MEDICAL HISTORY: 1. History of multiple sclerosis. 2. Atrial fibrillation. 3. Hypothyroidism. 4. History of neurogenic bladder, status post Chaudhari placement indwelling. 5. History of thyroidectomy. 6. Status post right total knee replacement x2 with 2 revisions due to infected hardware. The patient's last knee arthroscopy was on 01/26/[address] Ac. 7. 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 8. History of bilateral ankles open reduction and internal fixation due to fractures. CURRENT MEDICATIONS: Include: 1. Voriconazole 200 mg every 12 hours. 2. Zoloft 50 mg daily. 3. Xarelto 20 mg daily. 4. Potassium chloride 10 mEq daily. 5. MiraLAX 17 g daily. 6. Metoprolol succinate 50 mg daily. 7. Levothyroxine 150 mcg daily. 8. Hydrochlorothiazide 25 mg daily. 9. Gabapentin 200 mg daily. 10. Baclofen Candida parapsilosis b.i.d. 11. Fosamax 70 mg weekly. 12. Tylenol on a p.r.n. basis. 13. Bactrim 1 tablet b.i.d. Unfortunately, the patient is unable to tell me how long she has been on Bactrim at this point. ALLERGIES: IBUPROFEN. FAMILY HISTORY: Due to confusion, currently the patient is unable to tell me. SOCIAL HISTORY: The patient is able to tell me that she lives alone. There is no history of recent alcohol, tobacco or drug use. She has aides 3 times a week. She is able to transfer by herself, but she has been falling for the past 4 or 5 days. [facility] from [facility] within the past month. REVIEW OF SYSTEMS: Really unable to obtain relevant review of systems in a patient who is right now shivering and confused. I believe she came in complaining with blood in the urine. PHYSICAL EXAMINATION GENERAL: The patient is a pleasant 72-year-old female who is unable to tell me current date. She tells me that it is October; when I told her it is not, then she kept on checking all the months of the year until she actually said February. She thinks the year is 1982. She is shivering in the room. She is able to remember me from prior hospital stays and she knows that she is in the hospital. VITAL SIGNS: Blood pressure of 119/103, heart rate of 101 and irregular, respiratory rate 16, oxygen saturation 95% on room air, temperature of 101.0. HEENT: Head: Atraumatic, normocephalic. Eyes: Pupils are equal, reactive to light and accommodation. Oropharynx clear. Mucosa moist. NECK: Supple. No JVD. No bruits bilaterally. RESPIRATORY: Clear to auscultation bilaterally. CARDIOVASCULAR: Irregularly irregular rhythm. No murmur. ABDOMEN: Soft, nontender. Bowel sounds are present in all 4 quadrants. There is no flank tenderness on evaluation. EXTREMITIES: There is right knee effusion noted. There is a superficial abrasion noted over the area of the knee effusion. I believe the abrasion occurred during the patient's recent falls. The joints are nontender to palpation in bilateral lower extremities. There is good range of motion in bilateral lower extremities. The patient has generalized weakness and she is unable to raise her legs off bed bilaterally. NEUROLOGIC: Speech clear. Cranial nerves II through XII are grossly intact. Motor strength is 5/5 in bilateral upper extremities and 3+/5 in bilateral lower extremities. SKIN: The patient has abrasions on bilateral knees noted. DIAGNOSTIC STUDIES/LAB DATA: White blood cell count of 9.2, hemoglobin of 11.9 , hematocrit of 36, and platelets of 212,000. Sodium was 130, potassium 3.4, chloride 92, carbon dioxide 29, BUN of 15, creatinine 0.65. Liver function tests unremarkable. C-reactive protein of 116. Urinalysis positive for blood, nitrites, esterase, +3 bacteria. Hip x-ray obtained in the emergency department showed "degenerative changes of the bilateral hips without radiographically apparent fracture or dislocation." The patient has not had chest x-ray during her hospital stay currently. ASSESSMENT AND PLAN: 1. In regards to the patient's sepsis, the source appears to be urinary tract infection that is Chaudhari associated. The patient has history of pseudomonas infection in the past and she is going to be placed on Zosyn. She already received a dose of ceftriaxone in the emergency department. We will obtain lactic acid, blood cultures that have not been obtained in the emergency department. The patient also has encephalopathy currently and is confused, which is new likely due to fever and ongoing sepsis. 2. In regards to the patient's atrial fibrillation, the patient is attempted to be continued with rate control with metoprolol. I will also continue Xarelto for cardioembolic stroke prevention. 3. In regards to the patient's chronic right knee infection, the patient has history of candidiasis in the right knee. She has refused to have her hardware removed and refused to have further major surgeries. We will continue voriconazole. We will need to observe the patient's right knee effusion. She may need a tap in the near future. 4. For hypothyroidism, her levothyroxine is going to be continued. 5. For DVT prophylaxis, the patient is going to be continued on her Xarelto. 6. The patient's code status is full code. The patient names her sister, Mildred Alejo, as her surrogate. TIME SPENT: Approximately 65 minutes were spent on admission of this patient, more than half of that time was spent [id number] with the patient during the interview and physical exam. [id number]/[facility] #: [id number] SHERRIE
[2018-04-01] MEDS: Baclofen TAB* 10 MG PO SCH (21:03)
[2018-04-01] MEDS: VORICONAZOLE 50 MG PO SCH (21:04)
[2018-04-01] MEDS: Docusate CAP* 100 MG PO SCH (21:08)
[2018-04-01] MEDS: NS 0.9% 1000 ML*IV.FLUID IV ONE ×2 (21:20→22:35)
[2018-04-01] MEDS: ZOSYN 3.375 GM Q8H per EXTENDED INFUSION IVPB SCH ×2 (21:26)
--- NOTE | 2018-04-01 21:55 | PN ---
Sepsis Event Evaluation Date of Evaluation: 04/01/18 Time of Evaluation: 21:45 Current Stage of Sepsis: Sepsis Vital Signs - Last 12 Hours: Vital Signs - 12 hr Temp Pulse Resp BP Pulse Ox 04/01/18 18:34 102.3 F 148 20 133/73 92 04/01/18 17:56 114 149/102 98 04/01/18 17:26 118 175/101 89 Temperature is 98.6 F and HR is 78 at this time. Lactic Acid: 04/01/18 17:35 Lactic Acid 1.3 - Cardiopulmonary Exam Capillary Refill: < or = to 5 seconds Respiratory: Symmetrical Chest Expansion and Respiratory Effort, Clear to Auscultation Cardiovascular: - - Heart rate irregular irregular - Peripheral Pulse Exam Radial Pulses: Bilateral Normal Pedal Pulses: Bilateral Diminished Posterior Tibial Pulse: Bilateral Diminished - Skin Exam Skin Exam: Normal Turgor - [place] Coma Scale Best Eye Response: 4 - Spontaneous Best Motor Response: 6 - Obeys Commands Best Verbal Response: 5 - Oriented Coma Scale Total: 15 Assess/Plan/Problems-Billing Assessment:
[2018-04-02] MEDS: Levothyroxine TAB* 150 MCG TAB PO SCH (05:12)
[2018-04-02] MEDS: VORICONAZOLE 50 MG PO SCH ×2 (05:45→17:17)
[2018-04-02] MEDS: ZOSYN 3.375 GM Q8H per EXTENDED INFUSION IVPB SCH ×6 (05:47→21:33)
[2018-04-02 06:39] LABS: Hematocrit 32 % (35-47); Hemoglobin 10.6 g/dl (12.0-16.0); Mean Corpuscular HGB Conc 34 g/dl (31-36); Mean Corpuscular Hemoglobin 27 pg (27-31); Mean Corpuscular Volume 81 fL (80-97); Mean Platelet Volume 7.5 um3 (7.4-10.4); Platelet Count 145 10^3/ul (150-450); Red Cell Distribution Width 18 % (10.5-15)
[2018-04-02 07:02] LABS: ABS Basophils 0 10^3/ul (0-0.2); ABS Eosinophils 0 10^3/ul (0-0.6); ABS Lymphocytes 0.6 10^3/ul (1.0-4.8); ABS Monocytes 0.8 10^3/ul (0-0.8); ABS Neutrophils 4.6 10^3/ul (1.5-7.7); ABS Nucleated RBC 0 10^3/ul; Eosinophil % 0.7 % (0-6); Lymphocyte % 9.8 % (25-47); Nucleated Red Blood Cells % 0
[2018-04-02 07:04] LABS: EGFR Non-African American 94.6 (>60)
[2018-04-02] MEDS ORDERED: Potassium Chlor TAB* 10 MEQ TAB.ER PO ONE (07:42)
[2018-04-02] MEDS: Metoprolol Succinate XL TAB* 50 MG PO SCH (08:44)
[2018-04-02] MEDS: Gabapentin CAP(*) 100 MG PO SCH (08:44)
[2018-04-02] MEDS: Potassium Chlor TAB* 10 MEQ TAB.ER PO SCH (08:44)
[2018-04-02] MEDS: Baclofen TAB* 10 MG PO SCH ×2 (08:45→21:32)
[2018-04-02] MEDS: Sertraline* 50 MG TAB PO SCH (08:46)
[2018-04-02] MEDS: Docusate CAP* 100 MG PO SCH ×2 (08:46→21:32)
[2018-04-02] MEDS ORDERED: Hydrochlorothiazide TAB* 25 MG PO SCH (09:00)
--- NOTE | 2018-04-02 12:42 | RAD ---
INDICATION: Renal failure COMPARISON: None TECHNIQUE: Real-time ultrasound examination of the bilateral kidneys and urinary bladder including grayscale and Doppler color flow analysis. FINDINGS: Bilaterally the kidneys are normal in size and echogenicity. There are no hypervascular renal masses. There are no renal calculi or hydronephrosis identified. A benign cyst is noted in the right kidney. There is a small amount of left perinephric fluid of indeterminant clinical significance. IMPRESSION: Small amount of perinephric fluid surrounding the left kidney of indeterminate clinical significance in this otherwise normal renal ultrasound.
--- NOTE | 2018-04-02 13:26 | PN ---
Subjective Date of Service: 04/02/18 Interval History: pt feels well, much better then yesterday. Does not remember being admitted yesterday Objective Active Medications: Acetaminophen (Tylenol Tab*) 650 mg PO Q4H PRN PRN Reason: FEVER/PAIN Al Hydrox/Mg Hydrox/Simethicone (Maalox Plus*) 30 ml PO Q6H PRN PRN Reason: INDIGESTION Baclofen (Lioresal Tab*) 15 mg PO BID [facility] Last Admin: 04/02/18 08:45 Dose: 15 mg Docusate Sodium (Colace Cap*) 100 mg PO BID [facility] Last Admin: 04/02/18 08:46 Dose: 100 mg Gabapentin (Neurontin Cap(*)) 200 mg PO DAILY [facility] Last Admin: 04/02/18 08:44 Dose: 200 mg Piperacillin Sod/Tazobactam (Sod 3.375 gm/ Sodium Chloride) 100 mls @ 25 mls/ hr IVPB Q8H [facility] Last Admin: 04/02/18 05:47 Dose: 25 mls/hr Levothyroxine Sodium (Synthroid Tab*) 150 mcg PO DAILY@0600 [facility] Last Admin: 04/02/18 05:12 Dose: 150 mcg Metoprolol Succinate (Toprol Xl Tab*) 50 mg PO DAILY [facility] Last Admin: 04/02/18 08:44 Dose: 50 mg Morphine Sulfate (Morphine Vial*) 1 mg IV Q4H PRN PRN Reason: PAIN Oxycodone/Acetaminophen (Percocet 5/325 Tab*) 1 tab PO Q4H PRN PRN Reason: Pain Pharmacy Consult (Zosyn Per Pharmacy*) 1 note FOLLOW UP .ZOSYN PER PHARMACY [facility] Polyethylene Glycol/Electrolytes (Miralax*) 17 gm PO DAILY PRN PRN Reason: CONSTIPATION Potassium Chloride (Klor Con Er Tab*) 10 meq PO DAILY [facility] Last Admin: 04/02/18 08:44 Dose: 10 meq Rivaroxaban (Xarelto(*)) 20 mg PO DAILY@1700 [facility] Sertraline HCl (Zoloft*) 50 mg PO DAILY [facility] Last Admin: 04/02/18 08:46 Dose: 50 mg Voriconazole (Vfend (Nf)) 200 mg PO Q12H [facility] PRN Reason: Protocol Last Admin: 04/02/18 05:45 Dose: 200 mg Vital Signs - 8 hr 04/02/18 04/02/18 04/02/18 06:38 08:00 08:44 Temperature 98.1 F Pulse Rate 64 Respiratory 16 16 16 Rate Blood Pressure 121/72 (mmHg) O2 Sat by Pulse 99 Oximetry 04/02/18 10:53 Temperature Pulse Rate Respiratory 18 Rate Blood Pressure (mmHg) O2 Sat by Pulse Oximetry Oxygen Devices in Use Now: None Appearance: 72 yo F in nAD, AAOx3 Eyes: No Scleral Icterus, PERRLA Ears/Nose/Mouth/Throat: NL Teeth, Lips, Gums, Mucous Membranes Moist Neck: NL Appearance and Movements; NL JVP, Trachea Midline Respiratory: Symmetrical Chest Expansion and Respiratory Effort, Clear to Auscultation Cardiovascular: NL Sounds; No Murmurs; No JVD, RRR Abdominal: NL Sounds; No Tenderness; No Distention, No Hepatosplenomegaly Lymphatic: No Cervical Adenopathy Extremities: - - R knee effusion, no draining fluid or opened wound noted, not tender Neurological: Alert and Oriented x 3, - - b/l LE weakness due to MS-chronic Result Diagrams: 04/02/18 06:18 04/02/18 06:18 Additional Lab and Data: Lab Results 04/01/18 04/01/18 04/01/18 Range/Units 12:41 12:41 12:41 WBC 9.2 (3.5-10.8) 10^3/ul RBC 4.44 (4.0-5.4) 10^6/ul Hgb 11.9 L (12.0-16.0) g/dl Hct 36 (35-47) % MCV 80 (80-97) fL MCH 27 (27-31) pg MCHC 34 (31-36) g/dl RDW 18 H (10.5-15) % Plt Count 212 (150-450) 10^3/ul MPV 7.4 (7.4-10.4) um3 Neut % (Auto) Not Reportable Lymph % (Auto) Not Reportable [place] % (Auto) Not Reportable Eos % (Auto) Not Reportable Baso % (Auto) Not Reportable Absolute Neuts (auto) 7.7 (1.5-7.7) 10^3/ul Absolute Lymphs (auto) 0.4 L (1.0-4.8) 10^3/ul Absolute Monos (auto) 1.0 H (0-0.8) 10^3/ul Absolute Eos (auto) 0 (0-0.6) 10^3/ul Absolute Basos (auto) 0.1 (0-0.2) 10^3/ul Absolute Nucleated RBC Not Reportable Immature Gran % 2 (0-9) % Neutrophils % 89 H (38-83) % Band Neutrophils % 1 (0-8) % Lymphocytes % 3 L (25-47) % Monocytes % 5 (0-7) % Eosinophils % 1 (0-6) % Basophils % 0 (0-2) % Metamyelocytes % 1 (0-2) % Nucleated RBC % Not Reportable Abs Neuts (Manual) 8.2 H (1.5-7.7) 10^3/ul Abs Lymphs (Manual) 0.3 L (1.0-4.8) 10^3/ul Abs Monocytes (Manual) 0.5 (0-0.8) 10^3/ul Absolute Eos (Manual) 0.1 (0-0.6) 10^3/ul Abs Basophils (Manual) 0 (0-0.2) 10^3/ul Normal RBC Morphology Normal (Normal) Hem Pathologist Commnt Pending INR (Anticoag Therapy) 1.92 H (0.77-1.02) APTT 43.2 H (26.0-36.3) seconds Sodium 130 L (139-145) mmol/L Potassium 3.4 L (3.5-5.0) mmol/L Chloride 93 L (101-111) mmol/L Carbon Dioxide 29 (22-32) mmol/L Anion Gap 8 (2-11) mmol/L BUN 15 (6-24) mg/dL Creatinine 0.65 (0.51-0.95) mg/dL Est GFR ( Amer) 115.2 (>60) Est GFR (Non-Af Amer) 89.6 (>60) BUN/Creatinine Ratio 23.1 H (8-20) Glucose 115 H (70-100) mg/dL Calcium 9.1 (8.6-10.3) mg/dL Total Bilirubin 1.00 (0.2-1.0) mg/dL AST 37 (13-39) U/L ALT 17 (7-52) U/L Alkaline Phosphatase 94 (34-104) U/L C-Reactive Protein 116.67 H (< 5.00) mg/L Total Protein 6.8 (6.4-8.9) g/dL Albumin 3.8 (3.2-5.2) g/dL Globulin 3.0 (2-4) g/dL Albumin/Globulin Ratio 1.3 (1-3) Lipase < 10 L (11.0-82.0) U/L Urine Color Urine Appearance Urine pH (5-9) Ur Specific [place] (1.010-1.030) Urine Protein (Negative) Urine Ketones (Negative) Urine Blood (Negative) Urine Nitrate (Negative) Urine Bilirubin (Negative) Urine Urobilinogen (Negative) Ur Leukocyte Esterase (Negative) Urine WBC (Auto) (Absent) Urine RBC (Auto) (Absent) Ur Squamous Epith Cells (Absent) Amorphous Crystals (Absent) Urine Bacteria (Absent) Urine Glucose (Negative) Blood Type Antibody Screen Antibody Identification Direct Antiglob Test 04/01/18 04/01/18 Range/Units 12:41 12:58 WBC (3.5-10.8) 10^3/ul RBC (4.0-5.4) 10^6/ul Hgb (12.0-16.0) g/dl Hct (35-47) % MCV (80-97) fL MCH (27-31) pg MCHC (31-36) g/dl RDW (10.5-15) % Plt Count (150-450) 10^3/ul MPV (7.4-10.4) um3 Neut % (Auto) Lymph % (Auto) [place] % (Auto) Eos % (Auto) Baso % (Auto) Absolute Neuts (auto) (1.5-7.7) 10^3/ul Absolute Lymphs (auto) (1.0-4.8) 10^3/ul Absolute Monos (auto) (0-0.8) 10^3/ul Absolute Eos (auto) (0-0.6) 10^3/ul Absolute Basos (auto) (0-0.2) 10^3/ul Absolute Nucleated RBC Immature Gran % (0-9) % Neutrophils % (38-83) % Band Neutrophils % (0-8) % Lymphocytes % (25-47) % Monocytes % (0-7) % Eosinophils % (0-6) % Basophils % (0-2) % Metamyelocytes % (0-2) % Nucleated RBC % Abs Neuts (Manual) (1.5-7.7) 10^3/ul Abs Lymphs (Manual) (1.0-4.8) 10^3/ul Abs Monocytes (Manual) (0-0.8) 10^3/ul Absolute Eos (Manual) (0-0.6) 10^3/ul Abs Basophils (Manual) (0-0.2) 10^3/ul Normal RBC Morphology (Normal) Hem Pathologist Commnt INR (Anticoag Therapy) (0.77-1.02) APTT (26.0-36.3) seconds Sodium (139-145) mmol/L Potassium (3.5-5.0) mmol/L Chloride (101-111) mmol/L Carbon Dioxide (22-32) mmol/L Anion Gap (2-11) mmol/L BUN (6-24) mg/dL Creatinine (0.51-0.95) mg/dL Est GFR ( Amer) (>60) Est GFR (Non-Af Amer) (>60) BUN/Creatinine Ratio (8-20) Glucose (70-100) mg/dL Calcium (8.6-10.3) mg/dL Total Bilirubin (0.2-1.0) mg/dL AST (13-39) U/L ALT (7-52) U/L Alkaline Phosphatase (34-104) U/L C-Reactive Protein (< 5.00) mg/L Total Protein (6.4-8.9) g/dL Albumin (3.2-5.2) g/dL Globulin (2-4) g/dL Albumin/Globulin Ratio (1-3) Lipase (11.0-82.0) U/L Urine Color Yellow Urine Appearance Cloudy Urine pH 5.0 (5-9) Ur Specific [place] 1.011 (1.010-1.030) Urine Protein 1+(30 mg/dl) A (Negative) Urine Ketones Trace A (Negative) Urine Blood 2+ A (Negative) Urine Nitrate Positive A (Negative) Urine Bilirubin Negative (Negative) Urine Urobilinogen Negative (Negative) Ur Leukocyte Esterase 3+ A (Negative) Urine WBC (Auto) 3+(>20/hpf) A (Absent) Urine RBC (Auto) 3+(>10/hpf) A (Absent) Ur Squamous Epith Cells Present A (Absent) Amorphous Crystals Present A (Absent) Urine Bacteria 3+ A (Absent) Urine Glucose Negative (Negative) Blood Type B Positive Antibody Screen Positive Antibody Identification Anti-K Direct Antiglob Test Negative Assess/Plan/Problems-Billing Assessment: 72 yo F with PMH of severe multiple sclerosis, Afib, right knee hardware subluxation repair complicated by celestine parapsilosis infection ( still present with intermittent joint effusion fluid draining from pt's knee ), neurogenic bladder w/ chronic pal who presented with hematuria found to have sepsis secondary - Patient Problems (1) UTI (urinary tract infection) due to urinary indwelling Pal catheter Comment: Pal was exchanged at admission Urine cx pending continue zosyn-h/o pseudomonas UTI (2) Hypertension Comment: BP under fair control. Continue metoprolol. 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 As per pt the knee effusion drains occasionally.cont voriconazole. Under the care of Dr. Ac Pt refused th have the infected hardware removed or replaced (4) Atrial fibrillation Comment: cont lopressor rate controlled, occasionally paced (5) Multiple sclerosis Comment: Nerurologically at baseline. H/o falls with transfers. PT/OT to eval - continue Baclofen 15mg BID (6) DVT prophylaxis Comment: - Rivaroxaban. Status and Disposition: inpatient
[2018-04-02] MEDS: Rivaroxaban TAB(*) 20 MG TAB PO SCH (17:17)
[2018-04-03] MEDS: Levothyroxine TAB* 150 MCG TAB PO SCH (06:09)
[2018-04-03] MEDS: VORICONAZOLE 50 MG PO SCH ×2 (06:09→17:53)
[2018-04-03] MEDS: ZOSYN 3.375 GM Q8H per EXTENDED INFUSION IVPB SCH ×4 (06:10→14:22)
[2018-04-03 06:42] LABS: EGFR Non-African American 102.2 (>60)
[2018-04-03] MEDS: Sertraline* 50 MG TAB PO SCH (08:35)
[2018-04-03] MEDS: Potassium Chlor TAB* 10 MEQ TAB.ER PO SCH (08:35)
[2018-04-03] MEDS: Gabapentin CAP(*) 100 MG PO SCH (08:36)
[2018-04-03] MEDS: Baclofen TAB* 10 MG PO SCH ×2 (08:36→22:26)
[2018-04-03] MEDS: Metoprolol Succinate XL TAB* 50 MG PO SCH (08:36)
[2018-04-03] MEDS: Docusate CAP* 100 MG PO SCH ×2 (08:37→22:27)
--- NOTE | 2018-04-03 12:28 | PN ---
Progress Note - Progress Note Date of Service: 04/03/18 SOAP: Subjective: Ms Scott is a 72 yo female I met last September with a dislocated right TKA. Unfortunately she developed a Norma infection of the knee and has undergone 2 arthroscopic washouts. After her last admission, she had stopped her anti-fungal when she went home, but did restart it upon my request when she presented to the office a week after discharge. She reports the knee still does not hurt and it holds her up for transfers, but her overall weakness lead to several falls when transferring. She presented to the ED here after her last fall and did have a UTI. She is being treated and reports she is doing much better. PT did come today and helped her with transfers as well. Objective: She is comfortable in bed and easily discusses what is going on. Right knee: dressing ws in place, but underneath the skin is intact. There is just one small dried area of granulation with any erythemia there. She has erythemia where the tape is on her skin and over the medial side of the knee, where a medial port would be, a 2 by 3 cm red area which is outlined. She is not tender as I palpated about the knee and the effusion she had when I last saw her has significantly improved. Assessment: Norma infection right TKA Plan: Continue anti-fungals and care for her current UTI. Does not need a dressing on the knee (I removed the one she had) if the skin stays intact. If the knee breaks open, then restart daily dressing changes.
--- NOTE | 2018-04-03 13:26 | PN ---
Subjective Date of Service: 04/03/18 Interval History: Patient feeling much better. A/Ox3, no CP, SOB, N/V, abdominal pain, F/C, palpitations, dizziness, or other pain. Patient had one episode of loose stool yesterday evening. Patient able to transfer by herself with PT but then needed a 2 assist to transfer with OT. Patient repeated her refusal to go to rehab. Family History: Unchanged from Admission Social History: Unchanged from Admission Past Medical History: Unchanged from Admission Objective Active Medications: Acetaminophen (Tylenol Tab*) 650 mg PO Q4H PRN PRN Reason: FEVER/PAIN Al Hydrox/Mg Hydrox/Simethicone (Maalox Plus*) 30 ml PO Q6H PRN PRN Reason: INDIGESTION Amoxicillin/Clavulanate Potassium (Augmentin Tab*) 875 mg PO BID [facility] Baclofen (Lioresal Tab*) 15 mg PO BID [facility] Last Admin: 04/03/18 08:36 Dose: 15 mg Docusate Sodium (Colace Cap*) 100 mg PO BID [facility] Last Admin: 04/03/18 08:37 Dose: 100 mg Gabapentin (Neurontin Cap(*)) 200 mg PO DAILY [facility] Last Admin: 04/03/18 08:36 Dose: 200 mg Piperacillin Sod/Tazobactam (Sod 3.375 gm/ Sodium Chloride) 100 mls @ 25 mls/ hr IVPB Q8H [facility] Stop: 04/03/18 20:00 Last Admin: 04/03/18 06:10 Dose: 25 mls/hr Levothyroxine Sodium (Synthroid Tab*) 150 mcg PO DAILY@0600 [facility] Last Admin: 04/03/18 06:09 Dose: 150 mcg Metoprolol Succinate (Toprol Xl Tab*) 50 mg PO DAILY [facility] Last Admin: 04/03/18 08:36 Dose: 50 mg Morphine Sulfate (Morphine Vial*) 1 mg IV Q4H PRN PRN Reason: PAIN Oxycodone/Acetaminophen (Percocet 5/325 Tab*) 1 tab PO Q4H PRN PRN Reason: Pain Pharmacy Consult (Zosyn Per Pharmacy*) 1 note FOLLOW UP .ZOSYN PER PHARMACY [facility] Polyethylene Glycol/Electrolytes (Miralax*) 17 gm PO DAILY PRN PRN Reason: CONSTIPATION Potassium Chloride (Klor Con Er Tab*) 10 meq PO DAILY [facility] Last Admin: 04/03/18 08:35 Dose: 10 meq Rivaroxaban (Xarelto(*)) 20 mg PO DAILY@1700 [facility] Last Admin: 04/02/18 17:17 Dose: 20 mg Sertraline HCl (Zoloft*) 50 mg PO DAILY [facility] Last Admin: 04/03/18 08:35 Dose: 50 mg Voriconazole (Vfend (Nf)) 200 mg PO Q12H [facility] PRN Reason: Protocol Last Admin: 04/03/18 06:09 Dose: 200 mg Vital Signs - 8 hr 04/03/18 04/03/18 04/03/18 07:08 08:36 09:11 Temperature 99.0 F Pulse Rate 72 Respiratory 17 16 14 Rate Blood Pressure 126/84 (mmHg) O2 Sat by Pulse 98 Oximetry 04/03/18 04/03/18 11:02 11:21 Temperature 97.8 F Pulse Rate 71 Respiratory 18 14 Rate Blood Pressure 115/75 (mmHg) O2 Sat by Pulse 98 Oximetry Oxygen Devices in Use Now: None Appearance: Patient is a 72yo female who appears stated age and is sitting in the bed in [facility]. Eyes: No Scleral Icterus, PERRLA Ears/Nose/Mouth/Throat: NL Teeth, Lips, Gums, Clear Oropharnyx, Mucous Membranes Moist Neck: NL Appearance and Movements; NL JVP, Trachea Midline Respiratory: Symmetrical Chest Expansion and Respiratory Effort, Clear to Auscultation Cardiovascular: NL Sounds; No Murmurs; No JVD, RRR, No Edema Abdominal: NL Sounds; No Tenderness; No Distention, No Hepatosplenomegaly Lymphatic: No Cervical Adenopathy Extremities: No Clubbing, Cyanosis, - - 1+ Edema in B/L LE. Skin: No Rash or Ulcers, No Nodules or Sclerosis Neurological: Alert and Oriented x 3, NL Sensation, - - 4/5 strength throughout , normal tone, no spasticity. Result Diagrams: 04/02/18 06:18 04/03/18 05:54 Additional Lab and Data: Lab Results Microbiology and Other Data: Microbiology 04/01/18 17:35 Aerobic Blood Culture - Preliminary Blood Venous No Growth Day 1 Anaerobic Blood Culture - Preliminary No Growth Day 1 Assess/Plan/Problems-Billing Assessment: 72 yo F with PMH of severe multiple sclerosis, Afib, right knee hardware subluxation repair complicated by norma parapsilosis infection ( still present with intermittent joint effusion fluid draining from pt's knee ), neurogenic bladder w/ chronic pal who presented with hematuria found to have sepsis secondary to UTI which is improving. - Patient Problems (1) Pyelonephritis Current Visit: Yes Status: Acute Code(s): N12 - TUBULO-INTERSTITIAL NEPHRITIS, NOT SPCF ACUTE OR CHRONIC SNOMED Code(s): 08898800 Comment: Catheter associated, has been exchanged this admission. Perinephric fluid on US. Urine Grew E. coli and Enterococcus fecalis both susceptible to Zosyn/Augmentin. Stop Zosyn, Start Augmentin. Unable to discontinue pal. (2) Sepsis Current Visit: No Status: Acute Comment: Resolved. Presentation compatible with Tacycardia, Fever, Tachypnea, AMS. Likely urinary source. 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 As per patient the knee effusion drains occasionally. Cont voriconazole. Under the care of Dr. Ac. Appreciate input no need for arthrocentesis at this time. Patient refused to have the infected hardware removed or replaced (4) Anemia Current Visit: No Status: Acute Priority: Medium Code(s): D64.9 - ANEMIA, UNSPECIFIED SNOMED Code(s): 951207040 Comment: Stable. (5) Atrial fibrillation Current Visit: No Status: Acute Code(s): I48.91 - UNSPECIFIED ATRIAL FIBRILLATION SNOMED Code(s): 62064782 Comment: Rate controlled on Metoprolol Succinate 50mg Daily. Continue Xarelto (6) Hyperlipidemia Current Visit: No Status: Chronic Priority: Medium Code(s): E78.5 - HYPERLIPIDEMIA, UNSPECIFIED SNOMED Code(s): 56973544 Comment: Continue atorvastatin. (7) Hypertension Current Visit: No Status: Chronic Priority: Medium Code(s): I10 - ESSENTIAL (PRIMARY) HYPERTENSION SNOMED Code(s): 32000045 Comment: BP under good control. Continue metoprolol. (8) Hypothyroid Current Visit: No Status: Chronic Code(s): E03.9 - HYPOTHYROIDISM, UNSPECIFIED SNOMED Code(s): 77811115 Comment: TSH 1.05 in February 2018. Continue current dose. (9) Multiple sclerosis Current Visit: No Status: Chronic Code(s): G35 - MULTIPLE SCLEROSIS SNOMED Code(s): 59754094 Comment: Neurologically at baseline. History of falls with transfers. Unable to transfer with OT. Continue inpatient PT/OT. Refuses rehab. Continue Baclofen 15mg BID Follows with Dr. Steen. Not currently on DMARD (10) Neurogenic bladder Current Visit: No Status: Chronic Code(s): N31.9 - NEUROMUSCULAR DYSFUNCTION OF BLADDER, UNSPECIFIED SNOMED Code(s): 761668935 Comment: With Chronic Pal. Exchanged this admission. (11) DVT prophylaxis Current Visit: No Status: Acute Code(s): IWG8096 - SNOMED Code(s): 732442744 Comment: Rivaroxaban. Status and Disposition: Inpatient
[2018-04-03] MEDS: Rivaroxaban TAB(*) 20 MG TAB PO SCH (17:53)
[2018-04-03] MEDS: Amoxicillin/Clavulanate TAB* 875 MG PO SCH (22:27)
[2018-04-04 06:41] LABS: ABS Basophils 0.1 10^3/ul (0-0.2); ABS Eosinophils 0.1 10^3/ul (0-0.6); ABS Lymphocytes 0.6 10^3/ul (1.0-4.8); ABS Monocytes 0.7 10^3/ul (0-0.8); ABS Neutrophils 3.2 10^3/ul (1.5-7.7); ABS Nucleated RBC 0 10^3/ul; Eosinophil % 2.5 % (0-6); Hematocrit 35 % (35-47); Hemoglobin 11.6 g/dl (12.0-16.0); Lymphocyte % 12.4 % (25-47); Mean Corpuscular HGB Conc 33 g/dl (31-36); Mean Corpuscular Hemoglobin 27 pg (27-31); Mean Corpuscular Volume 80 fL (80-97); Mean Platelet Volume 7.5 um3 (7.4-10.4); Nucleated Red Blood Cells % 0; Platelet Count 246 10^3/ul (150-450); Red Blood Count 4.35 10^6/ul (4.00-5.40); Red Cell Distribution Width 18 % (10.5-15); White Blood Count 4.7 10^3/ul (3.5-10.8)
[2018-04-04 06:49] LABS: EGFR Non-African American 104.3 (>60)
[2018-04-04] MEDS: VORICONAZOLE 50 MG PO SCH ×2 (06:59→16:18)
[2018-04-04] MEDS: Levothyroxine TAB* 150 MCG TAB PO SCH (06:59)
[2018-04-04] MEDS: Sertraline* 50 MG TAB PO SCH (07:20)
[2018-04-04] MEDS: Baclofen TAB* 10 MG PO SCH ×2 (07:20→21:12)
[2018-04-04] MEDS: Potassium Chlor TAB* 10 MEQ TAB.ER PO SCH (07:20)
[2018-04-04] MEDS: Amoxicillin/Clavulanate TAB* 875 MG PO SCH ×2 (07:20→21:12)
[2018-04-04] MEDS: Gabapentin CAP(*) 100 MG PO SCH (07:20)
[2018-04-04] MEDS: Docusate CAP* 100 MG PO SCH ×2 (07:22→21:11)
[2018-04-04] MEDS: Metoprolol Succinate XL TAB* 50 MG PO SCH (07:23)
--- NOTE | 2018-04-04 14:40 | PN ---
Subjective Date of Service: 04/04/18 Interval History: Patient feels much better. Patient denies F/C, N/V, abdominal pain, CP, SOB, Palpitations, dizziness, or other pain. Patient still needing a 2 assist to get up out of bed. Would be interested in rehab at this point. Family History: Unchanged from Admission Social History: Unchanged from Admission Past Medical History: Unchanged from Admission Objective Active Medications: Acetaminophen (Tylenol Tab*) 650 mg PO Q4H PRN PRN Reason: FEVER/PAIN Al Hydrox/Mg Hydrox/Simethicone (Maalox Plus*) 30 ml PO Q6H PRN PRN Reason: INDIGESTION Amoxicillin/Clavulanate Potassium (Augmentin Tab*) 875 mg PO BID [facility] Last Admin: 04/04/18 07:20 Dose: 875 mg Baclofen (Lioresal Tab*) 15 mg PO BID [facility] Last Admin: 04/04/18 07:20 Dose: 15 mg Docusate Sodium (Colace Cap*) 100 mg PO BID [facility] Last Admin: 04/04/18 07:22 Dose: Not Given Gabapentin (Neurontin Cap(*)) 200 mg PO DAILY [facility] Last Admin: 04/04/18 07:20 Dose: 200 mg Levothyroxine Sodium (Synthroid Tab*) 150 mcg PO DAILY@0600 [facility] Last Admin: 04/04/18 06:59 Dose: 150 mcg Metoprolol Succinate (Toprol Xl Tab*) 50 mg PO DAILY [facility] Last Admin: 04/04/18 07:23 Dose: Not Given Morphine Sulfate (Morphine Vial*) 1 mg IV Q4H PRN PRN Reason: PAIN Oxycodone/Acetaminophen (Percocet 5/325 Tab*) 1 tab PO Q4H PRN PRN Reason: Pain Pharmacy Consult (Zosyn Per Pharmacy*) 1 note FOLLOW UP .ZOSYN PER PHARMACY [facility] Polyethylene Glycol/Electrolytes (Miralax*) 17 gm PO DAILY PRN PRN Reason: CONSTIPATION Potassium Chloride (Klor Con Er Tab*) 10 meq PO DAILY [facility] Last Admin: 04/04/18 07:20 Dose: 10 meq Rivaroxaban (Xarelto(*)) 20 mg PO DAILY@1700 [facility] Last Admin: 04/03/18 17:53 Dose: 20 mg Sertraline HCl (Zoloft*) 50 mg PO DAILY [facility] Last Admin: 04/04/18 07:20 Dose: 50 mg Voriconazole (Vfend (Nf)) 200 mg PO Q12H [facility] PRN Reason: Protocol Last Admin: 04/04/18 06:59 Dose: 200 mg Vital Signs - 8 hr 04/04/18 04/04/18 04/04/18 07:13 07:20 07:26 Temperature 98.1 F Pulse Rate 55 Respiratory 17 16 16 Rate Blood Pressure 144/87 (mmHg) O2 Sat by Pulse 97 Oximetry 04/04/18 10:21 Temperature Pulse Rate Respiratory 16 Rate Blood Pressure (mmHg) O2 Sat by Pulse Oximetry Oxygen Devices in Use Now: None Appearance: Patient is a 72yo female who appears stated age and is sitting in the bed in [facility]. Eyes: No Scleral Icterus, PERRLA Ears/Nose/Mouth/Throat: NL Teeth, Lips, Gums, Clear Oropharnyx, Mucous Membranes Moist Neck: NL Appearance and Movements; NL JVP, Trachea Midline Respiratory: Symmetrical Chest Expansion and Respiratory Effort, Clear to Auscultation Cardiovascular: NL Sounds; No Murmurs; No JVD, RRR, No Edema Abdominal: NL Sounds; No Tenderness; No Distention, No Hepatosplenomegaly Lymphatic: No Cervical Adenopathy Extremities: No Edema, No Clubbing, Cyanosis Skin: No Rash or Ulcers, No Nodules or Sclerosis Neurological: Alert and Oriented x 3, - - Normal tone. Normal reflexes. Decreased strength throughout. Cerebellar testing normal. Consistent with previous exam. Result Diagrams: 04/04/18 06:14 04/04/18 06:14 Additional Lab and Data: Lab Results Microbiology and Other Data: Microbiology 04/01/18 17:35 Aerobic Blood Culture - Preliminary Blood Venous No Growth Day 1 Anaerobic Blood Culture - Preliminary No Growth Day 1 Assess/Plan/Problems-Billing Assessment: 72 yo F with PMH of severe multiple sclerosis, Afib, right knee hardware subluxation repair complicated by norma parapsilosis infection ( still present with intermittent joint effusion fluid draining from pt's knee ), neurogenic bladder w/ chronic pal who presented with hematuria found to have sepsis secondary to UTI which is improving. - Patient Problems (1) Pyelonephritis Current Visit: Yes Status: Acute Code(s): N12 - TUBULO-INTERSTITIAL NEPHRITIS, NOT SPCF ACUTE OR CHRONIC SNOMED Code(s): 38501827 Comment: Catheter associated, has been exchanged this admission. Perinephric fluid on US. Urine Grew E. coli and Enterococcus fecalis both susceptible to Zosyn/Augmentin. Continue Augmentin. Unable to discontinue pal. (2) Sepsis Current Visit: No Status: Acute Comment: Resolved. Presentation compatible with Tacycardia, Fever, Tachypnea, AMS. Likely urinary source. 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 As per patient the knee effusion drains occasionally. Cont voriconazole. Under the care of Dr. Ac. Appreciate input no need for arthrocentesis at this time. Patient refused to have the infected hardware removed or replaced (4) Anemia Current Visit: No Status: Acute Priority: Medium Code(s): D64.9 - ANEMIA, UNSPECIFIED SNOMED Code(s): 677299999 Comment: Stable. (5) Atrial fibrillation Current Visit: No Status: Acute Code(s): I48.91 - UNSPECIFIED ATRIAL FIBRILLATION SNOMED Code(s): 28804433 Comment: Rate controlled on Metoprolol Succinate 50mg Daily. Continue Xarelto (6) Hyperlipidemia Current Visit: No Status: Chronic Priority: Medium Code(s): E78.5 - HYPERLIPIDEMIA, UNSPECIFIED SNOMED Code(s): 95214931 Comment: Continue atorvastatin. (7) Hypertension Current Visit: No Status: Chronic Priority: Medium Code(s): I10 - ESSENTIAL (PRIMARY) HYPERTENSION SNOMED Code(s): 44404440 Comment: BP under good control. Continue metoprolol. (8) Hypothyroid Current Visit: No Status: Chronic Code(s): E03.9 - HYPOTHYROIDISM, UNSPECIFIED SNOMED Code(s): 21440066 Comment: TSH 1.05 in February 2018. Continue current dose. (9) Multiple sclerosis Current Visit: No Status: Chronic Code(s): G35 - MULTIPLE SCLEROSIS SNOMED Code(s): 78514865 Comment: Neurologically at baseline. History of falls with transfers. Unable to transfer with OT. Continue inpatient PT/OT. Unable to function at home. Is interested in rehab. Continue Baclofen 15mg BID Follows with Dr. Steen. Not currently on DMARD (10) Neurogenic bladder Current Visit: No Status: Chronic Code(s): N31.9 - NEUROMUSCULAR DYSFUNCTION OF BLADDER, UNSPECIFIED SNOMED Code(s): 879789429 Comment: With Chronic Pal. Exchanged this admission. (11) DVT prophylaxis Current Visit: No Status: Acute Code(s): ILN7631 - SNOMED Code(s): 248871064 Comment: Rivaroxaban. Status and Disposition: Inpatient
[2018-04-04] MEDS: Rivaroxaban TAB(*) 20 MG TAB PO SCH (16:18)
[2018-04-05] MEDS: VORICONAZOLE 50 MG PO SCH (06:08)
[2018-04-05] MEDS: Levothyroxine TAB* 150 MCG TAB PO SCH (06:08)
[2018-04-05] MEDS: Sertraline* 50 MG TAB PO SCH (08:31)
[2018-04-05] MEDS: Docusate CAP* 100 MG PO SCH (08:31)
[2018-04-05] MEDS: Potassium Chlor TAB* 10 MEQ TAB.ER PO SCH (08:31)
[2018-04-05] MEDS: Gabapentin CAP(*) 100 MG PO SCH (08:31)
[2018-04-05] MEDS: Metoprolol Succinate XL TAB* 50 MG PO SCH (08:31)
[2018-04-05] MEDS: Baclofen TAB* 10 MG PO SCH (08:31)
[2018-04-05] MEDS: Amoxicillin/Clavulanate TAB* 875 MG PO SCH (08:31)
--- NOTE | 2018-04-05 11:23 | DS ---
CC: Dr. Finley; Dr. Allan; Dr. Ac; Dr. Reeves* DATE OF ADMISSION: 04/01/2018. DATE OF DISCHARGE: 04/05/2018. PRIMARY CARE PHYSICIAN: Dr. Reeves. MY ATTENDING PHYSICIAN WHILE IN THE HOSPITAL: Dr. Lorraine Monte* (dictated by KAYLA Agarwal). OUTPATIENT ORTHOPEDIST: Dr. Ac. INFECTIOUS DISEASE SPECIALIST: Dr. Allan. UROLOGIST: Dr. Finley. PRIMARY DISCHARGE DIAGNOSIS: Pyelonephritis. SECONDARY DISCHARGE DIAGNOSES: Multiple sclerosis, atrial fibrillation, hypothyroidism, neurogenic bladder with indwelling Chaudhari catheter, thyroidectomy , total knee replacement with celestine parapsilosis infection, history of ORIF of both ankles due to fractures. STUDIES DONE WHILE IN THE HOSPITAL: 1. Hip/pelvis x-ray from 04/01/2018, read as: Degenerative changes of the bilateral hips without radiographically apparent fracture or dislocation. 2. Chest x-ray from 04/01/2018, read as: No evidence for pneumonia. No evidence for acute intrathoracic disease. 3. Renal ultrasound from 04/02/2018, read as: Small amount of perinephric fluid surrounding the left kidney of indeterminate significance in this otherwise normal renal ultrasound. DISCHARGE MEDICATIONS: 1. Alendronate 70 mg p.o. weekly. 2. Hydrochlorothiazide 25 mg p.o. daily. 3. Tylenol 650 mg p.o. q.4 hours as needed. 4. Baclofen 15 mg p.o. b.i.d. 5. Gabapentin 200 mg p.o. daily. 6. Levothyroxine 150 mcg p.o. daily. 7. Metoprolol Succinate 50 mg p.o. daily. 8. Polyethylene Glycol 17 gm p.o. daily as needed. 9. Rivaroxaban 20 mg p.o. daily. 10. Voriconazole 200 mg p.o. q.12 hours. 11. Sertraline 50 mg p.o. daily. 12. Potassium Chloride 10 mEq p.o. daily. 13. Augmentin 875 p.o. b.i.d. times 20. 14. Docusate 100 mg p.o. b.i.d. New medications at discharge: Augmentin, Docusate. HOSPITAL COURSE: This is a brief summary of the patient's presentation. For more details, please see the history and physical from Dr. Odette Prieto on 06/2018. In brief, the patient is a 72-year-old female with a past medical history significant for the above who presented with a fever and confusion. The patient had been home for approximately a week after she had left [facility]. The patient had fallen multiple times at home during transferring. She came in due to hematuria in her Chaudhari catheter. Her urinalysis was grossly positive. The patient became tachycardic and remained febrile, but had no hypotension. The patient was started on Zosyn after a single dose of Ceftriaxone. In the emergency department, the patient's blood cultures were negative. The patient's urine cultures grew E. coli and enterococcus faecalis, both of which were susceptible to Zosyn and Augmentin. The patient improved greatly on antibiotics. The patient had sodium of 130 initially which improved slowly to 138 over the course of her admission. The patient had a CRP of 116.67 which declined to 83.17 on 04/03/2018. The patient had no other significant laboratory abnormalities, except for a slight anemia. The patient had a renal ultrasound which showed perinephric fluid, but no other abnormalities. The patient was seen in consultation by Dr. Robert Ac of Orthopedics who said that her knee needed no intervention at this time. The patient was seen in consultation by Physical Therapy and Occupational Therapy and was deemed to have needs for rehab to assist with occupational therapy to get from the chair to the bed and she only has help six hours a week at home. The patient was initially resistant to rehab, but then was amenable to going to [facility]. The patient was switched to Augmentin which she tolerated well. The patient had no other vital sign or laboratory abnormalities during the course of her hospitalization. The patient was still on that while discharged on 04/05/2018. PHYSICAL EXAMINATION: General: The patient is a 72-year-old female who appears her stated age, is sitting comfortable in bed, in no acute distress. Vital Signs: At the time of discharge, temperature 98.5, pulse rate 83, respiratory rate 17, oxygen saturation 97 percent on room air, blood pressure 146/93. HEENT: Head normocephalic, atraumatic. Sclerae anicteric. No conjunctival injection. Nasal mucosa moist. Oral mucosa moist. No oropharyngeal erythema, discharge or exudate. Neck: Supple, nontender. No lymphadenopathy. No carotid bruit auscultated. Cardiac: Irregular rate and rhythm. No clicks, murmurs, gallops or rubs. Pulses 2+ in the bilateral dorsalis pedis, posterior tibialis, and radial areas. No bilateral lower extremity edema noted. Respiratory: Clear to auscultation bilaterally. No wheezes, rales or rhonchi. Good air exchange bilaterally. Abdomen: Soft, nontender, nondistended. Bowel sounds hypoactive, but present in all four quadrants. Normal hepatosplenomegaly. No abdominal bruits auscultated. Genitourinary: No suprapubic or CVA tenderness. Chaudhari indwelling without hematuria. Draining clear yellow urine. Neuro: Cranial nerves II through XII intact. Diffusely weak throughout. No focal deficits. No abnormal tone. Reflexes 1+ throughout. Cerebellar testing performed without difficulty. Psychiatric: Very pleasant, cooperative. DISCHARGE PLAN: The patient will be discharged to [facility] for rehab with the eventual goal of returning home. The patient will be continued on Augmentin for 10 days to complete a 14 day course for her presumed pyelonephritis related to her Chaudhari catheter. The patient's Chaudhari catheter was exchanged during this admission. The patient should follow-up with her urologist , Dr. Finley, as scheduled. The patient should follow-up with Dr. Ac as scheduled next week. The patient should follow-up with Dr. Reeves within one week, for general medical management, after discharge from [facility]. The patient should follow-up with Dr. Steen and discuss resuming her disease modifying therapy for her MS. The patient should have a heart healthy diet without caffeine. The patient should engage in activity as tolerated, working with physical therapy to help restore her functional capacity. The patient should have her Chaudhari exchanged at least monthly. The patient should return to the hospital for alarming symptoms such as altered mental status, severe fevers , chest pain, shortness of breath, or other alarming symptoms. TIME SPENT: Approximately 60 minutes were spent on this discharge, 30 of which were spent [id number] with the patient obtaining history and physical and discussing treatment plan. KAYLA AGARWAL [id number]/[facility] #: [id number] SHERRIE
[2018-04-05 12:19] VITALS: BP 108/67
== END 2018-04-05 12:15 | disposition home health service (06) | DRG 698 ==
LOC: ED 12:15 → MED 17:20
PROVIDERS: ADMIT Internal Medicine; ATTEND Hospitalist
PROC: 0T2BX0Z Change Drainage Device in Bladder, External Approach (ICD-10-PCS; principal; 2018-04-01)
DX: T83.518A Infection and inflammatory reaction due to other urinary catheter, initial encounter (principal); A41.9 Sepsis, unspecified organism; R65.20 Severe sepsis without septic shock; G93.49 Other encephalopathy; B37.89 Other sites of candidiasis; N12 Tubulo-interstitial nephritis, not specified as acute or chronic; Y73.1 Therapeutic (nonsurgical) and rehabilitative gastroenterology and urology devices associated with adverse incidents; I48.91 Unspecified atrial fibrillation; I25.10 Atherosclerotic heart disease of native coronary artery without angina pectoris; I10 Essential (primary) hypertension; J45.909 Unspecified asthma, uncomplicated; M19.042 Primary osteoarthritis, left hand; M19.041 Primary osteoarthritis, right hand; M46.90 Unspecified inflammatory spondylopathy, site unspecified; M81.0 Age-related osteoporosis without current pathological fracture; I05.0 Rheumatic mitral stenosis; W06.XXXA Fall from bed, initial encounter; F41.9 Anxiety disorder, unspecified; F32.9 Major depressive disorder, single episode, unspecified; R31.9 Hematuria, unspecified; N31.9 Neuromuscular dysfunction of bladder, unspecified; M16.0 Bilateral primary osteoarthritis of hip; M25.461 Effusion, right knee; S80.212A Abrasion, left knee, initial encounter; S80.211A Abrasion, right knee, initial encounter; R40.2363 Coma scale, best motor response, obeys commands, at hospital admission; R40.2143 Coma scale, eyes open, spontaneous, at hospital admission; R40.2253 Coma scale, best verbal response, oriented, at hospital admission; B96.20 Unspecified Escherichia coli [E. coli] as the cause of diseases classified elsewhere; B95.2 Enterococcus as the cause of diseases classified elsewhere; D64.9 Anemia, unspecified; E78.5 Hyperlipidemia, unspecified; Z96.651 Presence of right artificial knee joint; E89.0 Postprocedural hypothyroidism; Z82.49 Family history of ischemic heart disease and other diseases of the circulatory system; Z87.891 Personal history of nicotine dependence; Y92.9 Unspecified place or not applicable; Z88.6 Allergy status to analgesic agent; Z85.850 Personal history of malignant neoplasm of thyroid; Z90.89 Acquired absence of other organs; Z91.81 History of falling; Z99.3 Dependence on wheelchair; Z98.42 Cataract extraction status, left eye; Z98.41 Cataract extraction status, right eye; Z79.01 Long term (current) use of anticoagulants
CPT/HCPCS: 36415; 71045; 76775; 80048; 80053; 81003; 81015; 83605; 83690; 85025; 85060; 85610; 85730; 86140; 86850; 86870; 86880; 86900; 86901; 87040; 87077; 87086; 87186; 93005; 97530; 99284; A9270-GY; G8978-GP-CJ; G8979-GP-CI; G8987-GO-CL; G8988-GO-CJ; J0696; J2543

== ENCOUNTER 2018-10-05 17:08 | Inpatient (IN) | payer MEDICARE ==
[2018-10-05] MEDS ORDERED: NS 0.9% 1000 ML* 1,000 ML IV ONE (17:23)
--- NOTE | 2018-10-05 17:59 | ED ---
Neurological HPI - HPI Summary HPI Summary: A 73 y/o female brought in by [facility] presents to [facility] with a chief complaint of weakness on 10/05/18. She has a head laceration. She rates her pain as a 6/10. The patient fell twice today and states that usually she is much stronger. She has a Hx of MS and reports a Hx of falls. She denies any fevers, chill, neck pain, CP, SOB or syncope. She reports a CHESTER, decreased urine output, claiming that she has been thirsty, left wrist pain and confusion. She believes that she is UTD on her tetanus vaccine. - History of Current Complaint Chief Complaint: EDWeakness Stated Complaint: FALL HEAD LACERATION Time Seen by Provider: 10/05/18 17:12 Hx Obtained From: Patient, EMS Onset/Duration: Sudden Onset Onset Severity: Moderate Current Severity: Moderate Headache Location: Diffuse (Right), Diffuse (Left) Pain Intensity: 6 Pain Scale Used: 0-10 Numeric Aggravating: Nothing Alleviating: Nothing Associated Signs and Symptoms: Positive: Weakness, Trauma: Recent. Negative: Loss of Consciousness - Additional Pertinent History Primary Care Physician: [id number] - Allergy/Home Medications Allergies/Adverse Reactions: Allergies Allergy/AdvReac Type Severity Reaction Status Date / Time ibuprofen Allergy Mild GI Upset Verified 06/20/18 12:13 ENVIRONMENT Allergy CATS Uncoded 06/20/18 12:13 -Unknown Reaction Details SEASONAL HAYFEVER Allergy POLLEN - Uncoded 06/20/18 12:13 Unknown Reaction Details Home Medications: Home Medications Acetaminophen [Acetaminophen Extra Strength] 1,000 mg PO Q8HR PRN MDD 3000 mg [History Confirmed 10/05/18] PMH/Surg Hx/FS Hx/Imm Hx Endocrine/Hematology History: Reports: Hx Anticoagulant Therapy, Hx Thyroid Disease - Thyroid cancer 1981- Partial thyroidectomy- on medication Denies: Hx Diabetes Cardiovascular History: Reports: Hx Atrial Fibrillation, Hx Coronary Artery Disease, Hx Hypercholesterolemia, Hx Hypertension, Other Cardiovascular Problems /Disorders - Atrial Fibrillation Denies: Hx Pacemaker/ICD Respiratory History: Reports: Hx Asthma - HX OF, NO PROBLEMS NOW Denies: Hx Sleep Apnea, Other Respiratory Problems/Disorders GI History: Denies: Hx Gastroesophageal Reflux Disease, Other GI Disorders History: Denies: Hx Dialysis, Hx Renal Disease Comment Only: Other Problems/Disorders - CHRONIC MEZA--MS Musculoskeletal History: Reports: Hx Arthritis - HANDS, LOWER BACK, Hx Orthopedic Injury - R ANKLE FX, ACHILLES LENGTHENING,, Hx Osteoporosis, Other Musculoskeletal History - BILAT ANKLE REPAIRS Sensory History: Reports: Hx Cataracts - BILATERAL , REMOVED 2013 Denies: Hx Contacts or Glasses, Hx Eye Injury, Hx Eye Prosthesis, Hx Glaucoma , Hx Legally Blind, Hx Macular Degeneration, Hx Vision Problem, Hx Deafness, Hx Hearing Aid, Hx Hearing Problem, Other Sensory Impairments Opthamlomology History: Reports: Hx Cataracts - BILATERAL , REMOVED 2013 Denies: Hx Contacts or Glasses, Hx Eye Injury, Hx Eye Prosthesis, Hx Glaucoma , Hx Legally Blind, Hx Macular Degeneration, Hx Vision Problem, Other Sensory Impairments Neurological History: Reports: Hx Nerve Disease - Multiple Sclerosis Denies: Other Neuro Impairments/Disorders Psychiatric History: Reports: Hx Anxiety - on medication, Hx Depression - on medication Denies: Hx Panic Disorder, Hx Suicide Attempt - Cancer History Cancer Type, Location and Year: THYROID Hx Chemotherapy: No Hx Radiation Therapy: No - Surgical History Surgery Procedure, Year, and Place: 1980 PARTIAL TH[place]ROIDECTOMY, [place];. 2008 [place] [facility] [place]. 2011 FLAP REPLAC[place] [facility] [place];. 2012 RIGHT TOTAL KNEE REVISION, [place];. 2013 COLONSCOPY, [facility] [place]. 2013 LAPROSCOPIC APPEN[place]CTOMY, [facility] [place]. 01/2016 RIGHT [place]KLE (PINS/PLATES[place] [facility] [place]. 2015 LEFT ANKLE (PINS/PLATES), [facility] [place]. 11/2017 RIGHT KNEE I&D, [facility] [place]. 12/2017 RIGHT KNEE I[place], [facility] [place] Hx Anesthesia Reactions: No Infectious Disease History: No Infectious Disease History: Reports: Hx Clostridium Difficile Denies: Hx of Known/Suspected MRSA - awaiting result from nasal swab, Traveled Outside the in Last 30 Days - Family History Known Family History: Positive: Hypertension Negative: Diabetes - Social History Alcohol Use: None Alcohol Amount: 1/day Hx Substance Use: No Substance Use Type: Reports: None Hx Tobacco Use: Yes Smoking Status (MU): Former Smoker Type: Cigarettes Amount Used/How Often: 1 PPD FOR 12 YEARS Length of Time of Smoking/Using Tobacco: 12 YEARS Have You Smoked in the Last Year: No Review of Systems Negative: Fever, Chills Negative: Chest Pain Negative: Shortness Of Breath Genitourinary: Other - positive: decreased urine output Musculoskeletal: Negative - neck pain Positive: Myalgia - left wrist pain Skin: Other - Positive: laceration on head. Positive: Headache, Weakness. Negative: Syncope All Other Systems Reviewed And Are Negative: Yes Physical Exam - Summary Physical Exam Summary: VITAL SIGNS: Reviewed. GENERAL: Patient is a well-developed and nourished FEMALE who is lying comfortable in the stretcher. Patient is not in any acute respiratory distress. HEAD AND FACE: Hematoma slight abrasion forehead. No sinus tenderness. EYES: PERRLA, EOMI x 2, No injected conjunctiva, no nystagmus. EARS: Hearing grossly intact. Ear canals and tympanic membranes are within normal limits. MOUTH: Oropharynx within normal limits. NECK: Supple, trachea is midline, no adenopathy, no JVD, no carotid bruit, no c- spine tenderness, neck with full ROM. CHEST: Symmetric, no tenderness at palpation LUNGS: Clear to auscultation bilaterally. No wheezing or crackles. CVS: Irregular rate and rhythm, S1 and S2 present, no murmurs or gallops appreciated. ABDOMEN: Soft, non-tender. No signs of distention. No rebound no guarding, and no masses palpated. Bowel sounds are normal. EXTREMITIES: Bilateral lower extremity edema 1+. Atrophy lower extremities. NEURO: Alert and oriented x 3. No acute neurological deficits. Speech is normal and follows commands. SKIN: Dry and warm GCS: 15 Triage Information Reviewed: Yes Vital Signs On Initial Exam: Initial Vitals Temp Pulse Resp BP Pulse Ox 99 F 89 16 142/100 98 10/05/18 17:16 10/05/18 17:16 10/05/18 17:16 10/05/18 17:16 10/05/18 17:16 Vital Signs Reviewed: Yes Diagnostics - Vital Signs Vital Signs Temp Pulse Resp BP Pulse Ox 10/05/18 17:16 99 F 89 16 142/100 98 - Laboratory Result Diagrams: 10/05/18 17:56 10/05/18 18:45 Lab Statement: Any lab studies that have been ordered have been reviewed, and results considered in the medical decision making process. - Radiology CXR Radiology Interpretation Completed By: Radiologist Summary of Radiographic Findings: No evidence for acute disease. ED physician has reviewed this imaging report. - CT Brain CT Interpretation Completed By: Radiologist Summary of CT Findings: 1. NO EVIDENCE FOR ACUTE INTRACRANIAL ABNORMALITY. 2. HEMATOMA IN THE SCALP ANTERIOR TO THE FRONTAL BONES. ED physician has reviewed this imaging report. - EKG 17:47 Cardiac Rate: Other Rate - Atrial fibrillation at 70 bpm EKG Rhythm: Atrial Fibrillation Summary of EKG Findings: unchanged from previous EKG done at 04/01/18 Re-Evaluation - Re-Evaluation First Eval Re-Evaluation Time: 19:40 Change: Unchanged Comment: Discussed patient's results and plan. Course/Dx - Course Assessment/Plan: A 73 y/o female brought in by [facility] presents to [facility] with a chief complaint of weakness on 10/05/18. She has a head laceration. She rates her pain as a 6/10. The patient fell twice today and states that usually she is much stronger. She has a Hx of MS and reports a Hx of falls. She denies any fevers, chill, neck pain, CP, SOB or syncope. She reports a CHESTER, decreased urine output, claiming that she has been thirsty, left wrist pain and confusion. She believes that she is UTD on her tetanus vaccine. Blood work without any significant abnormality except for sodium of 131, potassium at 3.1, chloride 95, glucose 168, and total CPK is 249. Urinalysis positive for nitrates therefore positive for UTI. In the ED course the patient was given IV fluids and ciprofloxacin. Head CT impression no acute pathology. The patient reports that she is unable to care for herself at home she has multiple times in the last week and today she fell twice. Therefore she is willing to go to rehabilitation. Therefore I discussed the case with and Dr. Bahena from the hospital services who accepted the patient for admission. The patient is hemodynamically stable alert and oriented 3. - Diagnoses Provider Diagnoses: UTI (urinary tract infection), Multiple falls, Multiple sclerosis - Physician Notifications Discussed Care Of Patient With: Adri Bahena Time Discussed With Above Provider: 19:45 Instructed by Provider To: Admit As Inpatient Discharge - Sign-Out/Discharge Documenting (check all that apply): Patient Departure - admit - Discharge Plan Condition: Fair Disposition: ADMITTED TO [facility] Referrals: Juliana Reeves MD [Primary Care Provider] - - Billing Disposition and Condition Condition: FAIR Disposition: Admitted to [facility] - Attestation Statements Document Initiated by Scribe: Yes Documenting Scribe: Christian Mathews Provider For Whom Scribe is Documenting (Include Credential): Gigi Donahue MD Scribe Attestation: I, Christian Mathews, scribed for Gigi Donahue MD on 10/05/18 at 2110. Scribe Documentation Reviewed: Yes Provider Attestation: The documentation as recorded by the desiraeibChristian el accurately reflects the service I personally performed and the decisions made by me, Gigi Donahue MD Status of Scribe Document: Viewed
[2018-10-05 18:09] LABS: ABS Basophils 0.1 10^3/ul (0-0.2); ABS Eosinophils 0.1 10^3/ul (0-0.6); ABS Lymphocytes 0.9 10^3/ul (1.0-4.8); ABS Monocytes 0.4 10^3/ul (0-0.8); ABS Neutrophils 3.9 10^3/ul (1.5-7.7); ABS Nucleated RBC 0 10^3/ul; Eosinophil % 1.6 %; Hematocrit 43 % (35-47); Hemoglobin 14.7 g/dl (12.0-16.0); Mean Corpuscular HGB Conc 34 g/dl (31-36); Mean Corpuscular Hemoglobin 28 pg (27-31); Mean Corpuscular Volume 82 fL (80-97); Mean Platelet Volume 7.5 fL (7.4-10.4); Nucleated Red Blood Cells % 0.3; Platelet Count 191 10^3/ul (150-450); Red Blood Count 5.22 10^6/ul (4.00-5.40); Red Cell Distribution Width 16 % (10.5-15); White Blood Count 5.3 10^3/ul (3.5-10.8)
[2018-10-05 18:26] LABS: ALT 27 U/L (7-52); Albumin 4.5 g/dL (3.2-5.2); Albumin/Globulin Ratio 1.6 (1-3); Alkaline Phosphatase 100 U/L (34-104); BUN/Creatinine Ratio 21.1 (8-20); Blood Urea Nitrogen 16 mg/dL (6-24); CO2 Carbon Dioxide 26 mmol/L (22-32); Calcium 10.1 mg/dL (8.6-10.3); Chloride 95 mmol/L (101-111); Creatine Kinase 249 U/L (10-223); EGFR Non-African American 74.6 (>60); Globulin 2.8 g/dL (2-4); Glucose 168 mg/dL (70-100); Sodium 131 mmol/L (135-145); Total Protein 7.3 g/dL (6.4-8.9)
[2018-10-05 18:27] LABS: Anion Gap 10 mmol/L (2-11)
[2018-10-05 19:02] LABS: Urine Appearance Cloudy; Urine Bacteria 1+ (Absent); Urine Bilirubin Negative (Negative); Urine Blood 2+ (Negative); Urine Color Yellow; Urine Glucose Negative (Negative); Urine Ketones Negative (Negative); Urine Nitrite Positive (Negative); Urine Protein Negative (Negative); Urine Red Blood Cell 2+(6-10/hpf) (Absent); Urine Urobilinogen Negative (Negative); Urine White Blood Cell 3+(>20/hpf) (Absent)
[2018-10-05] MEDS ORDERED: Ciprofloxacin TAB* 500 MG PO ONE (19:38)
[2018-10-05] MEDS ORDERED: Vancomycin(*) 1,000 MG in NS 0.9% 250 ML* 250 ML IVPB ONE (21:55)
[2018-10-05] MEDS ORDERED: Ondansetron INJ* 2 MG/ML VIAL IV PRN (21:55)
[2018-10-05] MEDS ORDERED: Docusate CAP* 100 MG PO PRN (21:58)
[2018-10-05] MEDS ORDERED: Vancomycin(*) 0 MG in NS 0.9% 250 ML* 250 ML IVPB SCH (22:00)
[2018-10-05] MEDS ORDERED: NS 0.9% 1000 ML* 1,000 ML IV SCH (22:00)
[2018-10-05] MEDS ORDERED: NS 0.9% 250 ML* 250 ML ONE (22:03)
[2018-10-05] MEDS ORDERED: Potassium Chlor TAB* 20 MEQ TAB.ER PO ONE (22:09)
[2018-10-05 22:40] LABS: C Reactive Protein 3.84 mg/L (<8.01)
[2018-10-05 23:09] LABS: Erythrocyte Sed Rate 14 mm/Hr (0-40)
[2018-10-06] MEDS ORDERED: Vancomycin per Pharmacy* NOTE FOLLOW UP PRN (00:13)
--- NOTE | 2018-10-06 00:38 | HP ---
CC: Dr. Juliana Reeves; Dr. Allan. * HISTORY AND PHYSICAL: DATE OF ADMISSION: 10/05/18 PRIMARY CARE PROVIDER: Dr. Juliana Reeves. ATTENDING PHYSICIAN WHILE IN THE HOSPITAL: Dr. Adri Bahena * (report dictated by Andres Pino NP). CONSULTING ID SPECIALIST: Dr. Allan. CHIEF COMPLAINT: Falls. HISTORY OF PRESENT ILLNESS: 1. Mrs. Scott is a 73-year-old female patient with a significant history of MS, atrial fibrillation, hypothyroidism, history of neurogenic bladder. She has had recurrent infected hardware of her right knee, on life long antifungal therapy. 2. Also a history of thyroid cancer. She is coming into the ED today stating that she fell twice today. She was doing transfers from her wheelchair to her bed and when she tried doing this she felt weak, she could not support herself and she fell. She could not get up. She typically cannot walk, she is wheelchair bound. She was not on the floor long. She said she pressed her life alert button right away and EMS came and brought her here. She says that she has been noticing over the last few days she has been feeling tired, fatigued, weakened, just really is not feeling well and has been feeling she has felt warm, but no fevers that she is aware of. She denied any URI or cold symptoms. She said that she has been having some chronic drainage and discharge from her right knee which has not changed in characteristic or frequency or amount. She says that she is taking her meds. She follows with Dr. Allan for this. She says her urine has been foul smelling. She was concerned that she may be had a UTI. She denied any flank pain or back pain. No abdominal discomfort. She was concerned because of the fall and the weakness. She came into the ED today. She was found to have a UTI and because of this we were asked to evaluate for admission. PAST MEDICAL HISTORY: Significant for: 1. MS. 2. AFib. 3. Hypothyroidism. 4. Neurogenic bladder. 5. Chronic infected right knee hardware. 6. Thyroid cancer. PAST SURGICAL HISTORY: 1. She has had thyroidectomy. 2. She has had right total knee surgeries x5. Two replacements and 3 revisions , and wash out she says. 3. Bilateral ankle ORIF. 4. Appendectomy. MEDICATIONS: Home medications include: 1. Oxybutynin 10 mg p.o. daily. 2. Fluconazole 200 mg p.o. b.i.d. 3. Synthroid 150 mcg p.o. daily. 4. Zoloft 50 mg daily. 5. Xarelto 20 mg daily. 6. Metoprolol succinate 50 mg daily. 7. Potassium chloride 10 mEq p.o. daily. 8. Hydrochlorothiazide 25 mg daily. 9. Gabapentin 200 mg daily. 10. Colace 100 mg p.o. b.i.d. 11. Alendronate 70 mg p.o. weekly. 12. Tylenol 1000 mg every 8 hours as needed. 13. Baclofen 15 mg p.o. b.i.d. ALLERGIES TO MEDICATIONS: Include IBUPROFEN. FAMILY HISTORY: Her mother had a history of stroke. Father's history is unknown. SOCIAL HISTORY: She does not smoke, does not drink. Surrogate decision maker is her sister. REVIEW OF SYSTEMS: There is no documented fever. She denied any significant weight change. There is no double vision. She denied having any ear discharge. There is no rhinorrhea. There was no sore throat, no thyroid enlargement. She denied having any chest pain. There was no orthopnea. There was no nocturnal dyspnea. There was no abdominal pain. No nausea, no vomiting, no dysuria, no frequency, no seizure, no loss of consciousness, no pruritus, and no skin ulcerations. Review of 14 systems completed, all others negative. PHYSICAL EXAMINATION GENERAL: At this time Mrs. Scott is a 73-year-old female patient. She is sitting in the ED stretcher. She does not appear to be in any acute distress. VITAL SIGNS: Blood pressure 142/98, pulse 84, respirations 20, O2 sat was 98%, temperature was 99.3. HEENT: Head atraumatic and normocephalic. Eyes: EOMS intact. Sclerae anicteric and not pale. NECK: Supple. Throat: Oral mucosa appears to be dry. No oropharyngeal erythema. LUNGS: Clear to auscultation bilaterally. No wheezes, rales, or rhonchi. HEART: Sounds S1 and S2. She had a regular, rate, and rhythm. No murmurs, rubs, or gallops. ABDOMEN: Soft, it was flat, it was nontender. Bowel sounds were present. EXTREMITIES: Pulses were 2+ throughout. She does have significant weakness in the lower extremities. She did have +2 pitting edema bilaterally. She has a small open area to the top of her incision on the right knee which again is draining what appears to be a serosanguineous type fluid. NEUROLOGIC: She is awake. She is alert. She is oriented x3. Her speech is clear. Tongue midline. No new gross focal deficits. SKIN: Intact. LABORATORY DATA: WBC 5.3, RBC 5.22, hemoglobin 14.7, hematocrit of 43, platelet count of 191. Sodium 131, potassium 3.1, chloride 95, bicarb 26, BUN 16, creatinine 0.79, glucose 168, lactate 1.6, calcium 10.1, total bili 0.5, AST 25, ALT 27, alk phos 100, CK 249, troponin 0.01, albumin 4.5. Urine showed 2+ blood, positive nitrites, 2+ wbc, 3+ rbc, 1+ bacteria. Brain CT obtained today which revealed no evidence for acute intracranial abnormality. Hematoma in the scalp anterior to the frontal bones. Chest x-ray obtained today showed no evidence of acute disease. She had an EKG obtained today as well, shows atrial fibrillation. No ST elevations or T-wave inversions are noted. She had negative T-waves in V6 which is new. Old medical records were reviewed. ASSESSMENT AND PLAN: Mrs. Scott is a 73-year-old female patient coming into the ED today with complaints of falls and weakness, was found to have a urinary tract infection. She will be admitted under inpatient status for: 1. Falls. Again the etiology of this is probably weakness secondary to urinary tract infection. We will get a PT evaluation and social work evaluation to see if we can get her more help at home. I have also discussed the idea of possibly assisted living with the patient, she is open to all avenues and again we will try to honor her wishes. She does want to stay at home as long as possible. We will get PT involved and we will continue to follow. 2. Urinary tract infection. Again she does have a fairly resistant enterococcus in the past, which I do think that she needs IV antibiotics. The plan will be to get Dr. Allan to evaluate. We will replace her catheter. This is a complex urinary tract infection. Fortunately, she is not showing any signs of sepsis, but again with her comorbid and the fact that she has got chronic catheter, I think that she needs to be treated as an inpatient. She may need a couple of days of IV antibiotics. We will get Dr. Allan to evaluate. 3. Chronic left knee infection. Dr. Allan will evaluate. We will continue the fluconazole at this point. We will continue to monitor. Because of that history, I will send off blood cultures and I will add on an ESR and a CRP. 4. Atrial fibrillation. Will continue her meds as prescribed. 5. Frontal scalp hematoma. We will continue to monitor. This may increase with the Xarelto; however, I am going to continue it. She did miss the night's dose. We will place her on ice packs and we will continue to monitor. 6. Hypothyroidism. Will continue her Synthroid. 7. Neurogenic bladder. Again replacing her catheter tonight. 8. History of thyroid cancer and hypothyroidism. Continue Synthroid. 9. DVT prophylaxis: She is on Xarelto. 10. Code status: Full code. 11. Fluids, electrolytes, and nutrition: She can have a regular diet. TIME SPENT: On the admission is 60 minutes, greater than half the time spent face- to-face with the patient obtaining my history and physical. The other half the time was spent going over the plan of care with the patient, implementing the plan of care. I discussed the plan of care with my attending Dr. Bahena. She is in agreement. ANDRES PINO NP [id number]/[facility] #: [id number] SHERRIE
[2018-10-06] MEDS: cefTRIAXone(*) 1 GM in NS 0.9% 50 ML* 50 ML IVPB SCH (01:51)
[2018-10-06] MEDS: Levothyroxine TAB* 150 MCG TAB PO SCH (06:24)
[2018-10-06 06:52] LABS: ABS Basophils 0.1 10^3/ul (0-0.2); ABS Eosinophils 0.1 10^3/ul (0-0.6); ABS Lymphocytes 0.9 10^3/ul (1.0-4.8); ABS Monocytes 0.4 10^3/ul (0-0.8); ABS Neutrophils 3.2 10^3/ul (1.5-7.7); ABS Nucleated RBC 0 10^3/ul; Eosinophil % 2.1 %; Hematocrit 40 % (35-47); Hemoglobin 13.6 g/dl (12.0-16.0); Lymphocyte % 18.6 %; Mean Corpuscular HGB Conc 34 g/dl (31-36); Mean Corpuscular Hemoglobin 28 pg (27-31); Mean Corpuscular Volume 82 fL (80-97); Mean Platelet Volume 7.7 fL (7.4-10.4); Nucleated Red Blood Cells % 0.1; Platelet Count 173 10^3/ul (150-450); Red Blood Count 4.89 10^6/ul (4.00-5.40); Red Cell Distribution Width 15 % (10.5-15); White Blood Count 4.6 10^3/ul (3.5-10.8)
[2018-10-06 06:56] LABS: INR 1.44 (0.77-1.02)
[2018-10-06 07:11] LABS: Calcium 9.1 mg/dL (8.6-10.3); Potassium 2.9 mmol/L (3.5-5.0)
[2018-10-06] MEDS ORDERED: Oxybutynin TAB* 5 MG PO SCH (09:00)
[2018-10-06] MEDS ORDERED: Metoprolol Succinate XL TAB* 50 MG PO SCH (09:00)
[2018-10-06] MEDS: Gabapentin CAP(*) 100 MG PO SCH (09:16)
[2018-10-06] MEDS: Vancomycin(*) 1,000 MG in NS 0.9% 250 ML* 250 ML IVPB SCH ×2 (09:16→22:43)
[2018-10-06] MEDS: Sertraline* 50 MG TAB PO SCH (09:17)
[2018-10-06] MEDS: Fluconazole 100 MG TAB* TAB PO SCH ×2 (09:18→19:59)
[2018-10-06] MEDS: Potassium Chlor TAB* 10 MEQ TAB.ER PO SCH (09:18)
[2018-10-06] MEDS: Baclofen TAB* 10 MG PO SCH ×2 (09:21→20:00)
[2018-10-06] MEDS ORDERED: Potassium Chlor TAB* 20 MEQ TAB.ER PO STA (09:32)
[2018-10-06] MEDS ORDERED: NS 0.9% 500 ML* 500 ML IV ONE ×2 (12:46→18:22)
[2018-10-06] MEDS ORDERED: NS 0.9% 1000 ML* 1,000 ML IV SCH (12:46)
--- NOTE | 2018-10-06 18:30 | PN ---
Subjective Date of Service: 10/06/18 Interval History: Pt seen and examined earlier in AM. Meds and labs reviewed. Later called by RN given pt was found to be hypotensive on both arms and was done manually. Given bolus of 500 cc NS and increased IVF rate. CC: N/A ROS: Denied [place]/dizziness, F/C, N/V, CP, SOB, increased cough, sputum production , abd pain, diarrhea, constipation, dysuria, myalgias, arthralgias, throat pain , and new skin lesions. The rest of the 14 point ROS are unremarkable. PHYSICAL EXAM: GEN APPEARANCE: Awake, not in acute distress HEENT: NC/(+)L. frontal hematoma sustained after fall at home, PERRLA, moist oral mucosa, (-) throat erythema NECK: Soft, supple, (-) cervical LAD, (-)JVD HEART: S1S2 WNL, RRR, No MRG CHEST: CTA, BL, GAE, No W/R/R ABD: Soft, ND/NT, NABS 4x Q EXT: No C/C/E SKIN: Warm to touch PSYCH: No active psychosis, hallucinations, depression, SI/HI Objective Active Medications: Acetaminophen (Tylenol Tab*) 650 mg PO Q6H PRN PRN Reason: Pain/Fever Baclofen (Lioresal Tab*) 15 mg PO BID [facility] Last Admin: 10/06/18 09:21 Dose: 15 mg Docusate Sodium (Colace Cap*) 100 mg PO BID PRN PRN Reason: CONSTIPATION Last Admin: 10/06/18 01:53 Dose: 100 mg Fluconazole (Diflucan 100 Mg Tab*) 200 mg PO BID [facility] Last Admin: 10/06/18 09:18 Dose: 200 mg Gabapentin (Neurontin Cap(*)) 200 mg PO DAILY [facility] Last Admin: 10/06/18 09:16 Dose: 200 mg Ceftriaxone Sodium 1 gm/ (Sodium Chloride) 50 mls @ 200 mls/hr IVPB Q24H [facility] Last Admin: 10/06/18 01:51 Dose: 200 mls/hr Vancomycin HCl 1,000 mg/ (Sodium Chloride) 250 mls @ 166.667 mls/hr IVPB Q12H [facility] Last Admin: 10/06/18 09:16 Dose: 166.667 mls/hr Sodium Chloride (Ns 0.9% 1000 Ml*) 1,000 mls @ 125 mls/hr IV PER RATE [facility] Last Admin: 10/06/18 16:26 Dose: 125 mls/hr Sodium Chloride (Ns 0.9% 500 Ml*) 500 mls @ 0 mls/hr IV ONCE ONE Stop: 10/06/18 18:23 Levothyroxine Sodium (Synthroid Tab*) 150 mcg PO DAILY@0600 [facility] Last Admin: 10/06/18 06:24 Dose: 150 mcg Ondansetron HCl (Zofran Inj*) 4 mg IV Q6H PRN PRN Reason: NAUSEA Pharmacy Consult (Vancomycin Per Pharmacy*) 1 note FOLLOW UP . PRN PRN Reason: PER PROTOCOL Pharmacy Profile Note (Vancomycin Trough Check) 1 note FOLLOW UP 30 ONE Stop: 10/07/18 09:31 Potassium Chloride (Klor Con Er Tab*) 10 meq PO DAILY [facility] Last Admin: 10/06/18 09:18 Dose: 10 meq Rivaroxaban (Xarelto(*)) 20 mg PO DAILY@1700 [facility] Sertraline HCl (Zoloft*) 50 mg PO DAILY [facility] Last Admin: 10/06/18 09:17 Dose: 50 mg Vital Signs - 8 hr 10/06/18 10/06/18 10/06/18 12:12 12:17 15:43 Temperature 97.5 F 98.4 F Pulse Rate 57 71 Respiratory 16 18 Rate Blood Pressure 72/58 72/48 87/58 (mmHg) O2 Sat by Pulse 96 96 Oximetry 10/06/18 18:03 Temperature Pulse Rate 85 Respiratory Rate Blood Pressure 87/67 (mmHg) O2 Sat by Pulse Oximetry Oxygen Devices in Use Now: None Result Diagrams: 10/06/18 06:17 10/06/18 06:17 Assess/Plan/Problems-Billing Assessment: - Patient Problems (1) Sepsis secondary to UTI Current Visit: Yes Status: Acute Code(s): A41.9 - SEPSIS, UNSPECIFIED ORGANISM; N39.0 - URINARY TRACT INFECTION, SITE NOT SPECIFIED SNOMED Code(s): 267728707 Comment: -Likely cause of Hypotension and now qualifies as septic given pyuria, hypotension, and presenting tachypnea -Not tachycardic likely due to Metoprolol succinate---will hold this for now -As discussed, pt given bolus and increased IVF rate -Continue Rocephin and will continue Vancomycin due to previous enterococcus UTI , w/c Cephalosporins usually have poor coverage for -Continue to follow cultures (2) Frequent falls Current Visit: Yes Status: Acute Code(s): R29.6 - REPEATED FALLS SNOMED Code(s): 043305505 Comment: -Likely due to polypharmacy in the setting of UTI w/sepsis -Will D/C OxybutyninI am unclear as to why she has this given she has a chronic pal catheter replaced every month or so for known neurogenic bladder and could be contributing to her frequent falls (3) Infection of knee Current Visit: No Status: Acute Code(s): M00.9 - PYOGENIC ARTHRITIS, UNSPECIFIED SNOMED Code(s): 646948783 Comment: #Chronic L. knee infection: -Will await for Dr. Cordero input -Continue Fluconazole -ESR & CRP, WNL (4) Atrial fibrillation Current Visit: No Status: Acute Code(s): I48.91 - UNSPECIFIED ATRIAL FIBRILLATION SNOMED Code(s): 57417858 Comment: -Continue Rivaroxaban -Hold Metoprolol as discussed (5) Hypothyroid Current Visit: No Status: Chronic Code(s): E03.9 - HYPOTHYROIDISM, UNSPECIFIED SNOMED Code(s): 34300915 Comment: -TSH last checked in Jun and WNL -Reconsider re-checking if still hypotensive by AM (6) Neurogenic bladder Current Visit: No Status: Chronic Code(s): N31.9 - NEUROMUSCULAR DYSFUNCTION OF BLADDER, UNSPECIFIED SNOMED Code(s): 564877873 Comment: -D/C Oxybutynin as discussed -Continue w/chronic indwelling pal (7) DVT prophylaxis Current Visit: No Status: Acute Code(s): ILK5673 - SNOMED Code(s): 294103323 Comment: -Continue Rivaroxaban Status and Disposition: -Appreciate PT eval -For AR placement when stable
[2018-10-06] MEDS: Rivaroxaban TAB(*) 20 MG TAB PO SCH (18:39)
[2018-10-07] MEDS: cefTRIAXone(*) 1 GM in NS 0.9% 50 ML* 50 ML IVPB SCH ×3 (00:11→22:39)
[2018-10-07] MEDS: Levothyroxine TAB* 150 MCG TAB PO SCH (06:53)
[2018-10-07] MEDS: Gabapentin CAP(*) 100 MG PO SCH (09:10)
[2018-10-07] MEDS: Sertraline* 50 MG TAB PO SCH (09:10)
[2018-10-07] MEDS: Baclofen TAB* 10 MG PO SCH ×2 (09:10→21:18)
[2018-10-07] MEDS: Acetaminophen TAB* 325 MG PO PRN ×2 (09:10→21:22)
[2018-10-07] MEDS: Fluconazole 100 MG TAB* TAB PO SCH ×2 (09:10→21:17)
[2018-10-07] MEDS: Potassium Chlor TAB* 10 MEQ TAB.ER PO SCH (09:10)
[2018-10-07] MEDS ORDERED: Vancomycin Trough Check NOTE FOLLOW UP ONE (09:30)
[2018-10-07 09:47] LABS: ABS Basophils 0 10^3/ul (0-0.2); ABS Eosinophils 0.1 10^3/ul (0-0.6); ABS Lymphocytes 0.7 10^3/ul (1.0-4.8); ABS Monocytes 0.3 10^3/ul (0-0.8); ABS Neutrophils 3.3 10^3/ul (1.5-7.7); ABS Nucleated RBC 0 10^3/ul; Eosinophil % 2.5 %; Hematocrit 40 % (35-47); Hemoglobin 13.2 g/dl (12.0-16.0); Lymphocyte % 15.9 %; Mean Corpuscular HGB Conc 33 g/dl (31-36); Mean Corpuscular Hemoglobin 27 pg (27-31); Mean Corpuscular Volume 82 fL (80-97); Mean Platelet Volume 7.8 fL (7.4-10.4); Nucleated Red Blood Cells % 0.1; Platelet Count 174 10^3/ul (150-450); Red Blood Count 4.83 10^6/ul (4.00-5.40); Red Cell Distribution Width 15 % (10.5-15); White Blood Count 4.5 10^3/ul (3.5-10.8)
[2018-10-07 10:11] LABS: Albumin 3.7 g/dL (3.2-5.2); Albumin/Globulin Ratio 1.5 (1-3); BUN/Creatinine Ratio 14.1 (8-20); Calcium 8.8 mg/dL (8.6-10.3); EGFR Non-African American 80.7 (>60); Globulin 2.4 g/dL (2-4); Magnesium 1.6 mg/dL (1.9-2.7); Phosphorus 3.1 mg/dL (2.5-5.0); Potassium 3.6 mmol/L (3.5-5.0); Total Bilirubin 0.5 mg/dL (0.2-1.0); Total Protein 6.1 g/dL (6.4-8.9)
[2018-10-07] MEDS: Vancomycin(*) 1,000 MG in NS 0.9% 250 ML* 250 ML IVPB SCH ×2 (10:42→18:27)
[2018-10-07] MEDS ORDERED: Ibuprofen TAB* 200 MG PO ONE (16:37)
--- NOTE | 2018-10-07 16:37 | PN ---
Subjective Date of Service: 10/07/18 Interval History: c/o L orbital pain and headache. Swelling around orbit Objective Active Medications: Acetaminophen (Tylenol Tab*) 650 mg PO Q6H PRN PRN Reason: Pain/Fever Last Admin: 10/07/18 09:10 Dose: 650 mg Baclofen (Lioresal Tab*) 15 mg PO BID [facility] Last Admin: 10/07/18 09:10 Dose: 15 mg Docusate Sodium (Colace Cap*) 100 mg PO BID PRN PRN Reason: CONSTIPATION Last Admin: 10/06/18 01:53 Dose: 100 mg Fluconazole (Diflucan 100 Mg Tab*) 200 mg PO BID [facility] Last Admin: 10/07/18 09:10 Dose: 200 mg Gabapentin (Neurontin Cap(*)) 200 mg PO DAILY [facility] Last Admin: 10/07/18 09:10 Dose: 200 mg Ceftriaxone Sodium 1 gm/ (Sodium Chloride) 50 mls @ 200 mls/hr IVPB Q24H [facility] Last Admin: 10/07/18 00:11 Dose: 200 mls/hr Sodium Chloride (Ns 0.9% 1000 Ml*) 1,000 mls @ 125 mls/hr IV PER RATE [facility] Last Admin: 10/06/18 16:26 Dose: 125 mls/hr Vancomycin HCl 1,000 mg/ (Sodium Chloride) 250 mls @ 166.667 mls/hr IVPB Q8H [facility] Levothyroxine Sodium (Synthroid Tab*) 150 mcg PO DAILY@0600 [facility] Last Admin: 10/07/18 06:53 Dose: 150 mcg Ondansetron HCl (Zofran Inj*) 4 mg IV Q6H PRN PRN Reason: NAUSEA Pharmacy Consult (Vancomycin Per Pharmacy*) 1 note FOLLOW UP . PRN PRN Reason: PER PROTOCOL Pharmacy Profile Note (Vancomycin Trough Check) 1 note FOLLOW UP ONCE ONE Stop: 10/09/18 09:31 Potassium Chloride (Klor Con Er Tab*) 10 meq PO DAILY [facility] Last Admin: 10/07/18 09:10 Dose: 10 meq Rivaroxaban (Xarelto(*)) 20 mg PO DAILY@1700 [facility] Last Admin: 10/06/18 18:39 Dose: 20 mg Sertraline HCl (Zoloft*) 50 mg PO DAILY [facility] Last Admin: 10/07/18 09:10 Dose: 50 mg Vital Signs - 8 hr 12/15/18 12/15/18 12/15/18 09:10 11:37 12:22 Temperature 98.2 F Pulse Rate 63 Respiratory 16 16 18 Rate Blood Pressure 130/81 (mmHg) O2 Sat by Pulse 97 Oximetry Oxygen Devices in Use Now: None - L orbital and frontal swelling with erythema and pain on palpation Eyes: No Scleral Icterus - visual yeager intact.however orbital swelling Ears/Nose/Mouth/Throat: Clear Oropharnyx Neck: NL Appearance and Movements; NL JVP Respiratory: Symmetrical Chest Expansion and Respiratory Effort Cardiovascular: NL Sounds; No Murmurs; No JVD Abdominal: NL Sounds; No Tenderness; No Distention Extremities: No Edema Skin: No Rash or Ulcers Neurological: Alert and Oriented x 3 Result Diagrams: 10/07/18 09:29 10/07/18 09:30 Microbiology and Other Data: Microbiology 10/05/18 18:44 Urine Culture - Preliminary Urine Escherichia Coli Klebsiella Oxytoca 10/05/18 22:56 Aerobic Blood Culture - Preliminary Blood Venous No Growth Day 1 Anaerobic Blood Culture - Preliminary No Growth Day 1 10/05/18 22:56 Aerobic Blood Culture - Preliminary Blood Venous No Growth Day 1 Anaerobic Blood Culture - Preliminary No Growth Day 1 Assess/Plan/Problems-Billing Assessment: - Patient Problems (1) Sepsis secondary to UTI Current Visit: Yes Status: Acute Code(s): A41.9 - SEPSIS, UNSPECIFIED ORGANISM; N39.0 - URINARY TRACT INFECTION, SITE NOT SPECIFIED SNOMED Code(s): 380573459 Comment: -Likely cause of Hypotension and now qualifies as septic given pyuria, hypotension, and presenting tachypnea -Not tachycardic likely due to Metoprolol succinate---will hold this for now -As discussed, pt given bolus and increased IVF rate -Continue Rocephin and will continue Vancomycin due to previous enterococcus UTI , w/c Cephalosporins usually have poor coverage for -Continue to follow cultures (2) Frequent falls Current Visit: Yes Status: Acute Code(s): R29.6 - REPEATED FALLS SNOMED Code(s): 813133215 Comment: -Likely due to polypharmacy in the setting of UTI w/sepsis -Will D/C OxybutyninI am unclear as to why she has this given she has a chronic pal catheter replaced every month or so for known neurogenic bladder and could be contributing to her frequent falls -Orbital swelling, will get CT face and orbits to r/o fracture (3) Atrial fibrillation Current Visit: No Status: Acute Code(s): I48.91 - UNSPECIFIED ATRIAL FIBRILLATION SNOMED Code(s): 56713468 Comment: -Continue Rivaroxaban -Hold Metoprolol as discussed (4) DVT prophylaxis Current Visit: No Status: Acute Code(s): TBV8603 - SNOMED Code(s): 762674136 Comment: -Continue Rivaroxaban Status and Disposition: -Appreciate PT eval -For AR placement when stable
[2018-10-07] MEDS: Rivaroxaban TAB(*) 20 MG TAB PO SCH (18:23)
[2018-10-08] MEDS: Vancomycin(*) 1,000 MG in NS 0.9% 250 ML* 250 ML IVPB SCH ×3 (01:42→18:23)
[2018-10-08] MEDS: Levothyroxine TAB* 150 MCG TAB PO SCH (05:23)
[2018-10-08 06:46] LABS: ABS Basophils 0 10^3/ul (0-0.2); ABS Eosinophils 0.2 10^3/ul (0-0.6); ABS Lymphocytes 0.8 10^3/ul (1.0-4.8); ABS Monocytes 0.3 10^3/ul (0-0.8); ABS Neutrophils 2.2 10^3/ul (1.5-7.7); ABS Nucleated RBC 0 10^3/ul; Eosinophil % 5.1 %; Hematocrit 37 % (35-47); Hemoglobin 12.4 g/dl (12.0-16.0); Lymphocyte % 23.5 %; Mean Corpuscular HGB Conc 34 g/dl (31-36); Mean Corpuscular Hemoglobin 28 pg (27-31); Mean Corpuscular Volume 82 fL (80-97); Mean Platelet Volume 7.5 fL (7.4-10.4); Nucleated Red Blood Cells % 0; Platelet Count 165 10^3/ul (150-450); Red Blood Count 4.43 10^6/ul (4.00-5.40); Red Cell Distribution Width 16 % (10.5-15); White Blood Count 3.6 10^3/ul (3.5-10.8)
[2018-10-08 06:57] LABS: BUN/Creatinine Ratio 15.1 (8-20); Calcium 8.7 mg/dL (8.6-10.3); EGFR Non-African American 113.1 (>60); Potassium 3.6 mmol/L (3.5-5.0)
[2018-10-08] MEDS: Sertraline* 50 MG TAB PO SCH (09:59)
[2018-10-08] MEDS: Fluconazole 100 MG TAB* TAB PO SCH ×2 (09:59→20:39)
[2018-10-08] MEDS: Potassium Chlor TAB* 10 MEQ TAB.ER PO SCH (09:59)
[2018-10-08] MEDS: Baclofen TAB* 10 MG PO SCH ×2 (09:59→20:39)
[2018-10-08] MEDS: Gabapentin CAP(*) 100 MG PO SCH (09:59)
--- NOTE | 2018-10-08 10:56 | PN ---
Subjective Date of Service: 10/08/18 Interval History: Sig improvement in swelling and pain around orbital area. Alert oriented Objective Active Medications: Acetaminophen (Tylenol Tab*) 650 mg PO Q6H PRN PRN Reason: Pain/Fever Last Admin: 10/07/18 21:22 Dose: 650 mg Baclofen (Lioresal Tab*) 15 mg PO BID [facility] Last Admin: 10/08/18 09:59 Dose: 15 mg Docusate Sodium (Colace Cap*) 100 mg PO BID PRN PRN Reason: CONSTIPATION Last Admin: 10/06/18 01:53 Dose: 100 mg Fluconazole (Diflucan 100 Mg Tab*) 200 mg PO BID [facility] Last Admin: 10/08/18 09:59 Dose: 200 mg Gabapentin (Neurontin Cap(*)) 200 mg PO DAILY [facility] Last Admin: 10/08/18 09:59 Dose: 200 mg Ceftriaxone Sodium 1 gm/ (Sodium Chloride) 50 mls @ 200 mls/hr IVPB Q24H [facility] Last Admin: 10/07/18 22:39 Dose: Not Given Sodium Chloride (Ns 0.9% 1000 Ml*) 1,000 mls @ 125 mls/hr IV PER RATE [facility] Last Admin: 10/06/18 16:26 Dose: 125 mls/hr Vancomycin HCl 1,000 mg/ (Sodium Chloride) 250 mls @ 166.667 mls/hr IVPB Q8H [facility] Last Admin: 10/08/18 10:01 Dose: 166.667 mls/hr Levothyroxine Sodium (Synthroid Tab*) 150 mcg PO DAILY@0600 [facility] Last Admin: 10/08/18 05:23 Dose: 150 mcg Ondansetron HCl (Zofran Inj*) 4 mg IV Q6H PRN PRN Reason: NAUSEA Pharmacy Consult (Vancomycin Per Pharmacy*) 1 note FOLLOW UP . PRN PRN Reason: PER PROTOCOL Pharmacy Profile Note (Vancomycin Trough Check) 1 note FOLLOW UP ONCE ONE Stop: 10/09/18 09:31 Potassium Chloride (Klor Con Er Tab*) 10 meq PO DAILY [facility] Last Admin: 10/08/18 09:59 Dose: 10 meq Rivaroxaban (Xarelto(*)) 20 mg PO DAILY@1700 [facility] Last Admin: 10/07/18 18:23 Dose: 20 mg Sertraline HCl (Zoloft*) 50 mg PO DAILY [facility] Last Admin: 10/08/18 09:59 Dose: 50 mg Vital Signs - 8 hr 10/08/18 10/08/18 10/08/18 03:23 07:45 08:00 Temperature 97.3 F 97.9 F Pulse Rate 64 73 Respiratory 16 16 18 Rate Blood Pressure 130/80 148/95 (mmHg) O2 Sat by Pulse 95 96 Oximetry 10/08/18 09:59 Temperature Pulse Rate Respiratory 18 Rate Blood Pressure (mmHg) O2 Sat by Pulse Oximetry Oxygen Devices in Use Now: None Eyes: - - L orbital edema improved.Able to open eye lids.Visual field intact Ears/Nose/Mouth/Throat: NL Teeth, Lips, Gums Neck: NL Appearance and Movements; NL JVP Respiratory: Symmetrical Chest Expansion and Respiratory Effort, Clear to Auscultation Cardiovascular: NL Sounds; No Murmurs; No JVD Abdominal: NL Sounds; No Tenderness; No Distention Skin: No Rash or Ulcers Neurological: Alert and Oriented x 3 Result Diagrams: 10/08/18 06:23 10/08/18 06:23 Microbiology and Other Data: Microbiology 10/05/18 18:44 Urine Culture - Preliminary Urine Escherichia Coli Klebsiella Oxytoca 10/05/18 22:56 Aerobic Blood Culture - Preliminary Blood Venous No Growth Day 1 Anaerobic Blood Culture - Preliminary No Growth Day 1 10/05/18 22:56 Aerobic Blood Culture - Preliminary Blood Venous No Growth Day 1 Anaerobic Blood Culture - Preliminary No Growth Day 1 Assess/Plan/Problems-Billing Assessment: - Patient Problems (1) Sepsis secondary to UTI Current Visit: Yes Status: Acute Code(s): A41.9 - SEPSIS, UNSPECIFIED ORGANISM; N39.0 - URINARY TRACT INFECTION, SITE NOT SPECIFIED SNOMED Code(s): 408337653 Comment: -Likely cause of Hypotension and now qualifies as septic given pyuria, hypotension, and presenting tachypnea -Was on IVf, hold -Continue Rocephin and will continue Vancomycin due to previous enterococcus UTI , w/c Cephalosporins usually have poor coverage for -Continue to follow cultures and can d/c vanco if not enterococcus (2) Frequent falls Current Visit: Yes Status: Acute Code(s): R29.6 - REPEATED FALLS SNOMED Code(s): 164258263 Comment: -Likely due to polypharmacy in the setting of UTI w/sepsis -D/c ed Oxybutynin when she got admitted.Has a chronic pal replaced every month.Will need to explore further to see if she needs this.Likely neurogenic bladder from MS that she was diagnosed with but not on rx. -Orbital swelling, will get CT face and orbits to r/o fracture-No fracture (3) Atrial fibrillation Current Visit: No Status: Acute Code(s): I48.91 - UNSPECIFIED ATRIAL FIBRILLATION SNOMED Code(s): 40554288 Comment: -Continue Rivaroxaban -Will restart metoprolol (4) DVT prophylaxis Current Visit: No Status: Acute Code(s): [id number] - SNOMED Code(s): 511788438 Comment: -Continue Rivaroxaban (5) Multiple sclerosis Current Visit: Yes Status: Acute Code(s): G35 - MULTIPLE SCLEROSIS SNOMED Code(s): 31326455 Comment: Op f/u with neurology More problems with gait and balance. Falls in the setting of neurogenic bladder/detrussor muscle instability ,pal leading to uti,ams and falls Rehab assessment/PT/OT Further evaluation Status and Disposition: -Appreciate PT eval -For AR placement when stable
[2018-10-08] MEDS ORDERED: Ibuprofen TAB* 200 MG PO ONE (11:00)
[2018-10-08] MEDS: Metoprolol Succinate XL TAB* 50 MG PO SCH (13:18)
[2018-10-08] MEDS: Rivaroxaban TAB(*) 20 MG TAB PO SCH (18:23)
[2018-10-09] MEDS: cefTRIAXone(*) 1 GM in NS 0.9% 50 ML* 50 ML IVPB SCH (01:33)
[2018-10-09] MEDS: Vancomycin(*) 1,000 MG in NS 0.9% 250 ML* 250 ML IVPB SCH (01:49)
[2018-10-09] MEDS: Levothyroxine TAB* 150 MCG TAB PO SCH (05:20)
[2018-10-09 06:05] LABS: ABS Basophils 0 10^3/ul (0-0.2); ABS Eosinophils 0.2 10^3/ul (0-0.6); ABS Lymphocytes 0.9 10^3/ul (1.0-4.8); ABS Monocytes 0.4 10^3/ul (0-0.8); ABS Neutrophils 2.2 10^3/ul (1.5-7.7); ABS Nucleated RBC 0 10^3/ul; Hematocrit 37 % (35-47); Hemoglobin 12.5 g/dl (12.0-16.0); Lymphocyte % 24.7 %; Mean Corpuscular HGB Conc 34 g/dl (31-36); Mean Corpuscular Hemoglobin 28 pg (27-31); Mean Corpuscular Volume 83 fL (80-97); Mean Platelet Volume 7.2 fL (7.4-10.4); Nucleated Red Blood Cells % 0.2; Platelet Count 180 10^3/ul (150-450); Red Blood Count 4.48 10^6/ul (4.00-5.40); Red Cell Distribution Width 16 % (10.5-15); White Blood Count 3.7 10^3/ul (3.5-10.8)
[2018-10-09 06:35] LABS: BUN/Creatinine Ratio 18.2 (8-20); Calcium 8.7 mg/dL (8.6-10.3); EGFR Non-African American 108.3 (>60); Potassium 3.6 mmol/L (3.5-5.0)
[2018-10-09] MEDS: Metoprolol Succinate XL TAB* 50 MG PO SCH (09:13)
[2018-10-09] MEDS: Baclofen TAB* 10 MG PO SCH ×2 (09:14→21:34)
[2018-10-09] MEDS: Potassium Chlor TAB* 10 MEQ TAB.ER PO SCH (09:15)
[2018-10-09] MEDS: Fluconazole 100 MG TAB* TAB PO SCH ×2 (09:15→21:34)
[2018-10-09] MEDS: Gabapentin CAP(*) 100 MG PO SCH (09:16)
[2018-10-09] MEDS: Sertraline* 50 MG TAB PO SCH (09:16)
[2018-10-09] MEDS ORDERED: Vancomycin Trough Check NOTE FOLLOW UP ONE (09:30)
--- NOTE | 2018-10-09 14:52 | PN ---
Subjective Date of Service: 10/09/18 Interval History: Patient has no complaints today. Patient denies pain in face. Patient denies abdominal pain, diarrhea, CP, SOB, diarrhea, F/C, dizziness, or other pain. Patient is still feeling very weak but would like to go home if possible. When told PT recommended TATUM, patient was agreeable. Family History: Unchanged from Admission Social History: Unchanged from Admission Past Medical History: Unchanged from Admission Objective Active Medications: Acetaminophen (Tylenol Tab*) 650 mg PO Q6H PRN PRN Reason: Pain/Fever Last Admin: 10/07/18 21:22 Dose: 650 mg Baclofen (Lioresal Tab*) 15 mg PO BID [facility] Last Admin: 10/09/18 09:14 Dose: 15 mg Docusate Sodium (Colace Cap*) 100 mg PO BID PRN PRN Reason: CONSTIPATION Last Admin: 10/06/18 01:53 Dose: 100 mg Fluconazole (Diflucan 100 Mg Tab*) 200 mg PO BID [facility] Last Admin: 10/09/18 09:15 Dose: 200 mg Gabapentin (Neurontin Cap(*)) 200 mg PO DAILY [facility] Last Admin: 10/09/18 09:16 Dose: 200 mg Ceftriaxone Sodium 1 gm/ (Sodium Chloride) 50 mls @ 200 mls/hr IVPB Q24H [facility] Last Admin: 10/09/18 01:33 Dose: 200 mls/hr Levothyroxine Sodium (Synthroid Tab*) 150 mcg PO DAILY@0600 [facility] Last Admin: 10/09/18 05:20 Dose: 150 mcg Metoprolol Succinate (Toprol Xl Tab*) 50 mg PO DAILY [facility] Last Admin: 10/09/18 09:13 Dose: 50 mg Ondansetron HCl (Zofran Inj*) 4 mg IV Q6H PRN PRN Reason: NAUSEA Potassium Chloride (Klor Con Er Tab*) 10 meq PO DAILY [facility] Last Admin: 10/09/18 09:15 Dose: 10 meq Rivaroxaban (Xarelto(*)) 20 mg PO DAILY@1700 [facility] Last Admin: 10/08/18 18:23 Dose: 20 mg Sertraline HCl (Zoloft*) 50 mg PO DAILY [facility] Last Admin: 10/09/18 09:16 Dose: 50 mg Vital Signs - 8 hr 10/09/18 10/09/18 08:56 09:16 Temperature 97.8 F Pulse Rate 75 Respiratory 16 16 Rate Blood Pressure 154/94 (mmHg) O2 Sat by Pulse 96 Oximetry Oxygen Devices in Use Now: None Appearance: Patient is a 73yo female who appears stated age, has extensive facial bruising, and is sitting in the bed in NAD. Eyes: No Scleral Icterus, PERRLA Ears/Nose/Mouth/Throat: NL Teeth, Lips, Gums, Clear Oropharnyx, Mucous Membranes Moist Neck: NL Appearance and Movements; NL JVP, Trachea Midline Respiratory: Symmetrical Chest Expansion and Respiratory Effort, Clear to Auscultation Cardiovascular: NL Sounds; No Murmurs; No JVD, RRR, No Edema Abdominal: NL Sounds; No Tenderness; No Distention, No Hepatosplenomegaly, - - Pal in place. Lymphatic: No Cervical Adenopathy Extremities: No Edema, No Clubbing, Cyanosis Skin: No Nodules or Sclerosis, - - Bruising on face and arms in various stages of healing. Neurological: - - Rigidity, weakness diffusely. CN II-XII intact. Alert and oriented x3 at this time. Result Diagrams: 10/09/18 05:36 10/09/18 05:36 Microbiology and Other Data: Microbiology 10/05/18 18:44 Urine Culture - Preliminary Urine Escherichia Coli Klebsiella Oxytoca 10/05/18 22:56 Aerobic Blood Culture - Preliminary Blood Venous No Growth Day 1 Anaerobic Blood Culture - Preliminary No Growth Day 1 10/05/18 22:56 Aerobic Blood Culture - Preliminary Blood Venous No Growth Day 1 Anaerobic Blood Culture - Preliminary No Growth Day 1 Assess/Plan/Problems-Billing Assessment: Patient is a 73yo female with a PMH for MS, Afib, chronic urinary retention, and indwelling pal who presents with falls and weakness due to CAUTI and is improving, but will need rehab at discharge. - Patient Problems (1) Frequent falls Current Visit: Yes Status: Acute Code(s): R29.6 - REPEATED FALLS SNOMED Code(s): 925308622 Comment: -Likely due to MS, sepsis and possibly polypharmacy. - No fractures found on CT scans. - Will need TATUM, follow up with Neurology for possiblity for symptomatic therapy for MS. (2) Multiple sclerosis Current Visit: Yes Status: Acute Code(s): G35 - MULTIPLE SCLEROSIS SNOMED Code(s): 67135763 Comment: - PT/OT and TATUM - Continue treatment for spasms. - Follow up with Neurology outpatient. Not a good candidate for DMARD. (3) Sepsis secondary to UTI Current Visit: Yes Status: Acute Code(s): A41.9 - SEPSIS, UNSPECIFIED ORGANISM; N39.0 - URINARY TRACT INFECTION, SITE NOT SPECIFIED SNOMED Code(s): 750582794 Comment: - Resolved - Continue Ceftriaxone for pansensitive E coli and Klebsiella Oxytoca. - Continue pal. 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
[2018-10-09] MEDS: Rivaroxaban TAB(*) 20 MG TAB PO SCH (17:24)
[2018-10-10] MEDS: cefTRIAXone(*) 1 GM in NS 0.9% 50 ML* 50 ML IVPB SCH (00:31)
[2018-10-10] MEDS: Levothyroxine TAB* 150 MCG TAB PO SCH (05:25)
[2018-10-10] MEDS: Baclofen TAB* 10 MG PO SCH ×2 (09:05→21:36)
[2018-10-10] MEDS: Potassium Chlor TAB* 10 MEQ TAB.ER PO SCH (09:05)
[2018-10-10] MEDS: Gabapentin CAP(*) 100 MG PO SCH (09:05)
[2018-10-10] MEDS: Fluconazole 100 MG TAB* TAB PO SCH ×2 (09:05→21:35)
[2018-10-10] MEDS: Sertraline* 50 MG TAB PO SCH (09:05)
[2018-10-10] MEDS: Metoprolol Succinate XL TAB* 50 MG PO SCH (09:05)
[2018-10-10 11:40] LABS: BUN/Creatinine Ratio 21.4 (8-20); Calcium 9.1 mg/dL (8.6-10.3); EGFR Non-African American 106.1 (>60); Magnesium 1.6 mg/dL (1.9-2.7); Potassium 3.8 mmol/L (3.5-5.0)
--- NOTE | 2018-10-10 16:09 | PN ---
Subjective Date of Service: 10/10/18 Interval History: Resting in chair on assessment. Bruise to left side of face. Reports pain in left side of face has improved. Denies headache, dizziness, cp, sob, n/v/d. Family History: Unchanged from Admission Social History: Unchanged from Admission Past Medical History: Unchanged from Admission Objective Active Medications: Acetaminophen (Tylenol Tab*) 650 mg PO Q6H PRN PRN Reason: Pain/Fever Last Admin: 10/07/18 21:22 Dose: 650 mg Baclofen (Lioresal Tab*) 15 mg PO BID [facility] Last Admin: 10/10/18 09:05 Dose: 15 mg Docusate Sodium (Colace Cap*) 100 mg PO BID PRN PRN Reason: CONSTIPATION Last Admin: 10/06/18 01:53 Dose: 100 mg Fluconazole (Diflucan 100 Mg Tab*) 200 mg PO BID [facility] Last Admin: 10/10/18 09:05 Dose: 200 mg Gabapentin (Neurontin Cap(*)) 200 mg PO DAILY [facility] Last Admin: 10/10/18 09:05 Dose: 200 mg Ceftriaxone Sodium 1 gm/ (Sodium Chloride) 50 mls @ 200 mls/hr IVPB Q24H [facility] Last Admin: 10/10/18 00:31 Dose: 200 mls/hr Levothyroxine Sodium (Synthroid Tab*) 150 mcg PO DAILY@0600 [facility] Last Admin: 10/10/18 05:25 Dose: 150 mcg Metoprolol Succinate (Toprol Xl Tab*) 50 mg PO DAILY [facility] Last Admin: 10/10/18 09:05 Dose: 50 mg Ondansetron HCl (Zofran Inj*) 4 mg IV Q6H PRN PRN Reason: NAUSEA Potassium Chloride (Klor Con Er Tab*) 10 meq PO DAILY [facility] Last Admin: 10/10/18 09:05 Dose: 10 meq Rivaroxaban (Xarelto(*)) 20 mg PO DAILY@1700 [facility] Last Admin: 10/09/18 17:24 Dose: 20 mg Sertraline HCl (Zoloft*) 50 mg PO DAILY [facility] Last Admin: 10/10/18 09:05 Dose: 50 mg Vital Signs - 8 hr 10/10/18 10/10/18 10/10/18 08:31 09:05 11:05 Temperature 98.2 F 97.4 F Pulse Rate 69 77 Respiratory 16 18 18 Rate Blood Pressure 151/85 130/71 (mmHg) O2 Sat by Pulse 97 98 Oximetry 10/10/18 12:13 Temperature Pulse Rate Respiratory 18 Rate Blood Pressure (mmHg) O2 Sat by Pulse Oximetry Oxygen Devices in Use Now: None Appearance: Comfortable, cooperative, NAD Eyes: PERRLA Ears/Nose/Mouth/Throat: Clear Oropharnyx, Mucous Membranes Moist Neck: NL Appearance and Movements; NL JVP Respiratory: Symmetrical Chest Expansion and Respiratory Effort, Clear to Auscultation Cardiovascular: NL Sounds; No Murmurs; No JVD, RRR, No Edema Abdominal: NL Sounds; No Tenderness; No Distention Lymphatic: No Cervical Adenopathy Extremities: No Edema Skin: No Rash or Ulcers, - - Bruising to left side of face Neurological: Alert and Oriented x 3, NL Sensation, NL Muscle Strength and Tone Result Diagrams: 10/09/18 05:36 10/10/18 11:14 Additional Lab and Data: Laboratory Results - last 24 hr 10/10/18 11:14 Sodium 136 Potassium 3.8 Chloride 104 Carbon Dioxide 23 Anion Gap 9 BUN 12 Creatinine 0.56 Est GFR ( Amer) 128.4 Est GFR (Non-Af Amer) 106.1 BUN/Creatinine Ratio 21.4 H Glucose 156 H Calcium 9.1 Magnesium 1.6 L Microbiology and Other Data: Assess/Plan/Problems-Billing Assessment: Patient is a 73yo female with a PMH for MS, Afib, chronic urinary retention, and indwelling pal who presents with falls and weakness due to CAUTI and is improving, but will need rehab at discharge. - Patient Problems (1) Frequent falls Comment: - Likely due to MS, sepsis and possibly polypharmacy. - No fractures found on CT scans. - Has bed at [facility], follow up with Neurology for possiblity for symptomatic therapy for MS. (2) Multiple sclerosis Comment: - PT/OT and rehab at [facility] - Continue treatment for spasms. - Follow up with Neurology outpatient. (3) Sepsis secondary to UTI Comment: - Resolved - Continue Ceftriaxone for pansensitive E coli and Klebsiella Oxytoca. - Continue pal. 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 (7) Neurogenic bladder Current Visit: No Status: Chronic Code(s): N31.9 - NEUROMUSCULAR DYSFUNCTION OF BLADDER, UNSPECIFIED SNOMED Code(s): 171543738 Comment: -Continue w/chronic indwelling pal Status and Disposition: Discharge to [facility] at [place] tomorrow Attending: Odette Prieto
[2018-10-10] MEDS: Rivaroxaban TAB(*) 20 MG TAB PO SCH (16:13)
[2018-10-11] MEDS: cefTRIAXone(*) 1 GM in NS 0.9% 50 ML* 50 ML IVPB SCH (00:20)
[2018-10-11] MEDS: Levothyroxine TAB* 150 MCG TAB PO SCH (05:52)
[2018-10-11] MEDS: Baclofen TAB* 10 MG PO SCH (07:37)
[2018-10-11] MEDS: Acetaminophen TAB* 325 MG PO PRN (07:37)
[2018-10-11] MEDS: Fluconazole 100 MG TAB* TAB PO SCH (07:38)
[2018-10-11] MEDS: Potassium Chlor TAB* 10 MEQ TAB.ER PO SCH (07:38)
[2018-10-11] MEDS: Gabapentin CAP(*) 100 MG PO SCH (07:38)
[2018-10-11] MEDS: Metoprolol Succinate XL TAB* 50 MG PO SCH (07:38)
[2018-10-11] MEDS: Sertraline* 50 MG TAB PO SCH (07:38)
[2018-10-11] MEDS ORDERED: Magnesium Sulfate 2 GM IV* 2 GM/50 ML BAG IVPB ONE (08:27)
[2018-10-11] MEDS ORDERED: Hydrochlorothiazide TAB* 25 MG PO SCH (09:00)
--- NOTE | 2018-10-11 09:42 | DS ---
AMENDED REPORT NOW INCLUDES DESIGNATED COSIGNER CC: Juliana Reeves MD * DISCHARGE SUMMARY: DATE OF ADMISSION: 10/05/18 DATE OF DISCHARGE: 10/11/18 PRIMARY CARE PROVIDER: Juliana Reeves MD. ATTENDING PHYSICIAN: Dr. Prieto * (dictated by David Culp NP). PRIMARY DIAGNOSES: 1. Falls. 2. Urinary tract infection. 3. Weakness SECONDARY DIAGNOSES: 1. Multiple sclerosis. 2. Atrial fibrillation. 3. Hypothyroidism. 4. Neurogenic bladder. 5. Chronic infective right knee hardware. 6. Thyroid cancer. CONSULTATIONS WHILE IN THE HOSPITAL: There were no consultations. PROCEDURES WHILE IN THE HOSPITAL: There were no procedures. STUDIES WHILE IN THE HOSPITAL: 1. Brain CT: Impression: No evidence of acute intracranial abnormality. Hematoma in the scalp anterior to the frontal bones. 2. Chest x-ray: Impression: No evidence for acute disease. 3. EKG: Impression: Atrial fibrillation. Rate controlled. 4. Left knee x-ray: Impression: Osteopenia, osteoarthritis, no acute osseous injury. If symptoms persist, recommend repeat imaging. 5. Maxillofacial CT: Impression: Left facial contusion with no fracture or hematomas. DISCHARGE HOME MEDICATIONS: New home medications: No new home medications. Continued home medications: 1. Fluconazole 200 mg p.o. b.i.d. 2. Synthroid 150 mcg p.o. daily. 3. Zoloft 50 mg p.o. daily. 4. Xarelto 20 mg p.o. daily. 5. Toprol XL 50 mg p.o. daily. 6. Potassium 10 mEq daily. 7. Hydrochlorothiazide 25 mg p.o. daily. 8. Gabapentin 200 mg p.o. daily. 9. Colace 100 mg p.o. b.i.d. 10. Fosamax 70 mg p.o. weekly. 11. Tylenol 1000 mg p.o. q. 8 hours p.r.n. 12. Baclofen 50 mg p.o. b.i.d. Changed home medications: No home medications were changed. Discontinued home medications: Oxybutynin 10 mg p.o. daily discontinued. HISTORY OF PRESENT ILLNESS/HOSPITAL COURSE: Ms. Scott is a 73-year-old female with past medical history of MS, AFib, hypothyroidism, neurogenic bladder , chronic infective right knee, thyroid cancer; who presented to the ED on 10/05 with complaint of falls. Please see history and physical dictated by Andres Pino for complete summary of events leading up to this hospitalization, but in short the patient presented to the ED stating she fell twice in one day while transferring from wheelchair to her bed. She reports these falls resulted as she felt weak and could not support herself. In addition, she reported that over the last few days she was feeling tired, weak, fatigued and not feeling well. While in the ED, she was found to have a UTI and because of this she was admitted under inpatient status. During this hospital stay, the patient was treated with IV antibiotics for UTI. At one point, the patient also required a small fluid bolus due to hypotension. There was concern that her weakness and frequent falls were due to UTI and polypharmacy; therefore, oxybutynin was discontinued. It should also be noted that Chaudhari catheter was changed while she was hospitalized. The patient responded well to IV antibiotics and IV fluids. The patient remained afebrile during hospital stay. She was only noted to be tachycardiac with a heart rate greater than 90 on one or two occasions. The patient's hospital stay was complicated by swelling, bruising, and pain around her left orbital area which was a result of the fall. She underwent a CT (as mentioned above) which was normal. The patient reports that the pain has improved and bruising is resolving During this hospital stay, the patient was also evaluated by PT and OT due to her weakness and frequent falls. It was found that the patient would benefit from subacute rehab. In addition, the patient would benefit from followup with Neurology as an outpatient as this could be a progression of her disease (MS). Ms. Scott is stable for discharge to [facility] rehab facility. Vital signs as follows: BP 159/87, Temp 97.6, HR 61, RR 20. O2 sat 97% RA. ROS: Reports minor pain to left side of face. Denies cp, sob, n/v/d. 12 point ROS completed and all other negative. Physical exam: General: Comfortable, cooperative, NAD. HEENT. EOMs intact. Peripheral vision intact. Sclera wnl. PERRLA. Oral mucous moist and free from lesions. Neck: Supple. ROM. Resp: LS clear and good aeration. CV: S1/S2 present. No murmur, rubs or gallops. Abd: Soft, nontender. BS x4 Extremities: No edema, clubbing, deformities. Skin. Intact. No lesions or rashes Neuro: CN 2 - 12 intact. Strength 5/5 throughout. FOLLOWUP PLAN: 1. Weakness/frequent falls: The patient will be discharged to subacute rehab facility for PT/OT. The patient to continue Baclofen for spams. The patient should followup with Neurology (Dr Denise) as outpatient for further evaluation and treatment of MS. 2. UTI: The patient has completed a course of IV antibiotics (ceftriaxone). The patient does not need further treatment p.o. 3. Chronic left knee infection: Dr. Allan follows with this patient. She will continue fluconazole at discharge. The patient should followup with Dr. Allan as an outpatient. 4. Atrial fibrillation: The patient should continue Xarelto and Toprol 5. Frontal scalp hematoma: As previously mentioned, CT was negative and pain improving. The patient should be monitored for continued improvement. If she has any changes or new or worsening symptoms, she should be evaluated. It also would benefit that patient have an evaluation by Ophthalmology. 6. Hypothyroid: Continue Synthroid as same. 7. Neurogenic bladder: Maintain indwelling Chaudhari. The patient would benefit from further evaluation by Neurology and possibly Urology. 8. History of thyroid cancer/hypothyroid: Continue Synthroid. 9. Low Magnesium: Patient noted to have low Magnesium at 1.6, therefore, replaced today before discharge. She would benefit for having this rechecked in a week and supplement orally if needed EDUCATION: The patient was educated on new and worsening symptoms, when to return to the emergency department. This is a summarized report of a complex medical history and stay. For further details, please see entire medical record. TIME SPENT: Approximately 45 minutes was spent on this discharge, greater than half that time was spent [id number] with the patient discussing discharge plan and instructions. This plan was also discussed with my attending Dr. Prieto who agrees with my plan. DAVID CULP, ANURADHA [id number]/[facility] #: [id number] [place]
[2018-10-11 11:12] VITALS: BP 134/86
== END 2018-10-11 12:15 | DRG 699 ==
LOC: ED 17:08 → MED 21:51
PROVIDERS: ADMIT Internal Medicine; ATTEND Internal Medicine
PROC: 0T2BX0Z Change Drainage Device in Bladder, External Approach (ICD-10-PCS; principal; 2018-10-05)
DX: T83.518A Infection and inflammatory reaction due to other urinary catheter, initial encounter (principal); N39.0 Urinary tract infection, site not specified; M00.9 Pyogenic arthritis, unspecified; G35 Multiple sclerosis; Z91.81 History of falling; Z88.6 Allergy status to analgesic agent; Z85.850 Personal history of malignant neoplasm of thyroid; I48.91 Unspecified atrial fibrillation; I25.10 Atherosclerotic heart disease of native coronary artery without angina pectoris; E78.00 Pure hypercholesterolemia, unspecified; I10 Essential (primary) hypertension; J45.909 Unspecified asthma, uncomplicated; M19.042 Primary osteoarthritis, left hand; M19.041 Primary osteoarthritis, right hand; M46.90 Unspecified inflammatory spondylopathy, site unspecified; M81.0 Age-related osteoporosis without current pathological fracture; Z98.42 Cataract extraction status, left eye; Z98.41 Cataract extraction status, right eye; F41.9 Anxiety disorder, unspecified; F32.9 Major depressive disorder, single episode, unspecified; Z96.651 Presence of right artificial knee joint; Z82.49 Family history of ischemic heart disease and other diseases of the circulatory system; Z87.891 Personal history of nicotine dependence; E03.9 Hypothyroidism, unspecified; N31.9 Neuromuscular dysfunction of bladder, unspecified; Z90.89 Acquired absence of other organs; Z82.3 Family history of stroke; S00.03XA Contusion of scalp, initial encounter; W19.XXXA Unspecified fall, initial encounter; Y92.9 Unspecified place or not applicable; I95.9 Hypotension, unspecified; R29.6 Repeated falls; R51 Headache; M85.862 Other specified disorders of bone density and structure, left lower leg; M17.12 Unilateral primary osteoarthritis, left knee; Z79.01 Long term (current) use of anticoagulants; E83.42 Hypomagnesemia; Y73.2 Prosthetic and other implants, materials and accessory gastroenterology and urology devices associated with adverse incidents
CPT/HCPCS: 36415; 70450; 70486; 71045; 80048; 80053; 80202; 81003; 81015; 82550; 83605; 83735; 84100; 84484; 85025; 85610; 85652; 86140; 87040; 87077; 87086; 87186; 93005; 99284; A9270-GY; G8978-GP-CM; G8979-GP-CK; G8987-GO-CL; G8988-GO-CJ; J0696; J3370; J3475

== ENCOUNTER 2018-10-16 02:52 | Inpatient (IN) | payer MEDICARE ==
[2018-10-16] MEDS ORDERED: NS 0.9% 1000 ML* 1,000 ML IV ONE (03:07)
--- NOTE | 2018-10-16 03:16 | ED ---
Neurological HPI - HPI Summary HPI Summary: A 73 y/o female brought in by ambulance presents to the ED s/p walking into other patient's rooms. Currently, the patient reports no pain whatsoever. In the ED room, the patient has a pulse of 65 BPM, O2 saturation of 94%, and blood pressure of 179/97. As per EMS, the patient was walking into other patient's rooms and fell. According to the patient, she does remember falling earlier, but 2 weeks ago. Patient doesn't speak that much. Patient noted that she doesn' t walk as she uses a wheelchair. She stated that she cannot lift her right leg up as she has weakness. Patient stated to MD "no, I can't" when asked to lift up right leg. CODE STARR AT 0306 Patient is a 73 y/o female who has a history of multiple sclerosis, A-fib, neurogenic bladder with Meza catheter. Patient was here at [facility] and discharged on October 11, 2018 to custodial after being admitted on October 052017 because of multiple falls, contusions, hematomas, UTI, and generalized weakness. Patient is brought back to [facility] ED via EMS from custodial because according to nursing housekeeping supervisor, a nursing aid notified her that patient around 2200 was wandering around into other patients rooms. The housekeeping supervisor was not able to tell if the patient was wandering in a wheelchair or walking, however, patient notified ED MD that she is wheelchair bound. Pitch Gatherer noted that the aid who provided this information to her is not available now as she left home. Pitch Gatherer further noted that the patient is more confused and only alert to her name. However, she stated that according to her, the patient is alert and oriented x3. The housekeeping supervisor called EMS and had them bring patient to [facility]. At [facility] ED the patient doesnt seem to have specific complaint and denies any pain, nausea, vomiting, and fever. - History of Current Complaint Chief Complaint: EDGeneral Stated Complaint: GENERAL ILLNESS Time Seen by Provider: 10/16/18 02:54 Hx Obtained From: Patient, EMS, Other: - ASSISTEDTRANSPORTATION ATTENDANT Onset/Duration: Sudden Onset, Started hours ago, Still Present Timing: Constant Current Severity: None Number of Seizures: 0 Pain Intensity: 0 Pain Scale Used: 0-10 Numeric Character: Confusion Syncope Timin Number of Episodes: 0 Aggravating: Nothing Alleviating: Nothing Associated Signs and Symptoms: Positive: Confusion - Additional Pertinent History Primary Care Physician: EMILY - Allergy/Home Medications Allergies/Adverse Reactions: Allergies Allergy/AdvReac Type Severity Reaction Status Date / Time ibuprofen Allergy Mild GI Upset Verified 10/16/18 03:25 ENVIRONMENT Allergy CATS Uncoded 10/16/18 03:25 -Unknown Reaction Details SEASONAL HAYFEVER Allergy POLLEN - Uncoded 10/16/18 03:25 Unknown Reaction Details Home Medications: Home Medications Multivitamin [Multivitamins] 1 each PO DAILY 10/16/18 [History Confirmed ] Potassium Citrate [Urocit-K] 10 meq PO DAILY 10/16/18 [History Confirmed ] PMH/Surg Hx/FS Hx/Imm Hx Endocrine/Hematology History: Reports: Hx Anticoagulant Therapy, Hx Thyroid Disease - Thyroid cancer 1981- Partial thyroidectomy- on medication Denies: Hx Diabetes Cardiovascular History: Reports: Hx Atrial Fibrillation, Hx Coronary Artery Disease, Hx Hypercholesterolemia, Hx Hypertension, Other Cardiovascular Problems /Disorders - Atrial Fibrillation Denies: Hx Pacemaker/ICD Respiratory History: Reports: Hx Asthma - HX OF, NO PROBLEMS NOW Denies: Hx Sleep Apnea, Other Respiratory Problems/Disorders GI History: Denies: Hx Gastroesophageal Reflux Disease, Other GI Disorders History: Denies: Hx Dialysis, Hx Renal Disease Comment Only: Other Problems/Disorders - CHRONIC MEZA--MS Musculoskeletal History: Reports: Hx Arthritis - HANDS, LOWER BACK, Hx Orthopedic Injury - R ANKLE FX, ACHILLES LENGTHENING,, Hx Osteoporosis, Other Musculoskeletal History - BILAT ANKLE REPAIRS Sensory History: Reports: Hx Cataracts - BILATERAL , REMOVED 2013 Denies: Hx Contacts or Glasses, Hx Eye Injury, Hx Eye Prosthesis, Hx Glaucoma , Hx Legally Blind, Hx Macular Degeneration, Hx Vision Problem, Hx Deafness, Hx Hearing Aid, Hx Hearing Problem, Other Sensory Impairments Opthamlomology History: Reports: Hx Cataracts - BILATERAL , REMOVED 2013 Denies: Hx Contacts or Glasses, Hx Eye Injury, Hx Eye Prosthesis, Hx Glaucoma , Hx Legally Blind, Hx Macular Degeneration, Hx Vision Problem, Other Sensory Impairments Neurological History: Reports: Hx Nerve Disease - Multiple Sclerosis Denies: Other Neuro Impairments/Disorders Psychiatric History: Reports: Hx Anxiety - on medication, Hx Depression - on medication Denies: Hx Panic Disorder, Hx Suicide Attempt - Cancer History Cancer Type, Location and Year: THYROID Hx Chemotherapy: No Hx Radiation Therapy: No - Surgical History Surgery Procedure, Year, and Place: 1981 PARTIAL THYROIDECTOMY, [place];. 2008 RIGHT KNEE REPLACEMENT, [facility];. 2011 FLAP REPLACEMENT BUTTOCK, [place];. 2012 RIGHT TOTAL KNEE REVISION, [place];. 2013 COLONSCOPY, [facility];. 2013 LAPROSCOPIC APPENDECTOMY, [facility];. 01/2016 RIGHT ANKLE (PINS/PLATES), [facility];. 2015 LEFT ANKLE (PINS/PLATES), [facility];. 11/2017 RIGHT KNEE I&D, [facility];. 12/2017 RIGHT KNEE I&D, [facility]; Hx Anesthesia Reactions: No Infectious Disease History: Reports: Hx Clostridium Difficile Denies: Hx of Known/Suspected MRSA - awaiting result from nasal swab, Traveled Outside the in Last 30 Days - Family History Known Family History: Positive: Hypertension Negative: Diabetes - Social History Alcohol Use: None Alcohol Amount: 1/day Hx Substance Use: No Substance Use Type: Reports: None Hx Tobacco Use: Yes Smoking Status (MU): Former Smoker Type: Cigarettes Amount Used/How Often: 1 PPD FOR 12 YEARS Length of Time of Smoking/Using Tobacco: 12 YEARS Have You Smoked in the Last Year: No Review of Systems Negative: Fever Negative: Vomiting, Nausea Neurological: Other - POSITIVE: CONFUSION All Other Systems Reviewed And Are Negative: Yes Physical Exam - Summary Physical Exam Summary: VITAL SIGNS: Reviewed. GENERAL: Patient is a elderly female who is lying comfortable in the stretcher. Patient is not in any acute respiratory distress. HEAD AND FACE: No signs of trauma. No hematomas or skull depressions. No sinus tenderness. Patient has ecchymosis on face. EYES: PERRLA, EOMI x 2, No injected conjunctiva, no nystagmus. EARS: Hearing grossly intact. Ear canals and tympanic membranes are within normal limits. MOUTH: Oropharynx within normal limits. NECK: Supple, trachea is midline, no adenopathy, no JVD, no carotid bruit, no c- spine tenderness, neck with full ROM. CHEST: Symmetric, no tenderness at palpation LUNGS: No wheezing or crackles. Decreased breath sounds bilaterally. CVS: Irregular rate and rhythm, S1 and S2 present, no murmurs or gallops appreciated. ABDOMEN: Soft, non-tender. No signs of distention. No rebound no guarding, and no masses palpated. Bowel sounds are normal. EXTREMITIES: FROM in all major joints, no cyanosis or clubbing. Bilateral lower extremity edema plus ecchymosis. NEURO: Patient follows commands. Patient is alert and oriented x2 to place and name. Patient is confused about year. Patient knows it is Home in a day and she knows it is winter. Upper right extremity is 2-3/5 with muscular atrophy in hand and right forearm. Lower right extremity is 0/5. Upper left extremity is 2-3/5. Lower left extremity is 2-3/5. SKIN: multiple ecchymotic areas all over face and body. Patient has stitches over her forehead. GCS: 14 Triage Information Reviewed: Yes Vital Signs Reviewed: Yes - [place] Coma Scale Best Eye Response: 4 - Spontaneous Best Motor Response: 6 - Obeys Commands Best Verbal Response: 4 - Confused Coma Scale Total: 14 Diagnostics - Laboratory Result Diagrams: 10/16/18 03:10 10/16/18 03:10 Lab Statement: Any lab studies that have been ordered have been reviewed, and results considered in the medical decision making process. - Radiology CXR Radiology Interpretation Completed By: ED Physician Summary of Radiographic Findings: NO ACUTE PROCESS. PENDING OFFICIAL REPORT. - CT BRAIN CT CT Interpretation Completed By: Radiologist Summary of CT Findings: No acute intracranial abnormality. ED PHYSICIAN REVIEWED THIS RADIOLOGY REPORT. CTA HEAD CT Interpretation Completed By: Radiologist Summary of CT Findings: No acute findings. No evidence of hemodynamically significant stenosis. ED PHYSICIAN REVIEWED THIS RADIOLOGY REPORT. - EKG 0336 Cardiac Rate: Other Rate - A-FIB 60 BPM EKG Rhythm: Atrial Fibrillation - [address] Segment: Non-Specific - NON-SPECIFIC T-WAVE CHANGES Summary of EKG Findings: LVH NIH Scale - NIH Scale Level of Consciousness: Alert/Keenly Responsive Ask Patient the Month and His/Her Age: Neither Correct/Aphasic Ask Pt to Open/Close Eyes and [place]raw[place] Blocking Operator/Release Non-Paretic Hand: Both Correctly Best Gaze (Only Horizontal Eye Movement): Normal Visual Field Testing: No Visual Loss Facial Paresis-Pt to Smile & Close Eyes or Grimace Symmetry: Normal/Symmetrical Motor Function - Right Arm: Drifts LT 10 seconds Motor Function - Left Arm: Drifts LT 10 seconds Motor Function - Right Leg: No Movement Motor Function - Left Leg: Drifts LT 10 seconds Limb Ataxia-Must be out of Proportion to Weakness Present: Absent Sensory (Use Pinprick to Test Arms/Legs/Trunk/Face): Normal Best Language (Describe Picture, Name Items): No Aphasia Dysarthria (Read Several Words): Normal Extinction and Inattention: No Abnormality Total Score: 9 Re-Evaluation - Re-Evaluation First Eval Re-Evaluation Time: 04:45 Change: Unchanged Comment: HOSPTIALIST, DR. BAHENA, WAS PAGED. Course/Dx - Course Course Of Treatment: A 73 y/o female brought in by ambulance presents to the ED s/p walking into other patient's rooms. Currently, the patient reports no pain whatsoever. In the ED room, the patient has a pulse of 65 BPM, O2 saturation of 94%, and blood pressure of 179/97. Physical examination findings significant for irregular rate and rhythm, bilateral lower extremity edema plus ecchymosis, patient follows commands, patient is alert and oriented x2 to place and name. patient is confused about year. patient knows it is Home in a day and she knows it is winter. Upper right extremity is 2-3/5 with muscular atrophy in hand and right forearm. Lower right extremity is 0/5. Upper left extremity is 2- 3/5. Lower left extremity is 2-3/5. Multiple ecchymotic areas all over face and body. Patient has stitches over her forehead. A CXR revealed no acute process. A Brain CT revealed no acute intracranial abnormality. GCS: 15. A CTA Head revealed no acute findings, no evidence of hemodynamically significant stenosis. An EKG revealed A-fib rate of 60 BPM, non-specific T-wave changes, and LVH. Hematology, Chemistry, Serology, and urinalysis screens were done. No significant laboratory abnormalities were found. In the ED course, the patient received Aspirin, Visipaque, Klor-Con, and IV fluids. Patient care was discussed Dr. Soriano from [place], in which he stated that given the onset of symptoms which is from 2200 today and since the patient is on Xaralto, conclusion criteria for TPA. Patient CTA did not show any large viscous exclusion. Patient is not a candidate for any intervention. Agreed that patient is given Aspirin and needs to be admitted to [facility]. Patient care was also discussed with Dr. Bahena who accepts patient for admission. Patient will be admitted with a diagnosis of CVA. Patient is agreeable with this plan. - Diagnoses Provider Diagnoses: CVA (cerebral vascular accident) - Physician Notifications Discussed Care Of Patient With: Dr. Soriano Time Discussed With Above Provider: 04:15 Instructed by Provider To: Other - Discussed case with Dr. Soriano (technical healthcare consultant physician) in [place], [place]. He stated that given the onset of symptoms which is from 2200 today and since the patient is on Xaralto, conclusion criteria for TPA. Patient CTA did not show any large viscous exclusion. Patient is not a candidate for any intervention. Agreed that patient is given Aspirin and needs to be admitted to [facility]. 0605 - Dr. Bahena - Accepts patient for admission. - Critical Care Time Critical Care Time: 30-74 min - 55 MINUTES Discharge - Sign-Out/Discharge Documenting (check all that apply): Patient Departure - ADMIT, Sign-Out Patient - JOSE Signing out patient TO: Adri Bahena Receiving patient FROM: Daan Mar - Discharge Plan Condition: Stable Disposition: ADMITTED TO [facility] Referrals: Juliana Reeves MD [Primary Care Provider] - - Attestation Statements Document Initiated by Scribe: Yes Documenting Scribe: Osiel Saavedra Provider For Whom Scribe is Documenting (Include Credential): Dana Mar MD Scribe Attestation: Osiel Michaud scribed for Dana Mar MD on 10/16/18 at 0608. Status of Scribe Document: Ready
[2018-10-16 03:22] LABS: ABS Basophils 0.1 10^3/ul (0-0.2); ABS Eosinophils 0.1 10^3/ul (0-0.6); ABS Lymphocytes 1.4 10^3/ul (1.0-4.8); ABS Monocytes 0.6 10^3/ul (0-0.8); ABS Neutrophils 3.7 10^3/ul (1.5-7.7); ABS Nucleated RBC 0 10^3/ul; Hematocrit 42 % (35-47); Hemoglobin 14.1 g/dl (12.0-16.0); Lymphocyte % 23.6 %; Mean Corpuscular HGB Conc 34 g/dl (31-36); Mean Corpuscular Hemoglobin 28 pg (27-31); Mean Corpuscular Volume 83 fL (80-97); Mean Platelet Volume 7.3 fL (7.4-10.4); Nucleated Red Blood Cells % 0.1; Platelet Count 269 10^3/ul (150-450); Red Blood Count 5.05 10^6/ul (4.00-5.40); Red Cell Distribution Width 16 % (10.5-15)
[2018-10-16] MEDS ORDERED: Iodixanol* (CONTRAST) 320 MG/ML 100 ML SDV IV ONE (03:24)
[2018-10-16 03:34] LABS: Urine Appearance Clear; Urine Bacteria Absent (Absent); Urine Bilirubin Negative (Negative); Urine Blood 1+ (Negative); Urine Color Straw; Urine Glucose Negative (Negative); Urine Ketones Negative (Negative); Urine Nitrite Negative (Negative); Urine Protein Negative (Negative); Urine Red Blood Cell Trace(0-2/hpf) (Absent); Urine Specific Gravity 1.008 (1.010-1.030); Urine Urobilinogen Negative (Negative); Urine White Blood Cell Trace(0-5/hpf) (Absent)
[2018-10-16 03:38] LABS: Albumin 4.1 g/dL (3.2-5.2); Albumin/Globulin Ratio 1.6 (1-3); BUN/Creatinine Ratio 22.6 (8-20); Calcium 9.8 mg/dL (8.6-10.3); EGFR Non-African American 94.4 (>60); Globulin 2.6 g/dL (2-4); Potassium 3.2 mmol/L (3.5-5.0); Total Bilirubin 0.5 mg/dL (0.2-1.0); Total Protein 6.7 g/dL (6.4-8.9)
[2018-10-16 03:39] LABS: Activated Partial Thrombo Time 41.5 seconds (26.0-36.3); INR 1.41 (0.77-1.02)
[2018-10-16] MEDS ORDERED: Aspirin TAB* 325 MG PO ONE (04:17)
[2018-10-16] MEDS ORDERED: Potassium Chloride LIQUID* 20 MEQ PACKET PO ONE (04:17)
[2018-10-16] MEDS ORDERED: Acetaminophen TAB* 325 MG PO PRN ×2 (06:12→06:19)
--- NOTE | 2018-10-16 06:24 | ADMNOTE ---
Subjective Date of Service: 10/16/18 Interval History: code status full pt is a very poor historian due to her ms hx this is admission h/p hpi this is a 73 yr old wf with hx of ms recent fall a fib on anticoag but not on asa/plavix was brought in to er due to increased confusion. as per snf record, pt was wondering in other pt's room. but er dr reported that she was unable to lift the rle but it is already outside of any time window for tpa. as per neuro from [place] it is ok to continue plavix. stat head ct and neck cta did not show acute lesions. pt got one dose of plavix from er despite she does not know have any other acute worsening neurological change besides her mental status. neuro consult called and will hold off plavix for now and mri of head ordered as per neuro. phx ms a fib hypothyroid neurogenic bladder s/p pal chronic r knee infected hardware hx of thyroid ca pshx s/p total thyroidectomy s/p r total knee orif *5 two replacement and 3 revisions b/l ankle orif s/p appy social no cig no etoh from snf surrogate is her sister fhx mom + cva Review of Systems - Measurements Intake and Output: Intake and Output Last 24 Hours 10/13/18 10/14/18 10/15/18 10/16/18 06:59 06:59 06:59 06:59 Intake Total 1000 Balance 1000 Weight 154 lb Intake: IV Fluids 1000 - Review of Systems General Comments: pertinenet as per hpi Objective Active Medications: Acetaminophen (Tylenol Tab*) 650 mg PO Q4H PRN PRN Reason: FEVER/PAIN Alendronate Sodium (Fosamax (Nf)) 70 mg PO WEEKLY ARJUN; Protocol Baclofen (Lioresal Tab*) 15 mg PO BID ARJUN Docusate Sodium (Colace Cap*) 100 mg PO BID ARJUN Gabapentin (Neurontin Cap(*)) 200 mg PO DAILY ARJUN Sodium Chloride (Ns 0.9% 1000 Ml*) 1,000 mls @ 100 mls/hr IV PER RATE ARJUN Levothyroxine Sodium (Synthroid Tab*) 150 mcg PO DAILY@0600 ARJUN Metoprolol Succinate (Toprol Xl Tab*) 50 mg PO DAILY ARJUN Non-Formulary Medication (Acetaminophen [Acetaminophen Extra Strength]) 1,000 mg PO Q8HR PRN PRN Reason: PAIN Non-Formulary Medication (Fluconazole [Fluconazole 200 Mg Tab]) 200 mg PO BID ARJUN Non-Formulary Medication (Multivitamin [Multivitamins]) 1 each PO DAILY ARJUN Potassium Citrate (Urocit-K 10 (Nf)) 10 meq PO DAILY RAJUN Sertraline HCl (Zoloft*) 50 mg PO DAILY ARJUN Vital Signs - 8 hr 10/16/18 10/16/18 10/16/18 03:02 03:07 03:33 Temperature 97.7 F Pulse Rate 65 84 Respiratory 16 15 Rate Blood Pressure 179/97 175/92 (mmHg) O2 Sat by Pulse 97 97 91 Oximetry 10/16/18 10/16/18 10/16/18 03:37 03:47 04:00 Temperature Pulse Rate 67 55 60 Respiratory 15 19 20 Rate Blood Pressure 177/110 (mmHg) O2 Sat by Pulse 92 95 92 Oximetry 10/16/18 10/16/18 10/16/18 04:02 04:17 04:32 Temperature Pulse Rate 56 56 50 Respiratory 16 14 15 Rate Blood Pressure 185/111 178/117 179/123 (mmHg) O2 Sat by Pulse 93 94 95 Oximetry 10/16/18 10/16/18 10/16/18 04:47 05:00 05:02 Temperature Pulse Rate 60 60 62 Respiratory 20 18 11 Rate Blood Pressure 188/113 184/108 (mmHg) O2 Sat by Pulse 95 96 96 Oximetry 10/16/18 10/16/18 10/16/18 05:17 05:32 05:47 Temperature Pulse Rate 62 62 69 Respiratory 18 15 17 Rate Blood Pressure 187/105 170/116 180/107 (mmHg) O2 Sat by Pulse 96 97 95 Oximetry 10/16/18 10/16/18 10/16/18 06:00 06:02 06:17 Temperature Pulse Rate 61 58 84 Respiratory 18 18 15 Rate Blood Pressure 184/119 174/115 (mmHg) O2 Sat by Pulse 96 96 96 Oximetry Oxygen Devices in Use Now: None Appearance: nad Eyes: No Scleral Icterus, PERRLA Ears/Nose/Mouth/Throat: NL Teeth, Lips, Gums, - - severe eechymoses on the face still after her fall two weeks ago Neck: NL Appearance and Movements; NL JVP, Trachea Midline, No Thyroid Enlargement, Masses Respiratory: Symmetrical Chest Expansion and Respiratory Effort, Clear to Auscultation Cardiovascular: - - s1 s2 irr irr no murmur Extremities: No Edema, - - unable to rasie rle passively and activly against gravity Skin: - - ecchymoses seen the r face suture line site on ecchymoses stable Neurological: - - knows where she is not sure the /wen aa times but disoriented plantar rflex downwards Result Diagrams: 10/18/18 05:51 10/18/18 05:57 EKG Data: a fib rate controlled Assess/Plan/Problems-Billing Assessment: this is a 73 yr old wf with ms with chronic indewelling pal presented to er with worsening mental status ? rle weakness intial head ct and neck cta were neg pt has been on eliquis for afib neuro will see her in am ---> brain mri is ordered but currently only maintained her on eliquis but hold asa/plavix for now ( got one dose of plavix ) pt speech is not complete as per staff ? expressive aphagia swallow eval ordered - Patient Problems (1) Weakness of right lower extremity Current Visit: Yes Status: Acute Code(s): R29.898 - OTH SYMPTOMS AND SIGNS INVOLVING THE MUSCULOSKELETAL SYSTEM SNOMED Code(s): 945514561 Comment: imaging so far is neg mri of brain ordered neuro consult ordered (2) HTN (hypertension) Current Visit: Yes Status: Acute Code(s): I10 - ESSENTIAL (PRIMARY) HYPERTENSION SNOMED Code(s): 73257795 Comment: htn with sbp 180 but was found to have new rle sig paresis despite head and neck ct neg this is the first 24 hrs will need to maintain his sbp around 180 while waiting for neuro eval (3) Multiple sclerosis Current Visit: No Status: Chronic Code(s): G35 - MULTIPLE SCLEROSIS SNOMED Code(s): 39631991 Comment: Neuro consult greatly appreciated she is from snf now Continue Baclofen 15mg BID (4) Atrial fibrillation Current Visit: No Status: Acute Code(s): I48.91 - UNSPECIFIED ATRIAL FIBRILLATION SNOMED Code(s): 40209695 Comment: -Continue Rivaroxaban and Metoprolol h/h is stable (5) Delirium Current Visit: No Status: Acute Code(s): R41.0 - DISORIENTATION, UNSPECIFIED SNOMED Code(s): 6948901 Comment: - Likely Multifactorial in the setting of medication/MS /chronic infected hardware. - no e/o UTI this time. - adding procalcitonin - f/u EEG. Appreciate Neuro recs.
[2018-10-16] MEDS ORDERED: Alendronate (NF) 70 MG TAB PO SCH (07:00)
[2018-10-16] MEDS ORDERED: Pantoprazole TAB (NF) 40 MG TAB PO SCH (09:00)
[2018-10-16] MEDS ORDERED: Clopidogrel TAB* 75 MG PO SCH (09:00)
[2018-10-16] MEDS: Baclofen TAB* 10 MG PO SCH ×2 (09:44→21:08)
[2018-10-16] MEDS: Multivitamins/Minerals TAB PO SCH (09:45)
[2018-10-16] MEDS: Docusate CAP* 100 MG PO SCH ×2 (09:45→21:09)
[2018-10-16] MEDS: Fluconazole 100 MG TAB* TAB PO SCH ×2 (09:45→21:08)
[2018-10-16] MEDS: Sertraline* 50 MG TAB PO SCH (09:46)
[2018-10-16] MEDS: Metoprolol Succinate XL TAB* 50 MG PO SCH (09:46)
[2018-10-16] MEDS: Gabapentin CAP(*) 100 MG PO SCH (09:46)
[2018-10-16] MEDS: POTASSIUM CITRATE 10 MEQ PO SCH (09:49)
--- NOTE | 2018-10-16 11:24 | CONSULT ---
Consult Consult: NEUROLOGY CONSULTATION Patient seen on 10/16/2018 at 9.05am CC: altered mental status HPI: This is a 73 yr old woman with history of multiple sclerosis, afib on eliquis, hypothyroidism, neurogenic bladder and infection of right knee hardware presenting with altered mental status. The [facility] confused and wondering into other patient's rooms. The patient does not recall where she was living prior to coming to the hospital. She does not know the events leading up to this hospital visit. She states that she has not walked in over a yr and gets around on a wheelchair. The patient did present to the ED on 10/05/2018 after a fall. Review of Systems: unreliable due to patient condition PMH: Multiple sclerosis Afib Hypothyroidism Neurogenic bladder Infection of the hardware of the right knee Allergies ibuprofen Allergy (Mild, Verified 10/16/18 03:25) GI Upset ENVIRONMENT Allergy (Uncoded 10/16/18 03:25) CATS -Unknown Reaction Details CATS SEASONAL HAYFEVER Allergy (Uncoded 10/16/18 03:25) POLLEN - Unknown Reaction Details Home Medications Alendronate (NF) [Fosamax (NF)] 70 mg PO WEEKLY 01/18/18 [History Confirmed ] Hydrochlorothiazide TAB* [Hydrodiuril TAB*] 25 mg PO DAILY 01/18/18 [History Confirmed 10/16/18] Baclofen TAB* [Lioresal TAB*] 15 mg PO BID tab 02/06/18 [Rx Confirmed 10/16/18] Gabapentin CAP(*) [Neurontin 100 mg CAP(*)] 200 mg PO DAILY cap 02/06/18 [Rx Confirmed 10/16/18] Levothyroxine TAB* [Synthroid 150 MCG TAB*] 150 mcg PO DAILY@0600 tab 02/06/18 [Rx Confirmed 10/16/18] Metoprolol Succinate XL TAB* [Toprol XL TAB*] 50 mg PO DAILY tab.xl 02/06/18 [ Rx Confirmed 10/16/18] Rivaroxaban TAB(*) [Xarelto 20 mg] 20 mg PO DAILY@1700 tab 02/06/18 [Rx Confirmed 10/16/18] Potassium Chlor TAB* [Klor Con ER TAB 10 MEQ*] 10 meq PO DAILY 03/31/18 [ History Confirmed 10/16/18] Sertraline* [Zoloft*] 50 mg PO DAILY 03/31/18 [History Confirmed 10/16/18] Docusate CAP* [Colace Cap*] 100 mg PO BID cap 04/05/18 [Rx Confirmed 10/16/18] Acetaminophen [Acetaminophen Extra Strength] 1,000 mg PO Q8HR PRN MDD 3000 mg [History Confirmed 10/16/18] Fluconazole [Fluconazole 200 mg tab] 200 mg PO BID 10/05/18 [History Confirmed 10/16/18] Multivitamin [Multivitamins] 1 each PO DAILY 10/16/18 [History Confirmed ] Potassium Citrate [Urocit-K] 10 meq PO DAILY 10/16/18 [History Confirmed ] Vital Signs Temp 97.7 F 10/16/18 08:42 Pulse 63 10/16/18 08:42 Resp 16 10/16/18 09:46 BP 173/90 10/16/18 08:42 Pulse Ox 97 10/16/18 08:42 Exam: General: The patient has extensive bruising on the face CVS/Resp: regular rate, breathing comfortably Mental Status: awake, alert, slow to respond, oriented to self, hospital, month and year. Unable to relate to me where she lives currently or where she grew up. She is able to say that she has a sister and no brothers. CN: PERRLA, EOMI, V1=V2=V3, face symmetrical, hearing grossly intact, palate midline, SCM/trapezius strength intact bilaterally, tongue midline Motor: no clear pronator drift, decreased amplitude in fingertaps bilaterally, orbits around left arm. Able to maintain legs bent antigravity, able to move toes Sensory: grossly intact LT in arms, legs, and trunk Coord/ Gait: intact FFM/ FTN/HANNA in UE/LEs Laboratory: Laboratory Results WBC 6.0 10^3/ul (3.5-10.8) 10/16/18 03:10 RBC 5.05 10^6/ul (4.00-5.40) 10/16/18 03:10 Hgb 14.1 g/dl (12.0-16.0) 10/16/18 03:10 Hct 42 % (35-47) 10/16/18 03:10 MCV 83 fL (80-97) 10/16/18 03:10 MCH 28 pg (27-31) 10/16/18 03:10 MCHC 34 g/dl (31-36) 10/16/18 03:10 RDW 16 % (10.5-15) H 10/16/18 03:10 Plt Count 269 10^3/ul (150-450) 10/16/18 03:10 MPV 7.3 fL (7.4-10.4) L 10/16/18 03:10 Neut % (Auto) 62.7 % 10/16/18 03:10 Lymph % (Auto) 23.6 % 10/16/18 03:10 Mcminn % (Auto) 10.7 % 10/16/18 03:10 Eos % (Auto) 2.0 % 10/16/18 03:10 Baso % (Auto) 1.0 % 10/16/18 03:10 Absolute Neuts (auto) 3.7 10^3/ul (1.5-7.7) 10/16/18 03:10 Absolute Lymphs (auto) 1.4 10^3/ul (1.0-4.8) 10/16/18 03:10 Absolute Monos (auto) 0.6 10^3/ul (0-0.8) 10/16/18 03:10 Absolute Eos (auto) 0.1 10^3/ul (0-0.6) 10/16/18 03:10 Absolute Basos (auto) 0.1 10^3/ul (0-0.2) 10/16/18 03:10 Absolute Nucleated RBC 0 10^3/ul 10/16/18 03:10 Nucleated RBC % 0.1 10/16/18 03:10 INR (Anticoag Therapy) 1.41 (0.77-1.02) H 10/16/18 03:10 APTT 41.5 seconds (26.0-36.3) H 10/16/18 03:10 Sodium 140 mmol/L (135-145) 10/16/18 03:10 Potassium 3.2 mmol/L (3.5-5.0) L 10/16/18 03:10 Chloride 101 mmol/L (101-111) 10/16/18 03:10 Carbon Dioxide 31 mmol/L (22-32) 10/16/18 03:10 Anion Gap 8 mmol/L (2-11) 10/16/18 03:10 BUN 14 mg/dL (6-24) 10/16/18 03:10 Creatinine 0.62 mg/dL (0.51-0.95) 10/16/18 03:10 Est GFR ( Amer) 114.2 (>60) 10/16/18 03:10 Est GFR (Non-Af Amer) 94.4 (>60) 10/16/18 03:10 BUN/Creatinine Ratio 22.6 (8-20) H 10/16/18 03:10 Glucose 111 mg/dL (70-100) H 10/16/18 03:10 POC Glucose (mg/dL) 117 mg/dL (70-100) H 10/16/18 03:45 Lactic Acid 1.3 mmol/L (0.5-2.0) 10/16/18 03:10 Calcium 9.8 mg/dL (8.6-10.3) 10/16/18 03:10 Total Bilirubin 0.50 mg/dL (0.2-1.0) 10/16/18 03:10 AST 22 U/L (13-39) 10/16/18 03:10 ALT 24 U/L (7-52) 10/16/18 03:10 Alkaline Phosphatase 100 U/L (34-104) 10/16/18 03:10 Troponin I 0.01 ng/mL (<0.04) 10/16/18 07:24 Total Protein 6.7 g/dL (6.4-8.9) 10/16/18 03:10 Albumin 4.1 g/dL (3.2-5.2) 10/16/18 03:10 Globulin 2.6 g/dL (2-4) 10/16/18 03:10 Albumin/Globulin Ratio 1.6 (1-3) 10/16/18 03:10 Triglycerides 93 mg/dL 10/16/18 03:10 Cholesterol 212 mg/dL 10/16/18 03:10 LDL Cholesterol 138 mg/dL 10/16/18 03:10 HDL Cholesterol 55.0 mg/dL 10/16/18 03:10 Urine Color Straw 10/16/18 03:10 Urine Appearance Clear 10/16/18 03:10 Urine pH 6.0 (5-9) 10/16/18 03:10 Ur Specific [place] 1.008 (1.010-1.030) L 10/16/18 03:10 Urine Protein Negative (Negative) 10/16/18 03:10 Urine Ketones Negative (Negative) 10/16/18 03:10 Urine Blood 1+ (Negative) A 10/16/18 03:10 Urine Nitrate Negative (Negative) 10/16/18 03:10 Urine Bilirubin Negative (Negative) 10/16/18 03:10 Urine Urobilinogen Negative (Negative) 10/16/18 03:10 Ur Leukocyte Esterase Negative (Negative) 10/16/18 03:10 Urine WBC (Auto) Trace(0-5/hpf) (Absent) 10/16/18 03:10 Urine RBC (Auto) Trace(0-2/hpf) (Absent) 10/16/18 03:10 Urine Bacteria Absent (Absent) 10/16/18 03:10 Urine Glucose Negative (Negative) 10/16/18 03:10 Blood Type B Positive 10/16/18 03:10 Antibody Screen Positive 10/16/18 03:10 Antibody Identification Anti-K 10/16/18 03:10 Direct Antiglob Test Negative 10/16/18 03:10 Imaging: CTA head and neck 10/16/2018: no acute findings. No significant intracranial stenosis Assessment:73 yr old woman with hx of afib on eliquis presenting with confusion and some left sided weakness, unclear if acute or chronic. Investigate for a new stroke. Recommendations: Obtain MRI of the brain w/o contrast, stroke protocol Continue Eliquis A1C and lipids Permissive HTN for now SBP 140-160 PT/OT/SS Will follow up after MRI Thank you for including me in the care of this patient. Case discussed with treatment team. As per protocol, I discussed available results of testing and plan of care with the patient or advocate, who agrees to the plan. Face time for evaluation, education, counseling was >50% of time spent on unit: for 35 minutes.
[2018-10-16] MEDS: NS 0.9% 1000 ML* 1,000 ML IV SCH (16:35)
[2018-10-17] MEDS: NS 0.9% 1000 ML* 1,000 ML IV SCH (01:59)
[2018-10-17] MEDS: Levothyroxine TAB* 150 MCG TAB PO SCH (07:00)
[2018-10-17] MEDS: Multivitamins/Minerals TAB PO SCH (09:25)
[2018-10-17] MEDS: Metoprolol Succinate XL TAB* 50 MG PO SCH (09:25)
[2018-10-17] MEDS: Docusate CAP* 100 MG PO SCH ×2 (09:25→21:02)
[2018-10-17] MEDS: Sertraline* 50 MG TAB PO SCH (09:25)
[2018-10-17] MEDS: Fluconazole 100 MG TAB* TAB PO SCH ×2 (09:26→21:01)
[2018-10-17] MEDS: Gabapentin CAP(*) 100 MG PO SCH (09:26)
[2018-10-17] MEDS: Baclofen TAB* 10 MG PO SCH ×2 (09:33→21:02)
[2018-10-17] MEDS: POTASSIUM CITRATE 10 MEQ PO SCH (09:34)
--- NOTE | 2018-10-17 10:37 | PN ---
Subjective Date of Service: 10/17/18 Length of Stay: 1 Days Neurology is following for the evaluation and management of confusion Interval History: The patient states that she feels better. She is able to name her sister and relate that her sister lives in [place]. She is unable to tell me where she currently lives or where she grew up. Review of Systems: unreliable due to patient condition Family History: Unchanged from Admission Objective Active Medications: Acetaminophen (Tylenol Tab*) 650 mg PO Q4H PRN PRN Reason: FEVER/PAIN Acetaminophen (Tylenol Tab*) 975 mg PO Q8HR PRN PRN Reason: PAIN Alendronate Sodium (Fosamax (Nf)) 70 mg PO .WEEKLY [facility]; Protocol Baclofen (Lioresal Tab*) 15 mg PO BID [facility] Last Admin: 10/17/18 09:33 Dose: 15 mg Docusate Sodium (Colace Cap*) 100 mg PO BID [facility] Last Admin: 10/17/18 09:25 Dose: 100 mg Fluconazole (Diflucan 100 Mg Tab*) 200 mg PO BID [facility] Last Admin: 10/17/18 09:26 Dose: 200 mg Gabapentin (Neurontin Cap(*)) 200 mg PO DAILY [facility] Last Admin: 10/17/18 09:26 Dose: 200 mg Sodium Chloride (Ns 0.9% 1000 Ml*) 1,000 mls @ 100 mls/hr IV PER RATE [facility] Last Admin: 10/17/18 01:59 Dose: 100 mls/hr Levothyroxine Sodium (Synthroid Tab*) 150 mcg PO DAILY@0600 [facility] Last Admin: 10/17/18 07:00 Dose: 150 mcg Metoprolol Succinate (Toprol Xl Tab*) 50 mg PO DAILY [facility] Last Admin: 10/17/18 09:25 Dose: 50 mg Multivitamins/Minerals (Theragran/Minerals Tab*) 1 tab PO DAILY [facility] Last Admin: 10/17/18 09:25 Dose: 1 tab Potassium Citrate (Urocit-K 10 (Nf)) 10 meq PO DAILY [facility] Last Admin: 10/17/18 09:34 Dose: Not Given Sertraline HCl (Zoloft*) 50 mg PO DAILY [facility] Last Admin: 10/17/18 09:25 Dose: 50 mg Vital Signs 10/16/18 10/16/18 10/16/18 11:07 15:16 17:43 Temperature 98.0 F 98.6 F Pulse Rate 72 80 Respiratory 16 16 16 Rate Blood Pressure 161/99 166/91 (mmHg) O2 Sat by Pulse 98 97 Oximetry 10/16/18 10/16/18 10/17/18 19:20 20:00 00:13 Temperature 97.6 F 98.4 F Pulse Rate 71 98 Respiratory 16 18 20 Rate Blood Pressure 144/93 157/87 (mmHg) O2 Sat by Pulse 98 98 96 Oximetry 10/17/18 10/17/18 10/17/18 03:29 04:30 07:26 Temperature 98.2 F 97.5 F Pulse Rate 116 69 Respiratory 20 16 Rate Blood Pressure 177/120 151/91 (mmHg) O2 Sat by Pulse 85 95 97 Oximetry 10/17/18 10/17/18 07:35 09:26 Temperature Pulse Rate Respiratory 18 16 Rate Blood Pressure (mmHg) O2 Sat by Pulse Oximetry Intake and Output Last 24 Hours 10/15/18 10/16/18 10/17/18 10/18/18 06:59 06:59 06:59 06:59 Intake Total 1000 900 Output Total 1000 1915 Balance 0 -1015 Weight 154 lb 154 lb Intake: IV Fluids 1000 900 NS (0.9%) 900 Oral 0 Output: Chaudhari 1000 1915 Other: # Bowel Movements 0 Oxygen Devices in Use Now: None Neurology Exam: General: Awake, Alert, Oriented x3 HEENT: extensive facial bruising Neck: Supple Chest: Clear to auscultation bilaterally Cardiovascular: Regular rate and rhythm without murmurs, rubs, gallops Abdomen: Soft, nontender/nondistended Extremities: No clubbing, cyanosis, or edema Neurological Findings: Speech: alert, unable to name the hospital today. Able to name pen but not elbow or pinky. Some perseverence. Cranial Nerve: PEERL, EOM intact, VFF, no nystagmus, face symmetric bilaterally , facial sensation intact, hearing intact to finger rub bilaterally, palate elevates symmetrically, tongue midline, SCM and Trapezius s/s. Motor: arms antigravity, will keep legs flexed when assisted at the knee Sensation: intact to LT/PP bilaterally upper and lower extremities Finger to nose, rapid alternating movements intact without tremor, no dysdiadochokinesia Result Diagrams: 10/16/18 03:10 10/16/18 03:10 Microbiology and Other Data: Microbiology 10/16/18 03:10 Urine Culture - Final Urine No Growth (<1,000 CFU/mL) 10/16/18 13:37 Nasal Screen MRSA (PCR) - Final Nasal Mrsa Not Detected Diagnostic Imaging: MRI Brain IMPRESSION: 1. CHRONIC SMALL VESSEL ISCHEMIC CHANGES. 2. NO RESTRICTED DIFFUSION TO SUGGEST ACUTE INFARCT. 3. SCALP LESION CORRESPONDING TO THE HEMATOMA DESCRIBED ON PREVIOUS CT. RECOMMEND FOLLOW-UP UNTIL RESOLUTION. EKG Data: a fib rate controlled Assessment/Plan Assessment: 73 yr old woman who presented with altered mental status. MRI of the brain without acute findings. Patient continues to be altered with perseverence of speech. Differential at this point includes delirium and possible partial seizures Plan: Obtain a routine EEG Investigate for causes of infectious or toxic metabolic causes of delirium Frequent orientations PT/OT
--- NOTE | 2018-10-17 15:12 | PN ---
Subjective Date of Service: 10/17/18 Interval History: Afebrile, no labs. Oriented to [place] but not more specifically than that. Word finding difficulties perhaps. Knows 2018. Attests to pain, unable to clearly localize. First she says she has never had a colonoscopy then she says she had one a few days ago (which is extremely unlikely) but unable to explain what a colonoscopy is. Denies dysphagia or choking. Attests to poor appetite. Family History: Unchanged from Admission Objective Active Medications: Acetaminophen (Tylenol Tab*) 650 mg PO Q4H PRN PRN Reason: FEVER/PAIN Acetaminophen (Tylenol Tab*) 975 mg PO Q8HR PRN PRN Reason: PAIN Alendronate Sodium (Fosamax (Nf)) 70 mg PO .WEEKLY [facility]; Protocol Baclofen (Lioresal Tab*) 15 mg PO BID [facility] Last Admin: 10/17/18 09:33 Dose: 15 mg Docusate Sodium (Colace Cap*) 100 mg PO BID [facility] Last Admin: 10/17/18 09:25 Dose: 100 mg Fluconazole (Diflucan 100 Mg Tab*) 200 mg PO BID [facility] Last Admin: 10/17/18 09:26 Dose: 200 mg Gabapentin (Neurontin Cap(*)) 200 mg PO DAILY [facility] Last Admin: 10/17/18 09:26 Dose: 200 mg Sodium Chloride (Ns 0.9% 1000 Ml*) 1,000 mls @ 100 mls/hr IV PER RATE [facility] Last Admin: 10/17/18 01:59 Dose: 100 mls/hr Levothyroxine Sodium (Synthroid Tab*) 150 mcg PO DAILY@0600 [facility] Last Admin: 10/17/18 07:00 Dose: 150 mcg Metoprolol Succinate (Toprol Xl Tab*) 50 mg PO DAILY [facility] Last Admin: 10/17/18 09:25 Dose: 50 mg Multivitamins/Minerals (Theragran/Minerals Tab*) 1 tab PO DAILY [facility] Last Admin: 10/17/18 09:25 Dose: 1 tab Potassium Citrate (Urocit-K 10 (Nf)) 10 meq PO DAILY [facility] Last Admin: 10/17/18 09:34 Dose: Not Given Sertraline HCl (Zoloft*) 50 mg PO DAILY [facility] Last Admin: 10/17/18 09:25 Dose: 50 mg Vital Signs - 8 hr 10/17/18 10/17/18 10/17/18 07:26 07:35 09:26 Temperature 97.5 F Pulse Rate 69 Respiratory 16 18 16 Rate Blood Pressure 151/91 (mmHg) O2 Sat by Pulse 97 Oximetry Oxygen Devices in Use Now: None Appearance: Ecchymoses on face, hematoma on frontal scalp. Eyes: No Scleral Icterus, PERRLA Ears/Nose/Mouth/Throat: NL Teeth, Lips, Gums Respiratory: Symmetrical Chest Expansion and Respiratory Effort, Clear to Auscultation Cardiovascular: - - irregularly irregular, no m/r/g Abdominal: NL Sounds; No Tenderness; No Distention, No Hepatosplenomegaly Lymphatic: No Cervical Adenopathy Extremities: No Edema Neurological: NL Sensation, - - Oriented to year and city, not able to specify location more precisely. Wiggles toes b/l. 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 Nutrition: Taking PO's Result Diagrams: 10/16/18 03:10 10/16/18 03:10 Microbiology and Other Data: Microbiology 10/16/18 03:10 Urine Urine Culture - Final No Growth (<1,000 CFU/mL) 10/16/18 13:37 Nasal Nasal Screen MRSA (PCR) - Final Mrsa Not Detected Diagnostic Imaging: MRI Brain IMPRESSION: 1. CHRONIC SMALL VESSEL ISCHEMIC CHANGES. 2. NO RESTRICTED DIFFUSION TO SUGGEST ACUTE INFARCT. 3. SCALP LESION CORRESPONDING TO THE HEMATOMA DESCRIBED ON PREVIOUS CT. RECOMMEND FOLLOW-UP UNTIL RESOLUTION. EKG Data: a fib rate controlled Assess/Plan/Problems-Billing Assessment: 73 yr old woman who presented with altered mental status. MRI of the brain without acute findings. Patient continues to be altered with perseverence of speech. Differential at this point includes delirium and possible partial seizures Neuro Plan: Obtain a routine EEG Investigate for causes of infectious or toxic metabolic causes of delirium Frequent orientations PT/OT - Patient Problems (1) Delirium Current Visit: No Status: Acute Code(s): R41.0 - DISORIENTATION, UNSPECIFIED SNOMED Code(s): 8100434 Comment: - Likely Multifactorial in the setting of medication/MS /chronic infected hardware. - no e/o UTI this time. - adding procalcitonin - f/u EEG. Appreciate Neuro recs. (2) Atrial fibrillation Current Visit: No Status: Acute Code(s): I48.91 - UNSPECIFIED ATRIAL FIBRILLATION SNOMED Code(s): 94615848 Comment: - restart Rivaroxaban - Cont metoprolol - continue tele - Mg>2, K>4 (3) Frequent falls Current Visit: No Status: Acute Code(s): R29.6 - REPEATED FALLS SNOMED Code(s): 870822395 Comment: - last admission in setting of UTI with back ground of MS possibly polypharmacy. - No fractures found on CT scans at that time - PT ordered. - likely will need to return to SNF ([facility]) (4) Multiple sclerosis Current Visit: No Status: Acute Code(s): G35 - MULTIPLE SCLEROSIS SNOMED Code(s): 72190284 Comment: - PT/OT and rehab at [facility] - Continue treatment for spasms. - Appreciate Neurology recs (5) Hyperlipidemia Current Visit: No Status: Chronic Priority: Medium Code(s): E78.5 - HYPERLIPIDEMIA, UNSPECIFIED SNOMED Code(s): 59847680 Comment: no longer it seems on atorvastatin. (6) Hypertension Current Visit: No Status: Chronic Priority: Medium Code(s): I10 - ESSENTIAL (PRIMARY) HYPERTENSION SNOMED Code(s): 61624145 Comment: hypertensive but improving trend and permissive per Neurology 140-160 initially. Continue metoprolol. (7) Hypothyroid Current Visit: No Status: Chronic Code(s): E03.9 - HYPOTHYROIDISM, UNSPECIFIED SNOMED Code(s): 08714010 Comment: -TSH last checked in Sept and WNL -Re-checking given confusion, recent falls and upward TSH trend. (8) Multiple sclerosis Current Visit: No Status: Chronic Code(s): G35 - MULTIPLE SCLEROSIS SNOMED Code(s): 02863540 Comment: Neuro consult greatly appreciated she is from snf now Continue Baclofen 15mg BID (9) Neurogenic bladder Current Visit: No Status: Chronic Code(s): N31.9 - NEUROMUSCULAR DYSFUNCTION OF BLADDER, UNSPECIFIED SNOMED Code(s): 269717521 Comment: -Continue w/chronic indwelling pal (10) Weight loss Current Visit: Yes Status: Acute Comment: she is unable to reliably state whether she has had a colonoscopy. Request out patient records from Dr. Reeves. Denies dysphagia. Status and Disposition: medicine inpatient.
[2018-10-17] MEDS: Rivaroxaban TAB(*) 20 MG TAB PO SCH (17:44)
[2018-10-18] MEDS ORDERED: hydrALAZINE IV* 20 MG/ML VIAL IV SLOW PU ONE (05:03)
[2018-10-18] MEDS: Levothyroxine TAB* 150 MCG TAB PO SCH (05:42)
[2018-10-18 06:38] LABS: ABS Basophils 0 10^3/ul (0-0.2); ABS Eosinophils 0.2 10^3/ul (0-0.6); ABS Lymphocytes 1.2 10^3/ul (1.0-4.8); ABS Monocytes 0.6 10^3/ul (0-0.8); ABS Neutrophils 4.4 10^3/ul (1.5-7.7); ABS Nucleated RBC 0 10^3/ul; Hematocrit 40 % (35-47); Hemoglobin 13.3 g/dl (12.0-16.0); Lymphocyte % 18.3 %; Mean Corpuscular HGB Conc 33 g/dl (31-36); Mean Corpuscular Hemoglobin 28 pg (27-31); Mean Corpuscular Volume 83 fL (80-97); Mean Platelet Volume 7.6 fL (7.4-10.4); Nucleated Red Blood Cells % 0; Platelet Count 251 10^3/ul (150-450); Red Blood Count 4.77 10^6/ul (4.00-5.40); Red Cell Distribution Width 16 % (10.5-15); White Blood Count 6.3 10^3/ul (3.5-10.8)
[2018-10-18 06:45] LABS: BUN/Creatinine Ratio 17.5 (8-20); Calcium 9.2 mg/dL (8.6-10.3); EGFR Non-African American 92.6 (>60); Magnesium 1.9 mg/dL (1.9-2.7); Potassium 3.5 mmol/L (3.5-5.0)
[2018-10-18 07:02] LABS: TSH (Thyroid Stimulating Horm) 23.36 mcIU/mL (0.34-5.60)
[2018-10-18 07:04] LABS: Free T4 0.83 ng/dL (0.61-1.12)
[2018-10-18] MEDS: Fluconazole 100 MG TAB* TAB PO SCH ×2 (09:11→19:47)
[2018-10-18] MEDS: Docusate CAP* 100 MG PO SCH ×2 (09:11→19:52)
[2018-10-18] MEDS: Sertraline* 50 MG TAB PO SCH (09:11)
[2018-10-18] MEDS: Metoprolol Succinate XL TAB* 50 MG PO SCH (09:11)
[2018-10-18] MEDS: Multivitamins/Minerals TAB PO SCH (09:11)
[2018-10-18] MEDS: Gabapentin CAP(*) 100 MG PO SCH (09:12)
[2018-10-18] MEDS: Baclofen TAB* 10 MG PO SCH ×3 (09:12→19:51)
[2018-10-18] MEDS: POTASSIUM CITRATE 10 MEQ PO SCH (09:17)
--- NOTE | 2018-10-18 11:32 | EEG ---
PENITENTIARY VIDEO/EEG MONITORING - Monitoring Monitoring Start Date: 10/18/18 EEG Clinical Indication: Altered mental status Introduction: INTRODUCTION: The EEG was monitored from 21 scalp electrodes. Nineteen electrodes consisted of the standard parasagittal, temporal and midline leads of the International 10 -20 system. In addition, special electrodes FT9 and FT10 were placed. EEG data were recorded on an [employer] system with simultaneous MPEG-4 digital video recording of patient behavior. EEG recording was in a monopolar montage with all electrodes referenced to FCz. Significant behavioral events were signaled by an event button, or putative electrical seizure events were detected by a computer program. All EEG data were reviewed in their entirety on a monitor with reconstruction of montages and adjustments of sensitivity and filtering. Simultaneous patient behavior was viewed on an adjacent monitor and correlated with the EEG. - Medications Active Medications: Acetaminophen (Tylenol Tab*) 650 mg PO Q4H PRN PRN Reason: FEVER/PAIN Last Admin: 10/18/18 09:11 Dose: 650 mg Acetaminophen (Tylenol Tab*) 975 mg PO Q8HR PRN PRN Reason: PAIN Alendronate Sodium (Fosamax (Nf)) 70 mg PO .WEEKLY [facility]; Protocol Baclofen (Lioresal Tab*) 15 mg PO BID [facility] Last Admin: 10/18/18 09:12 Dose: 15 mg Docusate Sodium (Colace Cap*) 100 mg PO BID [facility] Last Admin: 10/18/18 09:11 Dose: 100 mg Fluconazole (Diflucan 100 Mg Tab*) 200 mg PO BID [facility] Last Admin: 10/18/18 09:11 Dose: 200 mg Gabapentin (Neurontin Cap(*)) 200 mg PO DAILY [facility] Last Admin: 10/18/18 09:12 Dose: 200 mg Levothyroxine Sodium (Synthroid Tab*) 175 mcg PO DAILY@0600 [facility] Metoprolol Succinate (Toprol Xl Tab*) 50 mg PO DAILY [facility] Last Admin: 10/18/18 09:11 Dose: 50 mg Multivitamins/Minerals (Theragran/Minerals Tab*) 1 tab PO DAILY [facility] Last Admin: 10/18/18 09:11 Dose: 1 tab Potassium Citrate (Urocit-K 10 (Nf)) 10 meq PO DAILY [facility] Last Admin: 10/18/18 09:17 Dose: Not Given Rivaroxaban (Xarelto(*)) 20 mg PO DAILY@1700 [facility] Last Admin: 10/17/18 17:44 Dose: 20 mg Sertraline HCl (Zoloft*) 50 mg PO DAILY [facility] Last Admin: 10/18/18 09:11 Dose: 50 mg - Description Background: FINDINGS: The background is continuous, spontaneously variable, and reactive. During active states, the EEG was characterized by 7-8 Hz, 15-30 uV activity bilaterally in fronto-central regions. Resting wakefulness was characterized by a symmetric posterior dominant rhythm of 8-9 Hz, 30-50 uV, which was reactive to eye opening and closing. Drowsiness was associated with slow roving eye movements, slowing and fragmentation of the posterior dominant rhythm, and bilateral 4-7 Hz, 40-70 uV theta activity, sometimes with a shifting predominance. Sleep Background: Stage II sleep structures were not visualized. Background Slowing: Mild generalized background slowing is present. Focal Slowing: No focal slowing is present Other Paroxysmal Non-Epileptiform Findings: None. Spontaneous Activity: There are rare occasional generalized triphasic sharp discharges. Clinical Events: No clinical events or seizures have been recorded during this study. - Impression Impression: EEG Summary/Classification: This is an abnormal EEG due to the presence of 1. Mild generalized slowing 2. Rare generalized triphasic sharp discharges. EEG Impression/Clinical Correlate: Generalized triphasic sharp discharges are usually associated with a toxic metabolic condition. Additional findings indicate etiologically non-specific mild diffuse cerebral dysfunction as can be seen in the setting of toxic, metabolic, inflammatory, infectious, vascular, degenerative, or multifocal structural abnormalities. Clinical and/or neuroradiologic correlation recommended.
--- NOTE | 2018-10-18 11:41 | PN ---
Subjective Date of Service: 10/18/18 Length of Stay: 2 Days Neurology is following for the evaluation and management of altered mental status Interval History: Neurological status remains largely unchanged. No acute complaints. Review of Systems: The patient's review of systems questionnaire was reviewed and there are no additional pertinent positives. Family History: Unchanged from Admission Objective Active Medications: Acetaminophen (Tylenol Tab*) 650 mg PO Q4H PRN PRN Reason: FEVER/PAIN Last Admin: 10/18/18 09:11 Dose: 650 mg Acetaminophen (Tylenol Tab*) 975 mg PO Q8HR PRN PRN Reason: PAIN Alendronate Sodium (Fosamax (Nf)) 70 mg PO .WEEKLY [facility]; Protocol Baclofen (Lioresal Tab*) 15 mg PO BID [facility] Last Admin: 10/18/18 09:12 Dose: 15 mg Docusate Sodium (Colace Cap*) 100 mg PO BID [facility] Last Admin: 10/18/18 09:11 Dose: 100 mg Fluconazole (Diflucan 100 Mg Tab*) 200 mg PO BID [facility] Last Admin: 10/18/18 09:11 Dose: 200 mg Gabapentin (Neurontin Cap(*)) 200 mg PO DAILY [facility] Last Admin: 10/18/18 09:12 Dose: 200 mg Levothyroxine Sodium (Synthroid Tab*) 175 mcg PO DAILY@0600 [facility] Metoprolol Succinate (Toprol Xl Tab*) 50 mg PO DAILY [facility] Last Admin: 10/18/18 09:11 Dose: 50 mg Multivitamins/Minerals (Theragran/Minerals Tab*) 1 tab PO DAILY [facility] Last Admin: 10/18/18 09:11 Dose: 1 tab Potassium Citrate (Urocit-K 10 (Nf)) 10 meq PO DAILY [facility] Last Admin: 10/18/18 09:17 Dose: Not Given Rivaroxaban (Xarelto(*)) 20 mg PO DAILY@1700 [facility] Last Admin: 10/17/18 17:44 Dose: 20 mg Sertraline HCl (Zoloft*) 50 mg PO DAILY [facility] Last Admin: 10/18/18 09:11 Dose: 50 mg Vital Signs 10/17/18 10/17/18 10/17/18 15:27 19:23 20:00 Temperature 98.5 F 98.2 F Pulse Rate 82 75 Respiratory 18 18 20 Rate Blood Pressure 153/88 131/85 (mmHg) O2 Sat by Pulse 95 98 97 Oximetry 10/18/18 10/18/18 10/18/18 00:33 03:55 04:42 Temperature 97.9 F 98.4 F 98.5 F Pulse Rate 87 66 63 Respiratory 16 16 16 Rate Blood Pressure 154/95 154/101 158/102 (mmHg) O2 Sat by Pulse 97 98 100 Oximetry 10/18/18 10/18/18 10/18/18 04:48 06:20 08:00 Temperature 98.3 F Pulse Rate 64 Respiratory 16 Rate Blood Pressure 148/100 154/86 145/87 (mmHg) O2 Sat by Pulse 100 Oximetry 10/18/18 09:12 Temperature Pulse Rate Respiratory 16 Rate Blood Pressure (mmHg) O2 Sat by Pulse Oximetry Intake and Output Last 24 Hours 10/16/18 10/17/18 10/18/18 10/19/18 06:59 06:59 06:59 06:59 Intake Total 5721 320 2431 220 Output Total 1000 1915 1085 Balance 0 -1015 -55 220 Weight 154 lb 154 lb Intake: IV Fluids 1000 900 NS (0.9%) 900 Oral 0 1030 220 Output: Urine 0 Chaudhari 1000 1915 1085 Other: # Bowel Movements 0 Oxygen Devices in Use Now: None Neurology Exam: General: Awake, Alert, Oriented x3 HEENT: echymosis on face Neck: Supple Chest: Clear to auscultation bilaterally Cardiovascular: Regular rate Abdomen: Soft, nontender/nondistended Neurological Findings: Mental Status: Awake, Alert, Oriented to [facility] only Speech: slow, able to name and repeat Cranial Nerve: PEERL, EOM intact, face symmetric bilaterally, tongue midline Motor: arms with full strength, legs antigravity Sensation: intact to LT/PP bilaterally upper and lower extremities Finger to nose, rapid alternating movements intact without tremor, no dysdiadochokinesia Result Diagrams: 10/18/18 05:51 10/18/18 05:57 Microbiology and Other Data: Microbiology 10/16/18 03:10 Urine Urine Culture - Final No Growth (<1,000 CFU/mL) 10/16/18 13:37 Nasal Nasal Screen MRSA (PCR) - Final Mrsa Not Detected Diagnostic Imaging: MRI Brain IMPRESSION: 1. CHRONIC SMALL VESSEL ISCHEMIC CHANGES. 2. NO RESTRICTED DIFFUSION TO SUGGEST ACUTE INFARCT. 3. SCALP LESION CORRESPONDING TO THE HEMATOMA DESCRIBED ON PREVIOUS CT. RECOMMEND FOLLOW-UP UNTIL RESOLUTION. EKG Data: a fib rate controlled Assessment/Plan Assessment: 73 yr old woman who presented with altered mental status. Likely delirium. MRI of the brain without acute findings. EEG without evidence of epileptiform discharges or seizures but with evidence of a mild degree of toxic metabolic encephalopathy. Neuro Plan: Frequent orientations PT/OT No further neurological workup - Patient Problems (1) Delirium Current Visit: Yes Status: Acute Priority: Low Code(s): R41.0 - DISORIENTATION, UNSPECIFIED SNOMED Code(s): 8979241
[2018-10-18] MEDS: Rivaroxaban TAB(*) 20 MG TAB PO SCH (19:46)
--- NOTE | 2018-10-18 20:15 | PN ---
Subjective Date of Service: 10/18/18 Interval History: mentation improved, some perseveration still later would have nausea and vomiting EEG without epileptiform discharge. TSH elevated to 23.3 denies chest pain, SOB afebrile. Family History: Unchanged from Admission Objective Active Medications: Acetaminophen (Tylenol Tab*) 650 mg PO Q4H PRN PRN Reason: FEVER/PAIN Last Admin: 10/18/18 09:11 Dose: 650 mg Acetaminophen (Tylenol Tab*) 975 mg PO Q8HR PRN PRN Reason: PAIN Alendronate Sodium (Fosamax (Nf)) 70 mg PO .WEEKLY [facility]; Protocol Baclofen (Lioresal Tab*) 15 mg PO BID [facility] Last Admin: 10/18/18 19:51 Dose: 15 mg Docusate Sodium (Colace Cap*) 100 mg PO BID [facility] Last Admin: 10/18/18 19:52 Dose: 100 mg Fluconazole (Diflucan 100 Mg Tab*) 200 mg PO BID [facility] Last Admin: 10/18/18 19:47 Dose: 200 mg Gabapentin (Neurontin Cap(*)) 200 mg PO DAILY [facility] Last Admin: 10/18/18 09:12 Dose: 200 mg Levothyroxine Sodium (Synthroid Tab*) 175 mcg PO DAILY@0600 [facility] Metoprolol Succinate (Toprol Xl Tab*) 50 mg PO DAILY [facility] Last Admin: 10/18/18 09:11 Dose: 50 mg Multivitamins/Minerals (Theragran/Minerals Tab*) 1 tab PO DAILY [facility] Last Admin: 10/18/18 09:11 Dose: 1 tab Potassium Citrate (Urocit-K 10 (Nf)) 10 meq PO DAILY [facility] Last Admin: 10/18/18 09:17 Dose: Not Given Rivaroxaban (Xarelto(*)) 20 mg PO DAILY@1700 [facility] Last Admin: 10/18/18 19:46 Dose: 20 mg Sertraline HCl (Zoloft*) 50 mg PO DAILY [facility] Last Admin: 10/18/18 09:11 Dose: 50 mg Vital Signs - 8 hr 10/18/18 10/18/18 15:53 16:08 Temperature 98.0 F Pulse Rate 70 Respiratory 16 18 Rate Blood Pressure 142/87 (mmHg) O2 Sat by Pulse 98 Oximetry Oxygen Devices in Use Now: None Appearance: NAD, ecchymoses on face/head Eyes: No Scleral Icterus, PERRLA Ears/Nose/Mouth/Throat: NL Teeth, Lips, Gums Neck: NL Appearance and Movements; NL JVP, Trachea Midline Respiratory: Symmetrical Chest Expansion and Respiratory Effort, Clear to Auscultation Cardiovascular: NL Sounds; No Murmurs; No JVD Abdominal: NL Sounds; No Tenderness; No Distention, No Hepatosplenomegaly Lymphatic: No Cervical Adenopathy Extremities: No Edema Skin: - - ecchymoses on head Neurological: - - oriented to place, name but not year. Result Diagrams: 10/18/18 05:51 10/18/18 05:57 Additional Lab and Data: Laboratory Results - last 24 hr 10/18/18 10/18/18 10/18/18 05:51 05:57 05:57 WBC 6.3 RBC 4.77 Hgb 13.3 Hct 40 MCV 83 MCH 28 MCHC 33 RDW 16 H Plt Count 251 MPV 7.6 Neut % (Auto) 69.1 Lymph % (Auto) 18.3 [place] % (Auto) 8.9 Eos % (Auto) 3.0 Baso % (Auto) 0.7 Absolute Neuts (auto) 4.4 Absolute Lymphs (auto) 1.2 Absolute Monos (auto) 0.6 Absolute Eos (auto) 0.2 Absolute Basos (auto) 0 Absolute Nucleated RBC 0 Nucleated RBC % 0 Sodium 139 Potassium 3.5 Chloride 101 Carbon Dioxide 31 Anion Gap 7 BUN 11 Creatinine 0.63 Est GFR ( Amer) 112.1 Est GFR (Non-Af Amer) 92.6 BUN/Creatinine Ratio 17.5 Glucose 99 Calcium 9.2 Magnesium 1.9 Procalcitonin < 0.1 TSH 23.36 H Free T4 0.83 Microbiology and Other Data: Microbiology 10/16/18 13:37 Nasal Nasal Screen MRSA (PCR) - Final Mrsa Not Detected 10/16/18 03:10 Urine Urine Culture - Final No Growth (<1,000 CFU/mL) Diagnostic Imaging: MRI Brain IMPRESSION: 1. CHRONIC SMALL VESSEL ISCHEMIC CHANGES. 2. NO RESTRICTED DIFFUSION TO SUGGEST ACUTE INFARCT. 3. SCALP LESION CORRESPONDING TO THE HEMATOMA DESCRIBED ON PREVIOUS CT. RECOMMEND FOLLOW-UP UNTIL RESOLUTION. EKG Data: a fib rate controlled Assess/Plan/Problems-Billing Assessment: this is a 73 yr old wf with ms with chronic indewelling pla presented to er with worsening mental status ? rle weakness intial head ct and neck cta were neg pt has been on eliquis for afib neuro will see her in am ---> brain mri is ordered but currently only maintained her on eliquis but hold asa/plavix for now ( got one dose of plavix ) pt speech is not complete as per staff ? expressive aphagia swallow eval ordered - Patient Problems (1) Delirium Current Visit: No Status: Acute Code(s): R41.0 - DISORIENTATION, UNSPECIFIED SNOMED Code(s): 3699269 Comment: - Likely Multifactorial in the setting of medication/MS /chronic infected hardware. - no e/o UTI this time. - procalcitonin was <0.1 - EEG w/o e/o seizures. - increase synthroid. (2) Atrial fibrillation Current Visit: No Status: Acute Code(s): I48.91 - UNSPECIFIED ATRIAL FIBRILLATION SNOMED Code(s): 58407345 Comment: - continue Rivaroxaban - Cont metoprolol - continue tele - Mg>2, K>4 (3) Frequent falls Current Visit: No Status: Acute Code(s): R29.6 - REPEATED FALLS SNOMED Code(s): 504551050 Comment: - last admission in setting of UTI with back ground of MS possibly polypharmacy. - No fractures found on CT scans at that time - PT ordered. - likely will need to return to SNF ([place]) (4) Multiple sclerosis Current Visit: No Status: Acute Code(s): G35 - MULTIPLE SCLEROSIS SNOMED Code(s): 99228161 Comment: - PT/OT and rehab at [place] - Continue treatment for spasms. - Appreciate Neurology recs (5) Hyperlipidemia Current Visit: No Status: Chronic Priority: Medium Code(s): E78.5 - HYPERLIPIDEMIA, UNSPECIFIED SNOMED Code(s): 97605598 Comment: no longer it seems on atorvastatin. (6) Hypertension Current Visit: No Status: Chronic Priority: Medium Code(s): I10 - ESSENTIAL (PRIMARY) HYPERTENSION SNOMED Code(s): 86179474 Comment: SBP 104s. Continue metoprolol. (7) Hypothyroid Current Visit: No Status: Chronic Code(s): E03.9 - HYPOTHYROIDISM, UNSPECIFIED SNOMED Code(s): 36765193 Comment: -TSH elevated to 23.3, increase synthroid from 150 to 175mcg (8) Multiple sclerosis Current Visit: No Status: Chronic Code(s): G35 - MULTIPLE SCLEROSIS SNOMED Code(s): 54686651 Comment: Neuro consult greatly appreciated she is from snf now Continue Baclofen 15mg BID (9) Neurogenic bladder Current Visit: No Status: Chronic Code(s): N31.9 - NEUROMUSCULAR DYSFUNCTION OF BLADDER, UNSPECIFIED SNOMED Code(s): 979653631 Comment: -Continue w/chronic indwelling pal (10) Weight loss Current Visit: Yes Status: Acute Comment: she is unable to reliably state whether she has had a colonoscopy. Request out patient records from Dr. Reeves. Denies dysphagia. (11) Sacral decubitus ulcer, stage II Current Visit: Yes Status: Acute Code(s): L89.152 - PRESSURE ULCER OF SACRAL REGION, STAGE 2 SNOMED Code(s): 832057625 Comment: frequent turning. Status and Disposition: medicine inpatient. Likely d/c 10/19 to [place].
[2018-10-19] MEDS ORDERED: Levothyroxine TAB* 175 MCG TAB PO SCH (06:00)
[2018-10-19] MEDS: Metoprolol Succinate XL TAB* 50 MG PO SCH (08:39)
[2018-10-19] MEDS: Multivitamins/Minerals TAB PO SCH (08:39)
[2018-10-19] MEDS: Gabapentin CAP(*) 100 MG PO SCH (08:40)
[2018-10-19] MEDS: Fluconazole 100 MG TAB* TAB PO SCH (08:41)
[2018-10-19] MEDS: Docusate CAP* 100 MG PO SCH (08:41)
[2018-10-19] MEDS: Sertraline* 50 MG TAB PO SCH (08:42)
[2018-10-19] MEDS: POTASSIUM CITRATE 10 MEQ PO SCH (08:43)
[2018-10-19] MEDS: Baclofen TAB* 10 MG PO SCH (08:43)
--- NOTE | 2018-10-19 11:26 | DS ---
DATE OF ADMISSION: 10/16/2018. DATE OF DISCHARGE: 10/19/2018. ADMITTING PROVIDER: Dr. Adri Bahena. ATTENDING PHYSICIAN ON THE DAY OF DISCHARGE: Dr. Justin Arcos. CONSULTING NEUROLOGIST: Dr. Kika Seymour. PRIMARY CARE PHYSICIAN: Dr. Juliana Reeves. CHIEF COMPLAINT: Confusion. PRINCIPAL DIAGNOSIS: Altered mental status with negative work-up except for worsened hypothyroidism. HISTORY OF PRESENT ILLNESS/HOSPITAL COURSE: Justina Scott is a 73-year-old female with a past medical history of multiple sclerosis, recent fall, atrial fibrillation on Xarelto, right knee fungal infections on Fluconazole, neurogenic status post chronic Chaudhari, and history of thyroid cancer. She has been rehabilitating at [facility] when she was wandering into other patients' rooms. There was concern by the ED physician that she was unable to lift her right lower extremity and she had a Neurology consult. Initially her CT had demonstrated no acute intracranial abnormality. Her brain MRI demonstrated chronic small vessel ischemic changes. No restricted diffusion to suggest acute infarct. A scalp lesion corresponds to the hematoma from the previous CT. Her chest x-ray demonstrated stigmata of COPD, mild cardiomegaly. She had no leukocytosis. She was afebrile. Her urinalysis was negative and urine culture was also without growth more than 100,000 colony- forming units. Her MRSA nares was negative. Dr. Seymour recommended also a head and neck CTA which was obtained with no acute findings. A TSH was high at 23.3. Free T4 was within normal limits at 0.83. Procalcitonin was less than 0.1. She worked with Physical Therapy; result is pending, but she will need continued rehabilitation at [facility]. Her physical exam is notable for ecchymoses on head and neck and scalp hematoma from her recent falls. She is considered stable for discharge with increase in her thyroid medications. DISCHARGE MEDICATIONS: 1. Acetaminophen 1,000 mg p.o. q.8 hours prn for pain. 2. Fosamax 70 mg p.o. weekly. 3. Baclofen 15 mg p.o. b.i.d. 4. Docusate 100 mg p.o. b.i.d. 5. Fluconazole 200 mg p.o. b.i.d. 6. Gabapentin 200 mg p.o. daily. 7. Metoprolol Succinate 50 mg p.o. daily. 8. Multivitamin one each p.o. daily. 9. Potassium Citrate 10 mEq p.o. daily. 10. Xarelto 20 mg p.o. daily. 11. Sertraline 50 mg p.o. daily. 12. Hydrochlorothiazide 25 mg p.o. daily. 13. Levothyroxine 175 mcg p.o. daily (increased from prior). 14. Potassium Chloride 10 mEq p.o. daily. FOLLOW-UP: Please follow-up with Dr. Juliana Reeves. She should have repeat thyroid function test in four to six weeks. TIME SPENT: Time spent on this discharge was 45 minutes. [id number]/[facility] #: [id number] SHERRIE
[2018-10-19 15:44] VITALS: BP 141/80
== END 2018-10-19 16:20 | DRG 880 ==
LOC: ED 02:52 → MEDTELE 08:38
PROVIDERS: ADMIT Psychiatry & Neurology Neurology; ATTEND Internal Medicine
PROC: 4A10X4Z Monitoring of Central Nervous Electrical Activity, External Approach (ICD-10-PCS; principal; 2018-10-18)
DX: F05 Delirium due to known physiological condition (principal); G93.41 Metabolic encephalopathy; B48.8 Other specified mycoses; R41.0 Disorientation, unspecified; E03.9 Hypothyroidism, unspecified; G35 Multiple sclerosis; I48.91 Unspecified atrial fibrillation; N31.2 Flaccid neuropathic bladder, not elsewhere classified; R53.1 Weakness; R29.6 Repeated falls; I10 Essential (primary) hypertension; R63.4 Abnormal weight loss; L89.152 Pressure ulcer of sacral region, stage 2; I25.10 Atherosclerotic heart disease of native coronary artery without angina pectoris; J45.909 Unspecified asthma, uncomplicated; M19.042 Primary osteoarthritis, left hand; M19.041 Primary osteoarthritis, right hand; M46.90 Unspecified inflammatory spondylopathy, site unspecified; M81.0 Age-related osteoporosis without current pathological fracture; F41.9 Anxiety disorder, unspecified; F32.9 Major depressive disorder, single episode, unspecified; Z96.651 Presence of right artificial knee joint; R29.709 NIHSS score 9; S00.03XA Contusion of scalp, initial encounter; W19.XXXA Unspecified fall, initial encounter; R58 Hemorrhage, not elsewhere classified; Z98.42 Cataract extraction status, left eye; Z99.3 Dependence on wheelchair; Z90.89 Acquired absence of other organs; Z82.49 Family history of ischemic heart disease and other diseases of the circulatory system; Z87.891 Personal history of nicotine dependence; Z82.3 Family history of stroke; Y92.9 Unspecified place or not applicable; Z79.01 Long term (current) use of anticoagulants; Z68.22 Body mass index [BMI] 22.0-22.9, adult; Z87.440 Personal history of urinary (tract) infections; Z91.81 History of falling; Z85.850 Personal history of malignant neoplasm of thyroid; Z88.6 Allergy status to analgesic agent; Z98.41 Cataract extraction status, right eye
CPT/HCPCS: 36415; 70450; 70496; 70498; 70551; 71045; 80048; 80053; 80061; 81003; 81015; 83605; 83735; 84145; 84439; 84443; 84484; 85025; 85610; 85730; 86850; 86870; 86880; 86900; 86901; 87086; 87641; 93005; 95816; 99284; A9270-GY; G8978-GP-CL; G8979-GP-CL; G8980-GP-CL; J0360; Q9967

== ENCOUNTER 2018-10-22 19:21 | Emergency (ER) | payer MEDICARE ==
--- NOTE | 2018-10-22 20:07 | ED ---
Altered Mental Status - HPI Summary HPI Summary: Pt is a 73 y/o female who presents to the ED c/o confusion. She was sent from [facility]. As per nursing staff, she was talking to them during the day and suddenly became confused. She was admitted this past week for confusion and wandering. Pt denies any new fall. She denies any CHESTER, neck pain, abdominal pain, leg pain, or SOB. Pt is on Xarelto for AFib. PMHx MS, dementia. Pt is a level 5 caveat due to her dementia. - History Of Current Complaint Chief Complaint: EDAltMentalStatus Stated Complaint: CONFUSION Time Seen by Provider: 10/22/18 19:28 Hx Obtained From: Other: - Nursing staff Hx From Patient Unobtainable Due To: Dementia Onset/Duration: Still Present, Gradually Timing: Constant, Lasting Hours Character: Confusion Aggravating Factor(s): Nothing Alleviating Factor(s): Nothing Associated Signs And Symptoms: Positive: Negative Related History: Similar Episode/Diagnosed As: - Recent hospitalized for confusion, Other: - Dementia - Allergies/Home Medications Allergies/Adverse Reactions: Allergies Allergy/AdvReac Type Severity Reaction Status Date / Time ibuprofen Allergy Mild GI Upset Verified 10/22/18 19:41 ENVIRONMENT Allergy CATS Uncoded 10/22/18 19:41 -Unknown Reaction Details SEASONAL HAYFEVER Allergy POLLEN - Uncoded 10/22/18 19:41 Unknown Reaction Details PMH/Surg Hx/FS Hx/Imm Hx Endocrine/Hematology History: Reports: Hx Anticoagulant Therapy, Hx Thyroid Disease - Thyroid cancer 1981- Partial thyroidectomy- on medication Denies: Hx Diabetes Cardiovascular History: Reports: Hx Atrial Fibrillation, Hx Coronary Artery Disease, Hx Hypercholesterolemia, Hx Hypertension, Other Cardiovascular Problems /Disorders - Atrial Fibrillation Denies: Hx Pacemaker/ICD Respiratory History: Reports: Hx Asthma - HX OF, NO PROBLEMS NOW Denies: Hx Sleep Apnea, Other Respiratory Problems/Disorders GI History: Denies: Hx Gastroesophageal Reflux Disease, Other GI Disorders History: Denies: Hx Dialysis, Hx Renal Disease Comment Only: Other Problems/Disorders - CHRONIC MEZA--MS Musculoskeletal History: Reports: Hx Arthritis - HANDS, LOWER BACK, Hx Orthopedic Injury - R ANKLE FX, ACHILLES LENGTHENING,, Hx Osteoporosis, Other Musculoskeletal History - BILAT ANKLE REPAIRS Sensory History: Reports: Hx Cataracts - BILATERAL , REMOVED 2013 Denies: Hx Contacts or Glasses, Hx Eye Injury, Hx Eye Prosthesis, Hx Glaucoma , Hx Legally Blind, Hx Macular Degeneration, Hx Vision Problem, Hx Deafness, Hx Hearing Aid, Hx Hearing Problem, Other Sensory Impairments Opthamlomology History: Reports: Hx Cataracts - BILATERAL , REMOVED 2013 Denies: Hx Contacts or Glasses, Hx Eye Injury, Hx Eye Prosthesis, Hx Glaucoma , Hx Legally Blind, Hx Macular Degeneration, Hx Vision Problem, Other Sensory Impairments Neurological History: Reports: Hx Dementia, Hx Nerve Disease - Multiple Sclerosis Denies: Other Neuro Impairments/Disorders Psychiatric History: Reports: Hx Anxiety - on medication, Hx Depression - on medication Denies: Hx Panic Disorder, Hx Suicide Attempt - Cancer History Cancer Type, Location and Year: THYROID Hx Chemotherapy: No Hx Radiation Therapy: No - Surgical History Surgery Procedure, Year, and Place: 1980 PARTIAL THYROIDECTOMY, [place];. 2008 RIGHT KNEE REPLACEMENT, [facility];. 2011 FLAP REPLACEMENT BUTTOCK, [place];. 2012 RIGHT TOTAL KNEE REVISION, [place];. 2013 COLONSCOPY, [facility];. 2013 LAPROSCOPIC APPENDECTOMY, [facility];. 01/2016 RIGHT ANKLE (PINS/PLATES), [facility];. 2015 LEFT ANKLE (PINS/PLATES), [facility];. 11/2017 RIGHT KNEE I&D, [facility];. 12/2017 RIGHT KNEE I&D, [facility]; Hx Anesthesia Reactions: No - Immunization History Date of Tetanus Vaccine: unk Date of Influenza Vaccine: unk Infectious Disease History: No Infectious Disease History: Reports: Hx Clostridium Difficile Denies: Hx of Known/Suspected MRSA - awaiting result from nasal swab, Traveled Outside the in Last 30 Days - Family History Known Family History: Positive: Hypertension Negative: Diabetes - Social History Alcohol Use: None Alcohol Amount: 1/day Hx Substance Use: No Substance Use Type: Reports: None Hx Tobacco Use: Yes Smoking Status (MU): Former Smoker Type: Cigarettes Amount Used/How Often: 1 PPD FOR 12 YEARS Length of Time of Smoking/Using Tobacco: 12 YEARS Have You Smoked in the Last Year: No Review of Systems Negative: Shortness Of Breath Negative: Abdominal Pain Negative: Other - neck pain, leg pain Neurological: Other - confusion Negative: Headache All Other Systems Reviewed And Are Negative: No Physical Exam - Summary Physical Exam Summary: Appearance: Well appearing, no pain distress Skin: warm, dry, reflects adequate perfusion, cyst on hairline, ecchymosis to right elbow and forearm, bruising from IV sticks in left and right arm, extensive bruising to face that appears old, no sacral or heel wounds Head/face: normal Eyes: EOMI, RU ENT: mucous membranes moist Neck: supple, non-tender Respiratory: CTA, breath sounds present Cardiovascular: occasional irregularity of rhythm, rate controlled, pulses symmetrical Abdomen: non-tender, soft, clean indwelling Meza catheter, urine clean Bowel Sounds: present Musculoskeletal: normal, strength/ROM intact, right knee replacement scar Neuro: global weakness, alert and oriented to person only Triage Information Reviewed: Yes Vital Signs On Initial Exam: Initial Vitals Temp Pulse Resp BP Pulse Ox 98.8 F 70 16 155/104 96 10/22/18 19:39 10/22/18 19:39 10/22/18 19:39 10/22/18 19:39 10/22/18 19:39 Vital Signs Reviewed: Yes Diagnostics - Vital Signs Vital Signs Temp Pulse Resp BP Pulse Ox 10/22/18 19:39 98.8 F 70 16 155/104 96 - Laboratory Lab Results: Lab Results 10/22/18 Range/Units 19:37 POC Glucose (mg/dL) 99 (70-100) mg/dL Lab Statement: Any lab studies that have been ordered have been reviewed, and results considered in the medical decision making process. Altered Mental Statu Course/Dx - Course Course Of Treatment: Nurse's notes reviewed. Patient presents pleasantly confused with a history of dementia from the assisted. She is new to this facility. She was just discharged from here on the for similar. She has no new findings today. There is no new fall. The urine is negative and the blood sugar is normal. Extensive ecchymosis of the face is old. She has had several CT scans including CT angiograms since that point. Discharged back to assisted with likely alterations in consciousness fluctuating with which the patient is known to do. - Diagnoses Differential Diagnosis/HQI/PQRI: Hypoglycemia, Intracranial Bleed, Metabolic Disorder, Sepsis Provider Diagnoses: Dementia, History of multiple sclerosis Discharge - Sign-Out/Discharge Documenting (check all that apply): Patient Departure - Discharge - Discharge Plan Condition: Stable Disposition: HOME Patient Education Materials: Dementia (ED) Referrals: Juliana Reeves MD [Primary Care Provider] - Additional Instructions: Return to [facility]. Return with fever, worse, new symptoms or other concerns. Maintain patient on a regular schedule and encourage sleep hygiene which may improve orientation in this dementia patient. Follow-up with primary care physician on October 25 - Billing Disposition and Condition Condition: STABLE Disposition: Home - Attestation Statements Document Initiated by Dewayne: Yes Documenting Scribe: Jacquelyn Gaines Provider For Whom Dewayne is Documenting (Include Credential): Richie Roland MD Scribe Attestation: Jacquelyn Michaud, scribed for Richie Roland MD on 10/22/18 at 2354. Scribe Documentation Reviewed: Yes Provider Attestation: The documentation as recorded by the Jacquelyn gaston accurately reflects the service I personally performed and the decisions made by Richie michael MD Status of Scribe Document: Viewed
[2018-10-22 20:45] LABS: Urine Appearance Clear; Urine Bacteria Absent (Absent); Urine Bilirubin Negative (Negative); Urine Blood 1+ (Negative); Urine Color Yellow; Urine Glucose Negative (Negative); Urine Ketones Negative (Negative); Urine Nitrite Negative (Negative); Urine Protein Negative (Negative); Urine Red Blood Cell 1+(3-5/hpf) (Absent); Urine Specific Gravity 1.011 (1.010-1.030); Urine Urobilinogen Negative (Negative); Urine White Blood Cell Trace(0-5/hpf) (Absent)
[2018-10-22 21:43] VITALS: BP 142/86
== END 2018-10-22 21:44 | disposition home or self-care (01) ==
LOC: ED 19:21
DX: F03.90 Unspecified dementia, unspecified severity, without behavioral disturbance, psychotic disturbance, mood disturbance, and anxiety (principal); G35 Multiple sclerosis; Z87.891 Personal history of nicotine dependence; Z85.850 Personal history of malignant neoplasm of thyroid; I48.91 Unspecified atrial fibrillation; Z79.01 Long term (current) use of anticoagulants; E78.00 Pure hypercholesterolemia, unspecified; I10 Essential (primary) hypertension
CPT/HCPCS: 81003; 81015; 87086; 99282

== ENCOUNTER 2019-01-22 13:13 | Inpatient (IN) | payer MEDICARE ==
[2019-01-22] MEDS ORDERED: Piperacillin/Tazobac ADVAN(*) 3.375 GM in NS 0.9% 100 ML* 100 ML IVPB ONE (13:21)
[2019-01-22] MEDS: NS 0.9% 1000 ML** 1,000 ML IV.FLUID IV ONE ×3 (13:50→15:48)
[2019-01-22 14:02] LABS: Influenza A Molecular NEGATIVE (Negative); Influenza B Molecular NEGATIVE (Negative)
[2019-01-22 14:07] LABS: Urine Appearance Cloudy; Urine Bacteria 2+ (Absent); Urine Bilirubin Negative (Negative); Urine Blood 3+ (Negative); Urine Color Amber; Urine Glucose Negative (Negative); Urine Ketones Negative (Negative); Urine Nitrite Positive (Negative); Urine Protein 2+(100 mg/dL) (Negative); Urine Red Blood Cell 3+(>10/hpf) (Absent); Urine Renal Epithelial Cells Present (Absent); Urine Squamous Epithelial Cell Present (Absent); Urine Urobilinogen Negative (Negative); Urine White Blood Cell 3+(>20/hpf) (Absent)
[2019-01-22 14:16] LABS: ABS Basophils 0.1 10^3/ul (0-0.2); ABS Eosinophils 0 10^3/ul (0-0.6); ABS Lymphocytes 0.6 10^3/ul (1.0-4.8); ABS Monocytes 0.3 10^3/ul (0-0.8); ABS Neutrophils 7.6 10^3/ul (1.5-7.7); ABS Nucleated RBC 0 10^3/ul; Eosinophil % 0.3 %; Hematocrit 44 % (33-41); Lymphocyte % 6.9 %; Mean Corpuscular HGB Conc 34 g/dL (31-36); Mean Corpuscular Hemoglobin 28 pg (27-31); Mean Corpuscular Volume 83 fL (80-97); Mean Platelet Volume 7.9 fL (7.4-10.4); Nucleated Red Blood Cells % 0.2; Platelet Count 211 10^3/uL (150-450); Red Blood Count 5.32 10^6 /uL (3.70-4.87); Red Cell Distribution Width 14 % (10.5-15); White Blood Count 8.6 10^3/uL (3.5-10.8)
[2019-01-22 14:23] LABS: INR 1.98 (0.77-1.02)
[2019-01-22 14:35] LABS: Albumin 3.9 g/dL (3.2-5.2); Albumin/Globulin Ratio 1.4 (1-3); BUN/Creatinine Ratio 32.1 (8-20); C Reactive Protein 11.39 mg/L (<8.01); Calcium 9.3 mg/dL (8.6-10.3); EGFR African American 136.8 (>60); EGFR Non-African American 113.1 (>60); Globulin 2.8 g/dL (2-4); Potassium 4.3 mmol/L (3.5-5.0); Total Bilirubin 0.8 mg/dL (0.2-1.0); Total Protein 6.7 g/dL (6.4-8.9)
[2019-01-22 14:37] LABS: Troponin I 0.02 ng/mL (<0.04)
[2019-01-22] MEDS ORDERED: Acetaminophen TAB* 325 MG PO ONE (15:16)
--- NOTE | 2019-01-22 15:19 | ED ---
Sepsis HPI - HPI Summary HPI Summary: Patient is a 73-year-old female with a history of multiple sclerosis, complicated UTI history and dementia presenting to the ED by way of EMS from [facility]. Staff there state she has had altered mental status "speech difficulties" since 9 AM. He states she tends to get like this when she has a UTI. She was recently discharged from the hospital last month after being treated for the same. They did not note her to have a fever yesterday and patient herself denies any other changes including cough, chills, sweats, headache. She denies any abdominal pain. Patient is alert and oriented 3. She does not appear to be confused on arrival. - History of Current Complaint Chief Complaint: EDWeakness Time Seen by Provider: 01/22/19 13:20 Stated Complaint: POSS STROKE PER EMS Hx Obtained From: Patient, EMS, Medical Records Hx From Patient Unobtainable Due To: Dementia - limited only Onset/Duration: Started Hours Ago Timing: Constant Onset Severity: Mild Current Severity: Mild Pain Intensity: 0 Pain Scale Used: 0-10 Numeric Aggravating Symptom(s): Unknown Alleviating Factor(s): Unknown Associated Signs & Symptoms: Negative - Risk Factor(s) Pseudomonas Risk Factors: Negative Serious Bacterial Infection Risk Factors: Meza Catheter - Additional Pertinent History Primary Care Physician: EMILY - Allergy/Home Medications Allergies/Adverse Reactions: Allergies Allergy/AdvReac Type Severity Reaction Status Date / Time ibuprofen Allergy Mild GI Upset Verified 11/08/18 11:55 ENVIRONMENT Allergy CATS Uncoded 11/08/18 11:55 -Unknown Reaction Details SEASONAL HAYFEVER Allergy POLLEN - Uncoded 11/08/18 11:55 Unknown Reaction Details Home Medications: Home Medications Collagenase 250 MG/GM OINT* [Santyl 250 mg/gm Oint*] 1 applic TOPICAL Q72HR PRN 01/22/19 [History Confirmed 01/22/19] Collagenase 250 MG/GM OINT* [Santyl 250 mg/gm Oint*] 1 applic TOPICAL Q8HR PRN 01/22/19 [History Confirmed 01/22/19] PMH/Surg Hx/FS Hx/Imm Hx Previously Healthy: No Endocrine/Hematology History: Reports: Hx Anticoagulant Therapy, Hx Thyroid Disease - Thyroid cancer 1981- Partial thyroidectomy- on medication Denies: Hx Diabetes Cardiovascular History: Reports: Hx Atrial Fibrillation, Hx Coronary Artery Disease, Hx Hypercholesterolemia, Hx Hypertension, Other Cardiovascular Problems /Disorders - Atrial Fibrillation Denies: Hx Pacemaker/ICD Respiratory History: Reports: Hx Asthma - HX OF, NO PROBLEMS NOW Denies: Hx Sleep Apnea, Other Respiratory Problems/Disorders GI History: Denies: Hx Gastroesophageal Reflux Disease, Other GI Disorders History: Reports: Other Problems/Disorders - CHRONIC MEZA--MS Denies: Hx Dialysis, Hx Renal Disease Musculoskeletal History: Reports: Hx Arthritis - HANDS, LOWER BACK, Hx Orthopedic Injury - R ANKLE FX, ACHILLES LENGTHENING,, Hx Osteoporosis, Other Musculoskeletal History - BILAT ANKLE REPAIRS Sensory History: Reports: Hx Cataracts - BILATERAL , REMOVED 2013 Denies: Hx Contacts or Glasses, Hx Eye Injury, Hx Eye Prosthesis, Hx Glaucoma , Hx Legally Blind, Hx Macular Degeneration, Hx Vision Problem, Hx Deafness, Hx Hearing Aid, Hx Hearing Problem, Other Sensory Impairments Opthamlomology History: Reports: Hx Cataracts - BILATERAL , REMOVED 2013 Denies: Hx Contacts or Glasses, Hx Eye Injury, Hx Eye Prosthesis, Hx Glaucoma , Hx Legally Blind, Hx Macular Degeneration, Hx Vision Problem, Other Sensory Impairments Neurological History: Reports: Hx Dementia, Hx Nerve Disease - Multiple Sclerosis Denies: Other Neuro Impairments/Disorders Psychiatric History: Reports: Hx Anxiety - on medication, Hx Depression - on medication Denies: Hx Panic Disorder, Hx Suicide Attempt - Cancer History Cancer Type, Location and Year: THYROID Hx Chemotherapy: No Hx Radiation Therapy: No - Surgical History Surgery Procedure, Year, and Place: 1980 PARTIAL THYROIDECTOMY, [facility];. 2008 RIGHT KNEE REPLACEMENT, [facility] [place];. 2011 FLAP REPLACEMENT [facility] [place];. 2012 RIGHT TOTAL KNEE REVISION, [facility];. 2013 COLONSCOPY, [facility];. 2013 LAPROSCOPIC APPENDECTOMY, [facility];. 01/2016 RIGHT ANKLE (PINS/PLATES), [facility];. 2015 LEFT ANKLE (PINS/PLATES), [facility];. 11/2017 RIGHT KNEE I&D, [facility];. 12/2017 RIGHT KNEE I&D, [facility]; Hx Anesthesia Reactions: No - Immunization History Date of Tetanus Vaccine: unk Date of Influenza Vaccine: unk Hx Pertussis Vaccination: No Immunizations Up to Date: Yes Infectious Disease History: No Infectious Disease History: Reports: Hx Clostridium Difficile Denies: Hx of Known/Suspected MRSA - awaiting result from nasal swab, Traveled Outside the [place] in Last 30 Days - Family History Known Family History: Positive: Hypertension Negative: Diabetes - Social History Occupation: Unemployed, Disabled Lives: [facility] Alcohol Use: None Alcohol Amount: 1/day Hx Substance Use: No Substance Use Type: Reports: None Hx Tobacco Use: Yes Smoking Status (MU): Former Smoker Type: Cigarettes Amount Used/How Often: 1 PPD FOR 12 YEARS Length of Time of Smoking/Using Tobacco: 12 YEARS Have You Smoked in the Last Year: No Review of Systems Positive: Fever, Chills, Fatigue, Skin Diaphoresis Negative: Blurred Vision, Diplopia Negative: Sore Throat Negative: Palpitations, Chest Pain Negative: Shortness Of Breath, Cough Negative: Abdominal Pain, Vomiting, Diarrhea, Nausea Positive: see HPI - indwelling catheter Musculoskeletal: Negative Skin: Negative Positive: Weakness All Other Systems Reviewed And Are Negative: Yes Physical Exam Triage Information Reviewed: Yes Vital Signs On Initial Exam: Initial Vitals Temp Pulse Resp BP Pulse Ox 101.5 F 124 22 146/100 89 01/22/19 13:19 01/22/19 13:19 01/22/19 13:19 01/22/19 13:19 01/22/19 13:19 Vital Signs Reviewed: Yes Appearance: Positive: Well-Nourished, Ill-Appearing Skin: Positive: Skin Color Reflects Adequate Perfusion, Other - diffuse hives; stage 2 decubitus ulcer Neck: Positive: Supple, No Lymphadenopathy Respiratory/Lung Sounds: Positive: Clear to Auscultation, Breath Sounds Present Cardiovascular: Positive: Tachycardia Abdomen Description: Positive: Nontender, Soft Bowel Sounds: Positive: Present Neurological: Positive: Alert, Oriented to Person Place, Time, Facial Symmetry, Speech Normal Psychiatric: Positive: Normal AVPU Assessment: Alert Diagnostics - Vital Signs Vital Signs Temp Pulse Resp BP Pulse Ox 01/22/19 15:13 104.2 F 01/22/19 13:27 99 01/22/19 13:19 101.5 F 124 22 146/100 89 - Laboratory Lab Results: Lab Results 01/22/19 01/22/19 01/22/19 Range/Units 13:21 13:50 13:59 WBC 8.6 (3.5-10.8) 10^3/uL RBC 5.32 H (3.70-4.87) 10^6 /uL Hgb 15.0 (12.0-16.0) g/dL Hct 44 H (33-41) % MCV 83 (80-97) fL MCH 28 (27-31) pg MCHC 34 (31-36) g/dL RDW 14 (10.5-15) % Plt Count 211 (150-450) 10^3/uL MPV 7.9 (7.4-10.4) fL Neut % (Auto) 88.2 % Lymph % (Auto) 6.9 % [place] % (Auto) 4.0 % Eos % (Auto) 0.3 % Baso % (Auto) 0.6 % Absolute Neuts (auto) 7.6 (1.5-7.7) 10^3/ul Absolute Lymphs (auto) 0.6 L (1.0-4.8) 10^3/ul Absolute Monos (auto) 0.3 (0-0.8) 10^3/ul Absolute Eos (auto) 0 (0-0.6) 10^3/ul Absolute Basos (auto) 0.1 (0-0.2) 10^3/ul Absolute Nucleated RBC 0 10^3/ul Nucleated RBC % 0.2 INR (Anticoag Therapy) (0.77-1.02) Sodium (135-145) mmol/L Potassium (3.5-5.0) mmol/L Chloride (101-111) mmol/L Carbon Dioxide (22-32) mmol/L Anion Gap (2-11) mmol/L BUN (6-24) mg/dL Creatinine (0.51-0.95) mg/dL Est GFR ( Amer) (>60) Est GFR (Non-Af Amer) (>60) BUN/Creatinine Ratio (8-20) Glucose (70-100) mg/dL Lactic Acid (0.5-2.0) mmol/L Calcium (8.6-10.3) mg/dL Total Bilirubin (0.2-1.0) mg/dL AST (13-39) U/L ALT (7-52) U/L Alkaline Phosphatase (34-104) U/L Troponin I (<0.04) ng/mL C-Reactive Protein (<8.01) mg/L Total Protein (6.4-8.9) g/dL Albumin (3.2-5.2) g/dL Globulin (2-4) g/dL Albumin/Globulin Ratio (1-3) Urine Color Dalia Urine Appearance Cloudy Urine pH 5.0 (5-9) Ur Specific [place] 1.020 (1.010-1.030) Urine Protein 2+(100 mg/dl) A (Negative) Urine Ketones Negative (Negative) Urine Blood 3+ A (Negative) Urine Nitrate Positive A (Negative) Urine Bilirubin Negative (Negative) Urine Urobilinogen Negative (Negative) Ur Leukocyte Esterase 3+ A (Negative) Urine WBC (Auto) 3+(>20/hpf) A (Absent) Urine RBC (Auto) 3+(>10/hpf) A (Absent) Ur Squamous Epith Cells Present A (Absent) Ur Renal Epithelial Cell Present A (Absent) Urine Bacteria 2+ A (Absent) Urine Glucose Negative (Negative) Influenza A (Rapid) Negative (Negative) Influenza B (Rapid) Negative (Negative) 01/22/19 01/22/19 01/22/19 Range/Units 13:59 13:59 13:59 WBC (3.5-10.8) 10^3/uL RBC (3.70-4.87) 10^6 /uL Hgb (12.0-16.0) g/dL Hct (33-41) % MCV (80-97) fL MCH (27-31) pg MCHC (31-36) g/dL RDW (10.5-15) % Plt Count (150-450) 10^3/uL MPV (7.4-10.4) fL Neut % (Auto) % Lymph % (Auto) % [place] % (Auto) % Eos % (Auto) % Baso % (Auto) % Absolute Neuts (auto) (1.5-7.7) 10^3/ul Absolute Lymphs (auto) (1.0-4.8) 10^3/ul Absolute Monos (auto) (0-0.8) 10^3/ul Absolute Eos (auto) (0-0.6) 10^3/ul Absolute Basos (auto) (0-0.2) 10^3/ul Absolute Nucleated RBC 10^3/ul Nucleated RBC % INR (Anticoag Therapy) 1.98 H (0.77-1.02) Sodium 136 (135-145) mmol/L Potassium 4.3 (3.5-5.0) mmol/L Chloride 105 (101-111) mmol/L Carbon Dioxide 23 (22-32) mmol/L Anion Gap 8 (2-11) mmol/L BUN 17 (6-24) mg/dL Creatinine 0.53 (0.51-0.95) mg/dL Est GFR ( Amer) 136.8 (>60) Est GFR (Non-Af Amer) 113.1 (>60) BUN/Creatinine Ratio 32.1 H (8-20) Glucose 113 H (70-100) mg/dL Lactic Acid 1.1 (0.5-2.0) mmol/L Calcium 9.3 (8.6-10.3) mg/dL Total Bilirubin 0.80 (0.2-1.0) mg/dL AST 24 (13-39) U/L ALT 18 (7-52) U/L Alkaline Phosphatase 104 (34-104) U/L Troponin I 0.02 (<0.04) ng/mL C-Reactive Protein 11.39 H (<8.01) mg/L Total Protein 6.7 (6.4-8.9) g/dL Albumin 3.9 (3.2-5.2) g/dL Globulin 2.8 (2-4) g/dL Albumin/Globulin Ratio 1.4 (1-3) Urine Color Urine Appearance Urine pH (5-9) Ur Specific [place] (1.010-1.030) Urine Protein (Negative) Urine Ketones (Negative) Urine Blood (Negative) Urine Nitrate (Negative) Urine Bilirubin (Negative) Urine Urobilinogen (Negative) Ur Leukocyte Esterase (Negative) Urine WBC (Auto) (Absent) Urine RBC (Auto) (Absent) Ur Squamous Epith Cells (Absent) Ur Renal Epithelial Cell (Absent) Urine Bacteria (Absent) Urine Glucose (Negative) Influenza A (Rapid) (Negative) Influenza B (Rapid) (Negative) Result Diagrams: 01/22/19 13:59 01/22/19 13:59 Lab Statement: Any lab studies that have been ordered have been reviewed, and results considered in the medical decision making process. Course/Dx - Course Course Of Treatment: On arrival into the ED, patient is noted to have diffuse hives throughout her body. She states she tends to have hives when she has anxiety or any concerns. She denies any sweats or chills, cough, congestion, headache, abdominal pain. Vital signs on arrival are 101.5, tachycardia at 124 , respirations 22, 89% on room air and 146/100. Septic protocol immediately initiated with 2.3 L normal saline, Zosyn for sepsis secondary to UTI, complicated from intermediate and labs are obtained including blood cultures. Labs unremarkable, blood cultures pending. UA shows 3+ leuks, 3+ WBCs, 3+ RBCs which is positive for UTI. On re-examination, patient has 104 temp and is given 650mg tylenol. She appears well at this time, is non-diaphoretic, non- toxic in appearing and hives have dissipated. I have spoken with Dr. Deleon who will see patient and consult for admission. - Differential Dx/Clinical Impression Differential Diagnosis/HQI/PQRI: Sepsis Provider Diagnosis: UTI (urinary tract infection), Febrile, Sepsis - Provider Notifications Discussed Care Of Patient With: Javi Deleon Instructed by Provider To: Admit As Inpatient - Critical Care Time Critical Care Time: 30-74 min Discharge - Sign-Out/Discharge Documenting (check all that apply): Patient Departure Patient Received Moderate/Deep Sedation with Procedure: No - Discharge Plan Condition: Fair Disposition: ADMITTED TO [facility] Referrals: Juliana Reeves MD [Primary Care Provider] - - Billing Disposition and Condition Condition: FAIR Disposition: Admitted to [facility]
[2019-01-22] MEDS ORDERED: Docusate CAP* 100 MG PO PRN (15:45)
[2019-01-22] MEDS ORDERED: Magnesium Hydroxide LIQ* 30 ML UDC PO PRN (15:45)
[2019-01-22] MEDS ORDERED: Acetaminophen TAB* 325 MG PO PRN (15:45)
[2019-01-22] MEDS ORDERED: Collagenase 250 MG/GM OINT* 30 GM TOPICAL PRN (15:45)
[2019-01-22] MEDS ORDERED: COLLAGENASE 250 MG/GM TOPICAL PRN (15:45)
[2019-01-22] MEDS ORDERED: NS 0.9% 1000 ML** 1,000 ML IV SCH (16:00)
--- NOTE | 2019-01-22 17:14 | HP ---
ADMISSION HISTORY AND PHYSICAL: DATE OF ADMISSION: 01/22/19 PRIMARY CARE PROVIDER: Dr. Reeves at [facility]. HEALTHCARE PROXY: Her sister, Mildred. CODE STATUS: Full. SOURCE OF INFORMATION: History obtained from interview with the patient, review of past medical records. RELIABILITY: From the patient is poor. CHIEF COMPLAINT: Confusion, fever. HISTORY OF PRESENT ILLNESS: This is a 73-year-old female with past medical history of multiple sclerosis complicated by neurogenic bladder and indwelling Chaudhari catheter with recurrent urinary tract infections, last hospital stay 12/25 to 12/26/18 after presenting with sepsis and high fevers, recovered quite quickly, discharge following day on 12/26/18 to continue course of outpatient antibiotics. Today, reported "I don't feel good." She describes more fatigued, but without pain, had some nausea, but no shortness of breath and was noted to be altered, described as more confused by staff at [facility] for which she was sent [place] [facility] [place]. In the emergency room, she was found with high fever of 101.5, 104.2 was documented; however, subsequent repeat shortly thereafter without intervention again was 101.5. The patient was unable to relay much of her history given her confusion. Of note, review of the MAR from [facility] indicate she has C. diff colitis, was started on oral vancomycin on 12/30. There is no indication of recurrent diarrhea at this time. PAST MEDICAL HISTORY: Chronic atrial fibrillation, hypothyroidism, multiple sclerosis, thyroid cancer, history of right knee infection, stage II decubitus ulcers, recurrent urinary tract infections, neurogenic bladder with indwelling Chaudhari. HOME MEDICATIONS: Medications at [facility] include: 1. Acetaminophen 650 mg every 4 hours. 2. Baclofen 50 mg twice a day. 3. Colace 100 mg twice a day as needed for constipation. 4. Enema as needed for constipation. 5. Fosamax 70 mg on Sundays. 6. Gabapentin 200 mg daily. 7. Glycerin suppository as needed for constipation if no bowel movement after a milk of magnesia. 8. Hydrochlorothiazide 25 mg by mouth daily. 9. Milk of magnesia 30 mL every 72 hours as needed for constipation. 10. Potassium chloride 10 mEq daily. 11. Santyl ointment to her coccyx every 8 hours. 12. Synthroid 175 mcg daily. 13. Toprol-XL 50 mg daily. 14. Multivitamin daily. 15. Xarelto 20 mg daily. 16. Zoloft 50 mg daily. ALLERGIES: Include IBUPROFEN and seasonal and environmental allergies. FAMILY HISTORY: Father with CAD. SOCIAL HISTORY: Lives at [facility]. Quit tobacco in 1981. REVIEW OF SYSTEMS: Difficult to obtain from the patient. PHYSICAL EXAMINATION GENERAL: Sitting up in bed, interactive, pleasant, in no apparent distress. VITAL SIGNS: When seen by this author, blood pressure 154/94; heart rate 116; respiratory rate is 18; T-max 104.2, although as noted above, was 101.5 on immediate repeat. HEENT: Oropharynx is clear. She has dry mucous membranes. Sclerae are anicteric. NECK: She has no cervical or supraclavicular lymphadenopathy. LUNGS: Clear to auscultation throughout. HEART: She is tachycardic, irregularly irregular. Difficult to auscultate murmurs. ABDOMEN: Soft, nontender, nondistended. EXTREMITIES: Warm and well perfused. She does have sluggish cap refill greater than 2 seconds. NEURO: She is alert and oriented x1. Does not know where she is or the year. Able to interact, have conversion. Follow all the other simple commands. She showed me a right hand. Cranial nerves II through XII are intact. DIAGNOSTIC STUDIES/LAB DATA: Labs reviewed. Urine grossly positive. White blood cell count is 8.6, hemoglobin 15, platelets 211, and INR is 1.98. BUN is 17, creatinine 0.53, lactic acid is 1.1. CRP is 11.39. She is negative for influenza A and B. EKG is pending. Chest x-ray, no active cardiopulmonary disease. ASSESSMENT AND PLAN: A 73-year-old female, history of multiple sclerosis with some cognitive impairment, presenting with increased confusion in the setting what appears to be a metabolic encephalopathy. 1. Sepsis. Suspect urine as the source given frequency of urinary tract infections, indwelling Chaudhari catheter. Change Chaudhari catheter now, received Zosyn in the emergency room, transition to ceftriaxone based on previous sensitivities. She is ordered for 30 mL/kg of fluid after which we will continue additional fluid of 150 cc for another hour. There have been recommendations in the past for ID consultation if returns with urosepsis for suppressive antibiotics and I placed that at this time. Acetaminophen for fevers. 2. Altered mental status - confusion. Suspect toxic metabolic encephalopathy in the setting of sepsis, treat sepsis as above. 3. Atrial fibrillation and currently rapid ventricular response; however, high fevers and septic. We will treat underlying cause, i.e., sepsis at this time, reevaluate if remains tachycardic. Place her on telemetry. Check EKG now for baseline. Continue metoprolol and Xarelto. 4. Multiple sclerosis. Continue baclofen. 5. Hypothyroidism. Continue Synthroid. 6. History of Clostridium difficile colitis in December noted. 7. DVT prophylaxis is Xarelto. 8. Hypertension. Holding hydrochlorothiazide. Continue metoprolol. [id number]/CPS #: [id number] [facility]
[2019-01-22] MEDS ORDERED: Metoprolol Tartrate IV* 1 MG/ML 5 ML VIAL IV PRN (20:45)
[2019-01-22] MEDS ORDERED: Metoprolol Tartrate IV* 1 MG/ML 5 ML VIAL ONE (20:49)
[2019-01-22] MEDS: Baclofen TAB* 20 MG PO SCH (21:03)
[2019-01-22] MEDS: cefTRIAXone(*) 1 GM in NS 0.9% 50 ML* 50 ML IVPB SCH (21:04)
--- NOTE | 2019-01-22 21:29 | PN ---
Progress Note - Progress Note Date of Service: 01/22/19 Note: C. Diff positive - large liquidy stool as well as positive hemoccult. Will d/c xarelto and start SCDs. Start PO vancomycin for C. Diff.
[2019-01-22] MEDS: Vancomycin CAP* 250 MG CAP PO SCH (22:23)
[2019-01-23] MEDS: Levothyroxine TAB* 175 MCG TAB PO SCH (05:38)
[2019-01-23] MEDS: Vancomycin CAP* 250 MG CAP PO SCH ×3 (05:38→17:46)
[2019-01-23 06:50] LABS: Hematocrit 36 % (33-41); Hemoglobin 12.2 g/dL (12.0-16.0); Mean Corpuscular HGB Conc 34 g/dL (31-36); Mean Corpuscular Hemoglobin 29 pg (27-31); Mean Corpuscular Volume 84 fL (80-97); Platelet Count 161 10^3/uL (150-450); Red Blood Count 4.29 10^6 /uL (3.70-4.87); Red Cell Distribution Width 14 % (10.5-15); White Blood Count 7.5 10^3/uL (3.5-10.8)
[2019-01-23 07:06] LABS: BUN/Creatinine Ratio 29.3 (8-20); Calcium 7.8 mg/dL (8.6-10.3); EGFR African American 123.3 (>60); EGFR Non-African American 101.9 (>60)
[2019-01-23 07:43] LABS: ABS Basophils 0.1 10^3/ul (0-0.2); ABS Eosinophils 0 10^3/ul (0-0.6); ABS Lymphocytes 1.3 10^3/ul (1.0-4.8); ABS Monocytes 1.2 10^3/ul (0-0.8); ABS Neutrophils 4.9 10^3/ul (1.5-7.7)
[2019-01-23 07:44] LABS: Lymphocytes % 16 %; Monocytes % 18 %; Neutrophil % 38 %
[2019-01-23 07:45] LABS: Immature Granulocytes 24 % (0-9); Metamyelocytes % 4 % (0-2); Variant Lymph % 4 % (0-6)
[2019-01-23 07:48] LABS: ABS Neutrophils 4.6 10^3/ul (1.5-7.7)
[2019-01-23] MEDS ORDERED: Potassium Chlor TAB* 20 MEQ TAB.ER PO ONE (08:27)
[2019-01-23] MEDS ORDERED: Potassium Chlor TAB* 10 MEQ TAB.ER PO SCH (09:00)
[2019-01-23] MEDS ORDERED: Rivaroxaban TAB(*) 20 MG TAB PO SCH (09:00)
[2019-01-23] MEDS: Baclofen TAB* 20 MG PO SCH ×2 (10:16→20:06)
[2019-01-23] MEDS: Metoprolol Succinate XL TAB* 50 MG PO SCH (10:16)
[2019-01-23] MEDS: Multivitamins/Minerals TAB PO SCH (10:17)
[2019-01-23] MEDS: Gabapentin CAP(*) 100 MG PO SCH (10:17)
[2019-01-23] MEDS: Sertraline* 50 MG TAB PO SCH (10:17)
[2019-01-23] MEDS: KCL 10 MEQ/50 ML IVPREMIX* 10 MEQ/50 ML BAG IV SCH ×3 (10:19→15:24)
--- NOTE | 2019-01-23 13:17 | PN ---
Subjective Date of Service: 01/23/19 Interval History: HOSPITALIST PROGRESS NOTE Patient seen and examined at bedside. Care reviewed and d/w Idalia Pepe RN. Her major complaint today is diarrhea. Continues to have frequent liquid, foul smelling, brown stool. Denies abdominal pain, nausea, vomiting, tolerating diet. Family History: Unchanged from Admission Social History: Unchanged from Admission Past Medical History: Unchanged from Admission Objective Active Medications: Acetaminophen (Tylenol Tab*) 650 mg PO Q4H PRN PRN Reason: PAIN - MILD Baclofen (Lioresal Tab*) 50 mg PO BID [facility] Last Admin: 01/23/19 10:16 Dose: 50 mg Collagenase (Santyl 250 Mg/Gm Oint*) 1 applic TOPICAL Q8HR PRN PRN Reason: WOUND CARE Docusate Sodium (Colace Cap*) 100 mg PO BID PRN PRN Reason: CONSTIPATION Gabapentin (Neurontin Cap(*)) 200 mg PO DAILY [facility] Last Admin: 01/23/19 10:17 Dose: 200 mg Ceftriaxone Sodium 1 gm/ (Sodium Chloride) 50 mls @ 200 mls/hr IVPB Q24H [facility] Last Admin: 01/22/19 21:04 Dose: 200 mls/hr Levothyroxine Sodium (Synthroid Tab*) 175 mcg PO DAILY@0600 [facility] Last Admin: 01/23/19 05:38 Dose: 175 mcg Magnesium Hydroxide (Milk Of Magnconcha Liq*) 30 ml PO Q72HR PRN PRN Reason: CONSTIPATION Metoprolol Succinate (Toprol Xl Tab*) 50 mg PO DAILY [facility] Last Admin: 01/23/19 10:16 Dose: 50 mg Metoprolol Tartrate (Lopressor Iv*) 5 mg IV Q6H PRN PRN Reason: HEART RATE/PULSE Last Admin: 01/22/19 21:03 Dose: 5 mg Multivitamins/Minerals (Theragran/Minerals Tab*) 1 tab PO DAILY [facility] Last Admin: 01/23/19 10:17 Dose: 1 tab Potassium Chloride (Klor Con Er Tab*) 10 meq PO DAILY [facility] Last Admin: 01/23/19 10:24 Dose: Not Given Sertraline HCl (Zoloft*) 50 mg PO DAILY [facility] Last Admin: 01/23/19 10:17 Dose: 50 mg Vancomycin HCl (Vancomycin Cap*) 250 mg PO Q6HR [facility] Last Admin: 01/23/19 10:17 Dose: 250 mg Vital Signs - 8 hr 01/23/19 01/23/19 01/23/19 08:15 10:17 11:39 Temperature 97.8 F 96.8 F Pulse Rate 96 75 Respiratory 18 16 Rate Blood Pressure 116/62 86/52 (mmHg) O2 Sat by Pulse 96 100 Oximetry Oxygen Devices in Use Now: Nasal Cannula - 2 liters Appearance: Pleasant elderly lady lying in bed in NAD. Eyes: No Scleral Icterus Ears/Nose/Mouth/Throat: Mucous Membranes Moist Neck: Trachea Midline Respiratory: Symmetrical Chest Expansion and Respiratory Effort, Clear to Auscultation Cardiovascular: RRR - Normal S1 and S2 Abdominal: - - Soft, NT, ND, BS+ and increased Neurological: - - AAOx1 (self) Result Diagrams: 01/23/19 06:42 01/23/19 06:42 Microbiology and Other Data: Microbiology 01/22/19 18:45 Stool Gross Appearance - Final Stool C. difficile DNA Amplification - Final 027 Presumptive NEGATIVE Toxigenic C.diff POSITIVE 01/22/19 Unknown Stool Occult Blood (CLAUDIA) - Final Stool 01/22/19 13:21 Influenza Types A,B Antigen - Final Nasal Specimen received for Influenza A/B Molecular testing Assess/Plan/Problems-Billing Assessment: Mrs Scott is a 73yo F with PMH of Afib, hypothyroidism, multiple sclerosis, thyroid CA, right knee infection, neurogenic bladder with chronic Chaudhari and recurrent UTIs, stage II sacral pressure ulcer, who presented to ED with confusion and fever, found to have sepsis secondary to UTI and C. diff colitis. - Patient Problems (1) Sepsis Comment: - Presentation compatible with sepsis with fever, tachycardia, and bandemia. - Source is UTI and C diff colitis. (2) UTI (urinary tract infection) Comment: - Present on admission, Chaudhari catheter associated. - Has h/o neurogenic bladder secondary to MS with indwelling Chaudhari with recurrent UTIs. - Last urine culture 12/25/18 grew pansensitive E. coli. - Continue Ceftriaxone. (3) C. difficile colitis Comment: - Multiple liquid bowel movements, C. diff positive. Report of positive C diff at [facility] 12/30/18 treated with PO Vanco - will request ID consult. - Present on admission. - Continue Vanco PO. - Stool was positive for occult blood, but no signs of overt GI bleeding - will resume Xarelto and monitor H/H. (4) Atrial fibrillation Comment: - Rate is controlled now. - Resume Rivaroxaban and continue Metoprolol. (5) Multiple sclerosis Comment: - Continue Baclofen for spasms. (6) Hypothyroidism Comment: - Continue Levothyroxine. (7) DVT prophylaxis Comment: - Xarelto. (8) Full code status Status and Disposition: Inpatient.
[2019-01-23] MEDS: Rivaroxaban TAB(*) 20 MG TAB PO SCH (17:45)
[2019-01-23] MEDS ORDERED: Lactated Ringers 1000 ML Bag* 1,000 ML IV SCH (18:00)
[2019-01-23] MEDS: cefTRIAXone(*) 1 GM in NS 0.9% 50 ML* 50 ML IVPB SCH (20:09)
[2019-01-23] MEDS: Nystatin TOP POWDER* 15 GM BTL TOPICAL SCH (21:45)
[2019-01-24] MEDS: Vancomycin CAP* 250 MG CAP PO SCH ×5 (01:03→23:57)
[2019-01-24] MEDS: Levothyroxine TAB* 175 MCG TAB PO SCH (06:03)
[2019-01-24 06:04] LABS: ABS Basophils 0 10^3/ul (0-0.2); ABS Eosinophils 0.4 10^3/ul (0-0.6); ABS Lymphocytes 1.5 10^3/ul (1.0-4.8); ABS Monocytes 0.7 10^3/ul (0-0.8); ABS Neutrophils 3.8 10^3/ul (1.5-7.7); ABS Nucleated RBC 0 10^3/ul; Hematocrit 36 % (33-41); Hemoglobin 11.9 g/dL (12.0-16.0); Lymphocyte % 23.1 %; Mean Corpuscular HGB Conc 34 g/dL (31-36); Mean Corpuscular Hemoglobin 28 pg (27-31); Mean Corpuscular Volume 84 fL (80-97); Mean Platelet Volume 8.3 fL (7.4-10.4); Nucleated Red Blood Cells % 0; Platelet Count 167 10^3/uL (150-450); Red Blood Count 4.25 10^6 /uL (3.70-4.87); Red Cell Distribution Width 14 % (10.5-15); White Blood Count 6.4 10^3/uL (3.5-10.8)
[2019-01-24 06:12] LABS: Calcium 8.2 mg/dL (8.6-10.3); Potassium 3.1 mmol/L (3.5-5.0)
[2019-01-24 06:18] LABS: BUN/Creatinine Ratio 31.8 (8-20); EGFR African American 169.6 (>60); EGFR Non-African American 140.2 (>60)
[2019-01-24] MEDS: KCL 10 MEQ/50 ML IVPREMIX* 10 MEQ/50 ML BAG IV SCH ×3 (08:27→13:54)
[2019-01-24] MEDS: Metoprolol Succinate XL TAB* 50 MG PO SCH (10:01)
[2019-01-24] MEDS: Gabapentin CAP(*) 100 MG PO SCH (10:01)
[2019-01-24] MEDS: Multivitamins/Minerals TAB PO SCH (10:02)
[2019-01-24] MEDS: Sertraline* 50 MG TAB PO SCH (10:02)
[2019-01-24] MEDS: Potassium Chlor TAB* 10 MEQ TAB.ER PO SCH (10:03)
[2019-01-24] MEDS: Baclofen TAB* 20 MG PO SCH ×2 (10:03→20:05)
[2019-01-24] MEDS: Nystatin TOP POWDER* 15 GM BTL TOPICAL SCH ×2 (10:10→20:20)
[2019-01-24 10:14] LABS: Magnesium 1.6 mg/dL (1.9-2.7)
--- NOTE | 2019-01-24 10:46 | PN ---
Subjective Date of Service: 01/24/19 Interval History: HOSPITALIST PROGRESS NOTE Patient seen and examined at bedside. Care reviewed and d/w Essence Bellamy RN. She feels better today. Appetite is improving, denies nausea, diarrhea is slowing down. Family History: Unchanged from Admission Social History: Unchanged from Admission Past Medical History: Unchanged from Admission Objective Active Medications: Acetaminophen (Tylenol Tab*) 650 mg PO Q4H PRN PRN Reason: PAIN - MILD Last Admin: 01/24/19 01:02 Dose: 650 mg Baclofen (Lioresal Tab*) 50 mg PO BID [facility] Last Admin: 01/24/19 10:03 Dose: 50 mg Collagenase (Santyl 250 Mg/Gm Oint*) 1 applic TOPICAL Q8HR PRN PRN Reason: WOUND CARE Docusate Sodium (Colace Cap*) 100 mg PO BID PRN PRN Reason: CONSTIPATION Gabapentin (Neurontin Cap(*)) 200 mg PO DAILY [facility] Last Admin: 01/24/19 10:01 Dose: 200 mg Ceftriaxone Sodium 1 gm/ (Sodium Chloride) 50 mls @ 200 mls/hr IVPB Q24H [facility] Last Admin: 01/23/19 20:09 Dose: 200 mls/hr Lactated Ringer's (Lactated Ringers 1000 Ml Bag*) 1,000 mls @ 125 mls/hr IV PER RATE [facility] Last Admin: 01/23/19 18:41 Dose: 125 mls/hr Potassium Chloride (Potassium Chloride 10 Meq/50 Ml Ivpremix*) 10 meq in 50 mls @ 50 mls/hr IV Q1H [facility] Stop: 01/24/19 10:59 Last Admin: 01/24/19 08:27 Dose: 50 mls/hr Levothyroxine Sodium (Synthroid Tab*) 175 mcg PO DAILY@0600 [facility] Last Admin: 01/24/19 06:03 Dose: 175 mcg Magnesium Hydroxide (Milk Of Magnesia Liq*) 30 ml PO Q72HR PRN PRN Reason: CONSTIPATION Metoprolol Succinate (Toprol Xl Tab*) 50 mg PO DAILY [facility] Last Admin: 01/24/19 10:01 Dose: 50 mg Metoprolol Tartrate (Lopressor Iv*) 5 mg IV Q6H PRN PRN Reason: HEART RATE/PULSE Last Admin: 01/22/19 21:03 Dose: 5 mg Multivitamins/Minerals (Theragran/Minerals Tab*) 1 tab PO DAILY [facility] Last Admin: 01/24/19 10:02 Dose: 1 tab Nystatin (Nystatin Top Powder*) 1 applic TOPICAL BID [facility] Last Admin: 01/24/19 10:10 Dose: 1 applic Potassium Chloride (Klor Con Er Tab*) 40 meq PO DAILY [facility] Last Admin: 01/24/19 10:03 Dose: 40 meq Rivaroxaban (Xarelto(*)) 20 mg PO QPM [facility] Last Admin: 01/23/19 17:45 Dose: 20 mg Sertraline HCl (Zoloft*) 50 mg PO DAILY [facility] Last Admin: 01/24/19 10:02 Dose: 50 mg Vancomycin HCl (Vancomycin Cap*) 250 mg PO Q6HR [facility] Last Admin: 01/24/19 06:03 Dose: 250 mg Vital Signs - 8 hr 01/24/19 01/24/19 01/24/19 03:00 04:07 07:39 Temperature 98.2 F 98.2 F 97.8 F Pulse Rate 81 81 71 Respiratory 18 18 20 Rate Blood Pressure 112/86 112/86 127/75 (mmHg) O2 Sat by Pulse 99 99 100 Oximetry 01/24/19 01/24/19 01/24/19 07:47 08:00 10:01 Temperature 97.8 F Pulse Rate 71 Respiratory 20 18 20 Rate Blood Pressure 127/75 (mmHg) O2 Sat by Pulse 100 100 Oximetry Oxygen Devices in Use Now: Nasal Cannula - 1.5 liters Appearance: Elderly gentleman sitting up in bed in [facility]. Eyes: No Scleral Icterus Ears/Nose/Mouth/Throat: Mucous Membranes Moist Neck: Trachea Midline Respiratory: Symmetrical Chest Expansion and Respiratory Effort, Clear to Auscultation Cardiovascular: RRR - Normal S1 and S2 Abdominal: NL Sounds; No Tenderness; No Distention Neurological: - - AAOx2 (self and place), GEE Result Diagrams: 01/24/19 05:41 01/24/19 05:41 Microbiology and Other Data: Microbiology 01/22/19 18:45 Stool Gross Appearance - Final Stool C. difficile DNA Amplification - Final 027 Presumptive NEGATIVE Toxigenic C.diff POSITIVE 01/22/19 Unknown Stool Occult Blood (CLAUDIA) - Final Stool 01/22/19 13:21 Influenza Types A,B Antigen - Final Nasal Specimen received for Influenza A/B Molecular testing Assess/Plan/Problems-Billing Assessment: Mrs Scott is a 73yo F with PMH of Afib, hypothyroidism, multiple sclerosis, thyroid CA, right knee infection, neurogenic bladder with chronic Chaudhari and recurrent UTIs, stage II sacral pressure ulcer, who presented to ED with confusion and fever, found to have sepsis secondary to UTI and C. diff colitis. - Patient Problems (1) Sepsis Comment: - Presentation compatible with sepsis with fever, tachycardia, and bandemia. - Source is UTI and C diff colitis. (2) UTI (urinary tract infection) Comment: - Present on admission, Chaudhari catheter associated. - Has h/o neurogenic bladder secondary to MS with indwelling Chaudhari with recurrent UTIs. - Urine culture grew Citrobacter resistant to Ceftriaxone and E. coli sensitive to it. - D/c Ceftriaxone and start Cipro. (3) C. difficile colitis Comment: - Multiple liquid bowel movements, C. diff positive. Report of positive C diff at [facility] 12/30/18 treated with PO Vanco. - Present on admission. - ID input appreciated - plan for Vancomycin taper. - Stool was positive for occult blood, but no signs of overt GI bleeding - continue Xarelto and monitor H/H - remains stable at this time. (4) Atrial fibrillation Comment: - Rate is controlled now. - Continue Rivaroxaban and Metoprolol. (5) Electrolyte abnormality Comment: - Hypokalemia and hypomagnesemia - will replete. (6) Multiple sclerosis Comment: - Continue Baclofen for spasms. (7) Hypothyroidism Comment: - Continue Levothyroxine. (8) DVT prophylaxis Comment: - Xarelto. (9) Full code status Status and Disposition: Inpatient.
--- NOTE | 2019-01-24 11:15 | CONS ---
CONSULTATION REPORT: DATE OF CONSULT: 01/24/19 REQUESTING PHYSICIAN: Dr. Whaley. CONSULTING SERVICE: Infectious Disease. REASON FOR CONSULT: Diarrhea, urinary tract infection. IMPRESSION: 1. Catheter-associated urinary tract infection, in the setting of chronic Chaudhari , growing citrobacter and Escherichia coli. Urinalysis shows 3+ blood, 3+ leukocyte esterase, 3+ white cells, and nitrite positive. 2. Recurrence of Clostridium difficile colitis, which started mid December and now has recurred within a couple of days of stopping vancomycin as an outpatient. 3. Multiple sclerosis with chronic urinary retention and chronic Chaudhari catheter. 4. History of celestnie prosthetic right knee infection, had been on a long course of antifungal, which she is off now, the knee is benign. RECOMMENDATIONS: 1. Continue vancomycin 125 mg by mouth 4 times a day for 2 weeks, then 3 times a day for 2 weeks, then twice a day for 2 weeks, then once a day for 2 weeks, and then every other day for 14 days. 2. Continue ceftriaxone while we are awaiting susceptibility data on the urine pathogens. HISTORY OF PRESENT ILLNESS: This is a 73-year-old woman with multiple sclerosis , recent pneumonia, and outpatient diagnosis and treatment for Clostridium difficile diarrhea, admitted with decreased mental status and malaise. She cannot provide much history of what happened when she came in as she does not recall it, was obtained instead from review of the medical records and discussion with Dr. Whaley. Here she was having liquid stool. She had a C. diff test that was positive. Urine specimen was sent with result as above and influenza PCR was negative. She did have a fever of 40.1 celsius when she first got here and none yesterday or today so far. Her blood cultures have been negative. She has been off her antifungal for a while. She has no pain in right knee. The wound has closed up. She feels okay today. Her appetite is coming back, occasional diffuse abdominal pain, which comes and goes. She is continuing to have few soft stools per day. PAST MEDICAL HISTORY: 1. Chronic atrial fibrillation. 2. Hypothyroidism. 3. Multiple sclerosis. 4. Urinary retention with chronic Chaudhari catheter. 5. Thyroid cancer. 6. Right knee arthroplasty, complicated by celestine infection. 7. Decubitus ulcers. 8. Urinary tract infection. ALLERGIES: IBUPROFEN. MEDICATIONS: 1. Tylenol. 2. Baclofen. 3. Docusate. 4. Gabapentin. 5. Levothyroxine. 6. Magnesium. 7. Metoprolol. 8. Nystatin. 9. Rivaroxaban. 10. Ceftriaxone 1 g a day. 11. Sertraline. 12. Vancomycin 250 mg by mouth every 6 hours. FAMILY HISTORY: Father had coronary artery disease. SOCIAL HISTORY: Living at [facility]. She is a past smoker. REVIEW OF SYSTEMS: All negative to 14-point review except as noted above in history of present illness. PHYSICAL EXAM: Vital Signs: Temperature 36.6, heart rate 70, respiratory rate 20, blood pressure 127/75, oxygen saturation 100% on 1-1/2 L by nasal cannula. In general, she is awake, not in distress, reading the newspaper. Neurologic: She is oriented x3, follows commands and answers questions appropriately. HEENT : There is no conjunctival hemorrhage. Mucous membranes are moist. Neck is supple without mass. Heart has regular rate and rhythm without murmurs, rubs, or gallops. Lungs are clear to auscultation bilaterally. Abdomen: Soft, nontender, and nondistended. There are hyperactive bowel sounds. Skin: There is no rash or splinter hemorrhage. Musculoskeletal: There is no spine tenderness to palpation. Right knee, there is no wound, there is no effusion. LABORATORY DATA: White blood cell count 6, hemoglobin 11.9, platelets 167. Creatinine 0.4. CRP 11. Please see impressions and recommendations outlined above, which I have discussed with Dr. Whaley. Thanks for asking me to see Ms. Scott in consultation. [id number]/[facility] #: [id number] [facility]ENT[facility]ami[facility]
[2019-01-24] MEDS ORDERED: Magnesium Sulfate 2 GM IV* 2 GM/50 ML BAG IVPB ONE (13:53)
[2019-01-24] MEDS: Ciprofloxacin 400MG IVPREMIX(* 400 MG/200 ML BAG IVPB SCH (16:23)
[2019-01-24] MEDS: Rivaroxaban TAB(*) 20 MG TAB PO SCH (18:02)
--- NOTE | 2019-01-24 18:09 | CONSULT ---
Subjective Date of Service: 01/24/19 Interval History: Ms. Scott is a 73 yo female with PMH significant for MS, neurogenic bladder with chronic indwellling catheter, chronic afib, hypothyroid, and thyroid cancer. She presented to the hospital with complaints of confusion and fever. She presented with an open area to the sacrum. She states that she was previously treated for a chronic pressure injury to her sacrum, having a skin graft and flap in the past. She states that she again had an area open up about 4 months ago and has been seen by the wound clinic. Patient seen and examined at bedside. Family History: Unchanged from Admission Social History: Unchanged from Admission Past Medical History: Unchanged from Admission Review of Systems - Measurements Intake and Output: Intake and Output Last 24 Hours 01/22/19 01/23/19 01/24/19 01/25/19 06:59 06:59 06:59 06:59 Intake Total 3490 2682 1840 Output Total 300 1150 1300 Balance 3190 1532 540 Weight 176 lb Intake: IV Fluids 3490 1494 430 LR 1000 400 NS (0.9%) 1000 494 30 IVPB 148 210 ABX - CIPROFLOXACIN 30 KCL 148 150 magnesium 30 Oral 0 1040 1200 Output: Chaudhari 300 1150 1300 Other: Date of Last Bowel [id number] Movement # Bowel Movements 1 1 2 Estimated Stool Amount Medium Small Large - Review of Systems Constitutional Symptoms: Negative: Fever, Other - Chills Dermatology: Positive: Other - Open area to buttocks Gastroenterology: Positive: Diarrhea Genital - Urinary: Positive: Other - Urinary catheter Objective Active Medications: Acetaminophen (Tylenol Tab*) 650 mg PO Q4H PRN Reason: PAIN - MILD Baclofen (Lioresal Tab*) 50 mg PO BID [facility] Collagenase (Santyl 250 Mg/Gm Oint*) 1 applic TOPICAL Q8HR PRN Reason: WOUND CARE Docusate Sodium (Colace Cap*) 100 mg PO BID PRN Reason: CONSTIPATION Gabapentin (Neurontin Cap(*)) 200 mg PO DAILY [facility] Ciprofloxacin/Dextrose (Cipro 400 Mg Ivpremix(*)) 400 mg in 200 mls @ 200 mls/ hr IVPB Q12H [facility] Levothyroxine Sodium (Synthroid Tab*) 175 mcg PO DAILY@0600 [facility] Magnesium Hydroxide (Milk Of Magnesia Liq*) 30 ml PO Q72HR PRN Reason: CONSTIPATION Metoprolol Succinate (Toprol Xl Tab*) 50 mg PO DAILY [facility] Metoprolol Tartrate (Lopressor Iv*) 5 mg IV Q6H PRN Reason: HEART RATE/PULSE Multivitamins/Minerals (Theragran/Minerals Tab*) 1 tab PO DAILY [facility] Nystatin (Nystatin Top Powder*) 1 applic TOPICAL BID [facility] Potassium Chloride (Klor Con Er Tab*) 40 meq PO DAILY [facility] Rivaroxaban (Xarelto(*)) 20 mg PO QPM [facility] Sertraline HCl (Zoloft*) 50 mg PO DAILY [facility] Vancomycin HCl (Vancomycin Cap*) 250 mg PO Q6HR [facility] Vital Signs 01/24/19 15:41 Temperature 98.3 F Pulse Rate 62 Respiratory 18 Rate Blood Pressure 111/72 (mmHg) O2 Sat by Pulse 100 Oximetry Oxygen Devices in Use Now: Nasal Cannula - 1L Appearance: NAD, laying in bed Ears/Nose/Mouth/Throat: Mucous Membranes Moist Skin: - - See skin note below Neurological: Alert and Oriented x 3 Nutrition: Taking PO's Result Diagrams: 01/25/19 06:18 01/25/19 06:18 Microbiology and Other Data: Microbiology 01/22/19 18:45 Stool Gross Appearance - Final Stool C. difficile DNA Amplification - Final 027 Presumptive NEGATIVE Toxigenic C.diff POSITIVE 01/22/19 Unknown Stool Occult Blood (CLAUDIA) - Final Stool 01/22/19 13:21 Influenza Types A,B Antigen - Final Nasal Specimen received for Influenza A/B Molecular testing Skin Deviation Note - Skin Deviation Findings Sacrum - 1 cm x 1 cm x 0.1 cm. The wound base is difficult to visualize due to barrier cream in place, but appears to have some yellow slough present. The surrounding skin is excoriated. Assessment/Plan: Mrs Scott is a 73yo F with PMH of Afib, hypothyroidism, multiple sclerosis, thyroid CA, right knee infection, neurogenic bladder with chronic Chaudhari and recurrent UTIs, and stage II sacral pressure ulcer who presented to ED with confusion and fever, found to have sepsis secondary to UTI and C. diff colitis. 1. Sacral pressure injury, stage 2 with moisture associated skin injury. History of extensive reconstruction and flap to sacrum. Seen by the wound clinic 12/13/18 at that time the new ulcer had been present for 6-8 weeks. Previously she had a 10 year history of a pressure injury. The Wound clinic recommended silver alginate and Mepilex. Due to frequent and loose stools recommend barrier cream for now and frequent turning and repositioning. Once the diarrhea has decreased, can return to using silver alginate and border foam dressing (Optifoam or Mepilex). Discussed with the patient that the scar tissue present is fragile and more likely to breakdown. Consider checking prealbumin level to evaluate nutritional status. 2. MS with neurogenic bladder. Chronic indwelling urinary catheter. 3. Diet. Regular 4. Code Status. Full code 5. Disposition. Disposition per primary medicine team TIME SPENT: Time for this wound consult was 25 minutes and 15 minutes was spent with the patient discussing past medication history, assessing, measuring, and photographing the wound. Wound Problem/Plan Is Patient a Wound Clinic Patient: Yes Current Treatment: Silver collogen and border foam gauze Comment: Seen for 1 visit on 12/13/18 Attending: Heather Wagner
[2019-01-25] MEDS: Ciprofloxacin 400MG IVPREMIX(* 400 MG/200 ML BAG IVPB SCH (02:22)
[2019-01-25] MEDS: Vancomycin CAP* 250 MG CAP PO SCH (05:23)
[2019-01-25] MEDS: Levothyroxine TAB* 175 MCG TAB PO SCH (05:23)
[2019-01-25 06:43] LABS: ABS Basophils 0 10^3/ul (0-0.2); ABS Eosinophils 0.3 10^3/ul (0-0.6); ABS Lymphocytes 1.3 10^3/ul (1.0-4.8); ABS Monocytes 0.5 10^3/ul (0-0.8); ABS Neutrophils 2.9 10^3/ul (1.5-7.7); ABS Nucleated RBC 0 10^3/ul; Eosinophil % 5.7 %; Hematocrit 34 % (33-41); Hemoglobin 11.6 g/dL (12.0-16.0); Lymphocyte % 26.5 %; Mean Corpuscular HGB Conc 34 g/dL (31-36); Mean Corpuscular Hemoglobin 28 pg (27-31); Mean Corpuscular Volume 83 fL (80-97); Mean Platelet Volume 8.5 fL (7.4-10.4); Nucleated Red Blood Cells % 0; Platelet Count 163 10^3/uL (150-450); Red Blood Count 4.14 10^6 /uL (3.70-4.87); Red Cell Distribution Width 14 % (10.5-15); White Blood Count 5.1 10^3/uL (3.5-10.8)
[2019-01-25 06:59] LABS: BUN/Creatinine Ratio 21.3 (8-20); Calcium 8.2 mg/dL (8.6-10.3); EGFR African American 157.2 (>60); EGFR Non-African American 129.9 (>60); Magnesium 1.9 mg/dL (1.9-2.7); Potassium 3.6 mmol/L (3.5-5.0)
[2019-01-25 09:34] VITALS: BP 145/81
[2019-01-25] MEDS: Potassium Chlor TAB* 10 MEQ TAB.ER PO SCH (09:41)
[2019-01-25] MEDS: Multivitamins/Minerals TAB PO SCH (09:41)
[2019-01-25] MEDS: Baclofen TAB* 20 MG PO SCH (09:41)
[2019-01-25] MEDS: Metoprolol Succinate XL TAB* 50 MG PO SCH (09:41)
[2019-01-25] MEDS: Gabapentin CAP(*) 100 MG PO SCH (09:42)
[2019-01-25] MEDS: Nystatin TOP POWDER* 15 GM BTL TOPICAL SCH (09:43)
[2019-01-25] MEDS: Sertraline* 50 MG TAB PO SCH (09:43)
--- NOTE | 2019-01-25 10:05 | PN ---
Progress Note - Progress Note Date of Service: 01/25/19 SOAP: Subjective: CC: Recurrent C-diff colitis and CAUTI HPI: Ms. Scott is a 73 yo female with PMH significant for chronic afib, hypothyroidism, MS, neurogenic bladder, and sacral decubitus ulcers. Denies fever, chills, shortness of breath, nausea or vomiting. Reports continued frequent stools, but states that they are no longer loose, more formed, and decreasing. Objective: Vital Signs 01/25/19 01/25/19 01/25/19 02:31 08:38 09:42 Temperature 97.3 F Pulse Rate 67 64 Respiratory 16 18 Rate Blood Pressure 128/77 145/81 (mmHg) O2 Sat by Pulse 100 100 Oximetry Physical Exam: General: NAD, laying in bed Neurological: Alert and Oriented x4 Cardiovascular: Heart rate regular, no murmur Respiratory: Lung sound clear bilateral Abdominal: Bowel sounds present; ABD soft, non tended and non distended Skin: No rashes seen on the exposed skin Laboratory Results - last 24 hr 01/24/19 01/25/19 01/25/19 05:41 06:18 06:18 WBC 5.1 RBC 4.14 Hgb 11.6 L Hct 34 MCV 83 MCH 28 MCHC 34 RDW 14 Plt Count 163 MPV 8.5 Neut % (Auto) 57.7 Lymph % (Auto) 26.5 Whitley % (Auto) 9.4 Eos % (Auto) 5.7 Baso % (Auto) 0.7 Absolute Neuts (auto) 2.9 Absolute Lymphs (auto) 1.3 Absolute Monos (auto) 0.5 Absolute Eos (auto) 0.3 Absolute Basos (auto) 0 Absolute Nucleated RBC 0 Nucleated RBC % 0 Sodium 140 Potassium 3.6 Chloride 111 Carbon Dioxide 23 Anion Gap 6 BUN 10 Creatinine 0.47 L Est GFR ( Amer) 157.2 Est GFR (Non-Af Amer) 129.9 BUN/Creatinine Ratio 21.3 H Glucose 91 Calcium 8.2 L Magnesium 1.6 L 1.9 Microbiology 01/22/19 13:59 Aerobic Blood Culture - Preliminary Blood Venous No Growth Day 4 Anaerobic Blood Culture - Preliminary No Growth Day 4 01/22/19 13:59 Aerobic Blood Culture - Preliminary Blood Venous No Growth Day 4 Anaerobic Blood Culture - Preliminary No Growth Day 4 01/22/19 13:21 Urine Culture - Final Urine Citrobacter Species Escherichia Coli 01/22/19 18:45 Stool Gross Appearance - Final Stool C. difficile DNA Amplification - Final 027 Presumptive NEGATIVE Toxigenic C.diff POSITIVE 01/22/19 Unknown Stool Occult Blood (CLAUDIA) - Final Stool 01/22/19 13:21 Influenza Types A,B Antigen - Final Nasal Specimen received for Influenza A/B Molecular testing Assessment: 1. Catheter associated UTI in the setting of chronic urinary catheter. Urine culture growing citrobacter and E. coli. 2. Recurrent C. Diff colitis. 3. MS with neurogenic bladder and chronic indwelling urinary catheter. 4. History of celestine prosthetic right knee infection. Treated with snf antifungal, now off antifungal treatment Plan: Continue oral vancomycin long taper. Discontinue Cipro and change to Doxycycline 100 BID for 14 days.
[2019-01-25] MEDS ORDERED: Sulfamethox/Trimethoprim DS 800/160* TAB PO SCH (11:00)
--- NOTE | 2019-01-25 11:55 | TRS ---
DATE OF ADMISSION: 01/22/2019. DATE OF TRANSFER: 01/25/2019. HISTORY: This 73-year-old woman was transferred from [facility] because of diar dileep and a UTI. She has a catheter-associated urinary tract infection. The patient has a chronic Chaudhari catheter because of her multiple sclerosis. The catheter was changed in the emergency room on this admission. The patient was positive for C. difficile toxin and her urine grew out greater than 100,000 Citrobact er. DICTATION ENDS HERE [id number]/[facility] #: [id number]
--- NOTE | 2019-01-25 11:59 | PN ---
Progress Note - Progress Note Date of Service: 01/25/19 Note: Time spent on discharge including exam of patient, discussion with patient, nurse, Dr. Jerrell CM, review of EMR and preparation of discharge documents 55 minutes.
[2019-01-25] MEDS ORDERED: Vancomycin CAP* 125 MG CAP PO SCH (12:00)
--- NOTE | 2019-01-25 12:12 | TRS ---
DATE OF ADMISSION: 01/22/2019. DATE OF TRANSFER: 01/25/2019. HISTORY OF PRESENT ILLNESS/HOSPITAL COURSE: This 73-year-old woman was transferred from the [facility] facility because of diarrhea and urinary tract infection. The history is detailed in the admission note. She was C. difficile positive. Urine grew out greater than 100,000 Citrobacter freundii and greater than 75,000 E. coli, both were sensitive to Tetracycline. She did get two doses of Ciprofloxacin and one dose of Sulfamethoxazole Trimethoprim. However, the recommendation by Dr. Allan is that she be treated with Doxycycline for her urinary tract infection. He also prescribed a tapering schedule of Vancomycin which is detailed in the discharge papers. Her Chaudhari catheter was changed in the emergency room. FINAL DIAGNOSES: 1. Citrobacter urinary tract infection. 2. Recurrent C. difficile colitis. 3. Multiple sclerosis. 4. History of celestine prosthetic right knee infection. DISCHARGE MEDICATIONS: 1. Doxycycline 100 mg b.i.d. for 7 days. 2. Nystatin topical powder to affected areas b.i.d. 3. Vancomycin 125 mg q.i.d. for 20 more days, then t.i.d. for 14 days, then b.i.d. for 14 days, then once daily for 14 days, then every other day for 14 days. 4. Alendronate 70 mg every Tuesday. 5. Gabapentin 200 mg daily. 6. Metoprolol Succinate 50 mg daily. 7. Sertraline 50 mg daily. 8. Potassium Chloride 10 mEq daily. 9. Levothyroxine 175 mcg daily. 10. Magnesium Hydroxide 30 ml every 72 hours prn. 11. Glycerin suppository prn. 12. Sodium Phosphate enema prn. 13. Acetaminophen 650 mg every 4 hours prn. 14. Multivitamin with mineral daily. 15. Docusate 100 mg b.i.d. prn. 16. Baclofen 50 mg b.i.d. 17. Rivaroxaban 20 mg daily. 18. Collagenase ointment every 8 hours prn and every 72 hours prn. CONDITION ON DISCHARGE: Improved. DISPOSITION ON DISCHARGE: Discharge to [facility]. [id number]/[facility] #: [id number] [facility]
[2019-01-25 12:27] LABS: TSH (Thyroid Stimulating Horm) 0.24 mcIU/mL (0.34-5.60)
[2019-01-25] MEDS ORDERED: DOXYcycline CAP(*) 100 MG PO SCH ×2 (21:00)
[2019-01-25] MEDS ORDERED: Ciprofloxacin TAB* 500 MG PO SCH (21:00)
== END 2019-01-25 13:00 | DRG 698 ==
LOC: ED 13:13 → MED 15:48
PROVIDERS: ADMIT Internal Medicine; ATTEND Internal Medicine
DX: T83.511A Infection and inflammatory reaction due to indwelling urethral catheter, initial encounter (principal); A41.9 Sepsis, unspecified organism; G93.41 Metabolic encephalopathy; A04.71 Enterocolitis due to Clostridium difficile, recurrent; I48.2 Chronic atrial fibrillation; E03.9 Hypothyroidism, unspecified; I25.10 Atherosclerotic heart disease of native coronary artery without angina pectoris; E78.00 Pure hypercholesterolemia, unspecified; I10 Essential (primary) hypertension; J45.909 Unspecified asthma, uncomplicated; Y73.1 Therapeutic (nonsurgical) and rehabilitative gastroenterology and urology devices associated with adverse incidents; N39.0 Urinary tract infection, site not specified; B96.89 Other specified bacterial agents as the cause of diseases classified elsewhere; G35 Multiple sclerosis; B96.20 Unspecified Escherichia coli [E. coli] as the cause of diseases classified elsewhere; N31.9 Neuromuscular dysfunction of bladder, unspecified; M81.0 Age-related osteoporosis without current pathological fracture; M19.042 Primary osteoarthritis, left hand; L89.152 Pressure ulcer of sacral region, stage 2; M19.041 Primary osteoarthritis, right hand; F03.90 Unspecified dementia, unspecified severity, without behavioral disturbance, psychotic disturbance, mood disturbance, and anxiety; F41.9 Anxiety disorder, unspecified; F32.9 Major depressive disorder, single episode, unspecified; R33.9 Retention of urine, unspecified; Z96.651 Presence of right artificial knee joint; Z82.49 Family history of ischemic heart disease and other diseases of the circulatory system; Z98.42 Cataract extraction status, left eye; Z98.41 Cataract extraction status, right eye; Y92.9 Unspecified place or not applicable; Z88.6 Allergy status to analgesic agent; Z85.850 Personal history of malignant neoplasm of thyroid; Z87.891 Personal history of nicotine dependence
CPT/HCPCS: 36415; 71045; 80048; 80053; 81003; 81015; 82270; 83605; 83735; 84443; 84484; 85025; 85060; 85610; 86140; 87040; 87077; 87086; 87186; 87493; 93005; 99284; A9270-GY; J0696; J0744; J2543; J3475; J3480; J3490

== ENCOUNTER 2019-02-24 18:12 | Inpatient (IN) | payer MEDICARE ==
[2019-02-24] MEDS: NS 0.9% 1000 ML** 1,000 ML IV.FLUID IV ONE ×3 (18:31→18:59)
[2019-02-24] MEDS ORDERED: Piperacillin/Tazobac ADVAN(*) 3.375 GM in NS 0.9% 100 ML* 100 ML IVPB ONE (18:34)
--- NOTE | 2019-02-24 18:40 | ED ---
Sepsis HPI - HPI Summary HPI Summary: LEVEL 5 CAVEAT: HPI LIMTED BY Altered Mental Status This patient is a 73 year old female brought in by EMS presenting to [facility] with a chief complaint of possible UTI per [facility]'s report to EMS. The patient has a chronic indwelling meza and pt reports that she had sepsis 2 weeks ago. Patient is experiencing depp congested cough during interview. Patient has a BP of 149/120 and pulse of 100 bpm in the room on intial evaluation. Pt seen immediately upon RN report of pt meeting 3 SIRS criteria, just prior to change of shift, and sepsis protocol initiated immediately upon initial evaluation. Pt presents as alert, sitting upright, conversant, but is unable to answer direct questions and gives vague, incomplete and rambling answers, and is there listed as Level 5 caveat, altered mental status. Urine in chronic indwelling meza is noted to be concentrated and cloudy. Alendronate (NF) [Fosamax (NF)] 70 mg PO HARRIS 01/18/18 [History Confirmed 01/22/19 ] Gabapentin CAP(*) [Neurontin 100 mg CAP(*)] 200 mg PO DAILY cap 02/06/18 [Rx Confirmed 01/22/19] Metoprolol Succinate XL TAB* [Toprol XL TAB*] 50 mg PO DAILY tab.xl 02/06/18 [ Rx Confirmed 01/22/19] Potassium Chlor TAB* [Klor Con ER TAB 10 MEQ*] 10 meq PO DAILY 03/31/18 [ History Confirmed 01/22/19] Sertraline* [Zoloft*] 50 mg PO DAILY 03/31/18 [History Confirmed 01/22/19] Levothyroxine TAB* [Synthroid TAB*] 175 mcg PO DAILY@0600 #30 tab 10/19/18 [Rx Confirmed 01/22/19] Acetaminophen TAB* [Tylenol TAB*] 650 mg PO Q4H PRN 12/25/18 [History Confirmed 01/22/19] Baclofen TAB* [Lioresal TAB*] 50 mg PO BID 12/25/18 [History Confirmed 01/22/19] Docusate CAP* [Colace Cap*] 100 mg PO BID PRN 12/25/18 [History Confirmed ] Glycerin ADULT SUPP* 1 supp DE DAILY PRN 12/25/18 [History Confirmed 01/22/19] Magnesium Hydroxide LIQ* [Milk of Magnconcha LIQ*] 30 ml PO Q72HR PRN 12/25/18 [ History Confirmed 01/22/19] Multivitamins/Minerals TAB* [Theragran/minerals TAB*] 1 tab PO DAILY 12/25/18 [ History Confirmed 01/22/19] Rivaroxaban TAB(*) [Xarelto 20 mg] 20 mg PO DAILY 12/25/18 [History Confirmed ] Sodium Phosphate,Rosebud-Dibasic [Enema Ready To Use] 1 applic DE DAILY PRN [History Confirmed 01/22/19] Collagenase 250 MG/GM OINT* [Santyl 250 mg/gm Oint*] 1 applic TOPICAL Q72HR PRN 01/22/19 [History Confirmed 01/22/19] Collagenase 250 MG/GM OINT* [Santyl 250 mg/gm Oint*] 1 applic TOPICAL Q8HR PRN 01/22/19 [History Confirmed 01/22/19] DOXYcycline CAP(*) [DOXYcycline 100MG CAP(*)] 100 mg PO BID cap 01/25/19 [Rx] Nystatin TOP POWDER* 1 applic TOPICAL BID btl 01/25/19 [Rx] Vancomycin CAP* 125 mg PO Q6HR cap 01/25/19 [Rx] - History of Current Complaint Chief Complaint: EDAltMentalStatus Time Seen by Provider: 02/24/19 18:26 Stated Complaint: "UTI PER EMS" Hx Obtained From: Patient, EMS Hx From Patient Unobtainable Due To: Altered Mental Status Onset/Duration: Started Hours Ago, Started Weeks Ago Timing: Constant Onset Severity: Moderate - altered mental status Current Severity: Moderate - altered mental status Pain Intensity: 0 - no pain, altered mental status, SIRS criteria Pain Scale Used: 0-10 Numeric Aggravating Symptom(s): Nothing Alleviating Factor(s): Nothing Associated Signs & Symptoms: Other - cloudy urine, confusion - Risk Factor(s) Serious Bacterial Infection Risk Factors: Meza Catheter - Additional Pertinent History Primary Care Physician: EMILY - Allergy/Home Medications Allergies/Adverse Reactions: Allergies Allergy/AdvReac Type Severity Reaction Status Date / Time ibuprofen Allergy Mild GI Upset Verified 11/08/18 11:55 lorazepam Allergy Unknown Verified 02/24/19 18:42 Reaction Details ENVIRONMENT Allergy CATS Uncoded 11/08/18 11:55 -Unknown Reaction Details SEASONAL HAYFEVER Allergy POLLEN - Uncoded 11/08/18 11:55 Unknown Reaction Details PMH/Surg Hx/FS Hx/Imm Hx Previously Healthy: No Endocrine/Hematology History: Reports: Hx Anticoagulant Therapy, Hx Thyroid Disease - Thyroid cancer 1981- Partial thyroidectomy- on medication Denies: Hx Diabetes Cardiovascular History: Reports: Hx Atrial Fibrillation, Hx Coronary Artery Disease, Hx Hypercholesterolemia, Hx Hypertension Denies: Hx Pacemaker/ICD Respiratory History: Reports: Hx Asthma Denies: Hx Sleep Apnea, Other Respiratory Problems/Disorders GI History: Denies: Hx Gastroesophageal Reflux Disease, Other GI Disorders History: Reports: Other Problems/Disorders - CHRONIC MEZA--MS and neurogenic bladder Denies: Hx Dialysis, Hx Renal Disease Musculoskeletal History: Reports: Hx Arthritis - HANDS, LOWER BACK, Hx Orthopedic Injury - R ANKLE FX, ACHILLES LENGTHENING,, Hx Osteoporosis, Other Musculoskeletal History - BILAT ANKLE REPAIRS Sensory History: Reports: Hx Cataracts - BILATERAL , REMOVED 2013 Denies: Hx Contacts or Glasses, Hx Eye Injury, Hx Eye Prosthesis, Hx Glaucoma , Hx Legally Blind, Hx Macular Degeneration, Hx Vision Problem, Hx Deafness, Hx Hearing Aid, Hx Hearing Problem, Other Sensory Impairments Opthamlomology History: Reports: Hx Cataracts - BILATERAL , REMOVED 2013 Denies: Hx Contacts or Glasses, Hx Eye Injury, Hx Eye Prosthesis, Hx Glaucoma , Hx Legally Blind, Hx Macular Degeneration, Hx Vision Problem, Other Sensory Impairments Neurological History: Reports: Hx Dementia, Hx Nerve Disease - Multiple Sclerosis Denies: Other Neuro Impairments/Disorders Psychiatric History: Reports: Hx Anxiety - on medication, Hx Depression - on medication Denies: Hx Panic Disorder, Hx Suicide Attempt - Cancer History Cancer Type, Location and Year: THYROID Hx Chemotherapy: No Hx Radiation Therapy: No - Surgical History Surgery Procedure, Year, and Place: 1980 PARTIAL [place]ECTOMY, [place];. 2008 RIGHT KNEE REPLACEMENT, [facility] [place];. [facility] [place]. 2012 RIGHT TOTAL KNEE REVISION, [place];. 2013 COLONSCOPY, [facility] [place];. ankle surgery. 2013 LAPROSCOPIC APPENDECTOMY, [facility] [place];. 01/2016 RIGHT ANKLE (PINS/PLATES) , [facility] [place];. 04/2016 LEFT ANKLE (PINS/PLATES), [facility] [place];. 11/2017 RIGHT KNEE I&D, [facility] [place];. RIGHT KNEE I&D, [facility]; Hx Anesthesia Reactions: No - Immunization History Date of Tetanus Vaccine: unk Date of Influenza Vaccine: unk Infectious Disease History: Yes Infectious Disease History: Reports: Hx Clostridium Difficile Denies: Traveled Outside the [place] in Last 30 Days - Family History Known Family History: Positive: Cardiac Disease, Hypertension Negative: Diabetes - Social History Lives: At [facility] [place] Alcohol Use: None Hx Substance Use: No Substance Use Type: Reports: None Hx Tobacco Use: Yes Smoking Status (MU): Former Smoker Type: Cigarettes Amount Used/How Often: 1 PPD FOR 12 YEARS Length of Time of Smoking/Using Tobacco: 12 YEARS Have You Smoked in the Last Year: No - Additional Comments History Additional Comments: LEVEL 5 CAVEAT: PMH LIMITED BY ALTERED MENTAL STATUS. Review of Systems Positive: Fever Cardiovascular: Negative Positive: Cough Gastrointestinal: Negative Positive: other - chronic indwelling meza with dark, cloudy urine Positive: Other - redness bilat dorsum of feet Neurological: Other - Altered mental status Psychological: Other - does not appear anxious or depressed, confused, cooperative All Other Systems Reviewed And Are Negative: No - Comments Additional Review of Systems Comments: LEVEL 5 CAVEAT: ROS LIMITED DUE TO ALTERED MENTAL STATUS. Physical Exam - Summary Physical Exam Summary: Appearance: ill-appearing, no pain distress, thin Skin: Warm, color reflects adequate perfusion, dry. Erythema in bilateral lower extremities and chest. Head: Normal Head/Face inspection, atraumatic Eyes: Conjunctiva clear ENT: dry oral mucosa Neck: Supple, no nodes, no JVD Respiratory: Lungs clear, normal breath sounds, no respiratory distress, deep congested cough during interview Cardio: RRR, No murmur, pulses normal, brisk capillary refill Abdomen: Soft, nontender Bowel sounds: Present : pt with chronic indwelling meza with dark, cloudy urine Musculoskeletal: Strength Intact/ROM intact, no calf tenderness, no edema. Patient had right knee surgery. Psychological: confused, cooperative Neuro: Alert, muscle tone normal, no focal deficit GCS 14 Triage Information Reviewed: Yes Vital Signs On Initial Exam: Initial Vitals Temp Pulse Resp BP Pulse Ox 100.3 F 100 16 149/120 96 02/24/19 18:19 02/24/19 18:19 02/24/19 18:19 02/24/19 18:19 02/24/19 18:19 Vital Signs Reviewed: Yes Completion Of Physical Exam Limited Due To: Altered Mental Status, Level 5 - [place] Coma Scale Best Eye Response: 4 - Spontaneous Best Motor Response: 6 - Obeys Commands Best Verbal Response: 4 - Confused Coma Scale Total: 14 Diagnostics - Vital Signs Vital Signs Temp Pulse Resp BP Pulse Ox 02/24/19 18:19 100.3 F 100 16 149/120 96 LABS AND IMAGING PENDING AT TIME OF SIGN OUT TO DR. ANDREA 19002/24/19 - Laboratory Result Diagrams: 02/25/19 06:40 02/25/19 06:40 Lab Statement: Any lab studies that have been ordered have been reviewed, and results considered in the medical decision making process. Course/Dx - Course Course Of Treatment: This patient is a 73 year old female brought in by EMS presenting to [facility] with a chief complaint of possible UTI in pt from jail with fever, altered mental status and indwelling meza with cloudy urine. Sepsis protocol initiated upon pt arrival to the ED, with antibiotics ordered based on presumed urinary source based on past hx of encephalopathy with UTI's, however pt has cough, and skin redness as possible other sources of infection. Antibiotics ordered to be given before blood cultures completed if necessary, as withholding antibiotics would be detrimental to the patient's condition due to fever and altered mental status and prior hx of sepsis and decompensation due to UTI with sepsis due to chronic indwelling meza. Patient will be signed out to Dr. Andrea pending EKG, labs, imaging and dispositon at 1900 02/24/19. - Differential Dx/Clinical Impression Differential Diagnosis/HQI/PQRI: Hyperthermia, Hypoxia, Intracranial Bleed, Medication Reaction, Metabolic Disorder, Sepsis Provider Diagnosis: Fever, Atrial fibrillation with RVR, SIRS (systemic inflammatory response syndrome) Discharge - Sign-Out/Discharge Documenting (check all that apply): Sign-Out Patient Signing out patient TO: Korey Andrea - At shift change 1900, 02/24/19 All imaging exams completed and their final reports reviewed: No Patient Received Moderate/Deep Sedation with Procedure: No - Discharge Plan Condition: Stable Disposition: ADMITTED TO [facility] - Billing Disposition and Condition Condition: STABLE Disposition: Admitted to [facility] - Attestation Statements Document Initiated by Scribe: Yes Documenting Scribe: Javi Emery Provider For Whom Scribe is Documenting (Include Credential): Jenise Dunn MD Scribe Attestation: I, Javi Emery, scribed for Jenise Dunn MD on 02/26/19 at 0000. Scribe Documentation Reviewed: Yes Provider Attestation: The documentation as recorded by the scribe, Javi Emery accurately reflects the service I personally performed and the decisions made by me, Jenise Dunn MD Status of Scribe Document: Viewed
[2019-02-24 19:02] LABS: ABS Basophils 0.1 10^3/ul (0-0.2); ABS Lymphocytes 1.1 10^3/ul (1.0-4.8); ABS Monocytes 0.9 10^3/ul (0-0.8); ABS Neutrophils 12.1 10^3/ul (1.5-7.7); Eosinophil % 0.3 %; Hematocrit 42 % (35-47); Hemoglobin 13.4 g/dL (12.0-16.0); Lymphocyte % 7.9 %; Mean Corpuscular HGB Conc 32 g/dL (31-36); Mean Corpuscular Hemoglobin 27 pg (27-31); Mean Corpuscular Volume 83 fL (80-97); Mean Platelet Volume 8.2 fL (7.4-10.4); Platelet Count 262 10^3/uL (150-450); Red Blood Count 5.01 10^6 /uL (3.70-4.87); Red Cell Distribution Width 15 % (10.5-15); White Blood Count 14.3 10^3/uL (3.5-10.8)
[2019-02-24 19:10] LABS: Activated Partial Thrombo Time 47.5 seconds (26.0-36.3); INR 1.78 (0.82-1.09)
[2019-02-24 19:19] LABS: Albumin 3.8 g/dL (3.2-5.2); Albumin/Globulin Ratio 1.1 (1-3); BUN/Creatinine Ratio 30.4 (8-20); C Reactive Protein 24.45 mg/L (<8.01); Calcium 8.8 mg/dL (8.6-10.3); EGFR African American 100.9 (>60); EGFR Non-African American 83.4 (>60); Globulin 3.5 g/dL (2-4); Total Bilirubin 0.4 mg/dL (0.2-1.0); Total Protein 7.3 g/dL (6.4-8.9)
[2019-02-24 19:21] LABS: Influenza A Molecular NEGATIVE (Negative); Influenza B Molecular NEGATIVE (Negative); Troponin I 0.01 ng/mL (<0.04)
[2019-02-24 20:07] LABS: Urine Appearance Cloudy; Urine Bacteria 1+ (Absent); Urine Bilirubin Negative (Negative); Urine Blood 2+ (Negative); Urine Color Amber; Urine Glucose Negative (Negative); Urine Ketones Trace (Negative); Urine Nitrite Positive (Negative); Urine Protein 2+(100 mg/dL) (Negative); Urine Red Blood Cell 3+(>10/hpf) (Absent); Urine Specific Gravity 1.024 (1.010-1.030); Urine Squamous Epithelial Cell Present (Absent); Urine Urobilinogen Negative (Negative); Urine White Blood Cell 3+(>20/hpf) (Absent)
[2019-02-24 20:08] LABS: Erythrocyte Sed Rate 27 mm/Hr (0-29)
[2019-02-24] MEDS ORDERED: Acetaminophen TAB* 325 MG PO ONE (20:50)
[2019-02-24] MEDS ORDERED: cefTRIAXone(*) 1 GM in NS 0.9% 50 ML* 50 ML IVPB ONE (20:51)
[2019-02-24] MEDS ORDERED: Cefepime(*) 1 GM in NS 0.9% 50 ML* 50 ML IVPB ONE (20:53)
[2019-02-24] MEDS ORDERED: NS 0.9% 50 ML* 50 ML ONE (20:56)
--- NOTE | 2019-02-24 21:17 | ED ---
Progress - Progress Note Progress Note: CXR reveals, per ED physician, No acute process. Pending official report. An EKG, taken 1849, reveals Atrial fibrillation (108 BPM), borderline low voltage in the extremity leads, normal axis, normal interval. Course/Dx - Course Course Of Treatment: This patient is a 73 year old female brought in by EMS presenting to [facility] with a chief complaint of possible UTI. Patient will be signed out to Dr. Andrea pending work up. Patient was signed out from Dr. Dunn at end of shift, pending workup and diagnosis. We discussed patient care with Dr. Seay (Hospitalist) at 2114, who agrees to accept patient. Patient will be admitted with a dx of fever and UTI. Patient is agreeable to this plan. - Diagnoses Provider Diagnoses: Fever, UTI (urinary tract infection) - Provider Notifications Discussed Care Of Patient With: Marek Seay - Hospitalist Time Discussed With Above Provider: 21:15 - We discussed patient care with Dr. Seay (Hospitalist) at 2114, who agrees to accept patient. Discharge - Sign-Out/Discharge Documenting (check all that apply): Patient Departure, Receiving Sign-Out Receiving patient FROM: Jenise Dunn Patient Received Moderate/Deep Sedation with Procedure: No - Discharge Plan Condition: Stable Disposition: ADMITTED TO [facility] - Billing Disposition and Condition Condition: STABLE Disposition: Admitted to [facility] - Attestation Statements Document Initiated by Dewayne: Yes Documenting Scribe: Marlyn Armijo Provider For Whom Dweayne is Documenting (Include Credential): Korey Andrea MD Scribrey Attestation: Marlyn Michaud scribed for Korey Andrea MD on 02/24/19 at 2353. Scribe Documentation Reviewed: Yes Provider Attestation: The documentation as recorded by the Marlyn gaston accurately reflects the service I personally performed and the decisions made by , Korey Andrea MD Status of Scribrey Document: Viewed
[2019-02-24] MEDS ORDERED: Ondansetron INJ* 2 MG/ML VIAL IV PRN (22:11)
[2019-02-24] MEDS ORDERED: Docusate CAP* 100 MG PO PRN (22:18)
[2019-02-24] MEDS ORDERED: Glycerin ADULT SUPP PR PRN (22:18)
[2019-02-24] MEDS ORDERED: Lactated Ringers 1000 ML Bag* 1,000 ML IV ONE (22:22)
[2019-02-24] MEDS ORDERED: Metoprolol Succinate XL TAB* 25 MG PO ONE (22:22)
[2019-02-24] MEDS ORDERED: Albuterol/Ipratropium NEB.SOL* Albuterol 2.5 MG/Ipratropium 0.5 MG 3 ML INH PRN (22:23)
[2019-02-25] MEDS: Baclofen TAB* 10 MG PO SCH ×3 (00:03→20:46)
[2019-02-25] MEDS: Vancomycin CAP* 125 MG CAP PO SCH ×5 (00:03→20:46)
--- NOTE | 2019-02-25 03:14 | HP ---
CC: Dr. Juliana Reeves * ADMISSION HISTORY AND PHYSICAL: DATE OF ADMISSION: 02/24/19 PRIMARY CARE PROVIDER: Dr. Juliana Reeves. MY ATTENDING WHILE IN THE HOSPITAL: Dr. Marek Seay.* (DICTATED BY KAYLA AGARWAL) CHIEF COMPLAINT: Altered mental status x3 days. HISTORY OF PRESENT ILLNESS: Ms. Scott is a 73-year-old female with past medical history significant for MS; complicated by a neurogenic bladder and chronic indwelling Chaudhari with recurrent urinary tract infections, chronic knee infection, recent C. diff infection, and postsurgical hypothyroidism who presents to the emergency department after being sent in from [facility] after 3 days of altered mental status progressively worse and consistent with the patient's previous infections causing encephalopathy. The patient is not able to answer any questions coherently. The patient does not know the year , day, time, place. The patient does not know why she is there. The patient states she feels well. The patient denies any pain at the time of evaluation. The patient coughs frequently throughout the interview, but denies cough. The patient denies abdominal pain. The patient states she is not having any diarrhea , but at the time of this interview has been incontinent of stool. The patient denies chest pain or shortness of breath. The patient states that the last time her Chaudhari was changed out was the last time she was in the hospital, but she cannot say when that was. The patient states that she occasionally has palpitations, but not having them at the time of the interview. The patient in the emergency department was found to have a fever of high of 102.4, tachycardia. The patient was normotensive. The patient was placed on oxygen which she is not wearing at home. The patient had a chest x-ray which was unremarkable. The patient had 2 loose, foul-smelling bowel movements while in the emergency department and had urinalysis consistent with a urinary tract infection. Due to concern for altered mental status and infection, we were asked to evaluate the patient for admission to the hospital. PAST MEDICAL HISTORY: Multiple sclerosis, neurogenic bladder and chronic indwelling Chaudhari, frequent urinary tract infections, recent C. diff infection, sacral wound, chronic right knee infection, hypothyroidism, chronic atrial fibrillation, history of thyroid cancer. PAST SURGICAL HISTORY: Thyroidectomy, right total knee arthroplasty with 2 replacements and revisions, bilateral ankle ORIF, appendectomy. MEDICATIONS PER [facility] REC[facility]DS: 1. Fosamax 70 mg p.o. weekly. 2. Gabapentin 100 mg p.o. daily. 3. Potassium 10 mg p.o. daily. 4. Synthroid 175 mcg p.o. daily. 5. Toprol 50 mg p.o. daily. 6. Vitamin C 250 mg p.o. daily. 7. Multivitamin 1 tab p.o. daily. 8. Xarelto 20 mg p.o. daily. 9. Zoloft 50 mg p.o. daily. 10. Baclofen 15 mg p.o. b.i.d. 11. CalD vitamin tab p.o. b.i.d. 12. Tylenol 650 mg p.o. q.4 hours as needed. 13. Milk of Magnesia 30 mL p.o. q.72 hours as needed. 14. Phosphate enema 1 enema OR daily as needed. 15. Docusate 100 mg p.o. b.i.d. as needed. 16. Nystatin topical power 1 application topical b.i.d. ALLERGIES: IBUPROFEN and LORAZEPAM. FAMILY HISTORY: The patient's records are reviewed and are conflicting on what the patient's mother of, either a heart attack or a stroke. The patient's father either has an unknown family history or related to his fall with subdural hematoma. Family history is otherwise unobtainable. SOCIAL HISTORY: The patient states she quit smoking in 1981 per previous records, but cannot remember at this time. The patient denies illicit drug use or alcohol abuse. The patient's sister, Mildred , will be her surrogate decision maker. The patient does not know what she used to do for work. REVIEW OF SYSTEMS: Unobtainable at this time. PHYSICAL EXAMINATION GENERAL: The patient is a 73-year-old female who appears stated age, sitting comfortably in bed, in no acute distress. VITAL SIGNS: At the time of evaluation, temperature 101.9, pulse rate 116, respiratory rate 20, oxygen saturation 97% on room air, blood pressure 150/117. HEENT: Head normocephalic, atraumatic. Sclerae anicteric. No conjunctival injection. Nasal mucosa moist. Oral mucosa is moist. No pharyngeal erythema, discharge, or exudate. NECK: Supple. No lymphadenopathy. No carotid bruits auscultated. No JVD. RESPIRATORY: Slight expiratory wheezing in the bilateral lower lobes, clears with coughing. CARDIAC: Tachycardic, irregular rate and rhythm. No clicks, murmurs, gallops, or rubs. Pulses are 2+ in the bilateral dorsalis pedis, posterior tibialis and radial areas. ABDOMEN: Soft, nontender, nondistended. Bowel sounds present and normoactive in all 4 quadrants. No hepatosplenomegaly. No abdominal bruits auscultated. No hepatojugular reflux. GENITOURINARY: No suprapubic or CVA tenderness. Chaudhari is draining dark red, cloudy urine. NEUROLOGIC: Cranial nerves II through XII grossly intact. The patient is alert and cooperative. Neurologic exam spasticity in the bilateral upper and lower extremities. PSYCHIATRIC: Pleasant and cooperative. DIAGNOSTIC STUDIES/LAB DATA: Laboratory Data: White blood cell count 14.3, hemoglobin 13.4, platelet count 262, ESR 27. INR 1.78, aPTT 47.5. Sodium 136, potassium 4.0, chloride 102, carbon dioxide 26, anion gap 8, BUN 21, creatinine 0.69, glucose 105, lactic acid 1.4, calcium 8.8. Bilirubin 0.4, AST 26, ALT 20 , alkaline phosphatase 121. Creatine kinase 32, troponin I 0.01, CRP 24.45, BNP 150. Protein 7.3, albumin 3.8, globulin 3.5. Urine is dean, cloudy, urine pH 7.0, specific gravity 1.024, 3+ protein, trace ketones, 2+ blood, positive nitrite, 3+ leukocyte esterase, 3+ white blood cells, positive squamous epithelial cells, 1+ bacteria, negative glucose, positive ascorbic acid. Negative influenza A and B. Studies: Chest x-ray shows to this reader's interpretation no acute cardiopulmonary disease. Electrocardiogram shows tachycardia, atrial fibrillation, early repolarization in V2 and V3, rate of 108, QTc of 460 compared to previous exam. There are no significant changes. The patient was also tachycardic upon last exam. ASSESSMENT AND PLAN: Impression: Ms. Scott is a 73-year-old female with past medical history significant for multiple sclerosis, recent Clostridium difficile, chronic indwelling Chaudhari due to neurogenic bladder with frequent urinary tract infections and frequent hospitalizations who presented to the emergency department after being referred from her half-way for altered mental status for 3 days and was found to have a syndrome consistent with sepsis and concern for a urinary tract infection as well as possible Clostridium difficile infection. The patient was admitted to the hospital for treatment of her sepsis and infections. 1. Sepsis. The origin of the patient's sepsis is unclear at this time, though the main candidates for causing this are urinary tract infection or Clostridium difficile colitis. The patient has had 2 large loose incontinent bowel movements since she has been in the hospital. Since she has been in the emergency department, further data about the number of the patient's bowel movements is not available at this time. The patient was supposed to still be on a vancomycin taper from her most recent hospitalization, but there is no record of this in her half-way records nor is there any record of whether or not she ever was on vancomycin at half-way. The patient will be restarted on oral vancomycin and be retested for Clostridium difficile at this time. The patient's urine is consistent with a urinary tract infection. We will await patient's cultures and sensitivities to exchange Chaudhari catheter. Chaudhari catheter was scheduled to be changed on 02/17/19, though it is unclear whether this was done. The patient was treated with cefepime as she previously grew citrobacter in her urine, which is resistant to ceftriaxone. Repeat culture data will guide further treatment. The patient has had blood culture sent. The patient received a 30 mL/kg bolus. The patient's lactic acid is within normal limits. The patient is normotensive and does not meet criteria for severe sepsis. 2. Altered mental status. 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 3. Chronic indwelling Chaudhari with neurogenic bladder. The patient has had frequent urinary tract infections requiring hospitalization. It is unclear whether the patient has ever been evaluated by a urologist or whether chronic suppressive therapy for the patient's urinary tract infections has been recommended. Given the frequency of the patient's urinary tract infections and the severity of which they occur, the benefits of chronic suppressive therapy with either hippuric acid or chronic antibiotic therapy likely pretty much outweigh the risks. After the patient has completed her course of antibiotics or before at discharge, these should be considered. 3. Chronic atrial fibrillation. The patient is currently markedly tachycardic. This is likely mostly due to her sepsis. The patient will be given fluids; however, given her tachycardia despite fluid replacement, the patient will also be given a onetime dose of metoprolol succinate for heart rate control given her blood pressure is generally somewhat elevated. 4. Chronic decubitus ulcer, not visualized at this time. The patient should have appropriate wound care. This is unlikely the source of the patient's infection. 5. Hypothyroidism. Continue the patient's Synthroid at the current dose. 6. DVT prophylaxis. The patient is on Xarelto. TIME SPENT: Approximately 1 hour was spent on the admission of this patient, 30 of which were spent [id number] with the patient obtaining history and physical and discussing treatment plan. The plan has been discussed with my attending, Dr. Marek Seay, and he is in agreement. KAYLA AGARWAL [id number]/CPS #: [id number] MTDD
[2019-02-25] MEDS: Levothyroxine TAB* 175 MCG TAB PO SCH (05:33)
[2019-02-25 06:51] LABS: ABS Basophils 0.1 10^3/ul (0-0.2); ABS Eosinophils 0.1 10^3/ul (0-0.6); ABS Lymphocytes 1.1 10^3/ul (1.0-4.8); ABS Monocytes 1.2 10^3/ul (0-0.8); ABS Neutrophils 9.7 10^3/ul (1.5-7.7); Eosinophil % 1.1 %; Hematocrit 37 % (35-47); Hemoglobin 12.1 g/dL (12.0-16.0); Lymphocyte % 8.7 %; Mean Corpuscular HGB Conc 33 g/dL (31-36); Mean Corpuscular Hemoglobin 27 pg (27-31); Mean Corpuscular Volume 82 fL (80-97); Mean Platelet Volume 8.2 fL (7.4-10.4); Platelet Count 214 10^3/uL (150-450); Red Blood Count 4.51 10^6 /uL (3.70-4.87); Red Cell Distribution Width 14 % (10.5-15); White Blood Count 12.2 10^3/uL (3.5-10.8)
[2019-02-25 07:08] LABS: BUN/Creatinine Ratio 31.3 (8-20); Calcium 8.1 mg/dL (8.6-10.3); EGFR African American 153.4 (>60); EGFR Non-African American 126.8 (>60); Magnesium 1.7 mg/dL (1.9-2.7); Potassium 3.2 mmol/L (3.5-5.0)
--- NOTE | 2019-02-25 08:44 | PN ---
Subjective Date of Service: 02/25/19 Interval History: HD #2 on 02/25 73 yo F with pMH MS c/b neurogenic bladder and chronic indwelling pal, recent dx of C Diff, atrial fibrillation, chronic R knee infection and sacral wounds, depression, osteoporosis, hpothyroidism (post surg) who presents aletered and spetic in afib with RVR liekly urinary source, also with recurrent C Diff overnight, no acute events, C Diff came back positive Labs:HypoK-repleted this mornign Objective Active Medications: Acetaminophen (Tylenol Tab*) 650 mg PO Q6H PRN PRN Reason: FEVER/PAIN Albuterol/Ipratropium (Duoneb (Albuterol 2.5 Mg/Ipratropium 0.5 Mg)) 1 neb INH Q6H PRN PRN Reason: SOB/WHEEZING Baclofen (Lioresal Tab*) 50 mg PO BID [facility] Last Admin: 02/25/19 00:03 Dose: 50 mg Docusate Sodium (Colace Cap*) 100 mg PO BID PRN PRN Reason: CONSTIPATION Gabapentin (Neurontin Cap(*)) 200 mg PO DAILY [facility] Glycerin (Glycerin Adult Supp*) 1 supp [place] DAILY PRN PRN Reason: CONSTIPATION Cefepime HCl 1 gm/ Sodium (Chloride) 50 mls @ 100 mls/hr IVPB Q12H [facility] Levothyroxine Sodium (Synthroid Tab*) 175 mcg PO DAILY@0600 [facility] Last Admin: 02/25/19 05:33 Dose: 175 mcg Metoprolol Succinate (Toprol Xl Tab*) 50 mg PO DAILY [facility] Multivitamins/Minerals (Theragran/Minerals Tab*) 1 tab PO DAILY [facility] Nystatin (Nystatin Top Powder*) 1 applic TOPICAL BID [facility] Ondansetron HCl (Zofran Inj*) 4 mg IV Q6H PRN PRN Reason: NAUSEA Potassium Chloride (Klor Con Er Tab*) 10 meq PO DAILY [facility] Rivaroxaban (Xarelto(*)) 20 mg PO DAILY [facility] Sertraline HCl (Zoloft*) 50 mg PO DAILY [facility] Vancomycin HCl (Vancomycin Cap*) 125 mg PO QID [facility] Last Admin: 02/25/19 00:03 Dose: 125 mg Vital Signs - 8 hr 02/25/19 04:14 Temperature 98.1 F Pulse Rate 83 Respiratory 16 Rate Blood Pressure 113/60 (mmHg) O2 Sat by Pulse 95 Oximetry Oxygen Devices in Use Now: None Result Diagrams: 02/25/19 06:40 02/25/19 06:40 Microbiology and Other Data: Microbiology 02/24/19 23:05 Stool Gross Appearance - Final Stool C. difficile DNA Amplification - Final 027 Presumptive NEGATIVE Toxigenic C.diff POSITIVE Assess/Plan/Problems-Billing Assessment: 73 yo F with pMH MS c/b neurogenic bladder and chronic indwelling pal, recent dx of C Diff, atrial fibrillation, chronic R knee infection and sacral wounds, depression, osteoporosis, hypothyroidism (post surg) who presents altered and septic in afib with RVR liekly urinary source, also with recurrent C Diff - Patient Problems (1) Sepsis Current Visit: No Status: Acute Comment: -Resolved. -Presentation compatible with Tacycardia, Fever, Tachypnea, AMS. -Likely urinary source. (2) UTI (urinary tract infection) due to urinary indwelling Pal catheter Current Visit: No Status: Acute Code(s): T83.511A - I/I REACT D/T INDWELLING URETHRAL CATHETER, INIT; N39.0 - URINARY TRACT INFECTION, SITE NOT SPECIFIED SNOMED Code(s): 610623479 Comment: - With associated sepsis, now resolved - Afebrile since last evening - Blood cultures pending - Urine cx pending - Will exchange urinary catheter - Continue Cefipime until speciation (3) Atrial fibrillation Current Visit: No Status: Acute Code(s): I48.91 - UNSPECIFIED ATRIAL FIBRILLATION SNOMED Code(s): 87015156 Comment: - Rate is controlled now. - Continue Rivaroxaban and Metoprolol. (4) C. difficile colitis Current Visit: No Status: Acute Comment: - Multiple liquid bowel movements, C. diff positive. Report of positive C diff at [facility] 12/30/18, again here on 01/23/19, will need to determine when oral vanco was stopped, this is 3rd recurrence, not severe - Present on admission. - Will likely need ID, consult early this week. (5) Decubital ulcer Current Visit: No Status: Acute Code(s): L89.90 - PRESSURE ULCER OF UNSPECIFIED SITE, UNSPECIFIED STAGE SNOMED Code(s): 952308339 Comment: -Wound consult (6) Hypothyroidism Current Visit: No Status: Acute Code(s): E03.9 - HYPOTHYROIDISM, UNSPECIFIED SNOMED Code(s): 18671145 Comment: - Continue Levothyroxine. (7) Chronic anemia Current Visit: No Status: Acute Code(s): D64.9 - ANEMIA, UNSPECIFIED SNOMED Code(s): 364696353 Comment: stable continue to moniter (8) Multiple sclerosis Current Visit: No Status: Chronic Code(s): G35 - MULTIPLE SCLEROSIS SNOMED Code(s): 27396609 Comment: - Continue Baclofen 50 mg BID (9) DVT prophylaxis Current Visit: No Status: Acute Code(s): WKR6125 - SNOMED Code(s): 284942341 Comment: - Continue Rivaroxaban (10) Full code status Current Visit: No Status: Acute Code(s): Z78.9 - OTHER SPECIFIED HEALTH STATUS SNOMED Code(s): 780741512 Status and Disposition: Inpatient
[2019-02-25] MEDS: Cefepime ADVAN(*) 1 GM in NS 0.9% 50 ML* 50 ML IVPB SCH ×2 (08:50→20:46)
[2019-02-25] MEDS: Nystatin TOP POWDER* 15 GM BTL TOPICAL SCH ×2 (08:52→23:40)
[2019-02-25] MEDS: Metoprolol Succinate XL TAB* 50 MG PO SCH (08:55)
[2019-02-25] MEDS: Sertraline* 50 MG TAB PO SCH (08:55)
[2019-02-25] MEDS: Multivitamins/Minerals TAB PO SCH (08:57)
[2019-02-25] MEDS: Gabapentin CAP(*) 100 MG PO SCH (08:58)
[2019-02-25] MEDS ORDERED: Rivaroxaban TAB(*) 20 MG TAB PO SCH (09:00)
[2019-02-25] MEDS ORDERED: Potassium Chlor TAB* 10 MEQ TAB.ER PO SCH (09:00)
[2019-02-25] MEDS: Potassium Chlor TAB* 20 MEQ TAB.ER PO SCH ×3 (09:04→20:46)
[2019-02-25] MEDS ORDERED: Magnesium Sulfate 2 GM IV* 2 GM/50 ML BAG IVPB ONE (11:50)
--- NOTE | 2019-02-25 12:15 | PN ---
Subjective Date of Service: 02/25/19 Interval History: Patient is feeling better today. Patient is continuing to have frequent bowel movements but denies abdominal pain or cramping. Patient denies F/C, CP, N/V, SOB, cough, wheezing, or other pain. Discussed patient's care with patient's sister and the plan was to transfer her to a detention in [place] on Tuesday upcoming. Family History: Unchanged from Admission Social History: Unchanged from Admission Past Medical History: Unchanged from Admission Objective Active Medications: Acetaminophen (Tylenol Tab*) 650 mg PO Q6H PRN PRN Reason: FEVER/PAIN Albuterol/Ipratropium (Duoneb (Albuterol 2.5 Mg/Ipratropium 0.5 Mg)) 1 neb INH Q6H PRN PRN Reason: SOB/WHEEZING Baclofen (Lioresal Tab*) 50 mg PO BID [facility] Last Admin: 02/25/19 08:56 Dose: 50 mg Docusate Sodium (Colace Cap*) 100 mg PO BID PRN PRN Reason: CONSTIPATION Gabapentin (Neurontin Cap(*)) 200 mg PO DAILY [facility] Last Admin: 02/25/19 08:58 Dose: 200 mg Cefepime HCl 1 gm/ Sodium (Chloride) 50 mls @ 100 mls/hr IVPB Q12H [facility] Last Admin: 02/25/19 08:50 Dose: 100 mls/hr Magnesium Sulfate (Magnesium Sulfate 2 Gm Iv*) 2 gm in 50 mls @ 50 mls/hr IVPB ONCE ONE Stop: 02/25/19 12:49 Levothyroxine Sodium (Synthroid Tab*) 175 mcg PO DAILY@0600 [facility] Last Admin: 02/25/19 05:33 Dose: 175 mcg Methenamine Hippurate (Hiprex Tab*) 1 gm PO BID [facility] Metoprolol Succinate (Toprol Xl Tab*) 50 mg PO DAILY [facility] Last Admin: 02/25/19 08:55 Dose: 50 mg Multivitamins/Minerals (Theragran/Minerals Tab*) 1 tab PO DAILY [facility] Last Admin: 02/25/19 08:57 Dose: 1 tab Nystatin (Nystatin Top Powder*) 1 applic TOPICAL BID [facility] Last Admin: 02/25/19 08:52 Dose: 1 applic Ondansetron HCl (Zofran Inj*) 4 mg IV Q6H PRN PRN Reason: NAUSEA Potassium Chloride (Klor Con Er Tab*) 20 meq PO TID [facility] Last Admin: 02/25/19 09:04 Dose: 20 meq Rivaroxaban (Xarelto(*)) 20 mg PO DAILY [facility] Last Admin: 02/25/19 08:55 Dose: 20 mg Sertraline HCl (Zoloft*) 50 mg PO DAILY [facility] Last Admin: 02/25/19 08:55 Dose: 50 mg Vancomycin HCl (Vancomycin Cap*) 125 mg PO QID [facility] Last Admin: 02/25/19 08:55 Dose: 125 mg Vital Signs - 8 hr 02/25/19 02/25/19 02/25/19 04:14 08:27 08:58 Temperature 98.1 F 98.6 F Pulse Rate 83 109 Respiratory 16 20 16 Rate Blood Pressure 113/60 131/70 (mmHg) O2 Sat by Pulse 95 95 Oximetry 02/25/19 11:11 Temperature 99.2 F Pulse Rate 80 Respiratory 20 Rate Blood Pressure 107/63 (mmHg) O2 Sat by Pulse 100 Oximetry Oxygen Devices in Use Now: None Appearance: Patient is a 73yo female who appears stated age and is sitting in the bed in [facility]. Eyes: No Scleral Icterus, PERRLA Ears/Nose/Mouth/Throat: NL Teeth, Lips, Gums, Clear Oropharnyx, Mucous Membranes Moist Neck: NL Appearance and Movements; NL JVP, Trachea Midline Respiratory: Symmetrical Chest Expansion and Respiratory Effort, Clear to Auscultation Cardiovascular: NL Sounds; No Murmurs; No JVD, RRR, No Edema Abdominal: NL Sounds; No Tenderness; No Distention, No Hepatosplenomegaly Lymphatic: No Cervical Adenopathy Extremities: No Edema, No Clubbing, Cyanosis Skin: No Nodules or Sclerosis, - - Sacral ulcer not visualized. Neurological: Alert and Oriented x 3, NL Sensation, NL Muscle Strength and Tone , - - CN II-XII intact Result Diagrams: 02/25/19 06:40 02/25/19 06:40 Microbiology and Other Data: Microbiology 02/24/19 23:05 Stool Gross Appearance - Final Stool C. difficile DNA Amplification - Final 027 Presumptive NEGATIVE Toxigenic C.diff POSITIVE Assess/Plan/Problems-Billing Assessment: 73 yo F with pMH MS c/b neurogenic bladder and chronic indwelling pal, recent dx of C Diff, atrial fibrillation, chronic R knee infection and sacral wounds, depression, osteoporosis, hypothyroidism (post surg) who presents altered and septic in afib with RVR likely urinary source, also with recurrent C Diff improving on treatment. - Patient Problems (1) Sepsis Current Visit: No Status: Acute Comment: - Presentation compatible with sepsis with fever, tachycardia - Source is UTI and C diff colitis. - Received IV fluids bolus and broad spectrum antibiotics in ED. (2) C. difficile colitis Current Visit: No Status: Acute Comment: - Multiple liquid bowel movements, C. diff positive. Report of positive C diff at [facility] 12/30/18, again here on 01/23/19, will need to determine when oral vanco was stopped, this is 3rd recurrence, not severe - Present on admission. - Will likely need ID, consult early this week. - Continue Oral Vanco (3) UTI (urinary tract infection) due to urinary indwelling Pal catheter Current Visit: No Status: Acute Code(s): T83.511A - I/I REACT D/T INDWELLING URETHRAL CATHETER, INIT; N39.0 - URINARY TRACT INFECTION, SITE NOT SPECIFIED SNOMED Code(s): 161434640 Comment: - With associated sepsis, now resolved - Afebrile since last evening - Blood cultures pending - Urine cx pending - Will exchange urinary catheter awaiting urine sensitivities - Continue Cefipime until speciation - Start Hiprex due to frequent severe UTIs (4) Atrial fibrillation Current Visit: No Status: Acute Code(s): I48.91 - UNSPECIFIED ATRIAL FIBRILLATION SNOMED Code(s): 86057644 Comment: - Rate is controlled now. - Continue Rivaroxaban and Metoprolol. (5) HTN (hypertension) Current Visit: No Status: Acute Code(s): I10 - ESSENTIAL (PRIMARY) HYPERTENSION SNOMED Code(s): 20795507 Comment: - Initially hypotensive in the setting of acute illness - Continue Metoprolol (6) Hypothyroidism Current Visit: No Status: Acute Code(s): E03.9 - HYPOTHYROIDISM, UNSPECIFIED SNOMED Code(s): 49474979 Comment: - Continue Levothyroxine. (7) Infection of right knee Current Visit: No Status: Acute Code(s): M00.9 - PYOGENIC ARTHRITIS, UNSPECIFIED SNOMED Code(s): 846126394 Comment: - Chronic, not current issue on exam. (8) Multiple sclerosis Current Visit: No Status: Acute Code(s): G35 - MULTIPLE SCLEROSIS SNOMED Code(s): 60731632 Comment: - Continue Baclofen for spasms. - On No DMARD (9) Neurogenic bladder Current Visit: No Status: Chronic Code(s): N31.9 - NEUROMUSCULAR DYSFUNCTION OF BLADDER, UNSPECIFIED SNOMED Code(s): 130412159 Comment: -Continue w/chronic indwelling pal - Change pal when correct antibiotic confirmed - Change Monthly (10) DVT prophylaxis Current Visit: No Status: Acute Code(s): WVL7935 - SNOMED Code(s): 316482677 Comment: - Continue Rivaroxaban Status and Disposition: Inpatient, Will need arrangements to get to [place] detention at D/C.
[2019-02-25 12:52] LABS: TSH (Thyroid Stimulating Horm) 0.43 mcIU/mL (0.34-5.60)
[2019-02-25] MEDS: Methenamine Hippurate TAB* 1 GM TAB PO SCH ×2 (13:02→20:46)
[2019-02-25] MEDS: Acetaminophen TAB* 325 MG PO PRN (13:02)
--- NOTE | 2019-02-26 03:25 | PN ---
Hospitalist Progress Note Date of Service: 02/26/19 HOSPITALIST ADDENDUM Called by RN because patient c/o 7/10 chest pain. EKG shows Afib at 78bpm with no acute ischemic changes. CxR shows no acute cardiopulmonary disease to my read. By the times tests were done her chest pain had resolved and when I went to see her she was back to sleep. Follow serial troponins.
[2019-02-26] MEDS: Acetaminophen TAB* 325 MG PO PRN ×2 (03:42→21:32)
[2019-02-26] MEDS: Levothyroxine TAB* 175 MCG TAB PO SCH (06:00)
[2019-02-26] MEDS ORDERED: Potassium Chlor TAB* 20 MEQ TAB.ER PO SCH (09:00)
[2019-02-26 09:57] LABS: ABS Eosinophils 0.2 10^3/ul (0-0.6); ABS Lymphocytes 1.1 10^3/ul (1.0-4.8); ABS Monocytes 0.7 10^3/ul (0-0.8); ABS Neutrophils 5.3 10^3/ul (1.5-7.7); Eosinophil % 2.5 %; Hematocrit 35 % (35-47); Hemoglobin 11.5 g/dL (12.0-16.0); Lymphocyte % 14.9 %; Mean Corpuscular HGB Conc 33 g/dL (31-36); Mean Corpuscular Hemoglobin 27 pg (27-31); Mean Corpuscular Volume 81 fL (80-97); Platelet Count 207 10^3/uL (150-450); Red Blood Count 4.28 10^6 /uL (3.70-4.87); Red Cell Distribution Width 14 % (10.5-15); White Blood Count 7.3 10^3/uL (3.5-10.8)
[2019-02-26 10:24] LABS: BUN/Creatinine Ratio 14.5 (8-20); Calcium 8.2 mg/dL (8.6-10.3); EGFR African American 131.1 (>60); EGFR Non-African American 108.3 (>60); Potassium 3.3 mmol/L (3.5-5.0)
[2019-02-26] MEDS: Cefepime ADVAN(*) 1 GM in NS 0.9% 50 ML* 50 ML IVPB SCH ×2 (11:02→20:39)
[2019-02-26] MEDS: Gabapentin CAP(*) 100 MG PO SCH (11:03)
[2019-02-26] MEDS: Metoprolol Succinate XL TAB* 50 MG PO SCH (11:03)
[2019-02-26] MEDS: Potassium Chlor TAB* 20 MEQ TAB.ER PO SCH ×3 (11:05→20:38)
[2019-02-26] MEDS: Vancomycin CAP* 125 MG CAP PO SCH ×4 (11:05→20:38)
[2019-02-26] MEDS: Sertraline* 50 MG TAB PO SCH (11:05)
[2019-02-26] MEDS: Nystatin TOP POWDER* 15 GM BTL TOPICAL SCH ×2 (11:06→21:41)
[2019-02-26] MEDS: Multivitamins/Minerals TAB PO SCH (11:06)
[2019-02-26] MEDS: Baclofen TAB* 10 MG PO SCH ×2 (11:06→20:38)
[2019-02-26] MEDS: Methenamine Hippurate TAB* 1 GM TAB PO SCH (11:06)
--- NOTE | 2019-02-26 16:42 | PN ---
Subjective Date of Service: 02/26/19 Interval History: Resting in bed on assessment. Reports she feels improved today as she is no longer dizzy. Denies cp, palpitations, nausea, vomiting. Family History: Unchanged from Admission Social History: Unchanged from Admission Past Medical History: Unchanged from Admission Objective Active Medications: Acetaminophen (Tylenol Tab*) 650 mg PO Q6H PRN PRN Reason: FEVER/PAIN Last Admin: 02/26/19 03:42 Dose: 650 mg Albuterol/Ipratropium (Duoneb (Albuterol 2.5 Mg/Ipratropium 0.5 Mg)) 1 neb INH Q6H PRN PRN Reason: SOB/WHEEZING Baclofen (Lioresal Tab*) 50 mg PO BID [facility] Last Admin: 02/26/19 11:06 Dose: 50 mg Docusate Sodium (Colace Cap*) 100 mg PO BID PRN PRN Reason: CONSTIPATION Gabapentin (Neurontin Cap(*)) 200 mg PO DAILY [facility] Last Admin: 02/26/19 11:03 Dose: 200 mg Cefepime HCl 1 gm/ Sodium (Chloride) 50 mls @ 100 mls/hr IVPB Q12H [facility] Last Admin: 02/26/19 11:02 Dose: 100 mls/hr Levothyroxine Sodium (Synthroid Tab*) 175 mcg PO DAILY@0600 [facility] Last Admin: 02/26/19 06:00 Dose: 175 mcg Metoprolol Succinate (Toprol Xl Tab*) 50 mg PO DAILY [facility] Last Admin: 02/26/19 11:03 Dose: 50 mg Multivitamins/Minerals (Theragran/Minerals Tab*) 1 tab PO DAILY [facility] Last Admin: 02/26/19 11:06 Dose: 1 tab Cmcs: Methenamine (Mandelate 1000 Mg) 1 dose PO 0500,1100,1700,2300 [facility] Nystatin (Nystatin Top Powder*) 1 applic TOPICAL BID [facility] Last Admin: 02/26/19 11:06 Dose: 1 applic Ondansetron HCl (Zofran Inj*) 4 mg IV Q6H PRN PRN Reason: NAUSEA Potassium Chloride (Klor Con Er Tab*) 20 meq PO TID [facility] Last Admin: 02/26/19 14:11 Dose: 20 meq Rivaroxaban (Xarelto(*)) 20 mg PO DAILY@1700 [facility] Sertraline HCl (Zoloft*) 50 mg PO DAILY [facility] Last Admin: 02/26/19 11:05 Dose: 50 mg Vancomycin HCl (Vancomycin Cap*) 125 mg PO QID [facility] Last Admin: 02/26/19 14:11 Dose: 125 mg Vital Signs - 8 hr 02/26/19 02/26/19 02/26/19 11:03 13:00 13:18 Temperature 97.3 F Pulse Rate 80 Respiratory 20 18 18 Rate Blood Pressure 124/77 (mmHg) O2 Sat by Pulse 98 Oximetry 02/26/19 15:17 Temperature 97.5 F Pulse Rate 61 Respiratory 20 Rate Blood Pressure 126/69 (mmHg) O2 Sat by Pulse 98 Oximetry Oxygen Devices in Use Now: None Appearance: Comfortable, NAD Eyes: No Scleral Icterus Ears/Nose/Mouth/Throat: Clear Oropharnyx, Mucous Membranes Moist Neck: NL Appearance and Movements; NL JVP Respiratory: Symmetrical Chest Expansion and Respiratory Effort, Clear to Auscultation Cardiovascular: NL Sounds; No Murmurs; No JVD, RRR, No Edema Abdominal: NL Sounds; No Tenderness; No Distention Lymphatic: No Cervical Adenopathy Extremities: No Edema Skin: No Rash or Ulcers Neurological: Alert and Oriented x 3, NL Muscle Strength and Tone Nutrition: Taking PO's Result Diagrams: 02/26/19 09:46 02/26/19 09:46 Additional Lab and Data: Laboratory Results - last 24 hr 02/26/19 02/26/19 02/26/19 03:42 06:27 09:46 WBC RBC Hgb Hct MCV MCH MCHC RDW Plt Count MPV Neut % (Auto) Lymph % (Auto) [place] % (Auto) Eos % (Auto) Baso % (Auto) Absolute Neuts (auto) Absolute Lymphs (auto) Absolute Monos (auto) Absolute Eos (auto) Absolute Basos (auto) Absolute Nucleated RBC Nucleated RBC % Sodium Potassium Chloride Carbon Dioxide Anion Gap BUN Creatinine Est GFR ( Amer) Est GFR (Non-Af Amer) BUN/Creatinine Ratio Glucose Calcium Magnesium Troponin I 0.02 0.02 0.02 02/26/19 02/26/19 09:46 09:46 WBC 7.3 RBC 4.28 Hgb 11.5 L Hct 35 MCV 81 MCH 27 MCHC 33 RDW 14 Plt Count 207 MPV 8.0 Neut % (Auto) 73.0 Lymph % (Auto) 14.9 [place] % (Auto) 9.2 Eos % (Auto) 2.5 Baso % (Auto) 0.4 Absolute Neuts (auto) 5.3 Absolute Lymphs (auto) 1.1 Absolute Monos (auto) 0.7 Absolute Eos (auto) 0.2 Absolute Basos (auto) 0.0 Absolute Nucleated RBC 0.0 Nucleated RBC % 0.0 Sodium 138 Potassium 3.3 L Chloride 109 Carbon Dioxide 26 Anion Gap 3 BUN 8 Creatinine 0.55 Est GFR ( Amer) 131.1 Est GFR (Non-Af Amer) 108.3 BUN/Creatinine Ratio 14.5 Glucose 160 H Calcium 8.2 L Magnesium 2.0 Troponin I Microbiology and Other Data: Microbiology 02/24/19 19:55 Urine Urine Culture - Final 02/24/19 19:07 Blood Venous Blood Culture - Preliminary No Growth Day 1 02/24/19 18:52 Blood Venous Aerobic Blood Culture - Preliminary No Growth Day 1 02/24/19 18:52 Blood Venous Anaerobic Blood Culture - Preliminary No Growth Day 1 02/24/19 23:05 Stool Stool Gross Appearance - Final 02/24/19 23:05 Stool C. difficile DNA Amplification - Final 027 Presumptive NEGATIVE Toxigenic C.diff POSITIVE Assess/Plan/Problems-Billing Assessment: - Patient Problems (1) Sepsis Comment: - Presentation compatible with sepsis with fever, tachycardia - Source suspected to be UTI and C diff colitis. - Received IV fluids bolus and broad spectrum antibiotics in ED. - Afebrile since 02/24 - Blood cultures so far negative - No longer tachycardic - Urine culture contaminated. UA abnormality on admission could be attributed to chronic indwelling pal. (2) UTI (urinary tract infection) due to urinary indwelling Pal catheter Comment: - Urine culture mixed papi/contaminated. Frequently has dirty UA. Stop abx and repeat urine culture. UA abnormality on admission could be attributed to chronic indwelling pal. - Afebrile since 02/24 - Blood cultures negative - Exchange urinary catheter now - ID consulting - Started Hiprex due to frequent severe UTIs (3) C. difficile colitis Comment: - Multiple liquid bowel movements, C. diff positive. Report of positive C diff at [facility] 12/30/18, again here on 01/23/19, will need to determine when oral vanco was stopped, this is 3rd recurrence, not severe - Present on admission. - ID consulting - Continue Oral Vanco. Will most likely need to repeat taper due to not knowning when it was stopped (4) Atrial fibrillation Comment: - Rate is controlled now. - Continue Rivaroxaban and Metoprolol. (5) HTN (hypertension) Comment: - Initially hypotensive in the setting of acute illness - Continue Metoprolol (6) Hypothyroidism Comment: - Continue Levothyroxine. (7) Infection of right knee Comment: - Chronic, not current issue on exam. - Given fevers, tachycardia and insignificant urine culture, I have ordered knee xray and will consider ortho consult. - ID consulting (8) Multiple sclerosis Comment: - Continue Baclofen for spasms. - On No DMARD (9) Neurogenic bladder Comment: - Continue w/chronic indwelling pal - Change pal when correct antibiotic confirmed - Change Monthly (10) DVT prophylaxis Comment: - Continue Rivaroxaban Attending: Claudia Meyer
[2019-02-26] MEDS: METHENAMINE MANDELATE PO SCH (17:43)
[2019-02-26] MEDS: Rivaroxaban TAB(*) 20 MG TAB PO SCH (17:43)
[2019-02-26 22:11] LABS: Urine Appearance Cloudy; Urine Bacteria Absent (Absent); Urine Bilirubin Negative (Negative); Urine Blood 3+ (Negative); Urine Color Yellow; Urine Glucose Negative (Negative); Urine Ketones Negative (Negative); Urine Nitrite Negative (Negative); Urine Protein 1+(30 mg/dL) (Negative); Urine Red Blood Cell 3+(>10/hpf) (Absent); Urine Specific Gravity 1.019 (1.010-1.030); Urine Squamous Epithelial Cell Present (Absent); Urine Urobilinogen Negative (Negative); Urine White Blood Cell 3+(>20/hpf) (Absent)
--- NOTE | 2019-02-26 23:07 | CONS ---
CONSULTATION REPORT: DATE OF CONSULT: 02/26/19 PRIMARY CARE PROVIDER: Dr. Juliana Reeves. ATTENDING PROVIDER: Akin Allan MD * (DICTATED BY TRAVIS MARIE NP) IMPRESSION: 1. Loose stools. It was reported the patient was having foul-smelling stools upon admission and at the [facility] prior to admission. She was previously hospitalized in the beginning of January for recurrent C. diff colitis at which time she was to be discharged on a vancomycin long taper. According to the [facility] medication records, it appears that she only received 2 weeks of this taper. Leukocytosis has resolved and afebrile. It is to note that her initial episode of C. diff started in mid December and seems to recur within a few days of stopping her vancomycin as outpatient. 2. Multiple sclerosis with chronic indwelling urinary catheter. Abnormal urinalysis with urine culture showing mixed papi. 3. History of Norma prosthetic right knee infection. She completed a long course of antifungal. She is now off with a benign knee. RECOMMENDATIONS: Recommend continuing vancomycin 125 mg by mouth 4 times a day for 2 weeks followed by 3 times a day for 4 weeks, then twice daily for 2 weeks and then once daily for 2 weeks and then once every other day for 2 weeks, and then discontinue vancomycin. If there is continued concern for a UTI, could consider sending another UA and urine culture. HISTORY OF PRESENT ILLNESS: Ms. Scott is a 73-year-old female with past medical history significant for multiple sclerosis, neurogenic bladder with chronic indwelling urinary catheter, recurrent C. diff colitis, recurrent urinary tract infections, history of a sacral wound, chronic right knee infection, hypothyroidism, chronic atrial fibrillation, and thyroid cancer, who was last hospitalized in early January for recurrent C. diff colitis. She currently resides at [facility]. According to the medical records, she had 3 days of altered mental status that was progressively worse and consistent with the patient's previous infections that caused encephalopathy. Due to her symptoms, she was sent to the emergency room for evaluation from [facility]. While in the emergency room, Ms. Scott was found to have a fever of 102.4, tachycardia. She had a chest x-ray that was unremarkable. She was noted to have 2 loose foul-smelling stools while in the emergency room. She had a urinalysis that was consistent with a possible urinary tract infection. Due to her altered mental status and possible infection, she was referred to the hospitalist service for possible admission. During her hospitalization, she was placed back on oral vancomycin. It is to note that when she was discharged in early January, she was supposed to be on a long vancomycin taper. It appears that she only received 2 weeks of the long- term taper and did not complete the whole taper. Ms. Scott reports having only a few loose bowel movements daily prior to her hospitalization and reports no continued loose stools while in the hospital since resuming her vancomycin. She did have a C. diff PCR that was positive. Her initial leukocytosis has resolved. Her CRP was 24 on admission. Influenza A and B negative. Her cultures have no growth in the preliminary results on day 1. Her final urine culture shows mixed papi. She denies fevers, chills, chest pain, shortness of breath, nausea, vomiting, diarrhea, or constipation. She reports an occasional nonproductive cough. She has a chronic indwelling urinary catheter. PAST MEDICAL HISTORY: 1. Multiple sclerosis. 2. Neurogenic bladder with chronic indwelling urinary catheter. 3. Recurrent C. diff colitis. 4. Recurrent urinary tract infections. 5. Sacral wound. 6. Chronic right knee infection. 7. Hypothyroidism. 8. Chronic atrial fibrillation. 9. Thyroid cancer. PAST SURGICAL HISTORY: 1. Status post thyroidectomy. 2. Status post right total knee arthroplasty with 2 revisions. 3. Status post bilateral ankle ORIF. 4. Status post appendectomy. MEDICATIONS: Home medications include: 1. Sodium phosphate enema 1 per rectum daily as needed for constipation. 2. Nystatin powder apply topical twice daily. 3. Glycerin suppository 1 suppository per rectum daily as needed for constipation. 4. Colace 100 mg by mouth twice daily as needed for constipation. 5. Acetaminophen 650 mg by mouth every 4 hours as needed for pain. 6. Zoloft 50 mg by mouth daily. 7. Xarelto 20 mg by mouth daily. 8. Baclofen 50 mg by mouth twice daily. 9. Potassium chloride 10 mEq by mouth daily. 10. Multivitamin 1 tablet by mouth daily. 11. Metoprolol succinate 50 mg by mouth daily. 12. Levothyroxine 175 mcg by mouth daily. 13. Gabapentin 200 mg by mouth daily. 14. Fosamax 70 mg by mouth every Tuesday. Hospital medications include: 1. Acetaminophen 650 mg by mouth every 6 hours as needed for fever or chills. 2. DuoNeb 2.5 mg/0.5 one nebulizer inhalation every 6 hours as needed for shortness of breath or wheeze. 3. Baclofen 50 mg by mouth twice daily. 4. Methenamine mandelate 1000 mg by mouth at 5 a.m., 11 a.m., 5 p.m., and 11 p.m. 5. Colace 100 mg by mouth twice daily as needed for constipation. 6. Gabapentin 200 mg by mouth daily. 7. Levothyroxine 175 mcg by mouth daily. 8. Metoprolol succinate 50 mg by mouth daily. 9. Multivitamin 1 tablet by mouth daily. 10. Nystatin apply topical twice daily. 11. Zofran 4 mg IV every 6 hours as needed for nausea, vomiting. 12. Potassium chloride 20 mEq by mouth 3 times daily. 13. Xarelto 20 mg by mouth daily. 14. Zoloft 50 mg by mouth daily. 15. Vancomycin 125 mg by mouth 4 times daily. ALLERGIES: IBUPROFEN causes GI upset, LORAZEPAM, ENVIRONMENTAL. FAMILY HISTORY: Denies any family history of coronary artery disease, diabetes , cancer, recurrent resistant infections. SOCIAL HISTORY: She denies alcohol, recreational drug use. She is a former smoker. She quit smoking in 1981. Prior to that, she had a 10-year 1 pack a day smoking history. REVIEW OF SYSTEMS: I performed a 10-point review of systems. All the pertinent positives and negatives are mentioned in the history of present illness. The remaining review of systems is negative. PHYSICAL EXAMINATION: Vital Signs: Temperature 97.6, heart rate 65, respiratory rate 17, O2 sat 98% on room air, blood pressure 132/73. General Appearance: She is alert, pleasant, appears to be in no acute distress. Head: Normocephalic, atraumatic. ENT: Pupils are equal and reactive to light. Extraocular movements are intact. Mucous membranes are moist. No thrush. No conjunctival hemorrhage. Neck: Supple. No lymphadenopathy noted. Neurological : Alert and oriented x4. Cranial nerves II through XII are grossly intact. Cardiovascular: Regular rate and rhythm. No murmurs, rubs, or gallops. Respiratory: Lung sounds are clear to auscultation, bilateral. Abdomen: Bowel sounds present. Abdomen is soft, nontender, nondistended. Extremities: No lower extremity edema. Musculoskeletal: No clubbing or cyanosis noted. The patient exhibits good strength in all extremities. Psychological: Calm and cooperative. Skin: No rashes or abnormalities seen on the exposed skin. DIAGNOSTIC STUDIES/LAB DATA: Sodium 137, potassium 3.2, chloride 108, CO2 22, BUN 15, creatinine 0.48, glucose 101. White blood cell count 12.2, hemoglobin 12.1, hematocrit 37, platelet count 214. CRP on 02/24/19 is 24.45. Blood cultures with no growth to date. C. diff positive. Urinalysis shows 2+ protein , trace ketones, 2+ blood, nitrite positive, 3+ leukocyte esterase, 3+ wbc's, 3 + rbc's, squamous epithelial cells present, bacteria 1+, urine final culture with mixed papi. Please see impression and recommendations outlined above. Thank you for asking us to see Ms. Scott in consultation. TIME SPENT: Time for this consultation was approximately 40 minutes, greater than half of that was spent with the patient discussing medications, past medical history, the events leading to her arrival to the hospital and performing a physical examination. The case has been reviewed with the attending, Dr. Allan, who agrees with the plan of care. Reviewed by NEERAJ BERMAN 03/01/19 [id number] #: [id number] SHERRIE
[2019-02-27] MEDS: METHENAMINE MANDELATE PO SCH ×4 (00:05→17:14)
[2019-02-27 06:21] LABS: BUN/Creatinine Ratio 23.9 (8-20); Calcium 8.8 mg/dL (8.6-10.3); EGFR African American 161.1 (>60); EGFR Non-African American 133.2 (>60); Potassium 3.6 mmol/L (3.5-5.0)
[2019-02-27] MEDS: Levothyroxine TAB* 175 MCG TAB PO SCH (06:28)
[2019-02-27] MEDS: Cefepime ADVAN(*) 1 GM in NS 0.9% 50 ML* 50 ML IVPB SCH (06:28)
[2019-02-27] MEDS: Metoprolol Succinate XL TAB* 50 MG PO SCH (09:14)
[2019-02-27] MEDS: Baclofen TAB* 10 MG PO SCH ×2 (09:14→20:48)
[2019-02-27] MEDS: Multivitamins/Minerals TAB PO SCH (09:14)
[2019-02-27] MEDS: Sertraline* 50 MG TAB PO SCH (09:15)
[2019-02-27] MEDS: Gabapentin CAP(*) 100 MG PO SCH (09:16)
[2019-02-27] MEDS: Potassium Chlor TAB* 20 MEQ TAB.ER PO SCH ×3 (09:16→20:49)
[2019-02-27] MEDS: Nystatin TOP POWDER* 15 GM BTL TOPICAL SCH ×2 (09:16→20:49)
[2019-02-27] MEDS: Vancomycin CAP* 125 MG CAP PO SCH ×4 (09:18→20:48)
[2019-02-27] MEDS: Rivaroxaban TAB(*) 20 MG TAB PO SCH (16:47)
--- NOTE | 2019-02-27 17:39 | CONSULT ---
Subjective Date of Service: 02/27/19 Interval History: Ms. Scott is a 73 yo female with PMH significant for MS, neurogenic bladder with chronic indwellling catheter, chronic afib, hypothyroid, and thyroid cancer. She presented to the hospital with complaints of confusion and fever. She presented with an open area to the sacrum. She states that she was previously treated for a chronic pressure injury to her sacrum, having a skin graft and flap in the past. At the time of her last admission in January the wound had been open about 4 months ago and has been seen by the wound clinic. She is unsure if the wound had fully closed or was still open recently. Patient seen and examined at bedside. Family History: Unchanged from Admission Social History: Unchanged from Admission Past Medical History: Unchanged from Admission Review of Systems - Measurements Intake and Output: Intake and Output Last 24 Hours 02/25/19 02/26/19 02/27/19 02/28/19 06:59 06:59 06:59 06:59 Intake Total 1200 2951 1940 Output Total 500 1818 1150 325 Balance 700 1133 790 -325 Weight 154 lb 14.4 oz Intake: IV Fluids 1200 1616 35 ABX - CEFEPIME 35 LR 808 IVPB 55 105 ABX - CEFEPIME 105 Oral 0 1280 1800 Output: Urine 1300 Pal 559 601 3680 325 Other: # Bowel Movements 1 3 1 Estimated Stool Amount Large Medium Large - Review of Systems Constitutional Symptoms: Negative: Fever, Other Dermatology: Positive: Other - Chronic buttocks pressure injury Gastroenterology: Positive: Diarrhea - A few loose stools daily Genital - Urinary: Positive: Other - Neurogenic bladder with chronic indwelling pal Objective Active Medications: Acetaminophen (Tylenol Tab*) 650 mg PO Q6H PRN Reason: FEVER/PAIN Albuterol/Ipratropium (Duoneb (Albuterol 2.5 Mg/Ipratropium 0.5 Mg)) 1 neb INH Q6H PRN Reason: SOB/WHEEZING Baclofen (Lioresal Tab*) 50 mg PO BID [facility]JUN Docusate Sodium (Colace Cap*) 100 mg PO BID PRN Reason: CONSTIPATION Gabapentin (Neurontin Cap(*)) 200 mg PO DAILY [facility] Cefepime HCl 1 gm/ Sodium (Chloride) 50 mls @ 100 mls/hr IVPB Q12H ARJUN Levothyroxine Sodium (Synthroid Tab*) 175 mcg PO DAILY@0600 [facility] Methenamine Hippurate (Hiprex Tab*) 1 gm PO BID [facility] Metoprolol Succinate (Toprol Xl Tab*) 50 mg PO DAILY [facility] Multivitamins/Minerals (Theragran/Minerals Tab*) 1 tab PO DAILY [facility] Nystatin (Nystatin Top Powder*) 1 applic TOPICAL BID [facility] Ondansetron HCl (Zofran Inj*) 4 mg IV Q6H PRN Reason: NAUSEA Potassium Chloride (Klor Con Er Tab*) 20 meq PO TID [facility] Rivaroxaban (Xarelto(*)) 20 mg PO DAILY@1700 [facility] Sertraline HCl (Zoloft*) 50 mg PO DAILY [facility] Vancomycin HCl (Vancomycin Cap*) 125 mg PO QID [facility] Vital Signs - 8 hr 02/27/19 02/27/19 02/27/19 11:07 11:37 15:33 Temperature 98.1 F 98.1 F Pulse Rate 65 Respiratory 16 16 16 Rate Blood Pressure 112/71 124/98 (mmHg) O2 Sat by Pulse 97 97 Oximetry 02/27/19 16:53 Temperature Pulse Rate 90 Respiratory Rate Blood Pressure (mmHg) O2 Sat by Pulse Oximetry Oxygen Devices in Use Now: None Appearance: NAD, laying in bed Ears/Nose/Mouth/Throat: Mucous Membranes Moist Respiratory: Symmetrical Chest Expansion and Respiratory Effort Skin: - - See skin note below Neurological: Alert and Oriented x 3 Nutrition: Taking PO's Result Diagrams: 02/26/19 09:46 02/27/19 05:10 Microbiology and Other Data: Microbiology 02/24/19 19:55 Urine Urine Culture - Final 02/24/19 19:07 Blood Venous Blood Culture - Preliminary No Growth Day 1 02/24/19 18:52 Blood Venous Aerobic Blood Culture - Preliminary No Growth Day 1 02/24/19 18:52 Blood Venous Anaerobic Blood Culture - Preliminary No Growth Day 1 02/24/19 23:05 Stool Stool Gross Appearance - Final 02/24/19 23:05 Stool C. difficile DNA Amplification - Final 027 Presumptive NEGATIVE Toxigenic C.diff POSITIVE Skin Deviation Note - Skin Deviation Findings Coccyx/ cleft - Sacrum - 1 cm x 0.4 cm x 0.1 cm. The wound base is red granulation tissue. There is scar tissue present. The surrounding skin appears to be slightly excoriated. Assessment/Plan: Mrs Scott is a 73yo F with PMH of Afib, hypothyroidism, multiple sclerosis, thyroid CA, right knee infection, neurogenic bladder with chronic Pal and recurrent UTIs, and stage II sacral pressure ulcer who presented to ED with confusion and fever, admitted for C. diff colitis. 1. Sacral pressure injury, stage 2 with moisture associated skin injury. History of extensive reconstruction and flap to sacrum. Seen by the wound clinic 12/13/18 at that time the new ulcer had been present for 6-8 weeks. Previously she had a 10 year history of a pressure injury. The Wound clinic recommended silver alginate and Mepilex. Due to frequent and loose stools recommend barrier cream for now and frequent turning and repositioning. Incontinence care as needed. Once the diarrhea has decreased or resolved, can consider returning to using silver alginate and border foam dressing (Optifoam or Mepilex). Discussed with the patient that the scar tissue present is fragile and more likely to breakdown. Consider checking prealbumin level to evaluate nutritional status. The wound is getting smaller according to measurements from her previous admission, consider referral back to the wound clinic if the wound doesn't heal. 2. Recurrent C-diff colitis. Continue treatment with vancomycin as directed by ID. Frequent incontinence care. 3. MS with neurogenic bladder. Chronic indwelling urinary catheter. 4. Diet. Regular 5. Code Status. Full code 6. Disposition. Disposition per primary medicine team TIME SPENT: Time for this wound consult was 25 minutes and 15 minutes was spent with the patient discussing past medication history, assessing, measuring, and photographing the wound. Wound Problem/Plan Is Patient a Wound Clinic Patient: No - Previous patient, not current Attending: Heather Wagner
--- NOTE | 2019-02-27 17:51 | PN ---
Subjective Date of Service: 02/27/19 Interval History: Patient sitting in chair on assessment. Patient is alert. She is oriented to self and place. She is noted to have occasional disorganized thoughts which nurses report is baseline for her as they know her from previous admission. Patient reports diarrhea has started to slow down in frequency. Denies cp, sob, palpitations, nausea, vomiting, fever, chills. Family History: Unchanged from Admission Social History: Unchanged from Admission Past Medical History: Unchanged from Admission Objective Active Medications: Acetaminophen (Tylenol Tab*) 650 mg PO Q6H PRN PRN Reason: FEVER/PAIN Last Admin: 02/26/19 21:32 Dose: 650 mg Albuterol/Ipratropium (Duoneb (Albuterol 2.5 Mg/Ipratropium 0.5 Mg)) 1 neb INH Q6H PRN PRN Reason: SOB/WHEEZING Baclofen (Lioresal Tab*) 50 mg PO BID [facility] Last Admin: 02/27/19 09:14 Dose: 50 mg Docusate Sodium (Colace Cap*) 100 mg PO BID PRN PRN Reason: CONSTIPATION Gabapentin (Neurontin Cap(*)) 200 mg PO DAILY [facility] Last Admin: 02/27/19 09:16 Dose: 200 mg Levothyroxine Sodium (Synthroid Tab*) 175 mcg PO DAILY@0600 [facility] Last Admin: 02/27/19 06:28 Dose: 175 mcg Methenamine Hippurate (Hiprex Tab*) 1 gm PO BID [facility] Metoprolol Succinate (Toprol Xl Tab*) 50 mg PO DAILY [facility] Last Admin: 02/27/19 09:14 Dose: 50 mg Multivitamins/Minerals (Theragran/Minerals Tab*) 1 tab PO DAILY [facility] Last Admin: 02/27/19 09:14 Dose: 1 tab Nystatin (Nystatin Top Powder*) 1 applic TOPICAL BID [facility] Last Admin: 02/27/19 09:16 Dose: 1 applic Ondansetron HCl (Zofran Inj*) 4 mg IV Q6H PRN PRN Reason: NAUSEA Potassium Chloride (Klor Con Er Tab*) 20 meq PO TID [facility] Last Admin: 02/27/19 14:08 Dose: 20 meq Rivaroxaban (Xarelto(*)) 20 mg PO DAILY@1700 [facility] Last Admin: 02/27/19 16:47 Dose: 20 mg Sertraline HCl (Zoloft*) 50 mg PO DAILY [facility] Last Admin: 02/27/19 09:15 Dose: 50 mg Vancomycin HCl (Vancomycin Cap*) 125 mg PO QID [facility] Last Admin: 02/27/19 16:47 Dose: 125 mg Vital Signs - 8 hr 02/27/19 02/27/19 02/27/19 11:07 11:37 15:33 Temperature 98.1 F 98.1 F Pulse Rate 65 Respiratory 16 16 16 Rate Blood Pressure 112/71 124/98 (mmHg) O2 Sat by Pulse 97 97 Oximetry 02/27/19 16:53 Temperature Pulse Rate 90 Respiratory Rate Blood Pressure (mmHg) O2 Sat by Pulse Oximetry Oxygen Devices in Use Now: None Appearance: Comfortable, NAD Ears/Nose/Mouth/Throat: Clear Oropharnyx, Mucous Membranes Moist Neck: NL Appearance and Movements; NL JVP Respiratory: Symmetrical Chest Expansion and Respiratory Effort, Clear to Auscultation Cardiovascular: NL Sounds; No Murmurs; No JVD, RRR, No Edema Abdominal: NL Sounds; No Tenderness; No Distention Lymphatic: No Cervical Adenopathy Extremities: No Edema Skin: - - See wound care note Neurological: - - Alert. Oriented to self and place. Nutrition: Taking PO's Result Diagrams: 02/26/19 09:46 02/27/19 05:10 Additional Lab and Data: Laboratory Results - last 24 hr 02/26/19 02/27/19 17:00 05:10 Sodium 140 Potassium 3.6 Chloride 110 Carbon Dioxide 26 Anion Gap 4 BUN 11 Creatinine 0.46 L Est GFR ( Amer) 161.1 Est GFR (Non-Af Amer) 133.2 BUN/Creatinine Ratio 23.9 H Glucose 87 Calcium 8.8 Magnesium 2.0 Urine Color Yellow Urine Appearance Cloudy Urine pH 5.0 Ur Specific Velma 1.019 Urine Protein 1+(30 mg/dl) A Urine Ketones Negative Urine Blood 3+ A Urine Nitrate Negative Urine Bilirubin Negative Urine Urobilinogen Negative Ur Leukocyte Esterase 3+ A Urine WBC (Auto) 3+(>20/hpf) A Urine RBC (Auto) 3+(>10/hpf) A Ur Squamous Epith Cells Present A Urine Bacteria Absent Urine Glucose Negative Urine Ascorbic Acid * A Microbiology and Other Data: Microbiology 02/26/19 17:00 Urine Urine Culture - Final No Growth (<1,000 CFU/mL) 02/24/19 19:07 Blood Venous Blood Culture - Preliminary No Growth Day 2 02/24/19 18:52 Blood Venous Aerobic Blood Culture - Preliminary No Growth Day 2 02/24/19 18:52 Blood Venous Anaerobic Blood Culture - Preliminary No Growth Day 2 02/24/19 19:55 Urine Urine Culture - Final 02/24/19 23:05 Stool Stool Gross Appearance - Final 02/24/19 23:05 Stool C. difficile DNA Amplification - Final 027 Presumptive NEGATIVE Toxigenic C.diff POSITIVE Assess/Plan/Problems-Billing Assessment: - Patient Problems (1) Sepsis Comment: - Presentation compatible with sepsis with fever, tachycardia - Source suspected to be UTI and C diff colitis. - Received IV fluids bolus and broad spectrum antibiotics in ED. Narrowed to Vanco PO and Cefepime IV - Afebrile since 02/24 - Blood cultures so far negative - No longer tachycardic (2) UTI (urinary tract infection) due to urinary indwelling Pal catheter Comment: - Urine culture mixed papi/contaminated. Frequently has dirty UA could be attributed to chronic indwelling pal. Cont Cefepime to complete course - Afebrile since 02/24 - Blood cultures negative - Exchanged urinary catheter 02/26/19 - ID consulting - Started Hiprex due to frequent severe UTIs (3) C. difficile colitis Comment: - C. diff positive. Report of positive C diff at [facility] 12/30/18, again here on 01/23/19 - ID consulting - Continue Oral Vanco. Will need to repeat taper due to not knowning when it was stopped (4) Atrial fibrillation Comment: - Rate is controlled. - Continue Rivaroxaban and Metoprolol. (5) HTN (hypertension) Comment: - Normotensive - Continue Metoprolol (6) Hypothyroidism Comment: - Continue Levothyroxine. (7) Infection of right knee Comment: - Chronic, not current issue on exam. - Xray and assessment benign - ID consulting (8) Multiple sclerosis Comment: - Continue Baclofen for spasms. - On No DMARD (9) Neurogenic bladder Comment: - Continue w/chronic indwelling pal - Change Monthly. Last change here on 02/26/19 (10) DVT prophylaxis Comment: - Continue Rivaroxaban Status and Disposition: Inpatient. Attending: Claudia Meyer
[2019-02-27] MEDS ORDERED: Cefepime 1 GM in Dextrose(*) 1 GM/50 ML BAG IV SCH (18:00)
[2019-02-27] MEDS ORDERED: Methenamine Hippurate TAB* 1 GM TAB PO SCH (18:00)
[2019-02-27] MEDS: Methenamine Hippurate TAB* 1 GM TAB PO SCH (20:48)
[2019-02-27] MEDS: DOXYcycline CAP(*) 100 MG PO SCH (20:48)
[2019-02-28] MEDS: Levothyroxine TAB* 175 MCG TAB PO SCH (06:23)
[2019-02-28] MEDS: Baclofen TAB* 10 MG PO SCH ×2 (09:22→20:43)
[2019-02-28] MEDS: Gabapentin CAP(*) 100 MG PO SCH (09:22)
[2019-02-28] MEDS: Metoprolol Succinate XL TAB* 50 MG PO SCH (09:23)
[2019-02-28] MEDS: Multivitamins/Minerals TAB PO SCH (09:23)
[2019-02-28] MEDS: Sertraline* 50 MG TAB PO SCH (09:23)
[2019-02-28] MEDS: DOXYcycline CAP(*) 100 MG PO SCH ×2 (09:23→20:42)
[2019-02-28] MEDS: Potassium Chlor TAB* 20 MEQ TAB.ER PO SCH ×3 (09:23→20:43)
[2019-02-28] MEDS: Vancomycin CAP* 125 MG CAP PO SCH ×4 (09:24→20:42)
[2019-02-28] MEDS: Methenamine Hippurate TAB* 1 GM TAB PO SCH ×2 (09:24→20:43)
[2019-02-28] MEDS: Nystatin TOP POWDER* 15 GM BTL TOPICAL SCH ×2 (09:52→20:43)
--- NOTE | 2019-02-28 10:51 | PN ---
Progress Note - Progress Note Date of Service: 02/28/19 SOAP: Subjective: CC: Recurrent C-Diff colitis HPI: Ms. Scott is a 73-year-old female with past medical history significant for multiple sclerosis, neurogenic bladder with chronic indwelling urinary catheter , recurrent C. diff colitis, recurrent urinary tract infections, history of a sacral wound, chronic right knee infection, hypothyroidism, chronic atrial fibrillation, and thyroid cancer, who was last hospitalized in early January for recurrent C. diff colitis. Denies fever, chills, shortness of breath, or vomiting. She reports loose stools, but states that this is improving. He also reports some mild nausea this AM. Objective: Vital Signs - 8 hr 02/28/19 02/28/19 04:40 09:22 Temperature 97.4 F Pulse Rate 64 Respiratory 20 16 Rate Blood Pressure 154/93 (mmHg) O2 Sat by Pulse 97 Oximetry Physical Exam: General: NAD, sitting up in bed Neurological: Alert and Oriented x4 HEENT: No thrush, moist MM Cardiovascular: Heart rate regular Respiratory: Lung sounds clear Abdominal: Bowel sounds present; ABD soft, non tender and non distended Skin: No rash Microbiology 02/24/19 19:07 Blood Culture - Preliminary Blood Venous No Growth Day 3 02/24/19 18:52 Aerobic Blood Culture - Preliminary Blood Venous No Growth Day 3 Anaerobic Blood Culture - Preliminary No Growth Day 3 02/26/19 17:00 Urine Culture - Final Urine No Growth (<1,000 CFU/mL) 02/24/19 19:55 Urine Culture - Final Urine 02/24/19 23:05 Stool Gross Appearance - Final Stool C. difficile DNA Amplification - Final 027 Presumptive NEGATIVE Toxigenic C.diff POSITIVE Assessment: 1. Recurrent C-diff colitis. She was previously hospitalized in the beginning of January for recurrent C. diff colitis (initial episode of c-diff occurred in December 2018) at which time she was to be discharged on vancomycin, long taper. According to the correction medication records, it appears that she only received 2 weeks of this taper. Afebrile and no leukocytosis. Reports that loose stools have decrease and is only having a few stools daily. 2. Multiple sclerosis with chronic indwelling urinary catheter. Abnormal urinalysis with urine culture shows mixed papi. Repeat urine culture with no growth. She has been started on Hiprex. 3. History of Norma prosthetic right knee infection. She completed a long course of antifungal. She is now off with a benign knee. Plan: Continue vancomycin taper; 125 mg by mouth 4 times a day for 2 weeks followed by 3 times a day for 4 weeks, then twice daily for 2 weeks and then once daily for 2 weeks and then once every other day for 2 weeks, and then discontinue vancomycin. Continue Hiprex for recurrent UTIs.
[2019-02-28] MEDS: Rivaroxaban TAB(*) 20 MG TAB PO SCH (16:33)
--- NOTE | 2019-02-28 17:18 | PN ---
Subjective Date of Service: 02/28/19 Interval History: Sitting in chair on assessment. Patient alert and oriented x3. Reports she continues to have diarrhea, but it is decreasing in amount and frequency. Denies cp, palpitations, nausea, vomiting, fever, chills. Family History: Unchanged from Admission Social History: Unchanged from Admission Past Medical History: Unchanged from Admission Objective Active Medications: Acetaminophen (Tylenol Tab*) 650 mg PO Q6H PRN PRN Reason: FEVER/PAIN Last Admin: 02/26/19 21:32 Dose: 650 mg Albuterol/Ipratropium (Duoneb (Albuterol 2.5 Mg/Ipratropium 0.5 Mg)) 1 neb INH Q6H PRN PRN Reason: SOB/WHEEZING Baclofen (Lioresal Tab*) 50 mg PO BID [facility] Last Admin: 02/28/19 09:22 Dose: 50 mg Docusate Sodium (Colace Cap*) 100 mg PO BID PRN PRN Reason: CONSTIPATION Doxycycline Hyclate (Vibramycin Cap(*)) 100 mg PO BID [facility] Last Admin: 02/28/19 09:23 Dose: 100 mg Gabapentin (Neurontin Cap(*)) 200 mg PO DAILY [facility] Last Admin: 02/28/19 09:22 Dose: 200 mg Levothyroxine Sodium (Synthroid Tab*) 175 mcg PO DAILY@0600 [facility] Last Admin: 02/28/19 06:23 Dose: 175 mcg Methenamine Hippurate (Hiprex Tab*) 1 gm PO Q12H [facility] Last Admin: 02/28/19 09:24 Dose: 1 gm Metoprolol Succinate (Toprol Xl Tab*) 50 mg PO DAILY [facility] Last Admin: 02/28/19 09:23 Dose: 50 mg Multivitamins/Minerals (Theragran/Minerals Tab*) 1 tab PO DAILY [facility] Last Admin: 02/28/19 09:23 Dose: 1 tab Nystatin (Nystatin Top Powder*) 1 applic TOPICAL BID [facility] Last Admin: 02/28/19 09:52 Dose: Not Given Ondansetron HCl (Zofran Inj*) 4 mg IV Q6H PRN PRN Reason: NAUSEA Potassium Chloride (Klor Con Er Tab*) 20 meq PO TID [facility] Last Admin: 02/28/19 12:37 Dose: 20 meq Rivaroxaban (Xarelto(*)) 20 mg PO DAILY@1700 [facility] Last Admin: 02/28/19 16:33 Dose: 20 mg Sertraline HCl (Zoloft*) 50 mg PO DAILY [facility] Last Admin: 02/28/19 09:23 Dose: 50 mg Vancomycin HCl (Vancomycin Cap*) 125 mg PO QID [facility] Last Admin: 02/28/19 16:33 Dose: 125 mg Vital Signs - 8 hr 02/28/19 02/28/19 09:22 11:25 Temperature 97.5 F Pulse Rate 74 Respiratory 16 16 Rate Blood Pressure 109/69 (mmHg) O2 Sat by Pulse 98 Oximetry Oxygen Devices in Use Now: None Appearance: Comfortable, NAD Eyes: No Scleral Icterus Ears/Nose/Mouth/Throat: Clear Oropharnyx Neck: NL Appearance and Movements; NL JVP Respiratory: Symmetrical Chest Expansion and Respiratory Effort, Clear to Auscultation Cardiovascular: NL Sounds; No Murmurs; No JVD, RRR, No Edema Abdominal: NL Sounds; No Tenderness; No Distention Lymphatic: No Cervical Adenopathy Extremities: No Edema, No Clubbing, Cyanosis Neurological: Alert and Oriented x 3, NL Muscle Strength and Tone Nutrition: Taking PO's Result Diagrams: 02/26/19 09:46 02/27/19 05:10 Additional Lab and Data: . Microbiology and Other Data: Microbiology 02/24/19 19:07 Blood Culture - Preliminary Blood Venous No Growth Day 3 02/24/19 18:52 Aerobic Blood Culture - Preliminary Blood Venous No Growth Day 3 Anaerobic Blood Culture - Preliminary No Growth Day 3 02/26/19 17:00 Urine Culture - Final Urine No Growth (<1,000 CFU/mL) 02/24/19 19:55 Urine Culture - Final Urine 02/24/19 23:05 Stool Gross Appearance - Final Stool C. difficile DNA Amplification - Final 027 Presumptive NEGATIVE Toxigenic C.diff POSITIVE Assess/Plan/Problems-Billing Assessment: - Patient Problems (1) Sepsis Comment: - Presentation compatible with sepsis with fever, tachycardia - Source suspected to be UTI and C diff colitis. - Received IV fluids bolus and broad spectrum antibiotics in ED. Narrowed to Vanco PO and Cefepime IV. Cefepime discontinued and changed to doxycycline PO in prep for discharge. - Afebrile since 02/24 - Blood cultures - negative - No longer tachycardic (2) UTI (urinary tract infection) due to urinary indwelling Pal catheter Comment: - Urine culture mixed papi/contaminated. In addtion urine was obtained after patient received abx in ED. - Frequently has dirty UA could be attributed to chronic indwelling pal. - Was on Cefepime and now on Doxycycline PO to prepare for discharge. Received 3 days of Cefepime and today is day 1 of doxy. - Afebrile since 02/24 - Blood cultures negative - Exchanged urinary catheter 02/26/19 - ID consulting - Started Hiprex due to frequent severe UTIs (3) C. difficile colitis Comment: - C. diff positive. Report of positive C diff at [facility] 12/30/18, again here on 01/23/19 - ID consulting - Per ID: Continue vancomycin taper; 125 mg by mouth 4 times a day for 2 weeks followed by 3 times a day for 4 weeks, then twice daily for 2 weeks and then once daily for 2 weeks and then once every other day for 2 weeks, and then discontinue vancomycin. (4) Atrial fibrillation Comment: - Rate is controlled. - Continue Rivaroxaban and Metoprolol. (5) HTN (hypertension) Comment: - Normotensive - Continue Metoprolol (6) Hypothyroidism Comment: - Continue Levothyroxine. (7) Infection of right knee Comment: - Hx of celestine infection, not current issue on exam. - Xray and assessment benign (8) Multiple sclerosis Comment: - Continue Baclofen for spasms. - On No DMARD (9) Neurogenic bladder Comment: - Continue w/chronic indwelling pal - Change Monthly. Last change here on 02/26/19 (10) DVT prophylaxis Comment: - Continue Rivaroxaban Status and Disposition: Inpatient. Discharge to [place] Tuesday. Attending: Jong Rodriguez
[2019-03-01] MEDS: Levothyroxine TAB* 175 MCG TAB PO SCH (05:39)
[2019-03-01] MEDS: Nystatin TOP POWDER* 15 GM BTL TOPICAL SCH ×2 (07:51→21:05)
[2019-03-01] MEDS: Sertraline* 50 MG TAB PO SCH (07:52)
[2019-03-01] MEDS: Metoprolol Succinate XL TAB* 50 MG PO SCH (07:52)
[2019-03-01] MEDS: Gabapentin CAP(*) 100 MG PO SCH (07:52)
[2019-03-01] MEDS: DOXYcycline CAP(*) 100 MG PO SCH ×2 (07:52→21:04)
[2019-03-01] MEDS: Baclofen TAB* 10 MG PO SCH ×2 (07:52→21:04)
[2019-03-01] MEDS: Methenamine Hippurate TAB* 1 GM TAB PO SCH ×2 (07:52→21:04)
[2019-03-01] MEDS: Multivitamins/Minerals TAB PO SCH (07:53)
[2019-03-01] MEDS: Potassium Chlor TAB* 20 MEQ TAB.ER PO SCH ×3 (07:53→21:05)
[2019-03-01] MEDS: Vancomycin CAP* 125 MG CAP PO SCH ×4 (07:53→21:04)
[2019-03-01] MEDS: Rivaroxaban TAB(*) 20 MG TAB PO SCH (17:09)
--- NOTE | 2019-03-01 18:23 | PN ---
Subjective Date of Service: 03/01/19 Interval History: Patient seen and examined. No acute overnight events. Patient states no diarrhea today. No abdominal pain, no fevers or chills, no SOB. No complaints. Family History: Unchanged from Admission Social History: Unchanged from Admission Past Medical History: Unchanged from Admission Objective Active Medications: Acetaminophen (Tylenol Tab*) 650 mg PO Q6H PRN PRN Reason: FEVER/PAIN Last Admin: 02/26/19 21:32 Dose: 650 mg Albuterol/Ipratropium (Duoneb (Albuterol 2.5 Mg/Ipratropium 0.5 Mg)) 1 neb INH Q6H PRN PRN Reason: SOB/WHEEZING Baclofen (Lioresal Tab*) 50 mg PO BID [facility] Last Admin: 03/01/19 07:52 Dose: 50 mg Docusate Sodium (Colace Cap*) 100 mg PO BID PRN PRN Reason: CONSTIPATION Doxycycline Hyclate (Vibramycin Cap(*)) 100 mg PO BID [facility] Last Admin: 03/01/19 07:52 Dose: 100 mg Gabapentin (Neurontin Cap(*)) 200 mg PO DAILY [facility] Last Admin: 03/01/19 07:52 Dose: 200 mg Levothyroxine Sodium (Synthroid Tab*) 175 mcg PO DAILY@0600 [facility] Last Admin: 03/01/19 05:39 Dose: 175 mcg Methenamine Hippurate (Hiprex Tab*) 1 gm PO Q12H [facility] Last Admin: 03/01/19 07:52 Dose: 1 gm Metoprolol Succinate (Toprol Xl Tab*) 50 mg PO DAILY [facility] Last Admin: 03/01/19 07:52 Dose: 50 mg Multivitamins/Minerals (Theragran/Minerals Tab*) 1 tab PO DAILY [facility] Last Admin: 03/01/19 07:53 Dose: 1 tab Nystatin (Nystatin Top Powder*) 1 applic TOPICAL BID [facility] Last Admin: 03/01/19 07:51 Dose: 1 applic Ondansetron HCl (Zofran Inj*) 4 mg IV Q6H PRN PRN Reason: NAUSEA Potassium Chloride (Klor Con Er Tab*) 20 meq PO TID [facility] Last Admin: 03/01/19 12:26 Dose: 20 meq Rivaroxaban (Xarelto(*)) 20 mg PO DAILY@1700 [facility] Last Admin: 03/01/19 17:09 Dose: 20 mg Sertraline HCl (Zoloft*) 50 mg PO DAILY [facility] Last Admin: 03/01/19 07:52 Dose: 50 mg Vancomycin HCl (Vancomycin Cap*) 125 mg PO QID [facility] Last Admin: 03/01/19 17:09 Dose: 125 mg Vital Signs - 8 hr 03/01/19 03/01/19 11:45 15:15 Temperature 97.2 F 97.5 F Pulse Rate 65 54 Respiratory 16 16 Rate Blood Pressure 126/68 113/71 (mmHg) O2 Sat by Pulse 96 100 Oximetry Oxygen Devices in Use Now: None Appearance: alert, NAD Eyes: No Scleral Icterus, PERRLA Ears/Nose/Mouth/Throat: NL Teeth, Lips, Gums, Mucous Membranes Moist Neck: NL Appearance and Movements; NL JVP, Trachea Midline Respiratory: Symmetrical Chest Expansion and Respiratory Effort, Clear to Auscultation Cardiovascular: NL Sounds; No Murmurs; No JVD, RRR, No Edema Abdominal: NL Sounds; No Tenderness; No Distention Skin: No Rash or Ulcers, No Nodules or Sclerosis Neurological: Alert and Oriented x 3, - - weakness, MS, chronic changes Nutrition: Taking PO's Result Diagrams: 02/26/19 09:46 02/27/19 05:10 Additional Lab and Data: . Microbiology and Other Data: Microbiology 02/24/19 19:07 Blood Culture - Preliminary Blood Venous No Growth Day 3 02/24/19 18:52 Aerobic Blood Culture - Preliminary Blood Venous No Growth Day 3 Anaerobic Blood Culture - Preliminary No Growth Day 3 02/26/19 17:00 Urine Culture - Final Urine No Growth (<1,000 CFU/mL) 02/24/19 19:55 Urine Culture - Final Urine 02/24/19 23:05 Stool Gross Appearance - Final Stool C. difficile DNA Amplification - Final 027 Presumptive NEGATIVE Toxigenic C.diff POSITIVE Assess/Plan/Problems-Billing Assessment: This is a 73 year old female with hx of progressive MS that presented with complaints of diarrhea, admitted with cdiff infection - Patient Problems (1) C. difficile colitis Comment: - Meeting SIRS/Sepsis at admission now resolved - C. diff positive. Report of positive C diff at [facility] 12/30/18, again here on 01/23/19 - ID consulting - Per ID: Continue vancomycin taper; 125 mg by mouth 4 times a day for 2 weeks followed by 3 times a day for 4 weeks, then twice daily for 2 weeks and then once daily for 2 weeks and then once every other day for 2 weeks, and then discontinue vancomycin. - No diarrhea today (2) Atrial fibrillation Code(s): I48.91 - UNSPECIFIED ATRIAL FIBRILLATION SNOMED Code(s): 71662498 Comment: - rate controlled on metoprolol - continue xarelto (3) Multiple sclerosis Code(s): G35 - MULTIPLE SCLEROSIS SNOMED Code(s): 01241359 Comment: - Continue Baclofen for spasms. - On No DMARD (4) UTI (urinary tract infection) Comment: - Chronic pal, with hx of neurogeninc bladder and frequent UTIs - Was meeting sepsis crieteria at admission but this was likely 2/2 to cdiff and not necessarily urine - last culture pos for citrobacter and ecoli in January, current cultures negative - placed on supression with Hiprex - Off IV atbx and completing course with doxycyline (5) DVT prophylaxis Code(s): TGH4244 - SNOMED Code(s): 817063585 Comment: - on xarelto (6) Full code status Code(s): Z78.9 - OTHER SPECIFIED HEALTH STATUS SNOMED Code(s): 668057308 Status and Disposition: Inpatient, improved, medically optimized for discharge tomorrow, however, patient will be transported to [place] at family expense per case management which cannot be arranged until Tuesday.
[2019-03-02] MEDS: Levothyroxine TAB* 175 MCG TAB PO SCH (05:55)
[2019-03-02] MEDS: Potassium Chlor TAB* 20 MEQ TAB.ER PO SCH ×3 (08:17→22:48)
[2019-03-02] MEDS: DOXYcycline CAP(*) 100 MG PO SCH ×2 (08:17→22:48)
[2019-03-02] MEDS: Gabapentin CAP(*) 100 MG PO SCH (08:18)
[2019-03-02] MEDS: Sertraline* 50 MG TAB PO SCH (08:18)
[2019-03-02] MEDS: Baclofen TAB* 10 MG PO SCH ×2 (08:19→22:47)
[2019-03-02] MEDS: Multivitamins/Minerals TAB PO SCH (08:20)
[2019-03-02] MEDS: Metoprolol Succinate XL TAB* 50 MG PO SCH (08:20)
[2019-03-02] MEDS: Vancomycin CAP* 125 MG CAP PO SCH ×4 (08:21→22:48)
[2019-03-02] MEDS: Methenamine Hippurate TAB* 1 GM TAB PO SCH ×2 (08:21→22:48)
[2019-03-02] MEDS: Nystatin TOP POWDER* 15 GM BTL TOPICAL SCH ×2 (08:23→22:58)
[2019-03-02] MEDS: Rivaroxaban TAB(*) 20 MG TAB PO SCH (20:12)
--- NOTE | 2019-03-02 23:10 | DS ---
AMENDED REPORT NOW INCLUDES DESIGNATED COSIGNER - ESIGNED BEFORE ADJUSTMENTS CC: Dr. Juliana Reeves; Dr. Aikn Allan, Infectious Disease.* DISCHARGE SUMMARY: DATE OF ADMISSION: 02/26/19. DATE OF DISCHARGE: 03/03/19. PRIMARY CARE PROVIDER: Dr. Juliana Reeves. MY ATTENDING FOR TODAY: Dr. Jong Rodriguez.* (DICTATED BY SIMONE HERNANDEZ NP) HOSPITAL COURSE: Please refer to admitting H and P dated 02/24/19, but in short , Ms. Scott is a 73-year-old female with past medical history significant for progressive multiple sclerosis with history of neurogenic bladder. She has a chronic indwelling Chaudhari catheter and a history of recurrent urinary tract infections. She also has a chronic knee infection and recent Clostridium difficile infection. The patient presented to the emergency department from [facility] after reports of some altered mental status. The patient did have history of encephalopathic changes secondary to chronic urinary tract infections. The patient also was noted to have some foul smelling stools and given her history of C. diff, the patient was meeting sepsis criteria with tachycardia, fever and infectious source with C. diff and possible urinary tract infection. Rhythm was atrial fibrillation. Altered mental status. She did not have an elevated lactic acid; however, with the C. diff infection and possibility for acute on chronic urinary tract infection, she was admitted for IV fluids and IV antibiotics. The patient was then admitted. She was seen by Infectious Disease, who knew the patient also from the chronic wound on her lower extremity. Also she does have a chronic sacral decubitus ulcer. Because the patient had multiple areas that could be possibly be causing her sepsis, she was managed with broad spectrum antibiotics initially. Her urine culture then came back with mixed papi, possibly contaminated because she does frequently have these findings in her urine. Her antibiotics were then stopped and then a repeat culture was obtained. Blood cultures were negative. She did have an exchange of her Chaudhari catheter. Again, ID was consulted. She was started on Hiprex for prophylaxis. In terms of her C. diff colitis infection, she was having multiple liquid stools. She was initially treated for C. diff on 02/02/19. At some point, oral vancomycin was stopped. This is her third recurrence of Clostridium difficile. She was started on oral vancomycin in a taper dose fashion and she has responded well. The patient has been diarrhea free for 48 hours. In terms of her atrial fibrillation, she responded well to IV fluids. She was maintained on rate control. She is in chronic Afib and no signs of RVR. The chronic infection of her right knee was not an issue. X-ray did not reveal any osteomyelitis and was managed with local wound care. Case management was involved very closely with the patient because she does not have any family in the area. She has responded very well to antibiotics and supportive care. The patient's family has decided to bring the patient to [place] where she will reside in a facility called [facility] in the [place], [place] area. The patient was medically stabilized for discharge on 03/02/19. She will be transported on the morning of 03/03/19. The family has arranged for this facility for her to reside in. DISCHARGE DIAGNOSES: 1. Sepsis present on admission secondary to C. diff colitis. 2. C. diff colitis, see above. 3. Atrial fibrillation, chronic. 4. Multiple sclerosis at baseline. 5. Chronic urinary tract infection. 6. Chronic infection of the right knee, stable. 7. Chronic sacral wounds, currently stable and at baseline. MEDICATIONS FOR DISCHARGE: Include: 1. Nystatin topical powder applied 2 times daily as needed. 2. Docusate 100 mg p.o. b.i.d. as needed. 3. Tylenol 650 mg p.o. q.4 hours as needed. 4. Zoloft 50 mg p.o. daily. 5. Xarelto 20 mg p.o. daily. 6. Baclofen 50 mg p.o. 2 times a day. 7. K-Clor 10 mEq p.o. daily. 8. Multivitamins with minerals 1 tab p.o. daily. 9. Metoprolol succinate XL 50 mg p.o. daily. 10. Levothyroxine 175 mcg p.o. daily. 11. Gabapentin 200 mg p.o. daily. 12. Alendronate 70 mg p.o. on Tuesday. 13. Vancomycin 125 mg by mouth 4 times a day for 2 weeks followed by 3 times a day for 4 weeks, then twice a day for 2 weeks and then once daily for 2 weeks and then once every other day for 2 weeks, then discontinue vancomycin. 14. Hiprex tablets 1 g p.o. q.12 hours. REVIEW OF SYSTEMS: The patient denies any fever, fatigue, or chills. No chest pain. No shortness of breath. No nausea or vomiting. No abdominal pain. No joint pain. She does have general weakness in the lower extremities secondary to her MS, this is her baseline, but there are no further acute constitutional complaints. PHYSICAL EXAMINATION: The patient is awake and alert. No acute distress. Vital Signs: Blood pressure 109/55, heart rate 75, respiratory rate 18, O2 saturation 95% on room air with temperature 97.7. HEENT: The patient is atraumatic, normocephalic. PERRLA, nonicteric sclerae. Oral mucosa is moist. Tongue is midline. Neck is supple, nontender. No JVD noted. No carotid bruits auscultated. Cardiovascular: S1, S2 present. Rate and rhythm are irregular. No murmurs, gallops, or rubs noted. Lungs are clear bilaterally to auscultation with no wheezing, rhonchi, or rales. Abdomen: Soft, nontender and nondistended. Positive bowel sounds in all 4 quadrants. : Chaudhari catheter is draining clear yellow urine. Musculoskeletal: There is no clubbing and no cyanosis, no edema. She does have chronic wound in the right lower extremity at baseline. The dressing is clean, dry and intact. She does have a sacral wound that is currently dressed, not currently visualized. Please refer to progress notes by wound care for wound status. Neurologic: She is alert and oriented x3. She does have her baseline changes secondary to multiple sclerosis. Otherwise, no further focal deficits are noted. Psychiatric: She is calm, cooperative and appropriate. LABORATORY DATA: WBC 7.3, RBC 4.28, hemoglobin 11.5, hematocrit 35, platelets 207,000. Sodium 140, potassium 3.6, chloride 110, CO2 of 26, BUN 11, creatinine 0.46, GFR 133.2, glucose 87, calcium 8.8, magnesium 2.0. Urinalysis on 02/26/19 shows yellow cloudy urine, pH of 5.0. Urine specific gravity 1.019 , urine protein 1+, ketones negative, 3+ blood, negative for nitrites, negative for bilirubin, 3+ leukocyte esterase, 3+ WBCs, 3+ RBCs, present squamous epithelial cells, absent bacteria, absent glucose. Serology: Influenza A and B were negative. IMAGING: X-ray of the knee dated 02/26/19 right knee shows right knee megaprosthesis in place without change or appearance compared with prior exam. No periprosthetic fracture or evidence of prosthesis loosening. No periosteal reaction or focal osteolysis evident to raise concern for osteomyelitis. There is dystrophic calcification along the course of the quadriceps tendon without gross change, probable small joint effusion, resolution from previous gaps within the joint soft tissue about the knee, anterior soft tissue swelling without any significant change. Chest x-ray dated 02/26/19 shows no active cardiopulmonary disease. DIET: Heart healthy as tolerated with no restrictions. ACTIVITY: Progress activity as tolerated. We greatly encourage physical therapy and occupational therapy, offloading to the sacral wounds with local wound care. We do recommend Infectious Disease follow the patient while she is completing her course of vancomycin. Also to monitor sacral wounds and the right lower extremity wound. FOLLOWUP: Again, the patient should be following up with ID and whoever the medical attending will be at her new facility. She otherwise has no restrictions. In terms of her cardiac status, her atrial fibrillation is stable. At some point, she may want to follow up with Cardiology; however, at this point she has no acute cardiac events that will require immediate intervention. We do recommend she stay on her beta-leslie and on her anticoagulation. The patient will be discharged in stable condition to her new facility. This plan has been communicated to the patient's family in [place]. They are in agreement with the plan of care and have agreed to have the patient transported out of state. Case management has been working very closely with this discharge plan of care. DISPOSITION: The patient will be discharged by transport service to [facility] in [place], [place]. Attending at [facility] is unknown. She is in stable condition for transport today. TIME SPENT: Approximately 45 minutes on discharge planning. SIMONE HERNANDEZ, ANURADHA [id number]/[facility] #: [id number] [place]
[2019-03-03] MEDS: Levothyroxine TAB* 175 MCG TAB PO SCH (05:46)
[2019-03-03] MEDS: Potassium Chlor TAB* 20 MEQ TAB.ER PO SCH (08:19)
[2019-03-03] MEDS: Metoprolol Succinate XL TAB* 50 MG PO SCH (08:20)
[2019-03-03] MEDS: Gabapentin CAP(*) 100 MG PO SCH (08:20)
[2019-03-03 08:21] VITALS: BP 108/77
[2019-03-03] MEDS: Baclofen TAB* 10 MG PO SCH (08:21)
[2019-03-03] MEDS: Multivitamins/Minerals TAB PO SCH (08:22)
[2019-03-03] MEDS: DOXYcycline CAP(*) 100 MG PO SCH (08:22)
[2019-03-03] MEDS: Sertraline* 50 MG TAB PO SCH (08:22)
[2019-03-03] MEDS: Vancomycin CAP* 125 MG CAP PO SCH (08:22)
[2019-03-03] MEDS: Methenamine Hippurate TAB* 1 GM TAB PO SCH (08:23)
[2019-03-03] MEDS: Nystatin TOP POWDER* 15 GM BTL TOPICAL SCH (08:27)
[2019-03-03] MEDS ORDERED: Ondansetron ODT TAB* 4 MG PO ONE (09:12)
[2019-03-03] MEDS: Acetaminophen TAB* 325 MG PO PRN (09:16)
== END 2019-03-03 09:33 | DRG 698 ==
LOC: ED 18:12 → MEDTELE 22:11 → OBSVTOIN 02-26 09:43
PROVIDERS: ADMIT Internal Medicine; ATTEND Internal Medicine
PROC: 0T2BX0Z Change Drainage Device in Bladder, External Approach (ICD-10-PCS; principal; 2019-02-26)
DX: T83.511A Infection and inflammatory reaction due to indwelling urethral catheter, initial encounter (principal); A41.9 Sepsis, unspecified organism; A04.71 Enterocolitis due to Clostridium difficile, recurrent; E89.0 Postprocedural hypothyroidism; I25.10 Atherosclerotic heart disease of native coronary artery without angina pectoris; E78.00 Pure hypercholesterolemia, unspecified; I10 Essential (primary) hypertension; J45.909 Unspecified asthma, uncomplicated; N31.9 Neuromuscular dysfunction of bladder, unspecified; M19.90 Unspecified osteoarthritis, unspecified site; M19.042 Primary osteoarthritis, left hand; M19.041 Primary osteoarthritis, right hand; Z96.651 Presence of right artificial knee joint; F03.90 Unspecified dementia, unspecified severity, without behavioral disturbance, psychotic disturbance, mood disturbance, and anxiety; G35 Multiple sclerosis; L89.152 Pressure ulcer of sacral region, stage 2; F41.9 Anxiety disorder, unspecified; S80.911A Unspecified superficial injury of right knee, initial encounter; Y73.1 Therapeutic (nonsurgical) and rehabilitative gastroenterology and urology devices associated with adverse incidents; I48.2 Chronic atrial fibrillation; F32.9 Major depressive disorder, single episode, unspecified; Z85.850 Personal history of malignant neoplasm of thyroid; Z87.891 Personal history of nicotine dependence; Z98.42 Cataract extraction status, left eye; Z88.8 Allergy status to other drugs, medicaments and biological substances; Z98.41 Cataract extraction status, right eye; Z82.49 Family history of ischemic heart disease and other diseases of the circulatory system; Y92.9 Unspecified place or not applicable; Z79.01 Long term (current) use of anticoagulants
CPT/HCPCS: 36415; 71045; 80048; 80053; 81003; 81015; 82550; 83605; 83735; 83880; 84443; 84484; 85025; 85610; 85652; 85730; 86140; 87040; 87086; 87493; 93005; 99285; A9270-GY; G8978-GP-CK; G8979-GP-CK; G8980-GP-CK; J0692; J2543; J3475